=== PATIENT | female | born 1940 | race Caucasian/White ===

== ENCOUNTER 2017-04-01 09:58 | Day surgery (SDC) | payer MEDICARE, BC ==
[2017-04-01] MEDS ORDERED: Sodium Chloride 0.9% 10 ML Syringe FLUSH PRN (10:30)
[2017-04-01] MEDS ORDERED: Budesonide 0.5 MG/2 ML Neb Susp NEB ONE (10:59)
[2017-04-01] MEDS ORDERED: Lactated Ringers 1,000 ML IV SCH ×2 (11:00→13:15)
[2017-04-01] MEDS ORDERED: Propofol 200 MG/20 ML SDV IV ONE (11:30)
[2017-04-01] MEDS ORDERED: Ketorolac 30 MG/ML SDV IVPUSH ONE (11:30)
[2017-04-01] MEDS ORDERED: fentaNYL 100 MCG/2 ML SDV IV ONE (11:30)
[2017-04-01] MEDS ORDERED: Ondansetron 4 MG/2 ML SDV IVPUSH ONE (11:30)
[2017-04-01] MEDS ORDERED: Midazolam 1 MG/ML 2 ML SDV IV ONE (11:30)
[2017-04-01] MEDS ORDERED: Ketamine 500 mg/10 ML MDV IV ONE (11:30)
[2017-04-01] MEDS ORDERED: Bupivacaine 0.5% 30 ML SDV ONE (11:56)
[2017-04-01] MEDS ORDERED: Acetaminophen/HYDROcodone 325-10 MG Tab PO PRN (13:10)
[2017-04-01 15:01] VITALS: BP 128/74
--- NOTE | 2017-04-01 22:08 | OR ---
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 PROCEDURE PERFORMED: Fusion right fourth toe PIP joint. INDICATIONS: This patient had this joint fused before in December and did well; however, she stubbed her toe and bent the K-wire in her toe. This caused a deformity to her toe and some pain, so we removed it. Unfortunately, she developed a painful nonunion in this area. We discussed the surgery as far as fusion. She understands it may not heal and it may not alleviate her pain completely, but it is uncomfortable for her now. Therefore, we will proceed with surgery. The risks, complications, prognosis, expectations, and postoperative course is explained to the patient. DESCRIPTION OF PROCEDURE: The patient was taken to the operating room after 1 g of vancomycin was given. She was then carefully positioned on the operative table. A light anesthetic was administered and the patient had a metatarsal block of the right fourth metatarsal distally ,performed. This was done after a sterile ChloraPrep had been performed from the tip of the toes up to the knee where the tourniquet was placed slightly inferior to the knee. Tourniquet inflated to 200 mmHg pressure. After the sterile ChloraPrep and draping procedure, the patient had previous incision dissected through and hemostasis was achieved utilizing electrocautery. Capsule was exposed, opened up, and then we denuded the bone both proximally and distally around the PIP joint. The patient then had the medullary cavity drilled both proximally and distally to get good blood flow to the area of grafting. We took some of her own bone with regular freeze dried cancellous bone and placed it across the PIP joint after the 0.062 K-wire had been inserted. We had good circumferential grafting all way around the K-wire. A 3-0 Vicryl was placed in the subcutaneous tissue, 2-0 nylon for closure of the skin, and Xeroform, 2 x 2s, and 2-inch Mojgan applied. The patient tolerated the procedure well. No complications were encountered. ESTIMATED BLOOD LOSS: Approximately 5 to 7 mL. /[id number] JUAREZ/LUIS LOBATO
== END 2017-04-01 14:46 | disposition home or self-care (01) ==
LOC: FB.SDS 09:58
PROVIDERS: ATTEND Orthopaedic Surgery
DX: M20.41 Other hammer toe(s) (acquired), right foot (principal); G25.81 Restless legs syndrome; I48.91 Unspecified atrial fibrillation; I10 Essential (primary) hypertension; K21.9 Gastro-esophageal reflux disease without esophagitis; J45.20 Mild intermittent asthma, uncomplicated; Z87.891 Personal history of nicotine dependence
CPT/HCPCS: 28285; 94664; C1713; J1885; J2250; J2405; J2704; J3010; J3370; J7050; J7120; 01462-QZ

== ENCOUNTER 2021-03-15 14:04 | Emergency (ER) | payer MEDICARE ==
[2021-03-15] MEDS ORDERED: Sodium Chloride 0.9% 1,000 ML IV SCH (16:00)
--- NOTE | 2021-03-15 18:40 | EDM.PDOC ---
ED HPI GENERAL MEDICAL PROBLEM - General Chief Complaint: Genitourinary Problem Time Seen by Provider: 03/15/21 16:45 Source of Information: Reports: Patient History Limitations: Reports: No Limitations - History of Present Illness INITIAL COMMENTS - FREE TEXT/NARRATIVE: Patient presented to the ED because of weakness x 2 days. There is no N/V/D. No fever chills. She was diagnosed with UTI and treated with Cipro. - Related Data Allergies Allergy/AdvReac Type Severity Reaction Status Date / Time morphine Allergy Intermediate Hives Verified 04/01/17 10:43 Penicillins Allergy Hives Verified 04/01/17 10:43 amitriptyline AdvReac Intermediate Hallucinati Verified 04/01/17 10:43 ons Home Meds: Home Meds Cyanocobalamin (Vitamin B-12) [Vitamin B-12] 1,000 mcg PO DAILY 05/18/16 [History] Gabapentin [Neurontin] 600 mg PO TID 05/18/16 [History] Hydrochlorothiazide 25 mg PO DAILY 05/18/16 [History] Metoclopramide HCl 10 mg PO TID 05/18/16 [History] Multivitamin with Minerals [Multivitamins with Minerals] 1 tab PO DAILY 05/18/16 [History] Omeprazole 20 mg PO DAILY 05/18/16 [History] Oxybutynin 5 mg PO BID 05/18/16 [History] Potassium Chloride [Klor-Con M20] 20 meq PO TID 05/18/16 [History] Sertraline [Zoloft] 25 mg PO DAILY 05/18/16 [History] Spironolactone [Aldactone] 25 mg PO DAILY 05/18/16 [History] atenoloL [Atenolol] 50 mg PO DAILY 05/18/16 [History] Warfarin [Coumadin] 5 mg PO MOWEFRSA 05/19/16 [History] Albuterol [IJD: Ventolin HFA] 2 puff INH Q4H PRN 12/04/16 [History] Albuterol [Proventil Neb Soln] 3 ml INH Q2H PRN 12/04/16 [History] Alum Hydrox/Mag Hydrox/Simeth [Maalox Advanced] 30 ml PO Q4H PRN 12/04/16 [History] Budesonide [Pulmicort] 2 ml IH BID 12/04/16 [History] Cholecalciferol (Vitamin D3) [Vitamin D3] 2,000 unit PO DAILY 12/04/16 [History] Folic Acid 1 mg PO DAILY 12/04/16 [History] Warfarin [Coumadin] 7.5 mg PO SuTuTh tablet 12/10/16 [Rx] Past Medical History HEENT History: Reports: Other (See Below) Other HEENT History: Wears glasses. Cardiovascular History: Reports: Afib, Heart Failure, Hypertension Respiratory History: Reports: Asthma Gastrointestinal History: Reports: Colon Polyp, GERD Other Gastrointestinal History: PT HAS A COLOSTOMY AT PRESENT TIME. Genitourinary History: Other Genitourinary History: PT HAS STRESS INCONT. Musculoskeletal History: Reports: Other (See Below) Other Musculoskeletal History: SPINAL STENOSIS Neurological History: Reports: Neuropathy, Peripheral, Other (See Below) Other Neuro History: RESTLESS LEG SYNDROME Psychiatric History: Reports: Depression Endocrine/Metabolic History: Reports: Hypothyroidism, Obesity/BMI 30+ Hematologic History: Reports: Blood Transfusion(s) Immunologic History: Reports: Other (See Below) Other Immunologic History: MRSA Dermatologic History: Reports: Venous Stasis Dermatitis, Other (See Below) Other Dermatologic History: Sore to R ankle. - Infectious Disease History Infectious Disease History: Reports: Chicken Pox, Measles, Mumps - Past Surgical History Respiratory Surgical History: Reports: Tracheostomy GI Surgical History: Reports: Cholecystectomy, Colon, Colonoscopy, Colostomy, EGD Female Surgical History: Reports: Hysterectomy, Oophorectomy, Tubal Ligation Musculoskeletal Surgical History: Reports: Joint Replacement, Other (See Below) Other Musculoskeletal Surgeries/Procedures:: EPIDURAL STEROID INJECTION Social & Family History - Family History Family Medical History: No Pertinent Family History - Caffeine Use Caffeine Use: Reports: Coffee, Tea ED ROS GENERAL - Review of Systems Review Of Systems: See Below Constitutional: Reports: No Symptoms HEENT: Reports: No Symptoms Respiratory: Reports: No Symptoms Cardiovascular: Reports: No Symptoms Endocrine: Reports: No Symptoms GI/Abdominal: Reports: No Symptoms : Reports: No Symptoms Musculoskeletal: Reports: No Symptoms Skin: Reports: No Symptoms Neurological: Reports: No Symptoms ED EXAM, GENERAL - Physical Exam Exam: See Below Exam Limited By: No Limitations General Appearance: Alert, No Apparent Distress Ears: Normal External Exam, Normal Canal Nose: Normal Inspection, Normal Mucosa, No Blood Throat/Mouth: Normal Inspection, Normal Lips, Normal Teeth Head: Atraumatic, Normocephalic Neck: Normal Inspection, Supple, Non-Tender, Full Range of Motion Respiratory/Chest: No Respiratory Distress, Lungs Clear, Normal Breath Sounds Cardiovascular: Normal Peripheral Pulses, Regular Rate, Rhythm, No Edema, No Gallop, No JVD, No Murmur GI/Abdominal: Normal Bowel Sounds, Soft, Non-Tender, No Organomegaly Extremities: Normal Inspection, Normal Range of Motion, Non-Tender Course - Vital Signs Text/Narrative:: Lab result was discussed with patient and her daughter NS 1 L bolus - Orders/Labs/Meds Orders: Active Orders 24 hr Category Date Time Status Sodium Chloride 0.9% [Normal Saline] 1,000 ml Med 03/15/21 16:00 Active IV ASDIRECTED Medication Orders Sodium Chloride (Normal Saline) 1,000 mls @ 999 mls/hr IV ASDIRECTED JUAREZ Last Admin: 03/15/21 16:45 Dose: 999 mls/hr Documented by: JSOE D Labs: Laboratory Tests 03/15/21 03/15/21 03/15/21 Range/Units 14:45 14:45 18:23 WBC 10.4 H (3.0-10.3) x10-3/uL RBC 4.08 (3.60-5.20) x10(6)uL Hgb 13.6 (11.4-15.5) g/dL Hct 40.7 (34.2-48.2) % MCV 99.8 (76.7-100.5) fL MCH 33.3 (23.9-33.9) pg MCHC 33.3 (31.9-34.8) g/dL RDW 14.6 (12.3-16.5) % Plt Count 217 (151-488) x10(3)uL MPV 8.7 (7.1-12.4) fL Neut % (Auto) 70.4 (30.8-76.2) % Lymph % (Auto) 16.8 L (18.4-52.1) % [place] % (Auto) 10.7 (4.4-15.7) % Eos % (Auto) 1.3 (0.6-8.1) % Baso % (Auto) 0.8 (0.2-1.5) % Neut # (Auto) 7.3 H (1.5-6.3) x10-3/uL Lymph # (Auto) 1.7 (1.0-4.4) x10-3/uL [place] # (Auto) 1.1 H (0.3-1.0) x10-3/uL Eos # (Auto) 0.1 (0.0-0.8) x10-3/uL Baso # (Auto) 0.1 (0.0-0.1) x10-3/uL Sodium 137 (135-145) mmol/L Potassium 4.6 (3.5-5.3) mmol/L Chloride 100 (100-110) mmol/L Carbon Dioxide 26 (21-32) mmol/L BUN 31 H D (7-18) mg/dL Creatinine 1.6 H (0.55-1.02) mg/dL Est Cr Clr Drug Dosing TNP Estimated GFR (MDRD) 31 L (>60) BUN/Creatinine Ratio 19.4 (9-20) Glucose 116 (80-116) mg/dL Calcium 9.2 (8.6-10.2) mg/dL Urine Color Yellow (YELLOW) Urine Appearance Clear (CLEAR) Urine pH 5.0 (5.0-6.5) Ur Specific [place] 1.020 (1.010-1.025) Urine Protein Negative (NEGATIVE) mg/dL Urine Glucose (UA) Normal (NORMAL) mg/dL Urine Ketones 15 H (NEGATIVE) mg/dL Urine Occult Blood Negative (NEGATIVE) Urine Nitrite Negative (NEGATIVE) Urine Bilirubin Negative (NEGATIVE) Urine Urobilinogen Normal (NEGATIVE) mg/dL Ur Leukocyte Esterase Negative (NEGATIVE) Urine RBC 0-5 (0-5) Urine WBC 0-5 (0-5) Ur Squamous Epith Cells Few H (NS,R,O) Urine Bacteria Few H (NS) Meds: Medications Generic Name Dose Route Start Last Admin Trade Name Freq PRN Reason Stop Dose Admin Sodium Chloride 1,000 mls @ 999 mls/hr 03/15/21 16:00 03/15/21 16:45 Normal Saline IV 999 mls/hr ASDIRECTED JUAREZ Administration Departure - Departure Time of Disposition: 19:00 Disposition: Home, Self-Care 01 Condition: Good Clinical Impression: Dehydration - Discharge Information Instructions: Dehydration, Adult, [id number] Referrals: Sheron Wadsworth MD [Primary Care Provider] - Forms: ED Department Discharge Additional Instructions: Please read discharge instructions on dehydration Increase oral fluids at least 2liters a day Do not take your HCTZ/Hydroclorothiazide for 3 days Follow up as needed - My Orders Last 24 Hours: My Active Orders 03/15/21 16:00 Sodium Chloride 0.9% [Normal Saline] 1,000 ml IV ASDIRECTED - Assessment/Plan Last 24 Hours: My Active Orders 03/15/21 16:00 Sodium Chloride 0.9% [Normal Saline] 1,000 ml IV ASDIRECTED
[2021-03-15 19:45] VITALS: BP 78/43; PULSE 100
== END 2021-03-15 19:20 | disposition home or self-care (01) ==
LOC: FB.ED 14:04
DX: E86.0 Dehydration (principal); I11.0 Hypertensive heart disease with heart failure; I50.9 Heart failure, unspecified; I48.91 Unspecified atrial fibrillation; E03.9 Hypothyroidism, unspecified; E66.9 Obesity, unspecified; J45.909 Unspecified asthma, uncomplicated; Z88.0 Allergy status to penicillin; Z88.1 Allergy status to other antibiotic agents; Z88.8 Allergy status to other drugs, medicaments and biological substances; Z68.30 Body mass index [BMI] 30.0-30.9, adult; Z79.899 Other long term (current) drug therapy
CPT/HCPCS: 36415; 80048; 81001; 85025; 99285; J7030

== ENCOUNTER 2021-03-23 10:32 | Emergency (ER) | payer MEDICARE ==
--- NOTE | 2021-03-23 11:34 | EDM.PDOC ---
ED HPI GENERAL MEDICAL PROBLEM - General Chief Complaint: Lower Extremity Injury/Pain Stated Complaint: LEG INJURY Time Seen by Provider: 03/23/21 10:55 Source of Information: Reports: Patient History Limitations: Reports: No Limitations - History of Present Illness INITIAL COMMENTS - FREE TEXT/NARRATIVE: c/o LLE pain and unable to walk 3d ago a friend drove pt to clinic, her LLE got wedged between the dashboard the car frame as she has considerable inc'd girth of her thighs d/t central obesity, it 12 people and one hour to extract her, she has been able to walk with her c ane but it has been painful, today she could not get out of bed SH: 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, she use a cane, she ordered a walker 1m ago which has not arrived, she lives in an apartment, she is not willing to move to [place] as she "has a 4-legged friend" the exam of her leg is unremarkable, no ecchymosis/induration ED visit: she was send in ED 1w ago d/t "confusion" and was dx with dehydration and tx with 1 liter NS and HCTZ was held x 3d, pt oriented today (name, place, president, month, year, day--not date) PMH: ostomy bag 2011 which pt says was d/t polyps and that she has only 3' of her colon left PSH: has had L TKR and R THR MEDS: not taken her diuretic in past 3d, says she does not want to get out of a chair L leg Pain Score (Numeric/FACES): 8 - Related Data Allergies Allergy/AdvReac Type Severity Reaction Status Date / Time morphine Allergy Intermediate Hives Verified 03/23/21 10:41 Penicillins Allergy Hives Verified 03/23/21 10:41 amitriptyline AdvReac Intermediate Hallucinati Verified 03/23/21 10:41 ons Home Meds: Home Meds Cyanocobalamin (Vitamin B-12) [Vitamin B-12] 1,000 mcg PO DAILY 05/18/16 [History] Gabapentin [Neurontin] 600 mg PO TID 05/18/16 [History] Hydrochlorothiazide 25 mg PO DAILY 05/18/16 [History] Metoclopramide HCl 10 mg PO TID 05/18/16 [History] Multivitamin with Minerals [Multivitamins with Minerals] 1 tab PO DAILY 05/18/16 [History] Omeprazole 20 mg PO DAILY 05/18/16 [History] Oxybutynin 5 mg PO BID 05/18/16 [History] Potassium Chloride [Klor-Con M20] 20 meq PO TID 05/18/16 [History] Sertraline [Zoloft] 25 mg PO DAILY 05/18/16 [History] Spironolactone [Aldactone] 25 mg PO DAILY 05/18/16 [History] atenoloL [Atenolol] 50 mg PO DAILY 05/18/16 [History] Warfarin [Coumadin] 5 mg PO MOWEFRSA 05/19/16 [History] Albuterol [IJD: Ventolin HFA] 2 puff INH Q4H PRN 12/04/16 [History] Albuterol [Proventil Neb Soln] 3 ml INH Q2H PRN 12/04/16 [History] Alum Hydrox/Mag Hydrox/Simeth [Maalox Advanced] 30 ml PO Q4H PRN 12/04/16 [History] Budesonide [Pulmicort] 2 ml IH BID 12/04/16 [History] Cholecalciferol (Vitamin D3) [Vitamin D3] 2,000 unit PO DAILY 12/04/16 [History] Folic Acid 1 mg PO DAILY 12/04/16 [History] Warfarin [Coumadin] 7.5 mg PO SuTuTh tablet 12/10/16 [Rx] traMADol [Ultram] 50 mg PO QID #20 tab 03/23/21 [Rx] Past Medical History HEENT History: Reports: Other (See Below) Other HEENT History: Wears glasses. Cardiovascular History: Reports: Afib, Heart Failure, Hypertension, SOB on Exertion Respiratory History: Reports: Asthma Gastrointestinal History: Reports: Colon Polyp, Diverticulosis, GERD Other Gastrointestinal History: PT HAS A COLOSTOMY AT PRESENT TIME. Genitourinary History: Reports: Urinary Incontinence Other Genitourinary History: PT HAS STRESS INCONT. DIRECT CARE PROVIDER History: Reports: Other DIRECT CARE PROVIDER History: Musculoskeletal History: Reports: Arthritis, Back Pain, Chronic, Other (See Below) Other Musculoskeletal History: SPINAL STENOSIS, hx bilat fx thumbs Neurological History: Reports: Migraines, Neuropathy, Peripheral, Other (See Below) Other Neuro History: RESTLESS LEG SYNDROME Psychiatric History: Reports: Depression Endocrine/Metabolic History: Reports: Hypothyroidism, Obesity/BMI 30+ Hematologic History: Reports: Anticoagulation Therapy, Blood Transfusion(s) Immunologic History: Reports: Other (See Below) Other Immunologic History: MRSA Dermatologic History: Reports: Venous Stasis Dermatitis Other Dermatologic History: hx sore to R ankle. - Infectious Disease History Infectious Disease History: Reports: Chicken Pox, Measles, MRSA, Mumps - Past Surgical History HEENT Surgical History: Reports: None Respiratory Surgical History: Reports: Tracheostomy GI Surgical History: Reports: Appendectomy, Cholecystectomy, Colon, Colonoscopy, Colostomy, EGD Female Surgical History: Reports: Hysterectomy, Oophorectomy, Tubal Ligation Musculoskeletal Surgical History: Reports: Carpal Tunnel, Hip Replacement, Knee Replacement, Shoulder Surgery, Other (See Below) Other Musculoskeletal Surgeries/Procedures:: EPIDURAL STEROID INJECTION, L knee replacement, R hip replacement, L shoulder rotator cuff, bilat carpal tunnel x 4 Social & Family History - Family History Family Medical History: No Pertinent Family History - Tobacco Use Tobacco Use Status *Q: Former Tobacco User Years of Tobacco use: 20 Used Tobacco, but Quit: Yes Month/Year Tobacco Last Used: 1994 - Caffeine Use Caffeine Use: Reports: Coffee, Tea - Recreational Drug Use Recreational Drug Use: No Review of Systems - Review of Systems Review Of Systems: See Below Constitutional: Reports: No Symptoms Eyes: Reports: No Symptoms Ears: Reports: No Symptoms Nose: Reports: No Symptoms Mouth/Throat: Reports: No Symptoms Respiratory: Reports: No Symptoms Cardiovascular: Reports: No Symptoms GI/Abdominal: Reports: No Symptoms Genitourinary: Reports: No Symptoms Musculoskeletal: Reports: Leg Pain Skin: Reports: No Symptoms Neurological: Reports: Gait Disturbance Psychiatric: Reports: No Symptoms ED EXAM, GENERAL - Physical Exam Exam: See Below Exam Limited By: No Limitations General Appearance: Alert, WD/WN, Other (morbid obesity) Ears: Hearing Grossly Normal Nose: Normal Inspection Throat/Mouth: Normal Inspection Head: Atraumatic Neck: Normal Inspection, Supple Respiratory/Chest: No Respiratory Distress, Lungs Clear, Chest Non-Tender Cardiovascular: Regular Rate, Rhythm, Other (2/6 THERESE at LSB) GI/Abdominal: Soft, Non-Tender, Other (very obese, ostomy bag LLQ, old midline scar) Back Exam: Normal Inspection. No: CVA Tenderness (R), CVA Tenderness (L), Muscle Spasm Extremities: Other (trace pretib edema, dry skin pretib area with hyperkeratosis L>R, L knee/hip appear unremarkable, allows ROM altho has pain referable to her L medial thigh, no induration) Neurological: Alert, Oriented, CN II-XII Intact, No Motor/Sensory Deficits Skin Exam: Warm, Dry, Intact, Other (there is 1+ point tender to palpation of L mid thigh medially without cords or ecchymosis) Lymphatic: No Adenopathy Course - Vital Signs Last Recorded V/S: Last Vital Signs Temp 36.2 C 03/23/21 10:32 Pulse 80 03/23/21 10:32 Resp 20 03/23/21 10:32 BP 127/80 03/23/21 10:32 Pulse Ox 96 03/23/21 10:32 - Orders/Labs/Meds Orders: Active Orders 24 hr Category Date Time Status Hip Min 2V or 3V Lt [CR] Stat Exams 03/23/21 11:27 Ordered Knee 3V Lt [CR] Stat Exams 03/23/21 11:26 Ordered C-REACTIVE PROTEIN [CHEM] Stat Lab 03/23/21 11:26 Ordered CBC WITH AUTO DIFF [HEME] Stat Lab 03/23/21 11:26 Ordered COMPREHENSIVE METABOLIC PN,CMP [CHEM] Stat Lab 03/23/21 11:26 Ordered CREATINE KINASE,CK [CHEM] Stat Lab 03/23/21 11:26 Ordered - Re-Assessments/Exams Free Text/Narrative Re-Assessment/Exam: 03/23/21 13:51 d/w home health nurse who is checking with Ian re getting the walker that was ordered 1m ago bro here, advised to [facility] to get a [facility]er walker until her new one arrives pt currently taking APAP q4h, will add tramadol 50 mg qid x 5d and ibuprofen 400 mg qid x 3d (pt knows she cannot take it longer on account of her kidneys) pt is able to wt bear when she used the bedside commode prelim ED read of L knee XR shows intact prosthesis prelim ED read of L hip XR shows moderate DJD with preservation of joint space no fx's home health nurse sees pt 2x/wk, reports that pt is have MRI of her back at the end of this month for chronic back pain altho pt did not have c/o back pain here Departure - Departure Time of Disposition: 13:42 Disposition: Home, Self-Care 01 Condition: Good Clinical Impression: Contusion of left thigh, initial encounter, Left leg pain, Chronic renal insufficiency - Discharge Information *PRESCRIPTION DRUG MONITORING PROGRAM REVIEWED*: Yes *COPY OF PRESCRIPTION DRUG MONITORING REPORT IN PATIENT ADELE: No Prescriptions: traMADol [Ultram] 50 mg PO QID #20 tab Instructions: Contusion, Quadriceps Contusion Referrals: Sheron Wadsworth MD [Primary Care Provider] - Additional Instructions: Continue your regular medications. Even though the muscle is sore, there are no fractures of the bone and you may put weight on your leg. Use heat for 10 minutes every 2 hours (either heating pad or warm compress). For pain and inflammation, continue acetaminophen 2 tabs every 4-6 hours. For pain and inflammation, take ibuprofen 200 mg 2 tabs 4 times a day for 3 days. For pain, take tramadol 50 mg 1 tab 4 times a day for 5 days. Use a walker when on your feet. See your doctor in 5 days for further recommendations. Sepsis Event Note (ED) - Evaluation Sepsis Screening Result: No Definite Risk - Focused Exam Vital Signs: Vital Signs Temp Pulse Resp BP Pulse Ox 03/23/21 10:32 36.2 C 80 20 127/80 96 - My Orders Last 24 Hours: My Active Orders 03/23/21 11:26 Knee 3V Lt [CR] Stat C-REACTIVE PROTEIN [CHEM] Stat CBC WITH AUTO DIFF [HEME] Stat COMPREHENSIVE METABOLIC PN,CMP [CHEM] Stat CREATINE KINASE,CK [CHEM] Stat 03/23/21 11:27 Hip Min 2V or 3V Lt [CR] Stat - Assessment/Plan Last 24 Hours: My Active Orders 03/23/21 11:26 Knee 3V Lt [CR] Stat C-REACTIVE PROTEIN [CHEM] Stat CBC WITH AUTO DIFF [HEME] Stat COMPREHENSIVE METABOLIC PN,CMP [CHEM] Stat CREATINE KINASE,CK [CHEM] Stat 03/23/21 11:27 Hip Min 2V or 3V Lt [CR] Stat
[2021-03-23] MEDS ORDERED: traMADol 50 MG Tab PO ONE (13:45)
[2021-03-23] MEDS ORDERED: Acetaminophen 500 MG Tab PO ONE (13:45)
[2021-03-23] MEDS ORDERED: Ketorolac 30 MG/ML SDV IM ONE (13:45)
--- NOTE | 2021-03-23 15:31 | CR ---
INDICATION: Pain. LEFT HP: Three images of the left hip were obtained in frontal and lateral projections 03/23/21 - no comparisons. Mild hypertrophic degenerative changes noted at the hip joint with narrowing of the medial hip joint space suggested to a moderate degree. A definite acute fracture or dislocation was not identified. Bone density appeared to be fairly normal. IMPRESSION: No definite acute fracture or dislocation - osteoarthritis. If occult fracture site is suspected clinically, reexamination in 10-[address] examination, may be helpful for further evaluation. JENNIFERD
--- NOTE | 2021-03-23 15:35 | CR ---
INDICATION: LEFT KNEE: Frontal, lateral and patellofemoral sunrise views of the left knee were obtained 03/23/21 - no comparisons. Evidence of a total knee arthroplasty is noted which appears to be in good position and alignment without a definite complicating process except for suggestion of hypertrophic degeneratives off the lateral aspect of the patella. No other definite bone or joint abnormality was seen. If occult bony abnormality is suspected clinically, nuclear bone imaging may be helpful for further evaluation. MTDD
[2021-03-23 19:08] VITALS: BP 101/77; PULSE 89
== END 2021-03-23 16:12 | disposition home or self-care (01) ==
LOC: FB.ED 10:32
DX: S70.12XA Contusion of left thigh, initial encounter (principal); N28.9 Disorder of kidney and ureter, unspecified; I48.91 Unspecified atrial fibrillation; I11.0 Hypertensive heart disease with heart failure; I50.9 Heart failure, unspecified; K21.9 Gastro-esophageal reflux disease without esophagitis; Z87.891 Personal history of nicotine dependence; Z88.0 Allergy status to penicillin; Z88.6 Allergy status to analgesic agent; Z88.8 Allergy status to other drugs, medicaments and biological substances; Z79.01 Long term (current) use of anticoagulants; Z79.899 Other long term (current) drug therapy; Z20.822 Contact with and (suspected) exposure to COVID-19; W23.0XXA Caught, crushed, jammed, or pinched between moving objects, initial encounter
CPT/HCPCS: 36415; 73502; 73562; 80053; 82550; 85025; 86140; 96372; 99283; A9270; J1885; U0002

== ENCOUNTER 2021-04-18 08:18 | Inpatient (IN) | payer MEDICARE ==
[2021-04-18] MEDS ORDERED: Warfarin Sliding Scale PO SCH (13:00)
[2021-04-18] MEDS ORDERED: Diclofenac Sodium 1% Gel 100 GM Tube TOP PRN (13:06)
[2021-04-18] MEDS ORDERED: Albuterol 8 GM Inhaler INH PRN (13:06)
[2021-04-18] MEDS ORDERED: Budesonide 0.5 MG/2 ML Neb Susp INH PRN (13:06)
[2021-04-18] MEDS ORDERED: Emollient 454 GM Jar TOP PRN (13:06)
[2021-04-18] MEDS ORDERED: Warfarin 5 MG Tab PO SCH (13:15)
[2021-04-18] MEDS: Pregabalin 100 MG Cap PO SCH ×2 (14:00→20:39)
[2021-04-18] MEDS: Acetaminophen 650 MG Tab.ER PO SCH ×2 (14:00→20:36)
[2021-04-18] MEDS: Warfarin 5 MG Tab PO SCH (15:49)
[2021-04-18] MEDS: oxyCODONE 5 MG Tab PO PRN (16:14)
[2021-04-18] MEDS: Menthol/Methyl Salicylate 85 GM Tube TOP PRN (17:34)
[2021-04-18] MEDS: Potassium Chloride 20 MEQ Tab.ER PO SCH (17:34)
--- NOTE | 2021-04-18 17:44 | PCM.HP.2 ---
H&P History of Present Illness - General Date of Service: 04/18/21 Admit Problem/Dx: Admission Diagnosis/Problem Admission Diagnosis/Problem Spinal stenosis Source of Information: Patient, Old Records History Limitations: Reports: No Limitations - History of Present Illness Initial Comments - Free Text/Narative: This is a 81-year-old female patient with history of chronic low back pain. She was trying to get out of a car and slipped between the seat and the dashboard. She's very large lady so the ambulance was called to get out of there. After that she started having really bad back pain. She was seen at [facility] by Teddy Caraballo and ordered MRI of the chin the going to [place] by ambulance. She had MRI that showed spinal stenosis. She was transferred here for pain control and rehabilitation. She's having difficulty walking. She thinks she's heard someone in opacity she might of spinal stenosis but she does not recall. She had a series of epidural injections in the past. They want to cervically. Left Hip Pain Score (Numeric/FACES): 7 Low Back Pain Score (Numeric/FACES): 5 - Related Data Allergies/Adverse Reactions: Allergies Allergy/AdvReac Type Severity Reaction Status Date / Time morphine Allergy Intermediate Hives Verified 03/23/21 10:41 Penicillins Allergy Hives Verified 03/23/21 10:41 amitriptyline AdvReac Intermediate Hallucinati Verified 03/23/21 10:41 ons Home Medications: Home Meds Cyanocobalamin (Vitamin B-12) [Vitamin B-12] 1,000 mcg PO DAILY 05/18/16 [History] Omeprazole 40 mg PO ACBREAKFAST 05/18/16 [History] Potassium Chloride [Klor-Con M20] 20 meq PO BIDMEALS 05/18/16 [History] Spironolactone [Aldactone] 50 mg PO DAILY 05/18/16 [History] Warfarin [Coumadin] 5 mg PO ASDIRECTED 05/19/16 [History] Acetaminophen [Acetaminophen 8 Hour] 1,300 mg PO TID 04/18/21 [History] Albuterol [Ventolin HFA] 2 puff IN Q4H PRN 04/18/21 [History] Budesonide [Pulmicort] 0.5 mg IH BID PRN 04/18/21 [History] Cholecalciferol (Vitamin D3) [Vitamin D3] 50 mcg PO DAILY 04/18/21 [History] Cyclobenzaprine HCl 5 mg PO TID PRN 04/18/21 [History] Diclofenac Sodium [Voltaren] 2 - 4 gm TP QID PRN 04/18/21 [History] Docusate Sodium/Sennosides [Senna Plus] 2 each PO BID PRN 04/18/21 [History] Emollient [Vanicream] 1 applic TP BID PRN 04/18/21 [History] Enoxaparin [Lovenox] 135 mg SQ Q12H 04/18/21 [History] Formoterol [Perforomist] 20 mcg INH BID 04/18/21 [History] Furosemide 20 mg PO 1200 04/18/21 [History] Furosemide 40 mg PO 0800 04/18/21 [History] Lidocaine 4% [Aspercreme 4%] 3 patch TP Q24H 04/18/21 [History] Losartan [Cozaar] 25 mg PO DAILY 04/18/21 [History] Methyl Salicylate/Menthol [Icy Hot] 1 gm TP ASDIRECTED PRN 04/18/21 [History] Metoprolol Succinate [Toprol XL] 25 mg PO DAILY 04/18/21 [History] Montelukast [Singulair] 10 mg PO BEDTIME 04/18/21 [History] Multivitamins [Tab-A-Tara] 1 each PO DAILY 04/18/21 [History] Pregabalin [Lyrica] 100 mg PO TID 04/18/21 [History] Rosuvastatin [Crestor] 10 mg PO BEDTIME 04/18/21 [History] Tolterodine Tartrate [Tolterodine Tartrate ER] 4 mg PO DAILY 04/18/21 [History] Triamcinolone Acetonide [Triamcinolone Acetonide 0.1% Oint] 1 applic TOP BID 04/18/21 [History] oxyCODONE 5 - 10 mg PO Q4H PRN 04/18/21 [History] rOPINIRole [Requip] 1 mg PO BEDTIME 04/18/21 [History] Past Medical History HEENT History: Reports: Other (See Below) Other HEENT History: Wears glasses. Cardiovascular History: Reports: Afib, Heart Failure, Hypertension, SOB on Exertion Respiratory History: Reports: Asthma Gastrointestinal History: Reports: Colon Polyp, Diverticulosis, GERD Other Gastrointestinal History: PT HAS A COLOSTOMY AT PRESENT TIME. Genitourinary History: Reports: Urinary Incontinence Other Genitourinary History: PT HAS STRESS INCONT. 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: Reports: Other OB/BYN History: Musculoskeletal History: Reports: Arthritis, Back Pain, Chronic, Other (See Below) Other Musculoskeletal History: SPINAL STENOSIS, hx bilat fx thumbs Neurological History: Reports: Migraines, Neuropathy, Peripheral, Other (See Below) Other Neuro History: RESTLESS LEG SYNDROME Psychiatric History: Reports: Depression Endocrine/Metabolic History: Reports: Hypothyroidism, Obesity/BMI 30+ Hematologic History: Reports: Anticoagulation Therapy, Blood Transfusion(s) Immunologic History: Reports: Other (See Below) Other Immunologic History: MRSA Dermatologic History: Reports: Venous Stasis Dermatitis Other Dermatologic History: hx sore to R ankle. - Infectious Disease History Infectious Disease History: Reports: Chicken Pox, Measles, MRSA, Mumps - Past Surgical History HEENT Surgical History: Reports: None Cardiovascular Surgical History: Reports: None Respiratory Surgical History: Reports: Tracheostomy GI Surgical History: Reports: Appendectomy, Cholecystectomy, Colon, Colonoscopy, Colostomy, EGD Female Surgical History: Reports: Hysterectomy, Oophorectomy, Tubal Ligation Musculoskeletal Surgical History: Reports: Carpal Tunnel, Hip Replacement, Knee Replacement, Shoulder Surgery, Other (See Below) Other Musculoskeletal Surgeries/Procedures:: EPIDURAL STEROID INJECTION, L knee replacement, R hip replacement, L shoulder rotator cuff, bilat carpal tunnel x 4 Social & Family History - Family History Family Medical History: No Pertinent Family History Cardiac: Reports: [place] : Reports: Diabetic Nephropathy Endocrine/Metabolic: Reports: Diabetes, type II - Tobacco Use Tobacco Use Status *Q: Former Tobacco User Used Tobacco, but Quit: Yes Month/Year Tobacco Last Used: 1991 - Caffeine Use Caffeine Use: Reports: Coffee - Recreational Drug Use Recreational Drug Use: No H&P Review of Systems - Review of Systems: Review Of Systems: See Below General: Reports: No Symptoms, Weakness HEENT: Reports: No Symptoms Pulmonary: Reports: No Symptoms Cardiovascular: Reports: No Symptoms, Blood Pressure Problem Genitourinary: Reports: Other (Incontinence that is not new.) Musculoskeletal: Reports: Back Pain Skin: Reports: No Symptoms Psychiatric: Reports: No Symptoms Neurological: Reports: No Symptoms Hematologic/Lymphatic: Reports: No Symptoms Immunologic: Reports: No Symptoms Exam - Exam Exam: See Below - Vital Signs Vital Signs: Last Vital Signs Temp 97.6 F 04/18/21 12:01 Pulse 116 H 04/18/21 12:01 Resp 20 04/18/21 12:01 BP 140/86 04/18/21 12:01 Pulse Ox 96 04/18/21 13:03 Weight: 303 lb - Exam General: Alert, Oriented, Cooperative, Other (Obese sitting in a reclining chair and she is short.) HEENT: Hearing Intact, Mucosa Moist & [place], Posterior Pharynx Clear, TMs Clear Neck: Supple, Trachea Midline Lungs: Clear to Auscultation, Normal Respiratory Effort Cardiovascular: Regular Rate, Regular Rhythm, Systolic Murmur GI/Abdominal Exam: Normal Bowel Sounds, Soft, Non-Tender, No Distention, No Mass Back Exam: Other (Unable to examine because of the position she is in.) Extremities: Normal Inspection, No Pedal Edema Skin: Warm Neurological: Normal Speech, Normal Tone Neuro Extensive - Mental Status: Alert, Oriented x3, Normal Mood/Affect, Normal Cognition, Memory Intact Psychiatric: Alert, Normal Mood - Patient Data Lab Results Last 24 hrs: Laboratory Results - last 24 hr 04/18/21 Range/Units 13:40 PT 17.7 H (9.0-11.1) sec INR 1.70 H (1.00-1.24) Sepsis Event Note - Evaluation Sepsis Screening Result: No Definite Risk - Focused Exam Vital Signs: Vital Signs Temp Pulse Resp BP Pulse Ox Pulse Ox 04/18/21 13:03 96 04/18/21 12:01 97.6 F 116 H 20 140/86 92 L - Problem List (1) Spinal stenosis SNOMED Code(s): 89711890 ICD Code: M48.00 - SPINAL STENOSIS, SITE UNSPECIFIED Status: Acute Current Visit: Yes (2) Weakness SNOMED Code(s): 45050448 ICD Code: R53.1 - WEAKNESS Status: Acute Priority: Medium Current Visit: No (3) Back pain SNOMED Code(s): 371523201 ICD Code: M54.9 - DORSALGIA, UNSPECIFIED Status: Acute Current Visit: Yes Problem List Initiated/Reviewed/Updated: Yes Orders Last 24hrs: Active Orders 24 hr Category Date Time Status Admission Status [Patient Status] [ADT] Routine ADT 04/18/21 11:45 Active Patient Status [ADT] Routine ADT 04/18/21 13:03 Active Oxygen Therapy [RC] PRN Care 04/18/21 13:03 Active RT Aerosol Therapy [RC] ASDIRECTED Care 04/18/21 13:08 Active RT Post Treatment Assessment [RC] Click to Edit Care 04/18/21 13:08 Active Up With Assistance [RC] ASDIRECTED Care 04/18/21 13:03 Active VTE/DVT Education [RC] Per Unit Routine Care 04/18/21 13:03 Active Vital Signs [RC] DAILY Care 04/18/21 13:03 Active OT Evaluation and Treatment [CONS] Routine Cons 04/18/21 13:03 Active PT Evaluation and Treatment [CONS] Routine Cons 04/18/21 13:03 Active Regular Diet [DIET] Diet 04/18/21 Dinner Active INR,PT,PROTHROMBIN TIME [COAG] DAILY Lab 04/19/21 13:00 Ordered INR,PT,PROTHROMBIN TIME [COAG] DAILY Lab 04/20/21 13:00 Ordered INR,PT,PROTHROMBIN TIME [COAG] DAILY Lab 04/21/21 13:00 Ordered Acetaminophen [Tylenol Arthritis Pain] Med 04/18/21 14:00 Active 1,300 mg PO TID Albuterol [Ventolin HFA] Med 04/18/21 13:06 Active 0 gm INH Q4H PRN Arformoterol [Brovana] Med 04/18/21 21:00 Active 15 mcg INH BID Budesonide [Pulmicort] Med 04/18/21 13:06 Active 0.5 mg INH BID PRN Cholecalciferol (Vitamin D3) [Vitamin D3] Med 04/19/21 09:00 Active 50 mcg PO DAILY Cyanocobalamin (Vitamin B12) [Vitamin B12] Med 04/19/21 09:00 Active 1,000 mcg PO DAILY Cyclobenzaprine [Flexeril] Med 04/18/21 13:30 Active 5 mg PO TID PRN Diclofenac Sodium [Voltaren 1% Gel] Med 04/18/21 13:06 Active 2 - 4 gm TOP QID PRN Docusate Sodium/Sennosides [Senna Plus] Med 04/18/21 13:06 Active 2 tab PO BID PRN Emollient [Vanicream] Med 04/18/21 13:06 Active 0 gm TOP BID PRN Enoxaparin [Lovenox] Med 04/18/21 21:00 Active 135 mg SUBCUT Q12H Furosemide [Lasix] Med 04/19/21 12:00 Active 20 mg PO 1200 Furosemide [Lasix] Med 04/19/21 08:00 Active 40 mg PO 0800 Lidocaine 4% [Aspercreme 4%] Med 04/18/21 21:00 Active 3 each TOP Q24H Losartan [Cozaar] Med 04/19/21 09:00 Active 25 mg PO DAILY Menthol/Methyl Salicylate [Icy Hot Cream] Med 04/18/21 13:06 Active 1 gm TOP ASDIRECTED PRN Metoprolol Succinate [Toprol XL] Med 04/19/21 09:00 Active 25 mg PO DAILY Montelukast [Singulair] Med 04/18/21 21:00 Active 10 mg PO BEDTIME Multivitamins [Tab-A-Tara] Med 04/19/21 09:00 Active 1 tab PO DAILY Pantoprazole [ProTONIX] Med 04/19/21 06:00 Active 40 mg PO DAILY@0600 Potassium Chloride [Klor-Con M20] Med 04/18/21 18:00 Active 20 meq PO BIDMEALS Pregabalin [Lyrica] Med 04/18/21 14:00 Active 100 mg PO TID Remove Patch Med 04/19/21 09:00 Active 1 ea TRDERM DAILY Rosuvastatin [Crestor] Med 04/18/21 21:00 Active 10 mg PO BEDTIME Spironolactone [Aldactone] Med 04/19/21 09:00 Active 50 mg PO DAILY Tolterodine [Detrol LA 24 Hr] Med 04/19/21 09:00 Active 4 mg PO DAILY Warfarin Sliding Scale [Coumadin Sliding Scale] Med 04/18/21 13:00 Pending 1 each PO ASDIRECTED Warfarin [Coumadin] Med 04/18/21 16:00 Active 5 mg PO DAILY@1600 Zinc Oxide Med 04/18/21 14:46 Active 0 gm TOP ASDIRECTED PRN oxyCODONE Med 04/18/21 13:06 Active 5 - 10 mg PO Q4H PRN rOPINIRole [Requip] Med 04/18/21 21:00 Active 1 mg PO BEDTIME Resuscitation Status Routine Resus Stat 04/18/21 13:03 Ordered Medication Orders Acetaminophen (Acetaminophen 650 Mg Tab.Er) 1,300 mg PO TID JUAREZ Last Admin: 04/18/21 14:00 Dose: 1,300 mg Documented by: SINAN Albuterol (Albuterol 8 Gm Inhaler) 0 gm INH Q4H PRN PRN Reason: BREATHING Arformoterol Tartrate (Arformoterol 15 Mcg/2 Ml Neb Soln) 15 mcg INH BID JUAREZ Budesonide (Budesonide 0.5 Mg/2 Ml Neb Susp) 0.5 mg INH BID PRN PRN Reason: DIFFICULTY BREATHING Cholecalciferol (Cholecalciferol (Vitamin D3) 25 Mcg Tab) 50 mcg PO DAILY JUAREZ Cyanocobalamin (Cyanocobalamin (Vitamin B12) 1,000 Mcg Tab) 1,000 mcg PO DAILY JUAREZ Cyclobenzaprine HCl (Cyclobenzaprine 10 Mg Tab) 5 mg PO TID PRN PRN Reason: Muscle Spasm - Painful Diclofenac Sodium (Diclofenac Sodium 1% Gel 100 Gm Tube) 2 - 4 gm TOP QID PRN PRN Reason: Pain Emollient Ointment (Emollient 454 Gm Jar) 0 gm TOP BID PRN PRN Reason: DRY SKIN Enoxaparin Sodium (Enoxaparin 150 Mg/1 Ml Syringe) 135 mg SUBCUT Q12H [facility] Furosemide (Furosemide 40 Mg Tab) 40 mg PO 0800 JUAREZ Furosemide (Furosemide 20 Mg Tab) 20 mg PO 1200 [facility] Lidocaine (Lidocaine 4% 1 Each Patch) 3 each TOP Q24H [facility] Losartan Potassium (Losartan 25 Mg Tab) 25 mg PO DAILY [facility] Methyl Salicylate (Menthol/Methyl Salicylate 85 Gm Tube) 1 gm TOP ASDIRECTED PRN PRN Reason: Pain Last Admin: 04/18/21 17:34 Dose: 1 gram Documented by: SINAN Metoprolol Succinate (Metoprolol Succinate 25 Mg Tab.Er) 25 mg PO DAILY [facility] Miscellaneous Information (Remove Patch) 1 ea TRDERM DAILY [facility] Montelukast Sodium (Montelukast 10 Mg Tab) 10 mg PO BEDTIME [facility] Multi-Ingred Cream/Lotion/Oil/Oint (Zinc Oxide 20% Oint 28.35 Gm Tube) 0 gm TOP ASDIRECTED PRN PRN Reason: BARRIER Multivitamins/Minerals/Vitamin C (Multivitamin Tab) 1 tab PO DAILY [facility] Oxycodone HCl (Oxycodone 5 Mg Tab) 5 - 10 mg PO Q4H PRN PRN Reason: Pain (moderate 4-6) Last Admin: 04/18/21 16:14 Dose: 5 mg Documented by: SINAN Pantoprazole Sodium (Pantoprazole 40 Mg Tab.Cr) 40 mg PO DAILY@0600 [facility] Potassium Chloride (Potassium Chloride 20 Meq Tab.Er) 20 meq PO BIDMEALS [facility] Last Admin: 04/18/21 17:34 Dose: 20 meq Documented by: SINAN Pregabalin (Pregabalin 100 Mg Cap) 100 mg PO TID [facility] Last Admin: 04/18/21 14:00 Dose: 100 mg Documented by: SINAN Ropinirole HCl (Ropinirole 1 Mg Tab) 1 mg PO BEDTIME [facility] Rosuvastatin Calcium (Rosuvastatin 10 Mg Tab) 10 mg PO BEDTIME [facility] Senna/Docusate Sodium (Docusate Sodium/Sennosides 50-8.6 Mg Tab) 2 tab PO BID PRN PRN Reason: Constipation Spironolactone (Spironolactone 50 Mg Tab) 50 mg PO DAILY [facility] Tolterodine Tartrate (Tolterodine 4 Mg Cap.Er) 4 mg PO DAILY [facility] Warfarin Sodium (Warfarin Sliding Scale) 1 each PO ASDIRECTED [facility] Warfarin Sodium (Warfarin 5 Mg Tab) 5 mg PO DAILY@1600 [facility] Last Admin: 04/18/21 15:49 Dose: 5 mg Documented by: SINAN Assessment/Plan Comment:: 1. Admit to swing bed. 2. PT/OT. 3. Regular diet. 4. She is on Coumadin and Lovenox. In the INR just 2-3 then Lovenox should be stopped. 5. Up with assist and a PT and OT. 6. No labs 7. Continue home medications. - Mortality Measure Prognosis:: Good
[2021-04-18] MEDS: Lidocaine 4% 1 each Patch TOP SCH (20:30)
[2021-04-18] MEDS: Enoxaparin 150 MG/1 ML Syringe SUBCUT SCH (20:31)
[2021-04-18] MEDS: Rosuvastatin 10 MG Tab PO SCH (20:31)
[2021-04-18] MEDS: rOPINIRole 1 MG Tab PO SCH (20:35)
[2021-04-18] MEDS: Montelukast 10 MG Tab PO SCH (20:36)
[2021-04-18] MEDS ORDERED: Triamcinolone Acetonide 0.1% Oint 15 GM Tube TOP SCH (21:00)
[2021-04-18] MEDS ORDERED: Arformoterol 15 MCG/2 ML Neb Soln INH SCH (21:00)
[2021-04-19] MEDS: Menthol/Methyl Salicylate 85 GM Tube TOP PRN ×2 (05:34→10:45)
[2021-04-19] MEDS: Pantoprazole 40 MG Tab.CR PO SCH (05:35)
[2021-04-19] MEDS ORDERED: Arformoterol 15 MCG/2 ML Neb Soln INH PRN (07:26)
[2021-04-19] MEDS: Acetaminophen 650 MG Tab.ER PO SCH ×3 (08:56→20:44)
[2021-04-19] MEDS: Cholecalciferol (Vitamin D3) 25 MCG Tab PO SCH (08:56)
[2021-04-19] MEDS: Metoprolol Succinate 25 MG Tab.ER PO SCH (08:57)
[2021-04-19] MEDS: Potassium Chloride 20 MEQ Tab.ER PO SCH ×2 (08:57→17:39)
[2021-04-19] MEDS: Spironolactone 50 MG Tab PO SCH (08:57)
[2021-04-19] MEDS: Furosemide 40 MG Tab PO SCH (08:57)
[2021-04-19] MEDS: Cyanocobalamin (Vitamin B12) 1,000 MCG Tab PO SCH (08:57)
[2021-04-19] MEDS: Tolterodine 4 MG Cap.ER PO SCH (08:57)
[2021-04-19] MEDS: Multivitamin Tab PO SCH (08:57)
[2021-04-19] MEDS: Enoxaparin 150 MG/1 ML Syringe SUBCUT SCH ×2 (08:57→20:45)
[2021-04-19] MEDS: Losartan 25 MG Tab PO SCH (08:57)
[2021-04-19] MEDS: Pregabalin 100 MG Cap PO SCH ×3 (09:03→20:44)
[2021-04-19] MEDS: oxyCODONE 5 MG Tab PO PRN ×2 (12:25→16:25)
[2021-04-19] MEDS: Furosemide 20 MG Tab PO SCH (12:28)
[2021-04-19] MEDS: Warfarin 5 MG Tab PO SCH (15:34)
[2021-04-19] MEDS: Montelukast 10 MG Tab PO SCH (20:44)
[2021-04-19] MEDS: rOPINIRole 1 MG Tab PO SCH (20:44)
[2021-04-19] MEDS: Rosuvastatin 10 MG Tab PO SCH (20:44)
[2021-04-19] MEDS: Lidocaine 4% 1 each Patch TOP SCH (20:45)
[2021-04-20] MEDS: Pantoprazole 40 MG Tab.CR PO SCH ×2 (04:45→06:00)
[2021-04-20] MEDS: oxyCODONE 5 MG Tab PO PRN ×2 (04:48→09:32)
[2021-04-20] MEDS: Menthol/Methyl Salicylate 85 GM Tube TOP PRN (04:55)
[2021-04-20] MEDS: Potassium Chloride 20 MEQ Tab.ER PO SCH ×2 (08:02→17:44)
[2021-04-20] MEDS: Losartan 25 MG Tab PO SCH (08:02)
[2021-04-20] MEDS: Pregabalin 100 MG Cap PO SCH ×3 (08:02→20:39)
[2021-04-20] MEDS: Cholecalciferol (Vitamin D3) 25 MCG Tab PO SCH (08:03)
[2021-04-20] MEDS: Furosemide 40 MG Tab PO SCH (08:03)
[2021-04-20] MEDS: Spironolactone 50 MG Tab PO SCH (08:03)
[2021-04-20] MEDS: Tolterodine 4 MG Cap.ER PO SCH (08:03)
[2021-04-20] MEDS: Metoprolol Succinate 25 MG Tab.ER PO SCH (08:03)
[2021-04-20] MEDS: Acetaminophen 650 MG Tab.ER PO SCH ×3 (08:04→20:39)
[2021-04-20] MEDS: Cyanocobalamin (Vitamin B12) 1,000 MCG Tab PO SCH (08:04)
[2021-04-20] MEDS: Multivitamin Tab PO SCH (08:04)
[2021-04-20] MEDS: Enoxaparin 150 MG/1 ML Syringe SUBCUT SCH ×2 (08:04→20:39)
[2021-04-20] MEDS: Furosemide 20 MG Tab PO SCH (11:28)
[2021-04-20] MEDS: Warfarin 5 MG Tab PO SCH (16:33)
[2021-04-20] MEDS: rOPINIRole 1 MG Tab PO SCH (20:39)
[2021-04-20] MEDS: Rosuvastatin 10 MG Tab PO SCH (20:39)
[2021-04-20] MEDS: Montelukast 10 MG Tab PO SCH (20:39)
[2021-04-20] MEDS: Lidocaine 4% 1 each Patch TOP SCH (20:40)
[2021-04-21] MEDS: Menthol/Methyl Salicylate 85 GM Tube TOP PRN (04:50)
[2021-04-21] MEDS: oxyCODONE 5 MG Tab PO PRN ×2 (05:21→17:09)
[2021-04-21] MEDS: Pantoprazole 40 MG Tab.CR PO SCH (05:22)
[2021-04-21] MEDS: Potassium Chloride 20 MEQ Tab.ER PO SCH ×2 (08:26→17:09)
[2021-04-21] MEDS: Furosemide 40 MG Tab PO SCH (08:26)
[2021-04-21] MEDS: Cyclobenzaprine 10 MG Tab PO PRN (08:26)
[2021-04-21] MEDS: Tolterodine 4 MG Cap.ER PO SCH (09:11)
[2021-04-21] MEDS: Spironolactone 50 MG Tab PO SCH (09:11)
[2021-04-21] MEDS: Losartan 25 MG Tab PO SCH (09:11)
[2021-04-21] MEDS: Cyanocobalamin (Vitamin B12) 1,000 MCG Tab PO SCH (09:12)
[2021-04-21] MEDS: Metoprolol Succinate 25 MG Tab.ER PO SCH (09:12)
[2021-04-21] MEDS: Multivitamin Tab PO SCH (09:12)
[2021-04-21] MEDS: Acetaminophen 650 MG Tab.ER PO SCH ×3 (09:12→20:38)
[2021-04-21] MEDS: Cholecalciferol (Vitamin D3) 25 MCG Tab PO SCH (09:12)
[2021-04-21] MEDS: Enoxaparin 150 MG/1 ML Syringe SUBCUT SCH ×2 (09:16→20:36)
[2021-04-21] MEDS: Pregabalin 100 MG Cap PO SCH ×3 (09:23→20:41)
--- NOTE | 2021-04-21 13:08 | PN ---
DATE SEEN: 04/21/2021 HISTORY: Ms. Garcia is a 81-year-old woman with history of chronic atrial fibrillation, chronic low back pain, COPD, osteoarthritis, GERD, and restless legs syndrome. She sustained a fall in her kitchen about 3 months ago, which increased her low back pain, then on approximately the 04 of April, she was stepping out of her car door, tripped, got her foot caught and fell down between the seat and the dashboard. She was stuck there for over an hour until the ambulance could come and free her. She experienced extreme severe back pain, was taken to the [facility], admitted, underwent MRI, treated with pain medications, and received an epidural steroid injection, and then was discharged to [facility] for rehab. The patient states that her back feels better today. She has been using a TENS unit along with her medications and a Lidoderm patch. PHYSICAL EXAMINATION: GENERAL: Today, she is alert and a good historian. She is currently comfortable, lying supine. VITAL SIGNS: Blood pressure 125/71, pulse 81 regular, respirations normal, temp 97.8, weight on admission stated at 303 pounds. SKIN: Shows no sign of rash or trauma. HEENT: Mouth is dry. LUNGS: Clear. HEART: Regular. ABDOMEN: Obese, soft, and nontender. She has healthy-appearing colostomy in the left lower quadrant of her abdomen. EXTREMITIES: Show no edema at the left ankle. She has 1+ edema at the right ankle and almaraz. Straight leg raising is negative at 40 degrees bilaterally. ASSESSMENT: 1. Severe exacerbation of back pain with spinal stenosis and lumbar strain secondary to fall. 2. Chronic osteoarthritis with chronic low back pain. 3. Chronic atrial fibrillation, on anticoagulation. 4. Chronic obstructive pulmonary disease. 5. Obesity. 6. Gastroesophageal reflux disease. 7. Chronic venous stasis, right lower extremity. 8. Restless legs syndrome. 9. Mixed urinary incontinence. PLAN: We will continue her current medications, her physical therapy, ambulation. Anticipate discharge the first of the week to home. We will plan [facility] and continue to provide palliative care services for her chronic medical conditions. /[id number] JODI/LUIS
[2021-04-21] MEDS: Furosemide 20 MG Tab PO SCH (13:39)
[2021-04-21] MEDS ORDERED: Warfarin 5 MG, Warfarin 2.5 MG PO ONE ×2 (16:00)
[2021-04-21] MEDS: Lidocaine 4% 1 each Patch TOP SCH (20:35)
[2021-04-21] MEDS: Rosuvastatin 10 MG Tab PO SCH (20:36)
[2021-04-21] MEDS: rOPINIRole 1 MG Tab PO SCH (20:38)
[2021-04-21] MEDS: Montelukast 10 MG Tab PO SCH (20:38)
[2021-04-22] MEDS: oxyCODONE 5 MG Tab PO PRN ×5 (01:25→21:43)
[2021-04-22] MEDS: Menthol/Methyl Salicylate 85 GM Tube TOP PRN ×3 (01:26→19:48)
[2021-04-22] MEDS: Cyclobenzaprine 10 MG Tab PO PRN ×2 (01:26→08:00)
[2021-04-22] MEDS: Pantoprazole 40 MG Tab.CR PO SCH (05:36)
[2021-04-22] MEDS: Cholecalciferol (Vitamin D3) 25 MCG Tab PO SCH (08:01)
[2021-04-22] MEDS: Metoprolol Succinate 25 MG Tab.ER PO SCH (08:01)
[2021-04-22] MEDS: Acetaminophen 650 MG Tab.ER PO SCH ×3 (08:01→20:13)
[2021-04-22] MEDS: Spironolactone 50 MG Tab PO SCH (08:01)
[2021-04-22] MEDS: Potassium Chloride 20 MEQ Tab.ER PO SCH ×2 (08:02→17:17)
[2021-04-22] MEDS: Losartan 25 MG Tab PO SCH (08:02)
[2021-04-22] MEDS: Pregabalin 100 MG Cap PO SCH ×3 (08:02→20:13)
[2021-04-22] MEDS: Cyanocobalamin (Vitamin B12) 1,000 MCG Tab PO SCH (08:02)
[2021-04-22] MEDS: Multivitamin Tab PO SCH (08:02)
[2021-04-22] MEDS: Tolterodine 4 MG Cap.ER PO SCH (08:03)
[2021-04-22] MEDS: Furosemide 40 MG Tab PO SCH (08:03)
[2021-04-22] MEDS: Enoxaparin 150 MG/1 ML Syringe SUBCUT SCH (08:07)
[2021-04-22] MEDS: Furosemide 20 MG Tab PO SCH (13:53)
[2021-04-22] MEDS: Warfarin 5 MG Tab PO SCH (17:16)
[2021-04-22] MEDS: Montelukast 10 MG Tab PO SCH (20:12)
[2021-04-22] MEDS: Lidocaine 4% 1 each Patch TOP SCH (20:12)
[2021-04-22] MEDS: Rosuvastatin 10 MG Tab PO SCH (20:13)
[2021-04-22] MEDS: rOPINIRole 1 MG Tab PO SCH (20:13)
[2021-04-23] MEDS: oxyCODONE 5 MG Tab PO PRN ×3 (04:28→16:47)
[2021-04-23] MEDS: Pantoprazole 40 MG Tab.CR PO SCH (05:48)
[2021-04-23] MEDS: Potassium Chloride 20 MEQ Tab.ER PO SCH ×2 (08:54→16:59)
[2021-04-23] MEDS: Furosemide 40 MG Tab PO SCH (08:54)
[2021-04-23] MEDS: Spironolactone 50 MG Tab PO SCH (08:54)
[2021-04-23] MEDS: Losartan 25 MG Tab PO SCH (08:55)
[2021-04-23] MEDS: Multivitamin Tab PO SCH (08:56)
[2021-04-23] MEDS: Tolterodine 4 MG Cap.ER PO SCH (08:56)
[2021-04-23] MEDS: Metoprolol Succinate 25 MG Tab.ER PO SCH (08:57)
[2021-04-23] MEDS: Cyanocobalamin (Vitamin B12) 1,000 MCG Tab PO SCH (08:58)
[2021-04-23] MEDS: Acetaminophen 650 MG Tab.ER PO SCH ×3 (08:58→20:29)
[2021-04-23] MEDS: Cholecalciferol (Vitamin D3) 25 MCG Tab PO SCH (08:58)
[2021-04-23] MEDS: Pregabalin 100 MG Cap PO SCH ×3 (09:03→20:32)
[2021-04-23] MEDS: Furosemide 20 MG Tab PO SCH (13:02)
[2021-04-23] MEDS: Warfarin 5 MG Tab PO SCH (15:39)
[2021-04-23] MEDS: Menthol/Methyl Salicylate 85 GM Tube TOP PRN (16:50)
[2021-04-23] MEDS: Lidocaine 4% 1 each Patch TOP SCH (20:27)
[2021-04-23] MEDS: Rosuvastatin 10 MG Tab PO SCH (20:28)
[2021-04-23] MEDS: Montelukast 10 MG Tab PO SCH (20:29)
[2021-04-23] MEDS: rOPINIRole 1 MG Tab PO SCH (20:29)
[2021-04-24] MEDS: oxyCODONE 5 MG Tab PO PRN (03:28)
[2021-04-24] MEDS: Pantoprazole 40 MG Tab.CR PO SCH (05:30)
[2021-04-24] MEDS: Menthol/Methyl Salicylate 85 GM Tube TOP PRN ×3 (08:30→13:49)
[2021-04-24] MEDS: Furosemide 40 MG Tab PO SCH (08:37)
[2021-04-24] MEDS: Spironolactone 50 MG Tab PO SCH (08:37)
[2021-04-24] MEDS: Potassium Chloride 20 MEQ Tab.ER PO SCH (08:37)
[2021-04-24] MEDS: Tolterodine 4 MG Cap.ER PO SCH (08:38)
[2021-04-24] MEDS: Multivitamin Tab PO SCH (08:38)
[2021-04-24] MEDS: Metoprolol Succinate 25 MG Tab.ER PO SCH (08:39)
[2021-04-24] MEDS: Losartan 25 MG Tab PO SCH (08:39)
[2021-04-24] MEDS: Acetaminophen 650 MG Tab.ER PO SCH ×2 (08:40→13:47)
[2021-04-24] MEDS: Cholecalciferol (Vitamin D3) 25 MCG Tab PO SCH (08:40)
[2021-04-24] MEDS: Cyanocobalamin (Vitamin B12) 1,000 MCG Tab PO SCH (08:40)
[2021-04-24] MEDS: Pregabalin 100 MG Cap PO SCH ×2 (08:44→13:47)
[2021-04-24] MEDS: Furosemide 20 MG Tab PO SCH (12:03)
[2021-04-24 14:26] VITALS: BP 124/57; PULSE 108
--- NOTE | 2021-04-24 19:08 | DISCH ---
DISCHARGE DATE: 04/24/2021 HISTORY: Ms. Garcia is a 81-year-old woman with a history of chronic low back pain. This had steady worsening and resulted in a lumbar epidural steroid injection for spinal stenosis. She states that she would not do it again because of the pain during the injection; however, it seemed to have slowly improved her back pain. She has been using a TENS unit, a Lidoderm patch along with pain medications. Her back pain has steadily improved while here. Her other medications were stable including medications for AFib, COPD, GERD, RLS, etc. The patient received physical and occupational therapy. She had practiced on stairs while here as well as ambulation. By 04/24/2021, she was deemed strong enough for discharge. She is discharged to her home in improved condition to continue her current list of inpatient medications; see accompanying list. We will continue to have home health care with an network systems engineer for her medications, AFib, lungs, etc., as well as her vitals instability. She will have home physical and occupational therapy, and has eventual plans to move into [facility] when an opening becomes available. /[id number] JODI/LUIS
== END 2021-04-24 14:00 | disposition home health service (06) | DRG 948 ==
LOC: FB.MS 11:35
PROVIDERS: ADMIT Family Medicine; ATTEND Family Medicine
DX: R53.1 Weakness (principal); I48.20 Chronic atrial fibrillation, unspecified; Z68.44 Body mass index [BMI] 60.0-69.9, adult; M48.061 Spinal stenosis, lumbar region without neurogenic claudication; H54.7 Unspecified visual loss; I11.0 Hypertensive heart disease with heart failure; I50.9 Heart failure, unspecified; K21.9 Gastro-esophageal reflux disease without esophagitis; Z96.641 Presence of right artificial hip joint; Z96.659 Presence of unspecified artificial knee joint; E66.01 Morbid (severe) obesity due to excess calories; R79.1 Abnormal coagulation profile; R32 Unspecified urinary incontinence; M19.90 Unspecified osteoarthritis, unspecified site; G89.29 Other chronic pain; M54.9 Dorsalgia, unspecified; E03.9 Hypothyroidism, unspecified; G25.81 Restless legs syndrome; G62.9 Polyneuropathy, unspecified; I87.8 Other specified disorders of veins; Z86.16 Personal history of COVID-19; Z90.49 Acquired absence of other specified parts of digestive tract; Z90.710 Acquired absence of both cervix and uterus; Z86.010 Personal history of colon polyps; Z88.5 Allergy status to narcotic agent; Z88.0 Allergy status to penicillin; Z93.3 Colostomy status; Z88.8 Allergy status to other drugs, medicaments and biological substances; Z79.01 Long term (current) use of anticoagulants; Z79.899 Other long term (current) drug therapy; Z98.51 Tubal ligation status; Z87.891 Personal history of nicotine dependence
CPT/HCPCS: 36415; 85610; 94640; 97116-GP; 97162-GP; 97165-GO; 97530-GO; 97530-GP; 97535-GO; A9270-GY; J1650; J7605

== ENCOUNTER 2021-05-04 10:17 | Observation (INO) | payer MEDICARE ==
[2021-05-04] MEDS ORDERED: Sodium Chloride 0.9% 1,000 ML IV SCH (11:15)
[2021-05-04] MEDS ORDERED: cefTRIAXone 1 GM in Sodium Chloride 0.9% 50 ML IV STA (12:14)
--- NOTE | 2021-05-04 12:42 | EDM.PDOC ---
ED HPI GENERAL MEDICAL PROBLEM - General Chief Complaint: Trauma Stated Complaint: FALL Time Seen by Provider: 05/04/21 10:35 Source of Information: Reports: Patient, Family History Limitations: Reports: No Limitations - History of Present Illness INITIAL COMMENTS - FREE TEXT/NARRATIVE: Patient ia a 81 YO WF from [facility] who presented to the ED because of frequent falls. She fell last night because she was feeling dizzy and this morning she fell again because her legs gave out. She c/o left knee and ankle pain. There is no associated fever or chills but has a dry cough for several days although she denies having dyspnea. There is no N/V/D. Patient's family want her to be evaluated for assisted living or NH placement. left foot Pain Score (Numeric/FACES): 5 - Related Data Allergies Allergy/AdvReac Type Severity Reaction Status Date / Time morphine Allergy Intermediate Hives Verified 05/04/21 13:21 Penicillins Allergy Hives Verified 05/04/21 13:21 amitriptyline AdvReac Intermediate Hallucinati Verified 05/04/21 13:21 ons Home Meds: Home Meds Cyanocobalamin (Vitamin B-12) [Vitamin B-12] 1,000 mcg PO DAILY 05/18/16 [History] Omeprazole 40 mg PO ACBREAKFAST 05/18/16 [History] Potassium Chloride [Klor-Con M20] 20 meq PO BIDMEALS 05/18/16 [History] Spironolactone [Aldactone] 50 mg PO DAILY 05/18/16 [History] Albuterol [Ventolin HFA] 2 puff IN Q4H PRN 04/18/21 [History] Budesonide [Pulmicort] 0.5 mg IH BID PRN 04/18/21 [History] Cholecalciferol (Vitamin D3) [Vitamin D3] 50 mcg PO DAILY 04/18/21 [History] Cyclobenzaprine HCl 10 mg PO TID PRN 04/18/21 [History] Diclofenac Sodium [Voltaren] 2 - 4 gm TP QID PRN 04/18/21 [History] Emollient [Vanicream] 1 applic TP BID PRN 04/18/21 [History] Formoterol [Perforomist] 20 mcg INH DAILY 04/18/21 [History] Furosemide 20 mg PO 1200 04/18/21 [History] Furosemide 40 mg PO 0800 04/18/21 [History] Lidocaine 4% [Aspercreme 4%] 3 patch TP Q24H 04/18/21 [History] Losartan [Cozaar] 25 mg PO DAILY 04/18/21 [History] Methyl Salicylate/Menthol [Icy Hot] 1 gm TP QID PRN 04/18/21 [History] Metoprolol Succinate [Toprol XL] 25 mg PO DAILY 04/18/21 [History] Montelukast [Singulair] 10 mg PO BEDTIME 04/18/21 [History] Multivitamins [Tab-A-Tara] 1 each PO DAILY 04/18/21 [History] Pregabalin [Lyrica] 100 mg PO TID 04/18/21 [History] Rosuvastatin [Crestor] 10 mg PO BEDTIME 04/18/21 [History] Tolterodine Tartrate [Tolterodine Tartrate ER] 4 mg PO DAILY 04/18/21 [History] rOPINIRole [Requip] 0.5 mg PO BEDTIME 04/18/21 [History] Warfarin [Coumadin] 5 mg PO 1600 tablet 04/24/21 [Rx] Acetaminophen [Tylenol Extra Strength] 1,000 mg PO TID 05/04/21 [History] DULoxetine [Cymbalta] 30 mg PO DAILY 05/04/21 [History] lidocaine HCL [Aspercreme Lidocaine] 1 applic TOP QID PRN 05/04/21 [History] rOPINIRole [Requip] 0.5 mg PO BID PRN 05/04/21 [History] Past Medical History HEENT History: Reports: Other (See Below) Other HEENT History: Wears glasses. Cardiovascular History: Reports: Afib, Heart Failure, Hypertension, SOB on E xertion Respiratory History: Reports: Asthma Gastrointestinal History: Reports: Colon Polyp, Diverticulosis, GERD Other Gastrointestinal History: PT HAS A COLOSTOMY AT PRESENT TIME. Genitourinary History: Reports: Urinary Incontinence Other Genitourinary History: PT HAS STRESS INCONT. 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: Musculoskeletal History: Reports: Arthritis, Back Pain, Chronic, Other (See Below) Other Musculoskeletal History: SPINAL STENOSIS, hx bilat fx thumbs Neurological History: Reports: Migraines, Neuropathy, Peripheral, Other (See Below) Other Neuro History: RESTLESS LEG SYNDROME Psychiatric History: Reports: Depression Endocrine/Metabolic History: Reports: Hypothyroidism, Obesity/BMI 30+ Hematologic History: Reports: Anticoagulation Therapy, Blood Transfusion(s) Immunologic History: Reports: Other (See Below) Other Immunologic History: MRSA Dermatologic History: Reports: Venous Stasis Dermatitis Other Dermatologic History: hx sore to R ankle. - Infectious Disease History Infectious Disease History: Reports: Chicken Pox, Measles, MRSA, Mumps - Past Surgical History HEENT Surgical History: Reports: None Cardiovascular Surgical History: Reports: None Respiratory Surgical History: Reports: Tracheostomy GI Surgical History: Reports: Appendectomy, Cholecystectomy, Colon, Colonoscopy, Colostomy, EGD Female Surgical History: Reports: Hysterectomy, Oophorectomy, Tubal Ligation Musculoskeletal Surgical History: Reports: Carpal Tunnel, Hip Replacement, Knee Replacement, Shoulder Surgery, Other (See Below) Other Musculoskeletal Surgeries/Procedures:: EPIDURAL STEROID INJECTION, L knee replacement, R hip replacement, L shoulder rotator cuff, bilat carpal tunnel x 4 Social & Family History - Family History Family Medical History: No Pertinent Family History Cardiac: Reports: [place] : Reports: Diabetic Nephropathy Endocrine/Metabolic: Reports: Diabetes, type II - Caffeine Use Caffeine Use: Reports: Coffee Review of Systems - Review of Systems Review Of Systems: See Below Constitutional: Reports: Weakness Eyes: Reports: No Symptoms Ears: Reports: No Symptoms Nose: Reports: No Symptoms Mouth/Throat: Reports: No Symptoms Respiratory: Reports: No Symptoms Cardiovascular: Reports: No Symptoms GI/Abdominal: Reports: No Symptoms Genitourinary: Reports: No Symptoms Musculoskeletal: Reports: Other (left ankle and knee pain) Skin: Reports: No Symptoms Neurological: Reports: No Symptoms Psychiatric: Reports: No Symptoms ED EXAM, GENERAL - Physical Exam Exam: See Below Exam Limited By: No Limitations General Appearance: Alert, No Apparent Distress Eye Exam: Bilateral Eye: PERRL Ears: Normal External Exam, Normal Canal Nose: Normal Inspection, Normal Mucosa, No Blood Throat/Mouth: Normal Inspection, Normal Lips, Normal Teeth Head: Atraumatic, Normocephalic Neck: Normal Inspection, Supple, Non-Tender, Full Range of Motion Respiratory/Chest: No Respiratory Distress, Lungs Clear, Decreased Breath Sounds Cardiovascular: Normal Peripheral Pulses, Tachycardia, Irregularly Irregular GI/Abdominal: Normal Bowel Sounds, Soft, Non-Tender, No Organomegaly Back Exam: Normal Inspection, Full Range of Motion Extremities: Normal Inspection, Normal Range of Motion, Other (tenderness on left knee andd ankle) Neurological: Alert, Oriented, CN II-XII Intact, Normal Cognition, Normal Gait Psychiatric: Normal Affect, Normal Mood Skin Exam: Warm #1 Interpretation EKG Date: 05/04/21 Time: 11:58 Rhythm: A-Fib Rate (Beats/Min): 92 [place]: Normal P-Wave: Present QRS: Normal ST-T: Normal QT: Normal Comparison: No Change EKG Interpretation Comments: AFIB Inferior Infarct-old Course - Vital Signs Text/Narrative:: Lab/EKG/CXR result was reviewed and discussed with patient and family NS @ 125 ml/hr Rocephin 1gm IV x1 Last Recorded V/S: Last Vital Signs Temp 36.9 C 05/04/21 14:37 Pulse 84 05/04/21 14:37 Resp 20 05/04/21 14:37 BP 143/80 H 05/04/21 14:37 Pulse Ox 95 05/04/21 14:37 - Orders/Labs/Meds Orders: Active Orders 24 hr Category Date Time Status CULTURE BLOOD [BC] Urgent Lab 05/04/21 12:35 Results CULTURE BLOOD [BC] Urgent Lab 05/04/21 12:45 Results Sodium Chloride 0.9% [Normal Saline] 1,000 ml Med 05/04/21 11:15 Active IV ASDIRECTED Sodium Chloride 0.9% [Saline Flush] Med 05/04/21 10:50 Active 10 ml FLUSH ASDIRECTED PRN EKG 12 Lead [EK] Routine Ther 05/04/21 11:08 Stop Req Medication Orders Acetaminophen (Acetaminophen 500 Mg Tab *Ptom) 1,000 mg PO TID JUAREZ Albuterol/Ipratropium (Albuterol/Ipratropium 3.0-0.5 Mg/3 Ml Neb Soln) 3 ml INH Q6H PRN PRN Reason: SHORTNESS OF BREATH/WHEEZING Budesonide (Budesonide 0.5 Mg/2 Ml Neb Susp) 0.5 mg NEB BID PRN PRN Reason: DIFFICULTY BREATHING Cyclobenzaprine HCl (Cyclobenzaprine 10 Mg Tab *Ptom) 10 mg PO TID PRN PRN Reason: Muscle Spasm - Painful Duloxetine HCl (Duloxetine 30 Mg Cap *Ptom) 30 mg PO DAILY JUAREZ Furosemide (Furosemide 40 Mg Tab *Ptom) 20 mg PO 1200 JUAREZ Furosemide (Furosemide 40 Mg Tab *Ptom) 40 mg PO 0800 JUAREZ Sodium Chloride (Normal Saline) 1,000 mls @ 125 mls/hr IV ASDIRECTED JUAREZ Last Admin: 05/04/21 13:04 Dose: 125 mls/hr Documented by: SINAN Azithromycin 500 mg/ Sodium (Chloride) 250 mls @ 250 mls/hr IV Q24H JUAREZ Last Admin: 05/04/21 16:37 Dose: 250 mls/hr Documented by: MONICA Losartan Potassium (Losartan 25 Mg Tab *Ptom) 25 mg PO DAILY JUAREZ Metoprolol Succinate (Metoprolol Succinate 25 Mg Tab.Er *Ptom) 25 mg PO DAILY JUAREZ Montelukast Sodium (Montelukast 10 Mg Tab *Ptom) 10 mg PO BEDTIME JUAREZ Multivitamins/Minerals/Vitamin C (Multivitamin Tab *Ptom) 1 tab PO DAILY JUAREZ (Lidocaine Hcl [ Aspercreme Lidocaine ] 76.5 Gm Cream..G.) *Ptom 1 applic TOP QID PRN PRN Reason: Pain Omeprazole 20 Mg Cap (.Cr *Ptom) 40 mg PO ACBREAKFAST [facility] Potassium Chloride (Potassium Chloride 20 Meq Tab.Er *Ptom) 20 meq PO BIDMEALS [facility] Pregabalin (Pregabalin 100 Mg Cap) 100 mg PO TID JUAREZ Ropinirole HCl (Ropinirole 0.5 Mg Tab *Ptom) 0.5 mg PO BEDTIME JUAREZ Ropinirole HCl (Ropinirole 0.5 Mg Tab *Ptom) 0.5 mg PO BID PRN PRN Reason: RESTLESS LEGS Rosuvastatin Calcium (Rosuvastatin 10 Mg Tab *Ptom) 10 mg PO BEDTIME [facility] Sodium Chloride (Sodium Chloride 0.9% 10 Ml Syringe) 10 ml FLUSH ASDIRECTED PRN PRN Reason: Keep Vein Open Spironolactone (Spironolactone 25 Mg Tab *Ptom) 50 mg PO DAILY [facility] Tolterodine Tartrate (Tolterodine 4 Mg Cap.Er *Ptom) 4 mg PO DAILY [facility] Warfarin Sodium (Warfarin Sliding Scale) 1 each PO ASDIRECTED [facility] Labs: Laboratory Tests 05/04/21 05/04/21 05/04/21 Range/Units 11:15 11:20 11:20 WBC 16.7 H (3.0-10.3) x10-3/uL RBC 4.27 (3.60-5.20) x10(6)uL Hgb 14.2 (11.4-15.5) g/dL Hct 42.6 (34.2-48.2) % MCV 99.6 (76.7-100.5) fL MCH 33.3 (23.9-33.9) pg MCHC 33.4 (31.9-34.8) g/dL RDW 14.6 (12.3-16.5) % Plt Count 256 (151-488) x10(3)uL PT 22.6 H (9.0-11.1) sec INR 2.20 H (1.00-1.24) Sodium 138 (135-145) mmol/L Potassium 4.3 (3.5-5.3) mmol/L Chloride 100 (100-110) mmol/L Carbon Dioxide 27 (21-32) mmol/L BUN 25 H (7-18) mg/dL Creatinine 1.0 (0.55-1.02) mg/dL Est Cr Clr Drug Dosing TNP Estimated GFR (MDRD) 53 L (>60) BUN/Creatinine Ratio 25.0 H (9-20) Glucose 118 H (80-116) mg/dL Lactic Acid (0.4-2.0) mmol/L Calcium 9.0 (8.6-10.2) mg/dL Total Bilirubin 1.3 (0.1-1.3) mg/dL AST 19 D (5-25) IU/L ALT 32 (12-36) U/L Alkaline Phosphatase 99 (56-112) IU/L Creatine Kinase 46 L (60-160) IU/L C-Reactive Protein (0.5-0.9) mg/dL Total Protein 7.1 (6.0-8.0) g/dL Albumin 3.4 (3.2-4.6) g/dL Globulin 3.7 g/dL Albumin/Globulin Ratio 0.9 SARS-CoV-2 RNA (ETHAN) (NEGATIVE) 05/04/21 05/04/21 05/04/21 Range/Units 11:20 11:20 11:25 WBC (3.0-10.3) x10-3/uL RBC (3.60-5.20) x10(6)uL Hgb (11.4-15.5) g/dL Hct (34.2-48.2) % MCV (76.7-100.5) fL MCH (23.9-33.9) pg MCHC (31.9-34.8) g/dL RDW (12.3-16.5) % Plt Count (151-488) x10(3)uL PT (9.0-11.1) sec INR (1.00-1.24) Sodium (135-145) mmol/L Potassium (3.5-5.3) mmol/L Chloride (100-110) mmol/L Carbon Dioxide (21-32) mmol/L BUN (7-18) mg/dL Creatinine (0.55-1.02) mg/dL Est Cr Clr Drug Dosing Estimated GFR (MDRD) (>60) BUN/Creatinine Ratio (9-20) Glucose (80-116) mg/dL Lactic Acid 1.9 (0.4-2.0) mmol/L Calcium (8.6-10.2) mg/dL Total Bilirubin (0.1-1.3) mg/dL AST (5-25) IU/L ALT (12-36) U/L Alkaline Phosphatase (56-112) IU/L Creatine Kinase (60-160) IU/L C-Reactive Protein 4.4 H* (0.5-0.9) mg/dL Total Protein (6.0-8.0) g/dL Albumin (3.2-4.6) g/dL Globulin g/dL Albumin/Globulin Ratio SARS-CoV-2 RNA (ETHAN) Negative (NEGATIVE) Meds: Medications Generic Name Dose Route Start Last Admin Trade Name Freq PRN Reason Stop Dose Admin Acetaminophen 1,000 mg 05/04/21 21:00 Acetaminophen 500 Mg Tab *Ptom PO TID JUAREZ Albuterol/Ipratropium 3 ml 05/04/21 16:58 Albuterol/Ipratropium 3.0-0.5 Mg/3 Ml Neb Soln INH Q6H PRN SHORTNESS OF BREATH/WHEEZING Budesonide 0.5 mg 05/04/21 16:30 Budesonide 0.5 Mg/2 Ml Neb Susp NEB BID PRN DIFFICULTY BREATHING Cyclobenzaprine HCl 10 mg 05/04/21 16:42 Cyclobenzaprine 10 Mg Tab *Ptom PO TID PRN Muscle Spasm - Painful Duloxetine HCl 30 mg 05/05/21 09:00 Duloxetine 30 Mg Cap *Ptom PO DAILY JUAREZ Furosemide 20 mg 05/05/21 12:00 Furosemide 40 Mg Tab *Ptom PO 1200 JUAREZ Furosemide 40 mg 05/05/21 08:00 Furosemide 40 Mg Tab *Ptom PO 0800 JUAREZ Sodium Chloride 1,000 mls @ 125 mls/hr 05/04/21 11:15 05/04/21 13:04 Normal Saline IV 125 mls/hr ASDIRECTED JUAREZ Administration Azithromycin 500 mg/ Sodium 250 mls @ 250 mls/hr 05/04/21 16:00 05/04/21 16:37 Chloride IV 250 mls/hr Q24H JUAREZ Administration Losartan Potassium 25 mg 05/05/21 09:00 Losartan 25 Mg Tab *Ptom PO DAILY JUAREZ Metoprolol Succinate 25 mg 05/05/21 09:00 Metoprolol Succinate 25 Mg Tab.Er *Ptom PO DAILY JUAREZ Montelukast Sodium 10 mg 05/04/21 21:00 Montelukast 10 Mg Tab *Ptom PO BEDTIME JUAREZ Multivitamins/Minerals/Vitamin C 1 tab 05/05/21 09:00 Multivitamin Tab *Ptom PO DAILY JUAREZ (Lidocaine Hcl [ 1 applic 05/04/21 16:30 Aspercreme Lidocaine TOP ] 76.5 Gm Cream..G.) QID PRN *Ptom Pain Omeprazole 20 Mg Cap 40 mg 05/05/21 07:30 .Cr *Ptom PO ACBREAKFAST [facility] Potassium Chloride 20 meq 05/04/21 18:00 Potassium Chloride 20 Meq Tab.Er *Ptom PO BIDMEALS [facility] Pregabalin 100 mg 05/04/21 21:00 Pregabalin 100 Mg Cap PO TID JUAREZ Ropinirole HCl 0.5 mg 05/04/21 21:00 Ropinirole 0.5 Mg Tab *Ptom PO BEDTIME JUAREZ Ropinirole HCl 0.5 mg 05/04/21 16:46 Ropinirole 0.5 Mg Tab *Ptom PO BID PRN RESTLESS LEGS Rosuvastatin Calcium 10 mg 05/04/21 21:00 Rosuvastatin 10 Mg Tab *Ptom PO BEDTIME [facility] Sodium Chloride 10 ml 05/04/21 10:50 Sodium Chloride 0.9% 10 Ml Syringe FLUSH ASDIRECTED PRN Keep Vein Open Spironolactone 50 mg 05/05/21 09:00 Spironolactone 25 Mg Tab *Ptom PO DAILY JAUREZ Tolterodine Tartrate 4 mg 05/05/21 09:00 Tolterodine 4 Mg Cap.Er *Ptom PO DAILY JUAREZ Warfarin Sodium 1 each 05/04/21 16:45 Warfarin Sliding Scale PO ASDIRECTED JUAREZ Discontinued Medications Generic Name Dose Route Start Last Admin Trade Name Freq PRN Reason Stop Dose Admin Ceftriaxone Sodium Confirm 05/04/21 13:00 05/04/21 13:14 Ceftriaxone 1 Gm Vial Administered 05/04/21 13:01 Not Given Dose 1 gm .ROUTE .STK-MED ONE Ceftriaxone Sodium 1 gm 05/04/21 13:15 05/04/21 13:13 Ceftriaxone 1 Gm Vial IVPUSH 05/04/21 13:16 1 gm ONETIME ONE Administration Warfarin Sodium 5 mg 05/04/21 17:00 Warfarin 5 Mg Tab PO 05/04/21 17:01 ONETIME ONE Departure - Departure Time of Disposition: 14:00 Disposition: Admitted As Inpatient 68 Condition: Good Clinical Impression: Dehydration, Fall Pneumonia Qualifiers: Laterality: bilateral Lung location: lower lobe of lung - Discharge Information Sepsis Event Note (ED) - Focused Exam Vital Signs: Vital Signs Temp Pulse BP Pulse Ox 05/04/21 12:45 91 139/87 91 L 05/04/21 12:15 90 92 L 05/04/21 11:45 95 153/83 H 90 L 05/04/21 11:15 89 93 L 05/04/21 11:00 93 134/75 93 L 05/04/21 10:30 36.2 C 95 148/82 H 92 L - My Orders Last 24 Hours: My Active Orders 05/04/21 10:50 Sodium Chloride 0.9% [Saline Flush] 10 ml FLUSH ASDIRECTED PRN 05/04/21 11:08 EKG 12 Lead [EK] Routine 05/04/21 11:15 Sodium Chloride 0.9% [Normal Saline] 1,000 ml IV ASDIRECTED 05/04/21 12:35 CULTURE BLOOD [BC] Urgent 05/04/21 12:45 CULTURE BLOOD [BC] Urgent - Assessment/Plan Last 24 Hours: My Active Orders 05/04/21 10:50 Sodium Chloride 0.9% [Saline Flush] 10 ml FLUSH ASDIRECTED PRN 05/04/21 11:08 EKG 12 Lead [EK] Routine 05/04/21 11:15 Sodium Chloride 0.9% [Normal Saline] 1,000 ml IV ASDIRECTED 05/04/21 12:35 CULTURE BLOOD [BC] Urgent 05/04/21 12:45 CULTURE BLOOD [BC] Urgent
--- NOTE | 2021-05-04 12:56 | CR ---
INDICATION: Fall. Left ankle pain. LEFT ANKLE: Three views of the left ankle revealed a large plantar calcaneal spur. Degenerative changes are noted at the talonavicular joint, naviculocuneiform joints and calcaneocuboid joint and along the medial ankle mortise. Soft tissue swelling is noted about the ankle and calf. The ankle mortise appeared to be fairly intact otherwise with normal joint space and no definite fracture or dislocation identified. IMPRESSION: 1. Osteoarthritis. 2. No definite acute fracture or dislocation. 3. Soft tissue swelling. [facility]
[2021-05-04] MEDS ORDERED: cefTRIAXone 1 GM Vial ONE (13:00)
--- NOTE | 2021-05-04 13:01 | CR ---
INDICATION: Cough. CHEST: AP portable upright view of the chest 05/04/21 was compared with 05/18/16 and revealed the heart to be enlarged and the aorta tortuous with calcification in the arch and descending portion. Thickening of the minor fissure is noted on right with slightly heavy markings making it difficult to entirely exclude minimal patchy bronchopneumonia at the lung bases and possibly pleuritis on the right with thickening of the minor fissure that is new compared with the previous study. There is also evidence of exogenous obesity present. No gross consolidating pneumonia or significant-sized effusion was identified. IMPRESSION: 1. No definite acute process but difficult to exclude minimal patchy pneumonia and pleuritis at the lung bases - full inspiration PA and lateral views of the chest may be helpful for further evaluation, when clinically possible. 2. ASHD with cardiomegaly. 3. Exogenous obesity. [facility]TDD
--- NOTE | 2021-05-04 13:04 | CR ---
INDICATION: Fall, right knee pain - unable to bend knee for sunrise view. LEFT KNEE TWO VIEWS: Frontal and lateral views of the left knee 05/04/21 were compared with 03/23/21 and again revealed a total knee arthroplasty which remains in adequate position and alignment, without evidence of definite acute fracture or dislocation, or other definite complicating process. Evidence of exogenous obesity is again noted. MTDD
[2021-05-04] MEDS ORDERED: cefTRIAXone 1 GM Vial IV ONE (13:15)
[2021-05-04] MEDS ORDERED: cefTRIAXone 1 GM Vial IVPUSH ONE (13:15)
--- NOTE | 2021-05-04 13:38 | PCM.SN.2 ---
- Free Text/Narrative Note: [facility]ESTHESIA SERVICES Date: 05/04/2021 Time: 1310 to 1315 Dx: Fall, Anticoagulation, and Very Poor Peripheral Vascular Acces Rx: Obtain Peripheral Vascular Access Procedure: Placement of Peripheral Venous Access Catheter Anesthesia was called to the ED due to multiple attempts to obtain peripheral venous access. She is on Coumadin with multiple ecchymotic areas. I found a vein on her distal lateral ACF region and prepped the area with several alcohol wipes. I did use a "Freezing [place]" to the area. I inserted and advanced [will difficulty] a BD [employer]te [employer] BC Winged 22 Ga. X 1.00 In. catheter with one attempt. It had a good blood return and flushed easily without apparent complications. An Op-Site dressing was applied. Joseline Steen CRNA assisted with the procedure. The patient tolerated this very well. Nadir Sunshine CRNA, A
--- NOTE | 2021-05-04 15:03 | PCM.HP.2 ---
H&P History of Present Illness - General Date of Service: 05/04/21 Admit Problem/Dx: Admission Diagnosis/Problem Admission Diagnosis/Problem Pneumonia Source of Information: Patient, EMS Notes Reviewed, Family - History of Present Illness Initial Comments - Free Text/Narative: Hilary presented to ER after sustaining fall into her bathtub today, hitting her head without loss of consciousness. She also fell against the tub last night, complains of left knee, ankle, foot pain. No lumps on her scalp or headache. She has been having a dry cough, sore throat but no shortness of breath, chest pain or fevers. No chills. No abdominal pain, nausea, vomiting, diarrhea or constipation. Denies any urinary symptoms. She recently had Cymbalta added by Dr Wadsworth. History of CHF, Atrial fibrillation on Coumadin, Spinal stenosis, asthma, obesity and coronary artery disease. ER course: WBC 16.7, CRP 4.4, Lactic acid 1.9. BUN 25, Cr 1.0. Blood culture pending. UA negative. Chest x-ray showed possible bibasilar pneumonia, recommended 2V when able. No acute fracture on knee or ankle x-ray. Covid negative. She had recently been discharged from [facility] a few weeks ago to home for spinal stenosis. She is interested in Assisted Living or halfway placement as she can not live on her own anymore due to recurrent falls. Family was getting application for [facility] today. - Related Data Allergies/Adverse Reactions: Allergies Allergy/AdvReac Type Severity Reaction Status Date / Time morphine Allergy Intermediate Hives Verified 05/04/21 13:21 Penicillins Allergy Hives Verified 05/04/21 13:21 amitriptyline AdvReac Intermediate Hallucinati Verified 05/04/21 13:21 ons Home Medications: Home Meds Cyanocobalamin (Vitamin B-12) [Vitamin B-12] 1,000 mcg PO DAILY 05/18/16 [History] Omeprazole 40 mg PO ACBREAKFAST 05/18/16 [History] Potassium Chloride [Klor-Con M20] 20 meq PO BIDMEALS 05/18/16 [History] Spironolactone [Aldactone] 50 mg PO DAILY 05/18/16 [History] Albuterol [Ventolin HFA] 2 puff IN Q4H PRN 04/18/21 [History] Budesonide [Pulmicort] 0.5 mg IH BID PRN 04/18/21 [History] Cholecalciferol (Vitamin D3) [Vitamin D3] 50 mcg PO DAILY 04/18/21 [History] Cyclobenzaprine HCl 10 mg PO TID PRN 04/18/21 [History] Diclofenac Sodium [Voltaren] 2 - 4 gm TP QID PRN 04/18/21 [History] Emollient [Vanicream] 1 applic TP BID PRN 04/18/21 [History] Formoterol [Perforomist] 20 mcg INH DAILY 04/18/21 [History] Furosemide 20 mg PO 1200 04/18/21 [History] Furosemide 40 mg PO 0800 04/18/21 [History] Lidocaine 4% [Aspercreme 4%] 3 patch TP Q24H 04/18/21 [History] Losartan [Cozaar] 25 mg PO DAILY 04/18/21 [History] Methyl Salicylate/Menthol [Icy Hot] 1 gm TP QID PRN 04/18/21 [History] Metoprolol Succinate [Toprol XL] 25 mg PO DAILY 04/18/21 [History] Montelukast [Singulair] 10 mg PO BEDTIME 04/18/21 [History] Multivitamins [Tab-A-Tara] 1 each PO DAILY 04/18/21 [History] Pregabalin [Lyrica] 100 mg PO TID 04/18/21 [History] Rosuvastatin [Crestor] 10 mg PO BEDTIME 04/18/21 [History] Tolterodine Tartrate [Tolterodine Tartrate ER] 4 mg PO DAILY 04/18/21 [History] rOPINIRole [Requip] 1 mg PO BEDTIME 04/18/21 [History] Warfarin [Coumadin] 5 mg PO 1600 tablet 04/24/21 [Rx] Acetaminophen [Tylenol Extra Strength] 1,000 mg PO TID 05/04/21 [History] DULoxetine [Cymbalta] 30 mg PO DAILY 05/04/21 [History] lidocaine HCL [Aspercreme Lidocaine] 1 applic TOP QID PRN 05/04/21 [History] rOPINIRole [Requip] 2 mg PO BEDTIME PRN 05/04/21 [History] Past Medical History HEENT History: Reports: Other (See Below) Other HEENT History: Wears glasses. Cardiovascular History: Reports: Afib, Heart Failure, Hypertension, SOB on Exertion Respiratory History: Reports: Asthma Gastrointestinal History: Reports: Colon Polyp, Diverticulosis, GERD Other Gastrointestinal History: PT HAS A COLOSTOMY AT PRESENT TIME. Genitourinary History: Reports: Urinary Incontinence Other Genitourinary History: PT HAS STRESS INCONT. 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: Other OB/BYN History: Musculoskeletal History: Reports: Arthritis, Back Pain, Chronic, Other (See Below) Other Musculoskeletal History: SPINAL STENOSIS, hx bilat fx thumbs Neurological History: Reports: Migraines, Neuropathy, Peripheral, Other (See Below) Other Neuro History: RESTLESS LEG SYNDROME Psychiatric History: Reports: Depression Endocrine/Metabolic History: Reports: Hypothyroidism, Obesity/BMI 30+ Hematologic History: Reports: Anticoagulation Therapy, Blood Transfusion(s) Immunologic History: Reports: Other (See Below) Other Immunologic History: MRSA Dermatologic History: Reports: Venous Stasis Dermatitis Other Dermatologic History: hx sore to R ankle. - Infectious Disease History Infectious Disease History: Reports: Chicken Pox, Measles, MRSA, Mumps - Past Surgical History HEENT Surgical History: Reports: None Cardiovascular Surgical History: Reports: None Respiratory Surgical History: Reports: Tracheostomy GI Surgical History: Reports: Appendectomy, Cholecystectomy, Colon, Colonoscopy, Colostomy, EGD Female Surgical History: Reports: Hysterectomy, Oophorectomy, Tubal Ligation Musculoskeletal Surgical History: Reports: Carpal Tunnel, Hip Replacement, Knee Replacement, Shoulder Surgery, Other (See Below) Other Musculoskeletal Surgeries/Procedures:: EPIDURAL STEROID INJECTION, L knee replacement, R hip replacement, L shoulder rotator cuff, bilat carpal tunnel x 4 Social & Family History - Family History Family Medical History: No Pertinent Family History Cardiac: Reports: [place] : Reports: Diabetic Nephropathy Endocrine/Metabolic: Reports: Diabetes, type II - Caffeine Use Caffeine Use: Reports: Coffee H&P Review of Systems - Review of Systems: Review Of Systems: Comprehensive ROS is negative, except as noted in HPI. Exam - Exam Exam: See Below - Vital Signs Weight: 293 lb 6 oz - Exam General: Alert, Oriented, Cooperative. No: Mild Distress HEENT: PERRLA, Conjunctiva Clear, EOMI, Hearing Intact, Posterior Pharynx Clear, Other (Scalp:NT). No: Mucosa Moist & [place] Neck: Supple, Trachea Midline. No: Lymphadenopathy Lungs: Clear to Auscultation, Normal Respiratory Effort, Decreased Breath Sounds (bibasilar). No: Crackles, Wheezing Cardiovascular: Regular Rate, Irregular Rhythm GI/Abdominal Exam: Normal Bowel Sounds, Soft, Non-Tender, No Distention, Other (Colostomy on LLQ, no surrounding erythema.) (Female) Exam: Deferred Rectal (Female) Exam: Deferred Back Exam: Normal Inspection Extremities: No Pedal Edema, Leg Pain (TTP over left ankle, left knee, mild ecchymosis, soft tissue swelling left midfoot.) Peripheral Pulses: 2+: Radial (L), Radial (R) Skin: Ecchymosis Neurological: Cranial Nerves Intact, Normal Speech, Normal Tone - Patient Data Lab Results Last 24 hrs: Laboratory Results - last 24 hr 05/04/21 05/04/21 05/04/21 Range/Units 11:15 11:20 11:20 WBC 16.7 H (3.0-10.3) x10-3/uL RBC 4.27 (3.60-5.20) x10(6)uL Hgb 14.2 (11.4-15.5) g/dL Hct 42.6 (34.2-48.2) % MCV 99.6 (76.7-100.5) fL MCH 33.3 (23.9-33.9) pg MCHC 33.4 (31.9-34.8) g/dL RDW 14.6 (12.3-16.5) % Plt Count 256 (151-488) x10(3)uL PT 22.6 H (9.0-11.1) sec INR 2.20 H (1.00-1.24) Sodium 138 (135-145) mmol/L Potassium 4.3 (3.5-5.3) mmol/L Chloride 100 (100-110) mmol/L Carbon Dioxide 27 (21-32) mmol/L BUN 25 H (7-18) mg/dL Creatinine 1.0 (0.55-1.02) mg/dL Est Cr Clr Drug Dosing TNP Estimated GFR (MDRD) 53 L (>60) BUN/Creatinine Ratio 25.0 H (9-20) Glucose 118 H (80-116) mg/dL Lactic Acid (0.4-2.0) mmol/L Calcium 9.0 (8.6-10.2) mg/dL Total Bilirubin 1.3 (0.1-1.3) mg/dL AST 19 D (5-25) IU/L ALT 32 (12-36) U/L Alkaline Phosphatase 99 (56-112) IU/L Creatine Kinase 46 L (60-160) IU/L C-Reactive Protein (0.5-0.9) mg/dL Total Protein 7.1 (6.0-8.0) g/dL Albumin 3.4 (3.2-4.6) g/dL Globulin 3.7 g/dL Albumin/Globulin Ratio 0.9 SARS-CoV-2 RNA (ETHAN) (NEGATIVE) 05/04/21 05/04/21 05/04/21 Range/Units 11:20 11:20 11:25 WBC (3.0-10.3) x10-3/uL RBC (3.60-5.20) x10(6)uL Hgb (11.4-15.5) g/dL Hct (34.2-48.2) % MCV (76.7-100.5) fL MCH (23.9-33.9) pg MCHC (31.9-34.8) g/dL RDW (12.3-16.5) % Plt Count (151-488) x10(3)uL PT (9.0-11.1) sec INR (1.00-1.24) Sodium (135-145) mmol/L Potassium (3.5-5.3) mmol/L Chloride (100-110) mmol/L Carbon Dioxide (21-32) mmol/L BUN (7-18) mg/dL Creatinine (0.55-1.02) mg/dL Est Cr Clr Drug Dosing Estimated GFR (MDRD) (>60) BUN/Creatinine Ratio (9-20) Glucose (80-116) mg/dL Lactic Acid 1.9 (0.4-2.0) mmol/L Calcium (8.6-10.2) mg/dL Total Bilirubin (0.1-1.3) mg/dL AST (5-25) IU/L ALT (12-36) U/L Alkaline Phosphatase (56-112) IU/L Creatine Kinase (60-160) IU/L C-Reactive Protein 4.4 H* (0.5-0.9) mg/dL Total Protein (6.0-8.0) g/dL Albumin (3.2-4.6) g/dL Globulin g/dL Albumin/Globulin Ratio SARS-CoV-2 RNA (ETHAN) Negative (NEGATIVE) Result Diagrams: 05/04/21 11:20 05/04/21 11:20 Basil Results Last 24 hrs: Microbiology 05/04/21 12:45 Anaerobic Blood Culture - Final Blood - Venous - Lab Draw 05/04/21 12:35 Anaerobic Blood Culture - Final Blood - Venous *Q Meaningful Use (ADM) - VTE *Q VTE Mechanical Contraindications *Q: At Risk for Falls - VTE Risk Assess *Q Each Risk Factor Represents 1 Point: Obesity ( BMI > 25 kg/m2), Serious lung dis ease including pneumonia Total Score 1 Point Risk Factors: 2 Each Risk Factor Represents 2 Points: None Total Score 2 Point Risk Factors: 0 Each Risk Factor Represents 3 Points: Age 75 Years or Greater Total Score 3 Point Risk Factors: 3 Each Risk Factor Represents 5 Points: None Total Score 5 Point Risk Factors: 0 Venous Thromboembolism Risk Factor Score *Q: 5 - Problem List (1) Pneumonia SNOMED Code(s): 657443457 ICD Code: J18.9 - PNEUMONIA, UNSPECIFIED ORGANISM Status: Acute Current Visit: Yes Qualifiers: Laterality: bilateral Lung location: lower lobe of lung (2) Fall SNOMED Code(s): 6050375, 843117932 ICD Code: W19.XXXA - UNSPECIFIED FALL, INITIAL ENCOUNTER Status: Acute Current Visit: Yes (3) CHF (congestive heart failure) SNOMED Code(s): 74602188 ICD Code: I50.9 - HEART FAILURE, UNSPECIFIED Status: Chronic Current Visit: Yes (4) CAD (coronary artery disease) SNOMED Code(s): 18390193 ICD Code: I25.10 - ATHSCL HEART DISEASE OF [place] CORONARY ARTERY W/O ANG PCTRS Status: Chronic Current Visit: Yes (5) Asthma SNOMED Code(s): 952467701 ICD Code: J45.909 - UNSPECIFIED ASTHMA, UNCOMPLICATED Status: Chronic Current Visit: Yes (6) Morbid obesity with BMI of 50.0-59.9, adult SNOMED Code(s): 554495197, 22683487467101 ICD Code: E66.01 - MORBID (SEVERE) OBESITY DUE TO EXCESS CALORIES; Z68.43 - BODY MASS INDEX [BMI] 50.0-59.9, ADULT Status: Chronic Current Visit: Yes (7) Atrial fibrillation SNOMED Code(s): 16893934 ICD Code: I48.91 - UNSPECIFIED ATRIAL FIBRILLATION Status: Chronic Current Visit: Yes (8) Anticoagulant long-term use SNOMED Code(s): 331233499 ICD Code: Z79.01 - NURSING HOME ASSISTANT (CURRENT) USE OF ANTICOAGULANTS Status: Chronic Current Visit: Yes (9) Spinal stenosis SNOMED Code(s): 56457294 ICD Code: M48.00 - SPINAL STENOSIS, SITE UNSPECIFIED Status: Chronic Current Visit: No Problem List Initiated/Reviewed/Updated: Yes Orders Last 24hrs: Active Orders 24 hr Category Date Time Status Patient Status [ADT] Routine ADT 05/04/21 14:37 Ordered Oxygen Therapy [RC] PRN Care 05/04/21 14:37 Ordered Up With Assistance [RC] ASDIRECTED Care 05/04/21 14:37 Ordered Up to Chair [RC] ASDIRECTED Care 05/04/21 14:37 Ordered VTE/DVT Education [RC] Per Unit Routine Care 05/04/21 14:37 Ordered Vital Signs [RC] Q4H Care 05/04/21 14:37 Ordered OT Evaluation and Treatment [CONS] Routine Cons 05/04/21 14:37 Ordered PT Evaluation and Treatment [CONS] Routine Cons 05/04/21 14:37 Ordered Regular Diet [DIET] Diet 05/04/21 Lunch Ordered BASIC METABOLIC PANEL,BMP [CHEM] Routine Lab 05/05/21 06:00 Ordered CBC WITH AUTO DIFF [HEME] Routine Lab 05/05/21 06:00 Ordered CULTURE BLOOD [BC] Urgent Lab 05/04/21 12:35 Results CULTURE BLOOD [BC] Urgent Lab 05/04/21 12:45 Results UA W/MICROSCOPIC [URIN] Stat Lab 05/04/21 13:45 Received Azithromycin [Zithromax] 500 mg Med 05/04/21 14:45 Ordered Sodium Chloride 0.9% [Normal Saline (AdvBag)] 250 ml IV Q24H Sodium Chloride 0.9% [Normal Saline] 1,000 ml Med 05/04/21 11:15 Active IV ASDIRECTED Sodium Chloride 0.9% [Saline Flush] Med 05/04/21 10:50 Active 10 ml FLUSH ASDIRECTED PRN Resuscitation Status Routine Resus Stat 05/04/21 14:37 Ordered EKG 12 Lead [EK] Routine Ther 05/04/21 11:08 Stop Req Medication Orders Sodium Chloride (Normal Saline) 1,000 mls @ 125 mls/hr IV ASDIRECTED JUAREZ Last Admin: 05/04/21 13:04 Dose: 125 mls/hr Documented by: SINAN Azithromycin 500 mg/ Sodium (Chloride) 250 mls @ 250 mls/hr IV Q24H [facility] Sodium Chloride (Sodium Chloride 0.9% 10 Ml Syringe) 10 ml FLUSH ASDIRECTED PRN PRN Reason: Keep Vein Open Assessment/Plan Comment:: 1. Admit for observation of suspected pneumonia with leukocytosis, recurrent falls. 2. Pneumonia: CXR suspected pneumonia, repeat CXR 2V tomorrow. WBC 16.7, CRP 4.4. BUN 25, Cr 1.0. Curb score 2. Rocephin given in ER, continue 1 gram IV q24h, Azithromycin 500 mg IV q24h. Blood culture pending. UA negative. Incentive spirometry q1h while awake. Continue home nebulizers. Repeat CBC & BMP tomorrow. 3. Falls: PT/OT evaluate & treat. Ankle & knee x-ray no acute fracture, soft tissue swelling on left ankle. 4. Diet: regular. 5. Activity: Up to chair and with assistance. 6. DVT prophylaxis: on Warfarin. 7. CODE STATUS: DNR/DNI. 8. Discharge planning: Desires placement in assisted living or [facility]. Family went to get application for [facility] today, anticipate she would require hospitalization through the weekend as unlikely would be ready for discharge tomorrow so Saturday would be earliest we could get her placed. - Mortality Measure Prognosis:: Poor
[2021-05-04] MEDS ORDERED: Budesonide 0.5 MG/2 ML Neb Susp NEB PRN (16:30)
[2021-05-04] MEDS: Azithromycin 500 MG in Sodium Chloride 0.9% 250 ML IV SCH (16:37)
[2021-05-04] MEDS ORDERED: Warfarin Sliding Scale PO SCH (16:45)
[2021-05-04] MEDS ORDERED: Albuterol/Ipratropium 3.0-0.5 MG/3 ML Neb Soln INH PRN (16:58)
[2021-05-04] MEDS ORDERED: Warfarin 5 MG Tab PO ONE (17:00)
[2021-05-04] MEDS: Potassium Chloride 20 MEQ Tab.ER *PTOM PO SCH (18:09)
[2021-05-04] MEDS: Rosuvastatin 10 MG Tab *PTOM PO SCH (20:10)
[2021-05-04] MEDS: rOPINIRole 0.5 MG Tab *PTOM PO SCH (20:11)
[2021-05-04] MEDS: Acetaminophen 500 MG Tab *PTOM PO SCH (20:11)
[2021-05-04] MEDS: Montelukast 10 MG Tab *PTOM PO SCH (20:11)
[2021-05-04] MEDS: Pregabalin 100 MG Cap PO SCH (20:12)
[2021-05-05] MEDS: Potassium Chloride 20 MEQ Tab.ER *PTOM PO SCH ×2 (07:37→17:10)
[2021-05-05] MEDS: Furosemide 40 MG Tab *PTOM PO SCH ×2 (07:38→12:31)
[2021-05-05] MEDS: Acetaminophen 500 MG Tab *PTOM PO SCH ×3 (08:54→20:23)
[2021-05-05] MEDS: Spironolactone 25 MG Tab *PTOM PO SCH (08:55)
[2021-05-05] MEDS: Losartan 25 MG Tab *PTOM PO SCH (08:56)
[2021-05-05] MEDS: DULoxetine 30 MG Cap *PTOM PO SCH (08:57)
[2021-05-05] MEDS: Tolterodine 4 MG Cap.ER *PTOM PO SCH (08:58)
[2021-05-05] MEDS ORDERED: Non-Formulary Medication 1 Each (Formoterol [Perforomist] 20 MCG/2 ML Neb) INH SCH (09:00)
[2021-05-05] MEDS: Metoprolol Succinate 25 MG Tab.ER *PTOM PO SCH (09:01)
[2021-05-05] MEDS: Multivitamin Tab *PTOM PO SCH (09:01)
[2021-05-05] MEDS: Pregabalin 100 MG Cap PO SCH ×3 (09:08→20:31)
[2021-05-05] MEDS: LIDOCAINE HCL TOP PRN ×2 (09:10→21:20)
[2021-05-05] MEDS: cefTRIAXone 1 GM Vial IVPUSH SCH (13:28)
[2021-05-05] MEDS: Sodium Chloride 0.9% 10 ML Syringe FLUSH PRN ×2 (13:29→20:31)
--- NOTE | 2021-05-05 15:03 | PCM.PN ---
- General Info Date of Service: 05/05/21 Subjective Update: Her IV fluids were discontinued last night because keep alarming that it was occluded. Could get blood return on right forearm IV but not Left antecubital IV. It does still flush well. Complains of pain when bearing weight on left foot. X-ray showed no fracture, just soft tissue swelling most likely sprain from her fall. Have been doing ice and Aspercreme/Lidocaine to left foot. Will have BRYCE wrap during day to help with compression. Has colostomy, up to room urinating find. She states her breathing is same. Not able to go to [facility] due to finances. Applications made to local [place] by financial planner. - Patient Data Vitals - Most Recent: Last Vital Signs Temp 97.7 F 05/05/21 08:00 Pulse 79 05/05/21 09:01 Resp 20 05/05/21 08:00 BP 124/62 05/05/21 09:01 Pulse Ox 95 05/05/21 08:00 Weight - Most Recent: 293 lb 6 oz I&O - Last 24 Hours: Intake & Output 05/04/21 05/05/21 05/05/21 22:59 06:59 14:59 Intake Total 1035 Balance 1035 Lab Results Last 24 Hours: Laboratory Results - last 24 hr 05/05/21 05/05/21 05/05/21 Range/Units 06:30 06:30 06:30 WBC 11.7 H (3.0-10.3) x10-3/uL RBC 4.01 (3.60-5.20) x10(6)uL Hgb 13.3 (11.4-15.5) g/dL Hct 40.0 (34.2-48.2) % MCV 99.9 (76.7-100.5) fL MCH 33.2 (23.9-33.9) pg MCHC 33.2 (31.9-34.8) g/dL RDW 14.9 (12.3-16.5) % Plt Count 253 (151-488) x10(3)uL MPV 8.6 (7.1-12.4) fL Neut % (Auto) 67.4 (30.8-76.2) % Lymph % (Auto) 21.4 (18.4-52.1) % [place] % (Auto) 10.1 (4.4-15.7) % Eos % (Auto) 0.6 (0.6-8.1) % Baso % (Auto) 0.5 (0.2-1.5) % Neut # (Auto) 7.9 H (1.5-6.3) x10-3/uL Lymph # (Auto) 2.5 (1.0-4.4) x10-3/uL [place] # (Auto) 1.2 H (0.3-1.0) x10-3/uL Eos # (Auto) 0.1 (0.0-0.8) x10-3/uL Baso # (Auto) 0.1 (0.0-0.1) x10-3/uL PT 20.3 H (9.0-11.1) sec INR 1.96 H (1.00-1.24) Sodium 141 (135-145) mmol/L Potassium 4.0 (3.5-5.3) mmol/L Chloride 104 (100-110) mmol/L Carbon Dioxide 27 (21-32) mmol/L BUN 16 (7-18) mg/dL Creatinine 0.9 (0.55-1.02) mg/dL Est Cr Clr Drug Dosing 36.41 mL/min Estimated GFR (MDRD) > 60 (>60) BUN/Creatinine Ratio 17.8 (9-20) Glucose 95 (80-116) mg/dL Calcium 8.5 L (8.6-10.2) mg/dL Basil Results Last 24 Hours: Microbiology 05/04/21 12:45 Aerobic Blood Culture - Preliminary Blood - Venous - Lab Draw NO GROWTH AFTER 1 DAY Anaerobic Blood Culture - Final 05/04/21 12:35 Aerobic Blood Culture - Preliminary Blood - Venous NO GROWTH AFTER 1 DAY Anaerobic Blood Culture - Final Med Orders - Current: Current Medications Acetaminophen (Acetaminophen 500 Mg Tab *Ptom) 1,000 mg PO TID [facility] Last Admin: 05/05/21 13:20 Dose: 1,000 mg Documented by: Albuterol/Ipratropium (Albuterol/Ipratropium 3.0-0.5 Mg/3 Ml Neb Soln) 3 ml INH Q6H PRN PRN Reason: SHORTNESS OF BREATH/WHEEZING Budesonide (Budesonide 0.5 Mg/2 Ml Neb Susp) 0.5 mg NEB BID PRN PRN Reason: DIFFICULTY BREATHING Ceftriaxone Sodium (Ceftriaxone 1 Gm Vial) 1 gm IVPUSH Q24H [facility] Last Admin: 05/05/21 13:28 Dose: 1 gm Documented by: Cyclobenzaprine HCl (Cyclobenzaprine 10 Mg Tab *Ptom) 10 mg PO TID PRN PRN Reason: Muscle Spasm - Painful Duloxetine HCl (Duloxetine 30 Mg Cap *Ptom) 30 mg PO DAILY [facility] Last Admin: 05/05/21 08:57 Dose: 30 mg Documented by: Furosemide (Furosemide 40 Mg Tab *Ptom) 20 mg PO 1200 [facility] Last Admin: 05/05/21 12:31 Dose: 20 mg Documented by: Furosemide (Furosemide 40 Mg Tab *Ptom) 40 mg PO 0800 [facility] Last Admin: 05/05/21 07:38 Dose: 40 mg Documented by: Sodium Chloride (Normal Saline) 1,000 mls @ 125 mls/hr IV ASDIRECTED [facility] Last Admin: 05/04/21 13:04 Dose: 125 mls/hr Documented by: Azithromycin 500 mg/ Sodium (Chloride) 250 mls @ 250 mls/hr IV Q24H [facility] Last Admin: 05/04/21 16:37 Dose: 250 mls/hr Documented by: Losartan Potassium (Losartan 25 Mg Tab *Ptom) 25 mg PO DAILY [facility] Last Admin: 05/05/21 08:56 Dose: 25 mg Documented by: Metoprolol Succinate (Metoprolol Succinate 25 Mg Tab.Er *Ptom) 25 mg PO DAILY [facility] Last Admin: 05/05/21 09:01 Dose: 25 mg Documented by: Montelukast Sodium (Montelukast 10 Mg Tab *Ptom) 10 mg PO BEDTIME [facility] Last Admin: 05/04/21 20:11 Dose: 10 mg Documented by: Multivitamins/Minerals/Vitamin C (Multivitamin Tab *Ptom) 1 tab PO DAILY [facility] Last Admin: 05/05/21 09:01 Dose: 1 tab Documented by: (Lidocaine Hcl [ Aspercreme Lidocaine ] 76.5 Gm Cream..G.) *Ptom 1 applic TOP QID PRN PRN Reason: Pain Last Admin: 05/05/21 09:10 Dose: 1 applic Documented by: Omeprazole 20 Mg Cap (.Cr *Ptom) 40 mg PO ACBREAKFAST [facility] Last Admin: 05/05/21 06:45 Dose: Not Given Documented by: Potassium Chloride (Potassium Chloride 20 Meq Tab.Er *Ptom) 20 meq PO BIDMEALS [facility] Last Admin: 05/05/21 07:37 Dose: 20 meq Documented by: Pregabalin (Pregabalin 100 Mg Cap) 100 mg PO TID [facility] Last Admin: 05/05/21 13:24 Dose: 100 mg Documented by: Ropinirole HCl (Ropinirole 0.5 Mg Tab *Ptom) 0.5 mg PO BEDTIME [facility] Last Admin: 05/04/21 20:11 Dose: 0.5 mg Documented by: Ropinirole HCl (Ropinirole 0.5 Mg Tab *Ptom) 0.5 mg PO BID PRN PRN Reason: RESTLESS LEGS Rosuvastatin Calcium (Rosuvastatin 10 Mg Tab *Ptom) 10 mg PO BEDTIME [facility] Last Admin: 05/04/21 20:10 Dose: 10 mg Documented by: Sodium Chloride (Sodium Chloride 0.9% 10 Ml Syringe) 10 ml FLUSH ASDIRECTED PRN PRN Reason: Keep Vein Open Last Admin: 05/05/21 13:29 Dose: 10 ml Documented by: Spironolactone (Spironolactone 25 Mg Tab *Ptom) 50 mg PO DAILY [facility] Last Admin: 05/05/21 08:55 Dose: 50 mg Documented by: Tolterodine Tartrate (Tolterodine 4 Mg Cap.Er *Ptom) 4 mg PO DAILY [facility] Last Admin: 05/05/21 08:58 Dose: 4 mg Documented by: Warfarin Sodium (Warfarin Sliding Scale) 1 each PO ASDIRECTED [facility] Warfarin Sodium (Warfarin 5 Mg Tab *Ptom) 5 mg PO ONETIME ONE Stop: 05/05/21 16:01 Warfarin Sodium (Warfarin 5 Mg Tab *Ptom) 2.5 mg PO ONETIME ONE Stop: 05/06/21 16:01 Warfarin Sodium (Warfarin 5 Mg Tab *Ptom) 5 mg PO ONETIME ONE Stop: 05/07/21 16:01 Discontinued Medications Ceftriaxone Sodium (Ceftriaxone 1 Gm Vial) Confirm Administered Dose 1 gm .ROUTE .STK-MED ONE Stop: 05/04/21 13:01 Last Admin: 05/04/21 13:14 Dose: Not Given Documented by: Ceftriaxone Sodium (Ceftriaxone 1 Gm Vial) 1 gm IVPUSH ONETIME ONE Stop: 05/04/21 13:16 Last Admin: 05/04/21 13:13 Dose: 1 gm Documented by: Warfarin Sodium (Warfarin 5 Mg Tab) 5 mg PO ONETIME ONE Stop: 05/04/21 17:01 Last Admin: 05/04/21 18:08 Dose: 5 mg Documented by: - Exam General: Alert, Oriented, Cooperative, No Acute Distress Neck: Trachea Midline Lungs: Clear to Auscultation, Normal Respiratory Effort, Decreased Breath Sounds (decreased bibasilar). No: Crackles, Wheezing Cardiovascular: Regular Rate, Irregular Rhythm GI/Abdominal Exam: Normal Bowel Sounds (colostopy LLQ), Soft, Non-Tender, No Distention (Female) Exam: Deferred Peripheral Pulses: 2+: Radial (L), Radial (R) - Patient Data Lab Results Last 24 hrs: Laboratory Results - last 24 hr 05/05/21 05/05/21 05/05/21 Range/Units 06:30 06:30 06:30 WBC 11.7 H (3.0-10.3) x10-3/uL RBC 4.01 (3.60-5.20) x10(6)uL Hgb 13.3 (11.4-15.5) g/dL Hct 40.0 (34.2-48.2) % MCV 99.9 (76.7-100.5) fL MCH 33.2 (23.9-33.9) pg MCHC 33.2 (31.9-34.8) g/dL RDW 14.9 (12.3-16.5) % Plt Count 253 (151-488) x10(3)uL MPV 8.6 (7.1-12.4) fL Neut % (Auto) 67.4 (30.8-76.2) % Lymph % (Auto) 21.4 (18.4-52.1) % [place] % (Auto) 10.1 (4.4-15.7) % Eos % (Auto) 0.6 (0.6-8.1) % Baso % (Auto) 0.5 (0.2-1.5) % Neut # (Auto) 7.9 H (1.5-6.3) x10-3/uL Lymph # (Auto) 2.5 (1.0-4.4) x10-3/uL [place] # (Auto) 1.2 H (0.3-1.0) x10-3/uL Eos # (Auto) 0.1 (0.0-0.8) x10-3/uL Baso # (Auto) 0.1 (0.0-0.1) x10-3/uL PT 20.3 H (9.0-11.1) sec INR 1.96 H (1.00-1.24) Sodium 141 (135-145) mmol/L Potassium 4.0 (3.5-5.3) mmol/L Chloride 104 (100-110) mmol/L Carbon Dioxide 27 (21-32) mmol/L BUN 16 (7-18) mg/dL Creatinine 0.9 (0.55-1.02) mg/dL Est Cr Clr Drug Dosing 36.41 mL/min Estimated GFR (MDRD) > 60 (>60) BUN/Creatinine Ratio 17.8 (9-20) Glucose 95 (80-116) mg/dL Calcium 8.5 L (8.6-10.2) mg/dL Result Diagrams: 05/05/21 06:30 05/05/21 06:30 Basil Results Last 24 hrs: Microbiology 05/04/21 12:45 Aerobic Blood Culture - Preliminary Blood - Venous - Lab Draw NO GROWTH AFTER 1 DAY Anaerobic Blood Culture - Final 05/04/21 12:35 Aerobic Blood Culture - Preliminary Blood - Venous NO GROWTH AFTER 1 DAY Anaerobic Blood Culture - Final Sepsis Event Note - Evaluation Sepsis Screening Result: No Definite Risk - Focused Exam Vital Signs: Vital Signs Temp Pulse Pulse Resp BP BP Pulse Ox 05/05/21 09:01 79 124/62 05/05/21 08:56 124/62 05/05/21 08:00 97.7 F 79 20 124/62 95 05/05/21 04:00 97.4 F 82 18 120/63 94 L - Problem List & Annotations (1) Pneumonia SNOMED Code(s): 610808937 Code(s): J18.9 - PNEUMONIA, UNSPECIFIED ORGANISM Status: Acute Current Visit: Yes Qualifiers: Laterality: bilateral Lung location: lower lobe of lung (2) Fall SNOMED Code(s): 9178956, 702148224 Code(s): W19.XXXA - UNSPECIFIED FALL, INITIAL ENCOUNTER Status: Acute Current Visit: Yes (3) Left ankle injury SNOMED Code(s): 39083152770085830 Code(s): S99.912A - UNSPECIFIED INJURY OF LEFT ANKLE, INITIAL ENCOUNTER Status: Acute Current Visit: Yes (4) CHF (congestive heart failure) SNOMED Code(s): 86418990 Code(s): I50.9 - HEART FAILURE, UNSPECIFIED Status: Chronic Current Visit: Yes (5) CAD (coronary artery disease) SNOMED Code(s): 62691258 Code(s): I25.10 - ATHSCL HEART DISEASE OF [place] CORONARY ARTERY W/O ANG PCTRS Status: Chronic Current Visit: Yes (6) Asthma SNOMED Code(s): 460654659 Code(s): J45.909 - UNSPECIFIED ASTHMA, UNCOMPLICATED Status: Chronic Cur rent Visit: Yes (7) Morbid obesity with BMI of 50.0-59.9, adult SNOMED Code(s): 731065388, 49565935011600 Code(s): E66.01 - MORBID (SEVERE) OBESITY DUE TO EXCESS CALORIES; Z68.43 - BODY MASS INDEX [BMI] 50.0-59.9, ADULT Status: Chronic Current Visit: Yes (8) Atrial fibrillation SNOMED Code(s): 20505877 Code(s): I48.91 - UNSPECIFIED ATRIAL FIBRILLATION Status: Chronic Current Visit: Yes (9) Anticoagulant long-term use SNOMED Code(s): 974528391 Code(s): Z79.01 - PENITENTIARY (CURRENT) USE OF ANTICOAGULANTS Status: Chronic Current Visit: Yes (10) Spinal stenosis SNOMED Code(s): 92638224 Code(s): M48.00 - SPINAL STENOSIS, SITE UNSPECIFIED Status: Chronic Current Visit: No - Problem List Review Problem List Initiated/Reviewed/Updated: Yes - My Orders Last 24 Hours: My Active Orders 05/04/21 14:37 Patient Status [ADT] Routine Oxygen Therapy [RC] PRN Up With Assistance [RC] ASDIRECTED Up to Chair [RC] ASDIRECTED VTE/DVT Education [RC] Per Unit Routine Vital Signs [RC] 08,12,16,20,00,04 OT Evaluation and Treatment [CONS] Routine PT Evaluation and Treatment [CONS] Routine Resuscitation Status Routine 05/04/21 15:07 Cooling Warming Measures [RC] ASDIRECTED 05/04/21 16:00 Azithromycin [Zithromax] 500 mg Sodium Chloride 0.9% [Normal Saline (AdvBag)] 250 ml IV Q24H 05/04/21 16:30 Budesonide [Pulmicort] 0.5 mg NEB BID PRN lidocaine HCL [Aspercreme Lidocaine] 1 applic TOP QID PRN 05/04/21 16:33 RT Aerosol Therapy [RC] ASDIRECTED 05/04/21 16:42 Cyclobenzaprine [Flexeril] 10 mg PO TID PRN 05/04/21 16:45 Warfarin Sliding Scale [Coumadin Sliding Scale] 1 each PO ASDIRECTED 05/04/21 16:46 rOPINIRole [Requip] 0.5 mg PO BID PRN 05/04/21 16:58 Albuterol/Ipratropium [DuoNeb 3.0-0.5 MG/3 ML] 3 ml INH Q6H PRN 05/04/21 18:00 Potassium Chloride [Klor-Con M20] 20 meq PO BIDMEALS 05/04/21 21:00 Acetaminophen [Tylenol Extra Strength] 1,000 mg PO TID Montelukast [Singulair] 10 mg PO BEDTIME Pregabalin [Lyrica] 100 mg PO TID Rosuvastatin [Crestor] 10 mg PO BEDTIME rOPINIRole [Requip] 0.5 mg PO BEDTIME 05/05/21 07:30 Omeprazole [Omeprazole] 40 mg PO ACBREAKFAST 05/05/21 08:00 Furosemide [Lasix] 40 mg PO 0800 05/05/21 09:00 DULoxetine [Cymbalta] 30 mg PO DAILY Losartan [Cozaar] 25 mg PO DAILY Metoprolol Succinate [Toprol XL] 25 mg PO DAILY Multivitamins [Tab-A-Tara] 1 tab PO DAILY Spironolactone [Aldactone] 50 mg PO DAILY Tolterodine [Detrol LA 24 Hr] 4 mg PO DAILY 05/05/21 12:00 Furosemide [Lasix] 20 mg PO 1200 05/05/21 14:00 cefTRIAXone [Rocephin] 1 gm IVPUSH Q24H 05/05/21 16:00 Warfarin [Coumadin] 5 mg PO ONETIME ONE 05/06/21 06:00 INR,PT,PROTHROMBIN TIME [COAG] DAILY 05/06/21 16:00 Warfarin [Coumadin] 2.5 mg PO ONETIME ONE 05/07/21 06:00 INR,PT,PROTHROMBIN TIME [COAG] DAILY 05/07/21 16:00 Warfarin [Coumadin] 5 mg PO ONETIME ONE 05/08/21 06:00 INR,PT,PROTHROMBIN TIME [COAG] DAILY 05/09/21 06:00 INR,PT,PROTHROMBIN TIME [COAG] DAILY 05/10/21 06:00 INR,PT,PROTHROMBIN TIME [COAG] DAILY - Plan Plan:: 1. Pneumonia: CXR suspected pneumonia, repeat CXR 2V tomorrow. WBC 14.2, CURB score today 1. BUN improved to 16. saline lock. Rocephin 1 gram IV q24h, Azithromycin 500 mg IV q24h. Blood culture pending. UA negative. Incentive spirometry q1h while awake. Continue home nebulizers. Repeat CBC & BMP tomorrow. 2. Atrial fibrillation: INR 1.96, coumadin sliding scale per pharmacy. 3. Falls: PT/OT evaluate & treat. Ankle & knee x-ray no acute fracture, soft tissue swelling on left ankle. Ice as needed, elevate & BRYCE wrap to left ankle. 4. Discharge planning: looking at NH placement due to recurrent falls, not able to live at home independently.
[2021-05-05] MEDS ORDERED: Warfarin 5 MG Tab *PTOM PO ONE (16:00)
[2021-05-05] MEDS ORDERED: Warfarin 5 MG Tab PO SCH (16:00)
[2021-05-05] MEDS: Azithromycin 500 MG in Sodium Chloride 0.9% 250 ML IV SCH (16:49)
[2021-05-05] MEDS: Rosuvastatin 10 MG Tab *PTOM PO SCH (20:22)
[2021-05-05] MEDS: Montelukast 10 MG Tab *PTOM PO SCH (20:22)
[2021-05-05] MEDS: rOPINIRole 0.5 MG Tab *PTOM PO SCH (20:23)
[2021-05-05] MEDS: Cyclobenzaprine 10 MG Tab *PTOM PO PRN (20:33)
[2021-05-06] MEDS: Cyclobenzaprine 10 MG Tab *PTOM PO PRN ×2 (06:20→21:44)
[2021-05-06] MEDS: Potassium Chloride 20 MEQ Tab.ER *PTOM PO SCH ×2 (07:27→18:27)
[2021-05-06] MEDS: Furosemide 40 MG Tab *PTOM PO SCH ×2 (07:28→12:16)
[2021-05-06] MEDS: LIDOCAINE HCL TOP PRN (09:48)
[2021-05-06] MEDS: Spironolactone 25 MG Tab *PTOM PO SCH (09:49)
[2021-05-06] MEDS: Losartan 25 MG Tab *PTOM PO SCH (09:50)
[2021-05-06] MEDS: DULoxetine 30 MG Cap *PTOM PO SCH (09:51)
[2021-05-06] MEDS: Tolterodine 4 MG Cap.ER *PTOM PO SCH (09:52)
[2021-05-06] MEDS: Metoprolol Succinate 25 MG Tab.ER *PTOM PO SCH (09:53)
[2021-05-06] MEDS: Multivitamin Tab *PTOM PO SCH (09:53)
[2021-05-06] MEDS: Acetaminophen 500 MG Tab *PTOM PO SCH ×3 (09:54→21:43)
[2021-05-06] MEDS: Pregabalin 100 MG Cap PO SCH ×3 (09:57→21:38)
[2021-05-06] MEDS: cefTRIAXone 1 GM Vial IVPUSH SCH (13:50)
[2021-05-06] MEDS: Azithromycin 500 MG in Sodium Chloride 0.9% 250 ML IV SCH (15:27)
--- NOTE | 2021-05-06 15:28 | PCM.PN ---
- General Info Date of Service: 05/06/21 Subjective Update: Hilary states her coughing is improved. Two person assist to get up for urination, has colostomy in place. States stool is more watery, usually pudding consistency. No fevers, chills. Left foot is still sore, using bryce wraps, Aspercreme with lidocaine and ice/elevation when sitting/laying. Tolerating diet. - Patient Data Vitals - Most Recent: Last Vital Signs Temp 98.2 F 05/06/21 12:00 Pulse 97 05/06/21 12:00 Resp 17 05/06/21 12:00 BP 99/56 L 05/06/21 12:00 Pulse Ox 94 L 05/06/21 12:00 Weight - Most Recent: 294 lb 7 oz Lab Results Last 24 Hours: Laboratory Results - last 24 hr 05/06/21 Range/Units 06:44 PT 21.1 H (9.0-11.1) sec INR 2.04 H (1.00-1.24) Basil Results Last 24 Hours: Microbiology 05/04/21 12:35 Aerobic Blood Culture - Preliminary Blood - Venous NO GROWTH AFTER 2 DAYS Anaerobic Blood Culture - Final 05/04/21 12:45 Aerobic Blood Culture - Preliminary Blood - Venous - Lab Draw NO GROWTH AFTER 2 DAYS Anaerobic Blood Culture - Final Med Orders - Current: Current Medications Acetaminophen (Acetaminophen 500 Mg Tab *Ptom) 1,000 mg PO TID [facility] Last Admin: 05/06/21 13:49 Dose: 1,000 mg Documented by: Albuterol/Ipratropium (Albuterol/Ipratropium 3.0-0.5 Mg/3 Ml Neb Soln) 3 ml INH Q6H PRN PRN Reason: SHORTNESS OF BREATH/WHEEZING Budesonide (Budesonide 0.5 Mg/2 Ml Neb Susp) 0.5 mg NEB BID PRN PRN Reason: DIFFICULTY BREATHING Ceftriaxone Sodium (Ceftriaxone 1 Gm Vial) 1 gm IVPUSH Q24H [facility] Last Admin: 05/06/21 13:50 Dose: 1 gm Documented by: Cyclobenzaprine HCl (Cyclobenzaprine 10 Mg Tab *Ptom) 10 mg PO TID PRN PRN Reason: Muscle Spasm - Painful Last Admin: 05/06/21 06:20 Dose: 10 mg Documented by: Duloxetine HCl (Duloxetine 30 Mg Cap *Ptom) 30 mg PO DAILY [facility] Last Admin: 05/06/21 09:51 Dose: 30 mg Documented by: Furosemide (Furosemide 40 Mg Tab *Ptom) 20 mg PO 1200 [facility] Last Admin: 05/06/21 12:16 Dose: 20 mg Documented by: Furosemide (Furosemide 40 Mg Tab *Ptom) 40 mg PO 0800 [facility] Last Admin: 05/06/21 07:28 Dose: 40 mg Documented by: Sodium Chloride (Normal Saline) 1,000 mls @ 125 mls/hr IV ASDIRECTED [facility] Last Admin: 05/04/21 13:04 Dose: 125 mls/hr Documented by: Azithromycin 500 mg/ Sodium (Chloride) 250 mls @ 250 mls/hr IV Q24H [facility] Last Admin: 05/05/21 16:49 Dose: 250 mls/hr Documented by: Losartan Potassium (Losartan 25 Mg Tab *Ptom) 25 mg PO DAILY [facility] Last Admin: 05/06/21 09:50 Dose: 25 mg Documented by: Metoprolol Succinate (Metoprolol Succinate 25 Mg Tab.Er *Ptom) 25 mg PO DAILY [facility] Last Admin: 05/06/21 09:53 Dose: 25 mg Documented by: Montelukast Sodium (Montelukast 10 Mg Tab *Ptom) 10 mg PO BEDTIME [facility] Last Admin: 05/05/21 20:22 Dose: 10 mg Documented by: Multivitamins/Minerals/Vitamin C (Multivitamin Tab *Ptom) 1 tab PO DAILY [facility] Last Admin: 05/06/21 09:53 Dose: 1 tab Documented by: (Lidocaine Hcl [ Aspercreme Lidocaine ] 76.5 Gm Cream..G.) *Ptom 1 applic TOP QID PRN PRN Reason: Pain Last Admin: 05/06/21 09:48 Dose: 1 applic Documented by: Omeprazole 20 Mg Cap (.Cr *Ptom) 40 mg PO ACBREAKFAST [facility] Last Admin: 05/06/21 07:08 Dose: Not Given Documented by: Potassium Chloride (Potassium Chloride 20 Meq Tab.Er *Ptom) 20 meq PO BIDMEALS [facility] Last Admin: 05/06/21 07:27 Dose: 20 meq Documented by: Pregabalin (Pregabalin 100 Mg Cap) 100 mg PO TID [facility] Last Admin: 05/06/21 13:48 Dose: 100 mg Documented by: Ropinirole HCl (Ropinirole 0.5 Mg Tab *Ptom) 0.5 mg PO BEDTIME [facility] Last Admin: 05/05/21 20:23 Dose: 0.5 mg Documented by: Ropinirole HCl (Ropinirole 0.5 Mg Tab *Ptom) 0.5 mg PO BID PRN PRN Reason: RESTLESS LEGS Rosuvastatin Calcium (Rosuvastatin 10 Mg Tab *Ptom) 10 mg PO BEDTIME [facility] Last Admin: 05/05/21 20:22 Dose: 10 mg Documented by: Sodium Chloride (Sodium Chloride 0.9% 10 Ml Syringe) 10 ml FLUSH ASDIRECTED PRN PRN Reason: Keep Vein Open Last Admin: 05/05/21 20:31 Dose: 10 ml Documented by: Spironolactone (Spironolactone 25 Mg Tab *Ptom) 50 mg PO DAILY [facility] Last Admin: 05/06/21 09:49 Dose: 50 mg Documented by: Tolterodine Tartrate (Tolterodine 4 Mg Cap.Er *Ptom) 4 mg PO DAILY [facility] Last Admin: 05/06/21 09:52 Dose: 4 mg Documented by: Warfarin Sodium (Warfarin Sliding Scale) 1 each PO ASDIRECTED [facility] Warfarin Sodium (Warfarin 5 Mg Tab *Ptom) 2.5 mg PO ONETIME ONE Stop: 05/06/21 16:01 Last Admin: 05/06/21 15:05 Dose: 2.5 mg Documented by: Warfarin Sodium (Warfarin 5 Mg Tab *Ptom) 5 mg PO ONETIME ONE Stop: 05/07/21 16:01 Discontinued Medications Ceftriaxone Sodium (Ceftriaxone 1 Gm Vial) Confirm Administered Dose 1 gm .ROUTE .STK-MED ONE Stop: 05/04/21 13:01 Last Admin: 05/04/21 13:14 Dose: Not Given Documented by: Ceftriaxone Sodium (Ceftriaxone 1 Gm Vial) 1 gm IVPUSH ONETIME ONE Stop: 05/04/21 13:16 Last Admin: 05/04/21 13:13 Dose: 1 gm Documented by: Warfarin Sodium (Warfarin 5 Mg Tab) 5 mg PO ONETIME ONE Stop: 05/04/21 17:01 Last Admin: 05/04/21 18:08 Dose: 5 mg Documented by: Warfarin Sodium (Warfarin 5 Mg Tab *Ptom) 5 mg PO ONETIME ONE Stop: 05/05/21 16:01 Last Admin: 05/05/21 16:53 Dose: 5 mg Documented by: - Exam Quality Assessment: No: Supplemental Oxygen General: Alert, Oriented, Cooperative, No Acute Distress Lungs: Clear to Auscultation, Normal Respiratory Effort, Decreased Breath Sounds (bibasilar). No: Crackles, Wheezing Cardiovascular: Regular Rate, Irregular Rhythm GI/Abdominal Exam: Normal Bowel Sounds, Soft, Non-Tender, Other (obese, LLQ colostomy) Extremities: Pedal Edema (BLE) - Patient Data Lab Results Last 24 hrs: Laboratory Results - last 24 hr 05/06/21 Range/Units 06:44 PT 21.1 H (9.0-11.1) sec INR 2.04 H (1.00-1.24) Result Diagrams: 05/05/21 06:30 05/05/21 06:30 Basil Results Last 24 hrs: Microbiology 05/04/21 12:35 Aerobic Blood Culture - Preliminary Blood - Venous NO GROWTH AFTER 2 DAYS Anaerobic Blood Culture - Final 05/04/21 12:45 Aerobic Blood Culture - Preliminary Blood - Venous - Lab Draw NO GROWTH AFTER 2 DAYS Anaerobic Blood Culture - Final Sepsis Event Note - Evaluation Sepsis Screening Result: No Definite Risk - Focused Exam Vital Signs: Vital Signs Temp Pulse Pulse Resp BP BP Pulse Ox 05/06/21 12:00 98.2 F 97 17 99/56 L 94 L 05/06/21 09:53 85 100/55 L 05/06/21 09:50 100/55 L 05/06/21 07:04 97.4 F 92 18 136/72 95 05/06/21 04:00 97.6 F 98 18 147/78 H 96 - Problem List & Annotations (1) Pneumonia SNOMED Code(s): 263217842 Code(s): J18.9 - PNEUMONIA, UNSPECIFIED ORGANISM Status: Acute Current Visit: Yes Qualifiers: Laterality: bilateral Lung location: lower lobe of lung (2) Fall SNOMED Code(s): 6088274, 754159087 Code(s): W19.XXXA - UNSPECIFIED FALL, INITIAL ENCOUNTER Status: Acute Current Visit: Yes (3) Left ankle injury SNOMED Code(s): 58958152196421246 Code(s): S99.912A - UNSPECIFIED INJURY OF LEFT ANKLE, INITIAL ENCOUNTER Status: Acute Current Visit: Yes (4) CHF (congestive heart failure) SNOMED Code(s): 05406079 Code(s): I50.9 - HEART FAILURE, UNSPECIFIED Status: Chronic Current Visit: Yes (5) CAD (coronary artery disease) SNOMED Code(s): 96410830 Code(s): I25.10 - ATHSCL HEART DISEASE OF [place] CORONARY ARTERY W/O ANG PCTRS Status: Chronic Current Visit: Yes (6) Asthma SNOMED Code(s): 678616292 Code(s): J45.909 - UNSPECIFIED ASTHMA, UNCOMPLICATED Status: Chronic Current Visit: Yes (7) Morbid obesity with BMI of 50.0-59.9, adult SNOMED Code(s): 512988575, 10791523392613 Code(s): E66.01 - MORBID (SEVERE) OBESITY DUE TO EXCESS CALORIES; Z68.43 - BODY MASS INDEX [BMI] 50.0-59.9, ADULT Status: Chronic Current Visit: Yes (8) Atrial fibrillation SNOMED Code(s): 42470310 Code(s): I48.91 - UNSPECIFIED ATRIAL FIBRILLATION Status: Chronic Current Visit: Yes (9) Anticoagulant long-term use SNOMED Code(s): 086495160 Code(s): Z79.01 - BINDERY MACHINE SETTER/SET UP OPERATOR (CURRENT) USE OF ANTICOAGULANTS Status: Chronic Current Visit: Yes (10) Spinal stenosis SNOMED Code(s): 62555863 Code(s): M48.00 - SPINAL STENOSIS, SITE UNSPECIFIED Status: Chronic Current Visit: No - Problem List Review Problem List Initiated/Reviewed/Updated: Yes - My Orders Last 24 Hours: My Active Orders 05/05/21 15:07 BRYCE Bandage [Elastic Wrap] [OM.PC] Routine 05/06/21 08:00 Chest 2V [CR] Routine 05/06/21 15:22 Incentive Spirometry [RT Incentive Spirometry] [RC] Q1HWA 05/06/21 16:00 Warfarin [Coumadin] 2.5 mg PO ONETIME ONE 05/07/21 06:00 CBC WITH AUTO DIFF [HEME] Routine INR,PT,PROTHROMBIN TIME [COAG] DAILY 05/07/21 16:00 Warfarin [Coumadin] 5 mg PO ONETIME ONE 05/08/21 06:00 INR,PT,PROTHROMBIN TIME [COAG] DAILY 05/09/21 06:00 INR,PT,PROTHROMBIN TIME [COAG] DAILY 05/10/21 06:00 INR,PT,PROTHROMBIN TIME [COAG] DAILY - Plan Plan:: 1. Pneumonia: Atelectasis, per my view improved. Official report pending. Day 3: Rocephin 1 gram IV q24h, Azithromycin 500 mg IV q24h. Blood culture no growth to date. Incentive spirometry q1h while awake. Continue home nebulizers. Repeat CBC & BMP tomorrow. 2. Atrial fibrillation: INR 2.04, Coumadin sliding scale per pharmacy. 3. Falls: PT/OT evaluate & treat. Ankle & knee x-ray no acute fracture, soft tissue swelling on left ankle. Ice as needed, elevate & BRYCE wrap to left ankle. Aspercreme with lidocaine qid as needed. 4. Discharge planning: looking at [facility] placement due to recurrent falls, not able to live at home independently.
[2021-05-06] MEDS ORDERED: Warfarin 5 MG Tab *PTOM PO ONE (16:00)
[2021-05-06] MEDS: Rosuvastatin 10 MG Tab *PTOM PO SCH (21:37)
[2021-05-06] MEDS: rOPINIRole 0.5 MG Tab *PTOM PO PRN (21:39)
[2021-05-06] MEDS: rOPINIRole 0.5 MG Tab *PTOM PO SCH (21:41)
[2021-05-06] MEDS: Montelukast 10 MG Tab *PTOM PO SCH (21:42)
[2021-05-07] MEDS: rOPINIRole 0.5 MG Tab *PTOM PO PRN (08:21)
[2021-05-07] MEDS: Spironolactone 25 MG Tab *PTOM PO SCH (08:23)
[2021-05-07] MEDS: Cyclobenzaprine 10 MG Tab *PTOM PO PRN ×2 (08:24→20:48)
[2021-05-07] MEDS: Potassium Chloride 20 MEQ Tab.ER *PTOM PO SCH ×2 (08:27→18:21)
[2021-05-07] MEDS: Losartan 25 MG Tab *PTOM PO SCH (08:28)
[2021-05-07] MEDS: Acetaminophen 500 MG Tab *PTOM PO SCH ×3 (08:28→20:47)
[2021-05-07] MEDS: DULoxetine 30 MG Cap *PTOM PO SCH (08:29)
[2021-05-07] MEDS: Furosemide 40 MG Tab *PTOM PO SCH ×2 (08:29→12:11)
[2021-05-07] MEDS: Metoprolol Succinate 25 MG Tab.ER *PTOM PO SCH (08:30)
[2021-05-07] MEDS: Tolterodine 4 MG Cap.ER *PTOM PO SCH (08:30)
[2021-05-07] MEDS: Multivitamin Tab *PTOM PO SCH (08:32)
[2021-05-07] MEDS: Pregabalin 100 MG Cap PO SCH ×3 (08:56→20:45)
[2021-05-07] MEDS: cefTRIAXone 1 GM Vial IVPUSH SCH (14:01)
[2021-05-07] MEDS: Sodium Chloride 0.9% 10 ML Syringe FLUSH PRN ×2 (14:08→16:25)
--- NOTE | 2021-05-07 15:05 | PCM.PN ---
- General Info Date of Service: 05/07/21 Subjective Update: Hilary states she is not coughing, no shortness of breath or chest pain. Stools seem to be firming up now. Her left foot is bruised now but is ambulating to the bathroom with assistance. Family is working on [place] application for NH placement. She states that if she would not be able to go locally, she does have her sister and 2 granddaughters in [place]. No fevers, or chills. Functional Status: Reports: Pain Controlled, Tolerating Diet, Ambulating, Urinating, Incentive Spirometry. Denies: New Symptoms - Patient Data Vitals - Most Recent: Last Vital Signs Temp 97.9 F 05/07/21 08:00 Pulse 91 05/07/21 08:30 Resp 15 05/07/21 08:00 BP 134/85 05/07/21 08:30 Pulse Ox 94 L 05/07/21 08:00 Weight - Most Recent: 294 lb 7 oz Lab Results Last 24 Hours: Laboratory Results - last 24 hr 05/07/21 05/07/21 Range/Units 06:10 06:10 WBC 9.2 (3.0-10.3) x10-3/uL RBC 3.70 (3.60-5.20) x10(6)uL Hgb 12.5 (11.4-15.5) g/dL Hct 37.3 (34.2-48.2) % MCV 100.6 H (76.7-100.5) fL MCH 33.7 (23.9-33.9) pg MCHC 33.5 (31.9-34.8) g/dL RDW 15.0 (12.3-16.5) % Plt Count 219 (151-488) x10(3)uL MPV 8.5 (7.1-12.4) fL Neut % (Auto) 63.0 (30.8-76.2) % Lymph % (Auto) 25.0 (18.4-52.1) % [place] % (Auto) 10.1 (4.4-15.7) % Eos % (Auto) 1.2 (0.6-8.1) % Baso % (Auto) 0.7 (0.2-1.5) % Neut # (Auto) 5.8 (1.5-6.3) x10-3/uL Lymph # (Auto) 2.3 (1.0-4.4) x10-3/uL [place] # (Auto) 0.9 (0.3-1.0) x10-3/uL Eos # (Auto) 0.1 (0.0-0.8) x10-3/uL Baso # (Auto) 0.1 (0.0-0.1) x10-3/uL PT 20.7 H (9.0-11.1) sec INR 2.01 H (1.00-1.24) Basil Results Last 24 Hours: Microbiology 05/04/21 12:35 Aerobic Blood Culture - Preliminary Blood - Venous NO GROWTH AFTER 3 DAYS Anaerobic Blood Culture - Final 05/04/21 12:45 Aerobic Blood Culture - Preliminary Blood - Venous - Lab Draw NO GROWTH AFTER 3 DAYS Anaerobic Blood Culture - Final Med Orders - Current: Current Medications Acetaminophen (Acetaminophen 500 Mg Tab *Ptom) 1,000 mg PO TID COUNT INCLUDES THE [facility] Last Admin: 05/07/21 14:00 Dose: 1,000 mg Documented by: Albuterol/Ipratropium (Albuterol/Ipratropium 3.0-0.5 Mg/3 Ml Neb Soln) 3 ml INH Q6H PRN PRN Reason: SHORTNESS OF BREATH/WHEEZING Budesonide (Budesonide 0.5 Mg/2 Ml Neb Susp) 0.5 mg NEB BID PRN PRN Reason: DIFFICULTY BREATHING Ceftriaxone Sodium (Ceftriaxone 1 Gm Vial) 1 gm IVPUSH Q24H COUNT INCLUDES THE [facility] Last Admin: 05/07/21 14:01 Dose: 1 gm Documented by: Cyclobenzaprine HCl (Cyclobenzaprine 10 Mg Tab *Ptom) 10 mg PO TID PRN PRN Reason: Muscle Spasm - Painful Last Admin: 05/07/21 08:24 Dose: 10 mg Documented by: Duloxetine HCl (Duloxetine 30 Mg Cap *Ptom) 30 mg PO DAILY COUNT INCLUDES THE [facility] Last Admin: 05/07/21 08:29 Dose: 30 mg Documented by: Furosemide (Furosemide 40 Mg Tab *Ptom) 20 mg PO 1200 COUNT INCLUDES THE [facility] Last Admin: 05/07/21 12:11 Dose: 20 mg Documented by: Furosemide (Furosemide 40 Mg Tab *Ptom) 40 mg PO 0800 COUNT INCLUDES THE [facility] Last Admin: 05/07/21 08:29 Dose: 40 mg Documented by: Sodium Chloride (Normal Saline) 1,000 mls @ 125 mls/hr IV ASDIRECTED COUNT INCLUDES THE [facility] Last Admin: 05/04/21 13:04 Dose: 125 mls/hr Documented by: Azithromycin 500 mg/ Sodium (Chloride) 250 mls @ 250 mls/hr IV Q24H COUNT INCLUDES THE [facility] Last Admin: 05/06/21 15:27 Dose: 250 mls/hr Documented by: Losartan Potassium (Losartan 25 Mg Tab *Ptom) 25 mg PO DAILY COUNT INCLUDES THE [facility] Last Admin: 05/07/21 08:28 Dose: 25 mg Documented by: Metoprolol Succinate (Metoprolol Succinate 25 Mg Tab.Er *Ptom) 25 mg PO DAILY S Last Admin: 05/07/21 08:30 Dose: 25 mg Documented by: Montelukast Sodium (Montelukast 10 Mg Tab *Ptom) 10 mg PO BEDTIME COUNT INCLUDES THE [facility] Last Admin: 05/06/21 21:42 Dose: 10 mg Documented by: Multivitamins/Minerals/Vitamin C (Multivitamin Tab *Ptom) 1 tab PO DAILY COUNT INCLUDES THE [facility] Last Admin: 05/07/21 08:32 Dose: 1 tab Documented by: (Lidocaine Hcl [ Aspercreme Lidocaine ] 76.5 Gm Cream..G.) *Ptom 1 applic TOP QID PRN PRN Reason: Pain Last Admin: 05/06/21 09:48 Dose: 1 applic Documented by: Omeprazole 20 Mg Cap (.Cr *Ptom) 40 mg PO ACBREAKFAST COUNT INCLUDES THE [facility] Last Admin: 05/07/21 07:21 Dose: 40 mg Documented by: Potassium Chloride (Potassium Chloride 20 Meq Tab.Er *Ptom) 20 meq PO BIDMEALS COUNT INCLUDES THE [facility] Last Admin: 05/07/21 08:27 Dose: 20 meq Documented by: Pregabalin (Pregabalin 100 Mg Cap) 100 mg PO TID COUNT INCLUDES THE [facility] Last Admin: 05/07/21 14:00 Dose: 100 mg Documented by: Ropinirole HCl (Ropinirole 0.5 Mg Tab *Ptom) 0.5 mg PO BEDTIME COUNT INCLUDES THE [facility] Last Admin: 05/06/21 21:41 Dose: 0.5 mg Documented by: Ropinirole HCl (Ropinirole 0.5 Mg Tab *Ptom) 0.5 mg PO BID PRN PRN Reason: RESTLESS LEGS Last Admin: 05/07/21 08:21 Dose: 0.5 mg Documented by: Rosuvastatin Calcium (Rosuvastatin 10 Mg Tab *Ptom) 10 mg PO BEDTIME COUNT INCLUDES THE [facility] Last Admin: 05/06/21 21:37 Dose: 10 mg Documented by: Sodium Chloride (Sodium Chloride 0.9% 10 Ml Syringe) 10 ml FLUSH ASDIRECTED PRN PRN Reason: Keep Vein Open Last Admin: 05/07/21 14:08 Dose: 10 ml Documented by: Spironolactone (Spironolactone 25 Mg Tab *Ptom) 50 mg PO DAILY COUNT INCLUDES THE [facility] Last Admin: 05/07/21 08:23 Dose: 50 mg Documented by: Tolterodine Tartrate (Tolterodine 4 Mg Cap.Er *Ptom) 4 mg PO DAILY COUNT INCLUDES THE [facility] Last Admin: 05/07/21 08:30 Dose: 4 mg Documented by: Warfarin Sodium (Warfarin Sliding Scale) 1 each PO ASDIRECTED COUNT INCLUDES THE [facility] Warfarin Sodium (Warfarin 5 Mg Tab *Ptom) 5 mg PO ONETIME ONE Stop: 05/07/21 16:01 Discontinued Medications Ceftriaxone Sodium (Ceftriaxone 1 Gm Vial) Confirm Administered Dose 1 gm .ROUTE .STK-MED ONE Stop: 05/04/21 13:01 Last Admin: 05/04/21 13:14 Dose: Not Given Documented by: Ceftriaxone Sodium (Ceftriaxone 1 Gm Vial) 1 gm IVPUSH ONETIME ONE Stop: 05/04/21 13:16 Last Admin: 05/04/21 13:13 Dose: 1 gm Documented by: Warfarin Sodium (Warfarin 5 Mg Tab) 5 mg PO ONETIME ONE Stop: 05/04/21 17:01 Last Admin: 05/04/21 18:08 Dose: 5 mg Documented by: Warfarin Sodium (Warfarin 5 Mg Tab *Ptom) 5 mg PO ONETIME ONE Stop: 05/05/21 16:01 Last Admin: 05/05/21 16:53 Dose: 5 mg Documented by: Warfarin Sodium (Warfarin 5 Mg Tab *Ptom) 2.5 mg PO ONETIME ONE Stop: 05/06/21 16:01 Last Admin: 05/06/21 15:05 Dose: 2.5 mg Documented by: - Exam General: Alert, Oriented, Cooperative, No Acute Distress Lungs: Clear to Auscultation, Normal Respiratory Effort, Decreased Breath Sounds (RLL). No: Crackles, Wheezing Cardiovascular: Regular Rate, Irregular Rhythm GI/Abdominal Exam: Normal Bowel Sounds, Soft, Non-Tender, No Distention, Other (Colostomy LLQ) Extremities: Pedal Edema (left foot) Peripheral Pulses: 2+: Radial (L), Radial (R) Skin: Ecchymosis (left distal foot) - Patient Data Lab Results Last 24 hrs: Laboratory Results - last 24 hr 05/07/21 05/07/21 Range/Units 06:10 06:10 WBC 9.2 (3.0-10.3) x10-3/uL RBC 3.70 (3.60-5.20) x10(6)uL Hgb 12.5 (11.4-15.5) g/dL Hct 37.3 (34.2-48.2) % MCV 100.6 H (76.7-100.5) fL MCH 33.7 (23.9-33.9) pg MCHC 33.5 (31.9-34.8) g/dL RDW 15.0 (12.3-16.5) % Plt Count 219 (151-488) x10(3)uL MPV 8.5 (7.1-12.4) fL Neut % (Auto) 63.0 (30.8-76.2) % Lymph % (Auto) 25.0 (18.4-52.1) % [place] % (Auto) 10.1 (4.4-15.7) % Eos % (Auto) 1.2 (0.6-8.1) % Baso % (Auto) 0.7 (0.2-1.5) % Neut # (Auto) 5.8 (1.5-6.3) x10-3/uL Lymph # (Auto) 2.3 (1.0-4.4) x10-3/uL [place] # (Auto) 0.9 (0.3-1.0) x10-3/uL Eos # (Auto) 0.1 (0.0-0.8) x10-3/uL Baso # (Auto) 0.1 (0.0-0.1) x10-3/uL PT 20.7 H (9.0-11.1) sec INR 2.01 H (1.00-1.24) Result Diagrams: 05/07/21 06:10 05/05/21 06:30 Basil Results Last 24 hrs: Microbiology 05/04/21 12:35 Aerobic Blood Culture - Preliminary Blood - Venous NO GROWTH AFTER 3 DAYS Anaerobic Blood Culture - Final 05/04/21 12:45 Aerobic Blood Culture - Preliminary Blood - Venous - Lab Draw NO GROWTH AFTER 3 DAYS Anaerobic Blood Culture - Final Sepsis Event Note - Evaluation Sepsis Screening Result: No Definite Risk - Focused Exam Vital Signs: Vital Signs Temp Pulse Pulse Resp BP BP Pulse Ox 05/07/21 08:30 91 134/85 05/07/21 08:28 134/85 05/07/21 08:00 97.9 F 91 15 134/85 94 L - Problem List & Annotations (1) Pneumonia SNOMED Code(s): 642496098 Code(s): J18.9 - PNEUMONIA, UNSPECIFIED ORGANISM Status: Acute Current Visit: Yes Qualifiers: Laterality: bilateral Lung location: lower lobe of lung (2) Fall SNOMED Code(s): 8472558, 766133849 Code(s): W19.XXXA - UNSPECIFIED FALL, INITIAL ENCOUNTER Status: Acute Current Visit: Yes (3) Left ankle injury SNOMED Code(s): 87200331755660048 Code(s): S99.912A - UNSPECIFIED INJURY OF LEFT ANKLE, INITIAL ENCOUNTER Status: Acute Current Visit: Yes (4) CHF (congestive heart failure) SNOMED Code(s): 25372165 Code(s): I50.9 - HEART FAILURE, UNSPECIFIED Status: Chronic Current Visit: Yes (5) CAD (coronary artery disease) SNOMED Code(s): 28340909 Code(s): I25.10 - ATHSCL HEART DISEASE OF [place] CORONARY ARTERY W/O ANG PCTRS Status: Chronic Current Visit: Yes (6) Asthma SNOMED Code(s): 867155836 Code(s): J45.909 - UNSPECIFIED ASTHMA, UNCOMPLICATED Status: Chronic Current Visit: Yes (7) Morbid obesity with BMI of 50.0-59.9, adult SNOMED Code(s): 472896708, 96444683065117 Code(s): E66.01 - MORBID (SEVERE) OBESITY DUE TO EXCESS CALORIES; Z68.43 - BODY MASS INDEX [BMI] 50.0-59.9, ADULT Status: Chronic Current Visit: Yes (8) Atrial fibrillation SNOMED Code(s): 16976105 Code(s): I48.91 - UNSPECIFIED ATRIAL FIBRILLATION Status: Chronic Current Visit: Yes (9) Anticoagulant long-term use SNOMED Code(s): 307390283 Code(s): Z79.01 - GROUP HOME (CURRENT) USE OF ANTICOAGULANTS Status: Chronic Current Visit: Yes (10) Spinal stenosis SNOMED Code(s): 78053303 Code(s): M48.00 - SPINAL STENOSIS, SITE UNSPECIFIED Status: Chronic Current Visit: No - Problem List Review Problem List Initiated/Reviewed/Updated: Yes - My Orders Last 24 Hours: My Active Orders 05/06/21 15:22 Incentive Spirometry [RT Incentive Spirometry] [RC] Q1HWA 05/07/21 16:00 Warfarin [Coumadin] 5 mg PO ONETIME ONE 05/08/21 06:00 INR,PT,PROTHROMBIN TIME [COAG] DAILY 05/09/21 06:00 INR,PT,PROTHROMBIN TIME [COAG] DAILY 05/10/21 06:00 INR,PT,PROTHROMBIN TIME [COAG] DAILY - Plan Plan:: 1. Pneumonia: Atelectasis, per my view improved. Official report pending. Day 4: Rocephin 1 gram IV q24h, Azithromycin 500 mg IV q24h. Blood culture no growth to date. Incentive spirometry q1h while awake. Continue home nebulizers. Labs within normal limits. 2. Atrial fibrillation: INR 2.01, Coumadin sliding scale per pharmacy. 3. Falls: PT/OT evaluate & treat. Ankle & knee x-ray no acute fracture, soft tissue swelling on left ankle. Ice as needed, elevate & BRYCE wrap to left ankle. Aspercreme with lidocaine qid as needed. 4. Discharge planning: looking at NH placement due to recurrent falls, not able to live at home independently.
[2021-05-07] MEDS ORDERED: Warfarin 5 MG Tab *PTOM PO ONE (16:00)
[2021-05-07] MEDS: Azithromycin 500 MG in Sodium Chloride 0.9% 250 ML IV SCH (16:23)
[2021-05-07] MEDS: Rosuvastatin 10 MG Tab *PTOM PO SCH (20:45)
[2021-05-07] MEDS: rOPINIRole 0.5 MG Tab *PTOM PO SCH (20:46)
[2021-05-07] MEDS: Montelukast 10 MG Tab *PTOM PO SCH (20:47)
[2021-05-07] MEDS: LIDOCAINE HCL TOP PRN (20:50)
[2021-05-08] MEDS: Furosemide 40 MG Tab *PTOM PO SCH ×2 (08:04→12:46)
[2021-05-08] MEDS: Potassium Chloride 20 MEQ Tab.ER *PTOM PO SCH ×2 (08:05→18:07)
[2021-05-08] MEDS: Spironolactone 25 MG Tab *PTOM PO SCH (09:35)
[2021-05-08] MEDS: Losartan 25 MG Tab *PTOM PO SCH (09:36)
[2021-05-08] MEDS: Tolterodine 4 MG Cap.ER *PTOM PO SCH (09:37)
[2021-05-08] MEDS: DULoxetine 30 MG Cap *PTOM PO SCH (09:37)
[2021-05-08] MEDS: Pregabalin 100 MG Cap PO SCH ×3 (09:38→21:16)
[2021-05-08] MEDS: Metoprolol Succinate 25 MG Tab.ER *PTOM PO SCH (09:39)
[2021-05-08] MEDS: Multivitamin Tab *PTOM PO SCH (09:39)
[2021-05-08] MEDS: Acetaminophen 500 MG Tab *PTOM PO SCH ×3 (09:40→21:06)
--- NOTE | 2021-05-08 10:21 | CR ---
CHEST TWO VIEWS INDICATION: Short of breath, followup pneumonia. AP and lateral views of the chest 05/06/21 were compared with 05/04/21 and 05/18/16. Slightly better inspiration is noted. While no consolidating pneumonia or definite effusion was identified, there are somewhat heavy markings posteriorly presumably in the left lower lobe and also in the right mid lung field - probably in the right upper lobe. Findings may represent minimal areas of fibrosis in the lung bases with possibility of minimal patchy pneumonia at the lung bases and also in the right mid lung field. Minimal pleuritis could be present in the right mid lung field. The heart appears enlarged with tortuous aorta. Evidence of exogenous obesity is again noted. IMPRESSION: 1. Minimal patchy pneumonia may be present versus areas of fibrosis and atelectasis. No gross consolidating pneumonia or significant effusion was identified. 2. ASHD. 3. Exogenous obesity. 4. DJD spine. MTDD
[2021-05-08] MEDS: cefTRIAXone 1 GM Vial IVPUSH SCH (13:02)
[2021-05-08] MEDS: Sodium Chloride 0.9% 10 ML Syringe FLUSH PRN ×2 (13:03→16:29)
[2021-05-08] MEDS ORDERED: Warfarin 5 MG Tab *PTOM PO SCH (16:00)
--- NOTE | 2021-05-08 16:15 | PCM.PN ---
- General Info Date of Service: 05/08/21 Subjective Update: Hilary states no coughing or shortness of breath today. Still having pain/soreness of left foot. Diarrhea is improving. Afebrile. Chest x-ray showed patchy infiltrates vs fibrosis/atelectasis which would be improved from admission. Family is working on Medical assistance application with [facility]. Does not have family or funds to hire someone to stay with her in the home. Looking at NH vs swing bed stay, awaiting financial approval with insurance. Functional Status: Reports: Pain Controlled, Tolerating Diet, Ambulating, Urina ting, Incentive Spirometry - Patient Data Vitals - Most Recent: Last Vital Signs Temp 97.5 F 05/08/21 08:00 Pulse 97 05/08/21 09:39 Resp 16 05/08/21 08:00 BP 120/60 05/08/21 09:39 Pulse Ox 93 L 05/08/21 14:00 Weight - Most Recent: 294 lb 7 oz Lab Results Last 24 Hours: Laboratory Results - last 24 hr 05/08/21 Range/Units 06:15 PT 20.3 H (9.0-11.1) sec INR 1.96 H (1.00-1.24) Basil Results Last 24 Hours: Microbiology 05/04/21 12:45 Aerobic Blood Culture - Preliminary Blood - Venous - Lab Draw NO GROWTH AFTER 4 DAYS Anaerobic Blood Culture - Final 05/04/21 12:35 Aerobic Blood Culture - Preliminary Blood - Venous NO GROWTH AFTER 4 DAYS Anaerobic Blood Culture - Final Med Orders - Current: Current Medications Acetaminophen (Acetaminophen 500 Mg Tab *Ptom) 1,000 mg PO TID [facility] Last Admin: 05/08/21 13:01 Dose: 1,000 mg Documented by: Albuterol/Ipratropium (Albuterol/Ipratropium 3.0-0.5 Mg/3 Ml Neb Soln) 3 ml INH Q6H PRN PRN Reason: SHORTNESS OF BREATH/WHEEZING Budesonide (Budesonide 0.5 Mg/2 Ml Neb Susp) 0.5 mg NEB BID PRN PRN Reason: DIFFICULTY BREATHING Ceftriaxone Sodium (Ceftriaxone 1 Gm Vial) 1 gm IVPUSH Q24H [facility] Last Admin: 05/08/21 13:02 Dose: 1 gm Documented by: Cyclobenzaprine HCl (Cyclobenzaprine 10 Mg Tab *Ptom) 10 mg PO TID PRN PRN Reason: Muscle Spasm - Painful Last Admin: 05/07/21 20:48 Dose: 10 mg Documented by: Duloxetine HCl (Duloxetine 30 Mg Cap *Ptom) 30 mg PO DAILY [facility] Last Admin: 05/08/21 09:37 Dose: 30 mg Documented by: Furosemide (Furosemide 40 Mg Tab *Ptom) 20 mg PO 1200 [facility] Last Admin: 05/08/21 12:46 Dose: 20 mg Documented by: Furosemide (Furosemide 40 Mg Tab *Ptom) 40 mg PO 0800 [facility] Last Admin: 05/08/21 08:04 Dose: 40 mg Documented by: Sodium Chloride (Normal Saline) 1,000 mls @ 125 mls/hr IV ASDIRECTED [facility] Last Admin: 05/04/21 13:04 Dose: 125 mls/hr Documented by: Azithromycin 500 mg/ Sodium (Chloride) 250 mls @ 250 mls/hr IV Q24H [facility] Last Admin: 05/07/21 16:23 Dose: 250 mls/hr Documented by: Losartan Potassium (Losartan 25 Mg Tab *Ptom) 25 mg PO DAILY [facility] Last Admin: 05/08/21 09:36 Dose: 25 mg Documented by: Metoprolol Succinate (Metoprolol Succinate 25 Mg Tab.Er *Ptom) 25 mg PO DAILY [facility] Last Admin: 05/08/21 09:39 Dose: 25 mg Documented by: Montelukast Sodium (Montelukast 10 Mg Tab *Ptom) 10 mg PO BEDTIME [facility] Last Admin: 05/07/21 20:47 Dose: 10 mg Documented by: Multivitamins/Minerals/Vitamin C (Multivitamin Tab *Ptom) 1 tab PO DAILY [facility] Last Admin: 05/08/21 09:39 Dose: 1 tab Documented by: (Lidocaine Hcl [ Aspercreme Lidocaine ] 76.5 Gm Cream..G.) *Ptom 1 applic TOP QID PRN PRN Reason: Pain Last Admin: 05/07/21 20:50 Dose: 1 applic Documented by: Omeprazole 20 Mg Cap (.Cr *Ptom) 40 mg PO ACBREAKFAST [facility] Last Admin: 05/08/21 06:52 Dose: 40 mg Documented by: Potassium Chloride (Potassium Chloride 20 Meq Tab.Er *Ptom) 20 meq PO BIDMEALS [facility] Last Admin: 05/08/21 08:05 Dose: 20 meq Documented by: Pregabalin (Pregabalin 100 Mg Cap) 100 mg PO TID [facility] Last Admin: 05/08/21 13:01 Dose: 100 mg Documented by: Ropinirole HCl (Ropinirole 0.5 Mg Tab *Ptom) 0.5 mg PO BEDTIME [facility] Last Admin: 05/07/21 20:46 Dose: 0.5 mg Documented by: Ropinirole HCl (Ropinirole 0.5 Mg Tab *Ptom) 0.5 mg PO BID PRN PRN Reason: RESTLESS LEGS Last Admin: 05/07/21 08:21 Dose: 0.5 mg Documented by: Rosuvastatin Calcium (Rosuvastatin 10 Mg Tab *Ptom) 10 mg PO BEDTIME [facility] Last Admin: 05/07/21 20:45 Dose: 10 mg Documented by: Sodium Chloride (Sodium Chloride 0.9% 10 Ml Syringe) 10 ml FLUSH ASDIRECTED PRN PRN Reason: Keep Vein Open Last Admin: 05/08/21 13:03 Dose: 10 ml Documented by: Spironolactone (Spironolactone 25 Mg Tab *Ptom) 50 mg PO DAILY [facility] Last Admin: 05/08/21 09:35 Dose: 50 mg Documented by: Tolterodine Tartrate (Tolterodine 4 Mg Cap.Er *Ptom) 4 mg PO DAILY [facility] Last Admin: 05/08/21 09:37 Dose: 4 mg Documented by: Warfarin Sodium (Warfarin Sliding Scale) 1 each PO ASDIRECTED [facility] Warfarin Sodium (Warfarin 5 Mg Tab *Ptom) 5 mg PO 1600 [facility] Discontinued Medications Ceftriaxone Sodium (Ceftriaxone 1 Gm Vial) Confirm Administered Dose 1 gm .ROUTE .STK-MED ONE Stop: 05/04/21 13:01 Last Admin: 05/04/21 13:14 Dose: Not Given Documented by: Ceftriaxone Sodium (Ceftriaxone 1 Gm Vial) 1 gm IVPUSH ONETIME ONE Stop: 05/04/21 13:16 Last Admin: 05/04/21 13:13 Dose: 1 gm Documented by: Warfarin Sodium (Warfarin 5 Mg Tab) 5 mg PO ONETIME ONE Stop: 05/04/21 17:01 Last Admin: 05/04/21 18:08 Dose: 5 mg Documented by: Warfarin Sodium (Warfarin 5 Mg Tab *Ptom) 5 mg PO ONETIME ONE Stop: 05/05/21 16:01 Last Admin: 05/05/21 16:53 Dose: 5 mg Documented by: Warfarin Sodium (Warfarin 5 Mg Tab *Ptom) 2.5 mg PO ONETIME ONE Stop: 05/06/21 16:01 Last Admin: 05/06/21 15:05 Dose: 2.5 mg Documented by: Warfarin Sodium (Warfarin 5 Mg Tab *Ptom) 5 mg PO ONETIME ONE Stop: 05/07/21 16:01 Last Admin: 05/07/21 16:14 Dose: 5 mg Documented by: - Exam General: Alert, Oriented (person, place, time), Cooperative, No Acute Distress Lungs: Clear to Auscultation, Normal Respiratory Effort, Decreased Breath Sounds (bases). No: Crackles, Wheezing Cardiovascular: Regular Rate, Irregular Rhythm GI/Abdominal Exam: Normal Bowel Sounds, Soft, Non-Tender, No Distention, Other (Colostomy LLQ) Extremities: Pedal Edema (1+ BLE, TTP over left distal foot.) Peripheral Pulses: 2+: Radial (L), Radial (R) - Patient Data Lab Results Last 24 hrs: Laboratory Results - last 24 hr 05/08/21 Range/Units 06:15 PT 20.3 H (9.0-11.1) sec INR 1.96 H (1.00-1.24) Result Diagrams: 05/07/21 06:10 05/05/21 06:30 Basil Results Last 24 hrs: Microbiology 05/04/21 12:45 Aerobic Blood Culture - Preliminary Blood - Venous - Lab Draw NO GROWTH AFTER 4 DAYS Anaerobic Blood Culture - Final 05/04/21 12:35 Aerobic Blood Culture - Preliminary Blood - Venous NO GROWTH AFTER 4 DAYS Anaerobic Blood Culture - Final Sepsis Event Note - Evaluation Sepsis Screening Result: No Definite Risk - Focused Exam Vital Signs: Vital Signs Temp Pulse Pulse Resp BP BP Pulse Ox 05/08/21 14:00 05/08/21 09:39 97 120/60 05/08/21 09:36 120/60 05/08/21 08:00 97.5 F 100 16 120/60 93 L Pulse Ox 05/08/21 14:00 93 L 05/08/21 09:39 05/08/21 09:36 05/08/21 08:00 - Problem List & Annotations (1) Pneumonia SNOMED Code(s): 902978474 Code(s): J18.9 - PNEUMONIA, UNSPECIFIED ORGANISM Status: Acute Current Visit: Yes Qualifiers: Laterality: bilateral Lung location: lower lobe of lung (2) Fall SNOMED Code(s): 8630725, 430491619 Code(s): W19.XXXA - UNSPECIFIED FALL, INITIAL ENCOUNTER Status: Acute Current Visit: Yes (3) Left ankle injury SNOMED Code(s): 49513240351220684 Code(s): S99.912A - UNSPECIFIED INJURY OF LEFT ANKLE, INITIAL ENCOUNTER St atus: Acute Current Visit: Yes (4) CHF (congestive heart failure) SNOMED Code(s): 60538449 Code(s): I50.9 - HEART FAILURE, UNSPECIFIED Status: Chronic Current Visit: Yes (5) CAD (coronary artery disease) SNOMED Code(s): 70061026 Code(s): I25.10 - ATHSCL HEART DISEASE OF [place] CORONARY ARTERY W/O ANG PCTRS Status: Chronic Current Visit: Yes (6) Asthma SNOMED Code(s): 848927248 Code(s): J45.909 - UNSPECIFIED ASTHMA, UNCOMPLICATED Status: Chronic Current Visit: Yes (7) Morbid obesity with BMI of 50.0-59.9, adult SNOMED Code(s): 788782567, 51029118661342 Code(s): E66.01 - MORBID (SEVERE) OBESITY DUE TO EXCESS CALORIES; Z68.43 - BODY MASS INDEX [BMI] 50.0-59.9, ADULT Status: Chronic Current Visit: Yes (8) Atrial fibrillation SNOMED Code(s): 98198102 Code(s): I48.91 - UNSPECIFIED ATRIAL FIBRILLATION Status: Chronic Current Visit: Yes (9) Anticoagulant long-term use SNOMED Code(s): 363283983 Code(s): Z79.01 - PHARMACEUTICAL SERVICE REPRESENTATIVE (CURRENT) USE OF ANTICOAGULANTS Status: Chronic Current Visit: Yes (10) Spinal stenosis SNOMED Code(s): 33830433 Code(s): M48.00 - SPINAL STENOSIS, SITE UNSPECIFIED Status: Chronic Current Visit: No - Problem List Review Problem List Initiated/Reviewed/Updated: Yes - My Orders Last 24 Hours: My Active Orders 05/08/21 16:00 Warfarin [Coumadin] 5 mg PO 1600 05/09/21 06:00 INR,PT,PROTHROMBIN TIME [COAG] DAILY 05/10/21 06:00 INR,PT,PROTHROMBIN TIME [COAG] DAILY - Plan Plan:: 1. Pneumonia: patchy infiltrate vs atelectasis. Day 5: Rocephin 1 gram IV q24h, Azithromycin 500 mg IV q24h. Change to Omnicef 300 mg bid x 2 more days to start tomorrow. Blood culture no growth to date. Incentive spirometry q1h while awake. Continue home nebulizers. 2. Atrial fibrillation: INR 1.96, Coumadin sliding scale per pharmacy. 3. Falls: PT/OT continue, would be benefit from swing bed to get strengthening/ADLs. Ice as needed, elevate & BRYCE wrap to left ankle. Aspercreme with lidocaine qid as needed. 4. Discharge planning: looking at NH placement vs Swing bed placement.
[2021-05-08] MEDS: Azithromycin 500 MG in Sodium Chloride 0.9% 250 ML IV SCH (16:25)
--- NOTE | 2021-05-08 17:08 | PCM.DCSUM1 ---
Discharge Summary - Hospital Course HPI Initial Comments: Hilary presented to ER after sustaining fall into her bathtub today, hitting her head without loss of consciousness. She also fell against the tub last night, complains of left knee, ankle, foot pain. No lumps on her scalp or headache. She has been having a dry cough, sore throat but no shortness of breath, chest pain or fevers. No chills. No abdominal pain, nausea, vomiting, diarrhea or constipation. Denies any urinary symptoms. She recently had Cymbalta added by Dr Wadsworth. History of CHF, Atrial fibrillation on Coumadin, Spinal stenosis, asthma, obesity and coronary artery disease. ER course: WBC 16.7, CRP 4.4, Lactic acid 1.9. BUN 25, Cr 1.0. Blood culture pending. UA negative. Chest x-ray showed possible bibasilar pneumonia, recommended 2V when able. No acute fracture on knee or ankle x-ray. Covid negative. She had recently been discharged from Swing bed a few weeks ago to home for spinal stenosis. She is interested in Assisted Living or detention placement as she can not live on her own anymore due to recurrent falls. Family was getting application for TTV today. Diagnosis: Stroke: No - Discharge Data Discharge Date: 05/09/21 Discharge Disposition: DC/Tfer W/I Hosp To Swing Condition: Good - Referral to Home Health Primary Care Physician: Sheron Wadsworth MD - Discharge Diagnosis/Problem(s) (1) Pneumonia SNOMED Code(s): 351287977 ICD Code: J18.9 - PNEUMONIA, UNSPECIFIED ORGANISM Status: Acute Qualifiers: Laterality: bilateral Lung location: lower lobe of lung (2) Fall SNOMED Code(s): 0071731, 115605911 ICD Code: W19.XXXA - UNSPECIFIED FALL, INITIAL ENCOUNTER Status: Acute (3) Weakness SNOMED Code(s): 59498805 ICD Code: R53.1 - WEAKNESS Status: Acute Priority: Medium (4) Left ankle injury SNOMED Code(s): 14004630287572715 ICD Code: S99.912A - UNSPECIFIED INJURY OF LEFT ANKLE, INITIAL ENCOUNTER Status: Acute (5) CHF (congestive heart failure) SNOMED Code(s): 36622245 ICD Code: I50.9 - HEART FAILURE, UNSPECIFIED Status: Chronic (6) CAD (coronary artery disease) SNOMED Code(s): 67532604 ICD Code: I25.10 - ATHSCL HEART DISEASE OF [place] CORONARY ARTERY W/O ANG PCTRS Status: Chronic (7) Asthma SNOMED Code(s): 978498522 ICD Code: J45.909 - UNSPECIFIED ASTHMA, UNCOMPLICATED Status: Chronic (8) Morbid obesity with BMI of 50.0-59.9, adult SNOMED Code(s): 727719971, 43905125512289 ICD Code: E66.01 - MORBID (SEVERE) OBESITY DUE TO EXCESS CALORIES; Z68.43 - BODY MASS INDEX [BMI] 50.0-59.9, ADULT Status: Chronic (9) Atrial fibrillation SNOMED Code(s): 10501943 ICD Code: I48.91 - UNSPECIFIED ATRIAL FIBRILLATION Status: Chronic (10) Anticoagulant long-term use SNOMED Code(s): 124798118 ICD Code: Z79.01 - RETIREMENT (CURRENT) USE OF ANTICOAGULANTS Status: Chronic (11) Spinal stenosis SNOMED Code(s): 08018067 ICD Code: M48.00 - SPINAL STENOSIS, SITE UNSPECIFIED Status: Chronic - Patient Summary/Data Consults: Consultations 05/04/21 14:37 OT Evaluation and Treatment [CONS] Routine Please Evaluate and Treat. OT Reason for Consult: ADL's Special Instructions: fall x 2 This query below is only for informational purposes and is not editable. Admission Diagnosis/Problem: Pneumonia PT Evaluation and Treatment [CONS] Routine Please Evaluate and Treat. PT Reason for Consult: Ambulation Special Instructions: fall x 2 This query below is only for informational purposes and is not editable. Admission Diagnosis/Problem: Pneumonia Hospital Course: Admitted for bilateral pneumonia on Rocephin & Azithromycin, received 5 doses of Rocephin and 1 dose of Cefdinir, completed Azithromycin course. Remained off oxygen during hospital stay. Her WBC corrected 16.7 down to 11.7 on 05/05 then 9.2 on 05/07. Her BUN came down from 25 to 16. Creatinine 1.0, 0.9 respectively. Her daily INR have fluctuated a little bit, pharmacy is following for Coumadin sliding scale. Left ankle & knee x-ray did not show any acute fractures, left ankle showed soft tissue swelling. She has been progressing with PT/OT, has had melania wrap, ice and elevation when not doing therapy for left ankle. Aspercreme with Lidocaine qid for ankle pain, subsequently bruising more pronounced on left foot but has not hindered therapy. See therapy notes for more details. Medical assistance application sent to [facility], stated she would qualify, an ticipate discharge from swing bed to [place] once she has completed therapy as she could not go to [place] with a skill. Will transfer to swing bed today. - Patient Instructions Diet: Regular Diet as Tolerated Activity: As Tolerated Other/Special Instructions: transfer to swing bed - Discharge Plan *PRESCRIPTION DRUG MONITORING PROGRAM REVIEWED*: Not Applicable *COPY OF PRESCRIPTION DRUG MONITORING REPORT IN PATIENT ADELE: Not Applicable Home Medications: Home Meds Cyanocobalamin (Vitamin B-12) [Vitamin B-12] 1,000 mcg PO DAILY 05/18/16 [History] Omeprazole 40 mg PO ACBREAKFAST 05/18/16 [History] Potassium Chloride [Klor-Con M20] 20 meq PO BIDMEALS 05/18/16 [History] Spironolactone [Aldactone] 50 mg PO DAILY 05/18/16 [History] Albuterol [Ventolin HFA] 2 puff IN Q4H PRN 04/18/21 [History] Budesonide [Pulmicort] 0.5 mg IH BID PRN 04/18/21 [History] Cholecalciferol (Vitamin D3) [Vitamin D3] 50 mcg PO DAILY 04/18/21 [History] Cyclobenzaprine HCl 10 mg PO TID PRN 04/18/21 [History] Diclofenac Sodium [Voltaren] 2 - 4 gm TP QID PRN 04/18/21 [History] Emollient [Vanicream] 1 applic TP BID PRN 04/18/21 [History] Formoterol [Perforomist] 20 mcg INH DAILY 04/18/21 [History] Furosemide 20 mg PO 1200 04/18/21 [History] Furosemide 40 mg PO 0800 04/18/21 [History] Lidocaine 4% [Aspercreme 4%] 3 patch TP Q24H 04/18/21 [History] Losartan [Cozaar] 25 mg PO DAILY 04/18/21 [History] Methyl Salicylate/Menthol [Icy Hot] 1 gm TP QID PRN 04/18/21 [History] Metoprolol Succinate [Toprol XL] 25 mg PO DAILY 04/18/21 [History] Montelukast [Singulair] 10 mg PO BEDTIME 04/18/21 [History] Multivitamins [Tab-A-Tara] 1 each PO DAILY 04/18/21 [History] Pregabalin [Lyrica] 100 mg PO TID 04/18/21 [History] Rosuvastatin [Crestor] 10 mg PO BEDTIME 04/18/21 [History] Tolterodine Tartrate [Tolterodine Tartrate ER] 4 mg PO DAILY 04/18/21 [History] rOPINIRole [Requip] 0.5 mg PO BEDTIME 04/18/21 [History] Acetaminophen [Tylenol Extra Strength] 1,000 mg PO TID 05/04/21 [History] DULoxetine [Cymbalta] 30 mg PO DAILY 05/04/21 [History] lidocaine HCL [Aspercreme Lidocaine] 1 applic TOP QID PRN 05/04/21 [History] rOPINIRole [Requip] 0.5 mg PO BID PRN 05/04/21 [History] Albuterol/Ipratropium [DuoNeb 3.0-0.5 MG/3 ML] 3 ml INH Q6H PRN neb 05/09/21 [Rx] Cefdinir [Omnicef] 300 mg PO BID cap 05/09/21 [Rx] Warfarin Sliding Scale [Coumadin Sliding Scale] 1 each PO ASDIRECTED tablet 05/09/21 [Rx] Oxygen Therapy Mode: Room Air Forms: ED Department Discharge Referrals: Sheron Wadsworth MD [Primary Care Provider] - - Discharge Summary/Plan Comment DC Time >30 min.: No - General Info Date of Service: 05/09/21 Subjective Update: Hilary is breathing well, no cough. Eating well. Foot is feeling better. She has been approved for swing bed will transition today. Changes her own colostomy bag. - Patient Data Vitals - Most Recent: Last Vital Signs Temp 97.5 F 05/08/21 08:00 Pulse 97 05/08/21 09:39 Resp 16 05/08/21 08:00 BP 120/60 05/08/21 09:39 Pulse Ox 93 L 05/08/21 14:00 Weight - Most Recent: 294 lb 7 oz Lab Results - Last 24 hrs: Laboratory Results - last 24 hr 05/08/21 Range/Units 06:15 PT 20.3 H (9.0-11.1) sec INR 1.96 H (1.00-1.24) REMBERTO Results - Last 24 hrs: Microbiology 05/04/21 12:45 Aerobic Blood Culture - Preliminary Blood - Venous - Lab Draw NO GROWTH AFTER 4 DAYS Anaerobic Blood Culture - Final 05/04/21 12:35 Aerobic Blood Culture - Preliminary Blood - Venous NO GROWTH AFTER 4 DAYS Anaerobic Blood Culture - Final Med Orders - Current: Current Medications Acetaminophen (Acetaminophen 500 Mg Tab *Ptom) 1,000 mg PO TID [facility] Last Admin: 05/08/21 13:01 Dose: 1,000 mg Documented by: Albuterol/Ipratropium (Albuterol/Ipratropium 3.0-0.5 Mg/3 Ml Neb Soln) 3 ml INH Q6H PRN PRN Reason: SHORTNESS OF BREATH/WHEEZING Budesonide (Budesonide 0.5 Mg/2 Ml Neb Susp) 0.5 mg NEB BID PRN PRN Reason: DIFFICULTY BREATHING Cefdinir (Cefdinir 300 Mg Cap) 300 mg PO BID [facility] Stop: 05/10/21 21:01 Cyclobenzaprine HCl (Cyclobenzaprine 10 Mg Tab *Ptom) 10 mg PO TID PRN PRN Reason: Muscle Spasm - Painful Last Admin: 05/07/21 20:48 Dose: 10 mg Documented by: Duloxetine HCl (Duloxetine 30 Mg Cap *Ptom) 30 mg PO DAILY [facility] Last Admin: 05/08/21 09:37 Dose: 30 mg Documented by: Furosemide (Furosemide 40 Mg Tab *Ptom) 20 mg PO 1200 [facility] Last Admin: 05/08/21 12:46 Dose: 20 mg Documented by: Furosemide (Furosemide 40 Mg Tab *Ptom) 40 mg PO 0800 [facility] Last Admin: 05/08/21 08:04 Dose: 40 mg Documented by: Sodium Chloride (Normal Saline) 1,000 mls @ 125 mls/hr IV ASDIRECTED [facility] Last Admin: 05/04/21 13:04 Dose: 125 mls/hr Documented by: Azithromycin 500 mg/ Sodium (Chloride) 250 mls @ 250 mls/hr IV Q24H [facility] Stop: 05/08/21 18:00 Last Admin: 05/08/21 16:25 Dose: 250 mls/hr Documented by: Losartan Potassium (Losartan 25 Mg Tab *Ptom) 25 mg PO DAILY [facility] Last Admin: 05/08/21 09:36 Dose: 25 mg Documented by: Metoprolol Succinate (Metoprolol Succinate 25 Mg Tab.Er *Ptom) 25 mg PO DAILY [facility] Last Admin: 05/08/21 09:39 Dose: 25 mg Documented by: Montelukast Sodium (Montelukast 10 Mg Tab *Ptom) 10 mg PO BEDTIME [facility] Last Admin: 05/07/21 20:47 Dose: 10 mg Documented by: Multivitamins/Minerals/Vitamin C (Multivitamin Tab *Ptom) 1 tab PO DAILY [facility] Last Admin: 05/08/21 09:39 Dose: 1 tab Documented by: (Lidocaine Hcl [ Aspercreme Lidocaine ] 76.5 Gm Cream..G.) *Ptom 1 applic TOP QID PRN PRN Reason: Pain Last Admin: 05/07/21 20:50 Dose: 1 applic Documented by: Omeprazole 20 Mg Cap (.Cr *Ptom) 40 mg PO ACBREAKFAST [facility] Last Admin: 05/08/21 06:52 Dose: 40 mg Documented by: Potassium Chloride (Potassium Chloride 20 Meq Tab.Er *Ptom) 20 meq PO BIDMEALS [facility] Last Admin: 05/08/21 08:05 Dose: 20 meq Documented by: Pregabalin (Pregabalin 100 Mg Cap) 100 mg PO TID [facility] Last Admin: 05/08/21 13:01 Dose: 100 mg Documented by: Ropinirole HCl (Ropinirole 0.5 Mg Tab *Ptom) 0.5 mg PO BEDTIME [facility] Last Admin: 05/07/21 20:46 Dose: 0.5 mg Documented by: Ropinirole HCl (Ropinirole 0.5 Mg Tab *Ptom) 0.5 mg PO BID PRN PRN Reason: RESTLESS LEGS Last Admin: 05/07/21 08:21 Dose: 0.5 mg Documented by: Rosuvastatin Calcium (Rosuvastatin 10 Mg Tab *Ptom) 10 mg PO BEDTIME [facility] Last Admin: 05/07/21 20:45 Dose: 10 mg Documented by: Sodium Chloride (Sodium Chloride 0.9% 10 Ml Syringe) 10 ml FLUSH ASDIRECTED PRN PRN Reason: Keep Vein Open Last Admin: 05/08/21 16:29 Dose: 10 ml Documented by: Spironolactone (Spironolactone 25 Mg Tab *Ptom) 50 mg PO DAILY [facility] Last Admin: 05/08/21 09:35 Dose: 50 mg Documented by: Tolterodine Tartrate (Tolterodine 4 Mg Cap.Er *Ptom) 4 mg PO DAILY [facility] Last Admin: 05/08/21 09:37 Dose: 4 mg Documented by: Warfarin Sodium (Warfarin Sliding Scale) 1 each PO ASDIRECTED [facility] Warfarin Sodium (Warfarin 5 Mg Tab *Ptom) 5 mg PO 1600 [facility] Last Admin: 05/08/21 16:27 Dose: 5 mg Documented by: Discontinued Medications Ceftriaxone Sodium (Ceftriaxone 1 Gm Vial) Confirm Administered Dose 1 gm .ROUTE .STK-MED ONE Stop: 05/04/21 13:01 Last Admin: 05/04/21 13:14 Dose: Not Given Documented by: Ceftriaxone Sodium (Ceftriaxone 1 Gm Vial) 1 gm IVPUSH ONETIME ONE Stop: 05/04/21 13:16 Last Admin: 05/04/21 13:13 Dose: 1 gm Documented by: Ceftriaxone Sodium (Ceftriaxone 1 Gm Vial) 1 gm IVPUSH Q24H [facility] Last Admin: 05/08/21 13:02 Dose: 1 gm Documented by: Warfarin Sodium (Warfarin 5 Mg Tab) 5 mg PO ONETIME ONE Stop: 05/04/21 17:01 Last Admin: 05/04/21 18:08 Dose: 5 mg Documented by: Warfarin Sodium (Warfarin 5 Mg Tab *Ptom) 5 mg PO ONETIME ONE Stop: 05/05/21 16:01 Last Admin: 05/05/21 16:53 Dose: 5 mg Documented by: Warfarin Sodium (Warfarin 5 Mg Tab *Ptom) 2.5 mg PO ONETIME ONE Stop: 05/06/21 16:01 Last Admin: 05/06/21 15:05 Dose: 2.5 mg Documented by: Warfarin Sodium (Warfarin 5 Mg Tab *Ptom) 5 mg PO ONETIME ONE Stop: 05/07/21 16:01 Last Admin: 05/07/21 16:14 Dose: 5 mg Documented by: - Exam General: Reports: Alert, Oriented, Cooperative, No Acute Distress Lungs: Reports: Clear to Auscultation, Normal Respiratory Effort, Decreased Breath Sounds (RLL). Denies: Crackles, Wheezing Cardiovascular: Reports: Regular Rate, Regular Rhythm GI/Abdominal Exam: Normal Bowel Sounds, Soft, Non-Tender, No Distention, Other (LLQ colostomy) (Female) Exam: Deferred Rectal (Female) Exam: Deferred Extremities: Pedal Edema (1+ BLE) *Q Meaningful Use (DIS) - VTE *Q VTE Mechanical Contraindications *Q: At Risk for Falls
[2021-05-08] MEDS: rOPINIRole 0.5 MG Tab *PTOM PO SCH (21:04)
[2021-05-08] MEDS: Rosuvastatin 10 MG Tab *PTOM PO SCH (21:04)
[2021-05-08] MEDS: Montelukast 10 MG Tab *PTOM PO SCH (21:05)
[2021-05-08] MEDS: Cyclobenzaprine 10 MG Tab *PTOM PO PRN (21:20)
[2021-05-08] MEDS: LIDOCAINE HCL TOP PRN (21:21)
[2021-05-09] MEDS: rOPINIRole 0.5 MG Tab *PTOM PO PRN (04:39)
[2021-05-09] MEDS: Cyclobenzaprine 10 MG Tab *PTOM PO PRN ×2 (04:40→08:16)
[2021-05-09] MEDS: Furosemide 40 MG Tab *PTOM PO SCH (07:59)
[2021-05-09] MEDS: Potassium Chloride 20 MEQ Tab.ER *PTOM PO SCH (07:59)
[2021-05-09] MEDS: Spironolactone 25 MG Tab *PTOM PO SCH (08:00)
[2021-05-09] MEDS: Losartan 25 MG Tab *PTOM PO SCH (08:01)
[2021-05-09] MEDS: Tolterodine 4 MG Cap.ER *PTOM PO SCH (08:02)
[2021-05-09] MEDS: DULoxetine 30 MG Cap *PTOM PO SCH (08:02)
[2021-05-09 08:03] VITALS: BP 112/75
[2021-05-09] MEDS: Pregabalin 100 MG Cap PO SCH (08:03)
[2021-05-09] MEDS: Metoprolol Succinate 25 MG Tab.ER *PTOM PO SCH (08:05)
[2021-05-09] MEDS: Multivitamin Tab *PTOM PO SCH (08:05)
[2021-05-09 08:06] VITALS: PULSE 98
[2021-05-09] MEDS: Acetaminophen 500 MG Tab *PTOM PO SCH (08:06)
[2021-05-09] MEDS ORDERED: Cefdinir 300 MG Cap PO SCH (09:00)
== END 2021-05-09 10:33 | disposition swing bed (61) ==
LOC: FB.ED 10:17 → UNDOADMOB 12:17 → INTOOBSV 12:17 → FB.MS 12:17
PROVIDERS: ADMIT Family Medicine; ATTEND Family Medicine
DX: J18.9 Pneumonia, unspecified organism (principal); I48.91 Unspecified atrial fibrillation; I50.9 Heart failure, unspecified; J45.909 Unspecified asthma, uncomplicated; I25.10 Atherosclerotic heart disease of native coronary artery without angina pectoris; I11.0 Hypertensive heart disease with heart failure; E66.01 Morbid (severe) obesity due to excess calories; Z68.43 Body mass index [BMI] 50.0-59.9, adult; Z20.822 Contact with and (suspected) exposure to COVID-19; Z88.5 Allergy status to narcotic agent; Z98.890 Other specified postprocedural states; Z88.0 Allergy status to penicillin; Z88.8 Allergy status to other drugs, medicaments and biological substances; Z79.899 Other long term (current) drug therapy
CPT/HCPCS: 36410; 36415; 71045; 71046; 73560-LT; 73610-LT; 80048; 80053; 81001; 82550; 83605; 85025; 85027; 85610; 86140; 87040; 93005; 93010; 94150; 96365; 96366; 96374; 96375; 96376; 97116-GP; 97162-GP; 97165-GO; 97530-GO; 97535-GO; 99284; 99284-25; A9270-GY; G0378; J0456; J0696; J7030; J7050; U0002

== ENCOUNTER 2021-05-09 07:47 | Inpatient (IN) | payer MEDICARE ==
[2021-05-09] MEDS ORDERED: Warfarin Sliding Scale PO SCH (13:00)
[2021-05-09] MEDS ORDERED: Budesonide 0.5 MG/2 ML Neb Susp NEB PRN (13:53)
[2021-05-09] MEDS ORDERED: Albuterol/Ipratropium 3.0-0.5 MG/3 ML Neb Soln INH PRN (13:53)
[2021-05-09] MEDS ORDERED: Albuterol 8 GM Inhaler INH PRN (13:53)
[2021-05-09] MEDS ORDERED: rOPINIRole 0.5 MG Tab PO PRN (14:20)
--- NOTE | 2021-05-09 14:49 | PCM.HP.2 ---
H&P History of Present Illness - General Date of Service: 05/09/21 Admit Problem/Dx: Admission Diagnosis/Problem Admission Diagnosis/Problem Weakness Source of Information: Patient - History of Present Illness Initial Comments - Free Text/Narative: Hilary presented to ER after sustaining fall into her bathtub today, hitting her head without loss of consciousness. She also fell against the tub last night, complains of left knee, ankle, foot pain. No lumps on her scalp or headache. She has been having a dry cough, sore throat but no shortness of breath, chest pain or fevers. No chills. No abdominal pain, nausea, vomiting, diarrhea or constipation. Denies any urinary symptoms. She recently had Cymbalta added by Dr Wadsworth. History of CHF, Atrial fibrillation on Coumadin, Spinal stenosis, asthma, obesity and coronary artery disease. ER course: WBC 16.7, CRP 4.4, Lactic acid 1.9. BUN 25, Cr 1.0. Blood culture pending. UA negative. Chest x-ray showed possible bibasilar pneumonia, recommended 2V when able. No acute fracture on knee or ankle x-ray. Covid negative. She had recently been discharged from [facility] a few weeks ago to home for spinal stenosis. She is interested in Assisted Living or retirement placement as she can not live on her own anymore due to recurrent falls. Family was getting application for TTV today. HOSPITAL COURSE: Admitted for bilateral pneumonia on Rocephin & Azithromycin, received 5 doses of Rocephin and 1 dose of Cefdinir, completed Azithromycin course. Remained off oxygen during hospital stay. Her WBC corrected 16.7 down to 11.7 on 05/05 then 9.2 on 05/07. Her BUN came down from 25 to 16. Creatinine 1.0, 0.9 respectively. Her daily INR have fluctuated a little bit, pharmacy is following for Coumadin sliding scale. Left ankle & knee x-ray did not show any acute fractures, left ankle showed soft tissue swelling. She has been progressing with PT/OT, has had bryce wrap, ice and elevation when not doing therapy for left ankle. Aspercreme with Lidocaine qid for ankle pain, subsequently bruising more pronounced on left foot but has not hindered therapy. See therapy notes for more details. Medical assistance application sent to [facility], stated she would qualify, anticipate discharge from swing bed to [place] once she has completed therapy as she could not go to [place] with a skill. Will transfer to [facility] today. Low Back Pain Score (Numeric/FACES): 8 B Lower Extremities Pain Score (Numeric/FACES): 8 - Related Data Allergies/Adverse Reactions: Allergies Allergy/AdvReac Type Severity Reaction Status Date / Time morphine Allergy Intermediate Hives Verified 05/04/21 13:21 Penicillins Allergy Hives Verified 05/04/21 13:21 amitriptyline AdvReac Intermediate Hallucinati Verified 05/04/21 13:21 ons Home Medications: Home Meds Cyanocobalamin (Vitamin B-12) [Vitamin B-12] 1,000 mcg PO DAILY 05/18/16 [History] Omeprazole 40 mg PO ACBREAKFAST 05/18/16 [History] Potassium Chloride [Klor-Con M20] 20 meq PO BIDMEALS 05/18/16 [History] Spironolactone [Aldactone] 50 mg PO DAILY 05/18/16 [History] Albuterol [Ventolin HFA] 2 puff IN Q4H PRN 04/18/21 [History] Budesonide [Pulmicort] 0.5 mg IH BID PRN 04/18/21 [History] Cholecalciferol (Vitamin D3) [Vitamin D3] 50 mcg PO DAILY 04/18/21 [History] Cyclobenzaprine HCl 10 mg PO TID PRN 04/18/21 [History] Diclofenac Sodium [Voltaren] 2 - 4 gm TP QID PRN 04/18/21 [History] Emollient [Vanicream] 1 applic TP BID PRN 04/18/21 [History] Formoterol [Perforomist] 20 mcg INH DAILY 04/18/21 [History] Furosemide 20 mg PO 1200 04/18/21 [History] Furosemide 40 mg PO 0800 04/18/21 [History] Lidocaine 4% [Aspercreme 4%] 3 patch TP Q24H 04/18/21 [History] Losartan [Cozaar] 25 mg PO DAILY 04/18/21 [History] Methyl Salicylate/Menthol [Icy Hot] 1 gm TP QID PRN 04/18/21 [History] Metoprolol Succinate [Toprol XL] 25 mg PO DAILY 04/18/21 [History] Montelukast [Singulair] 10 mg PO BEDTIME 04/18/21 [History] Multivitamins [Tab-A-Tara] 1 each PO DAILY 04/18/21 [History] Pregabalin [Lyrica] 100 mg PO TID 04/18/21 [History] Rosuvastatin [Crestor] 10 mg PO BEDTIME 04/18/21 [History] Tolterodine Tartrate [Tolterodine Tartrate ER] 4 mg PO DAILY 04/18/21 [History] rOPINIRole [Requip] 0.5 mg PO BEDTIME 04/18/21 [History] Acetaminophen [Tylenol Extra Strength] 1,000 mg PO TID 05/04/21 [History] DULoxetine [Cymbalta] 30 mg PO DAILY 05/04/21 [History] lidocaine HCL [Aspercreme Lidocaine] 1 applic TOP QID PRN 05/04/21 [History] rOPINIRole [Requip] 0.5 mg PO BID PRN 05/04/21 [History] Albuterol/Ipratropium [DuoNeb 3.0-0.5 MG/3 ML] 3 ml INH Q6H PRN neb 05/09/21 [Rx] Cefdinir [Omnicef] 300 mg PO BID cap 05/09/21 [Rx] Warfarin Sliding Scale [Coumadin Sliding Scale] 1 each PO ASDIRECTED tablet 05/09/21 [Rx] Past Medical History HEENT History: Reports: Other (See Below) Other HEENT History: Wears glasses. Cardiovascular History: Reports: Afib, Heart Failure, Hypertension, SOB on Exertion Respiratory History: Reports: Asthma Gastrointestinal History: Reports: Colon Polyp, Diverticulosis, GERD Other Gastrointestinal History: PT HAS A COLOSTOMY AT PRESENT TIME. Genitourinary History: Reports: Urinary Incontinence Other Genitourinary History: PT HAS STRESS INCONT. 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 OB/BYN History: Musculoskeletal History: Reports: Arthritis, Back Pain, Chronic, Other (See Below) Other Musculoskeletal History: SPINAL STENOSIS, hx bilat fx thumbs Neurological History: Reports: Migraines, Neuropathy, Peripheral, Other (See Below) Other Neuro History: RESTLESS LEG SYNDROME Psychiatric History: Reports: Depression Endocrine/Metabolic History: Reports: Hypothyroidism, Obesity/BMI 30+ Hematologic History: Reports: Anticoagulation Therapy, Blood Transfusion(s) Immunologic History: Reports: Other (See Below) Other Immunologic History: MRSA Dermatologic History: Reports: Venous Stasis Dermatitis Other Dermatologic History: hx sore to R ankle. - Infectious Disease History Infectious Disease History: Reports: Chicken Pox, Measles, MRSA, Mumps - Past Surgical History HEENT Surgical History: Reports: None Cardiovascular Surgical History: Reports: None Respiratory Surgical History: Reports: Tracheostomy GI Surgical History: Reports: Appendectomy, Cholecystectomy, Colon, Colonoscopy, Colostomy, EGD Female Surgical History: Reports: Hysterectomy, Oophorectomy, Tubal Ligation Musculoskeletal Surgical History: Reports: Carpal Tunnel, Hip Replacement, Knee Replacement, Shoulder Surgery, Other (See Below) Other Musculoskeletal Surgeries/Procedures:: EPIDURAL STEROID INJECTION, L knee replacement, R hip replacement, L shoulder rotator cuff, bilat carpal tunnel x 4 Social & Family History - Family History Family Medical History: No Pertinent Family History Cardiac: Reports: [place] : Reports: Diabetic Nephropathy Endocrine/Metabolic: Reports: Diabetes, type II - Tobacco Use Second Hand Smoke Exposure: No - Caffeine Use Caffeine Use: Reports: Other Other Caffeine Use: Capuccino - Recreational Drug Use Recreational Drug Use: No H&P Review of Systems - Review of Systems: Review Of Systems: See Below General: Reports: No Symptoms HEENT: Reports: No Symptoms Pulmonary: Denies: Shortness of Breath, Cough Cardiovascular: Reports: No Symptoms Gastrointestinal: Reports: No Symptoms Genitourinary: Reports: No Symptoms Musculoskeletal: Reports: Foot Pain Skin: Reports: Bruising Psychiatric: Reports: No Symptoms Neurological: Reports: No Symptoms Hematologic/Lymphatic: Reports: No Symptoms Immunologic: Reports: No Symptoms Exam - Exam Exam: See Below - Vital Signs Vital Signs: Last Vital Signs Temp 97.8 F 05/09/21 08:00 Pulse 98 05/09/21 08:00 Resp 14 05/09/21 08:00 BP 112/75 05/09/21 08:00 Pulse Ox 95 05/09/21 08:00 Weight: 294 lb - Exam General: Alert, Oriented, Cooperative HEENT: PERRLA, Conjunctiva Clear, Hearing Intact, Mucosa Moist & [place] Lungs: Clear to Auscultation, Normal Respiratory Effort, Decreased Breath Sounds (RLL). No: Crackles, Wheezing Cardiovascular: Regular Rate, Regular Rhythm GI/Abdominal Exam: Normal Bowel Sounds, Soft, Non-Tender, No Distention, Other (LLQ colostomy) (Female) Exam: Deferred Rectal (Female) Exam: Deferred Extremities: Pedal Edema (1+ BLE) Peripheral Pulses: 2+: Radial (L), Radial (R) Skin: Ecchymosis (left distal foot) Sepsis Event Note - Evaluation Sepsis Screening Result: No Definite Risk - Focused Exam Vital Signs: Vital Signs Temp Pulse Resp BP Pulse Ox 05/09/21 08:00 97.8 F 98 14 112/75 95 - Problem List (1) Fall SNOMED Code(s): 5056406, 367795389 ICD Code: W19.XXXA - UNSPECIFIED FALL, INITIAL ENCOUNTER Status: Acute Current Visit: No (2) Left ankle injury SNOMED Code(s): 79781562145047458 ICD Code: S99.912A - UNSPECIFIED INJURY OF LEFT ANKLE, INITIAL ENCOUNTER Status: Acute Current Visit: No Onset Date: ~05/04/21 (3) Pneumonia SNOMED Code(s): 315954436 ICD Code: J18.9 - PNEUMONIA, UNSPECIFIED ORGANISM Status: Acute Current Visit: No Problem Details: improving Qualifiers: Laterality: bilateral Lung location: lower lobe of lung (4) Weakness SNOMED Code(s): 82953871 ICD Code: R53.1 - WEAKNESS Status: Acute Priority: Medium Current Visit: No (5) Asthma SNOMED Code(s): 713550177 ICD Code: J45.909 - UNSPECIFIED ASTHMA, UNCOMPLICATED Status: Chronic Current Visit: No (6) Atrial fibrillation SNOMED Code(s): 12550632 ICD Code: I48.91 - UNSPECIFIED ATRIAL FIBRILLATION Status: Chronic Current Visit: No (7) Anticoagulant long-term use SNOMED Code(s): 245319599 ICD Code: Z79.01 - RISK SPECIALIST (CURRENT) USE OF ANTICOAGULANTS Status: Chronic Current Visit: No (8) CAD (coronary artery disease) SNOMED Code(s): 60444933 ICD Code: I25.10 - ATHSCL HEART DISEASE OF [place] CORONARY ARTERY W/O ANG PCTRS Status: Chronic Current Visit: No (9) CHF (congestive heart failure) SNOMED Code(s): 20690124 ICD Code: I50.9 - HEART FAILURE, UNSPECIFIED Status: Chronic Current Visit: No (10) Morbid obesity with BMI of 50.0-59.9, adult SNOMED Code(s): 805612612, 89970576190661 ICD Code: E66.01 - MORBID (SEVERE) OBESITY DUE TO EXCESS CALORIES; Z68.43 - BODY MASS INDEX [BMI] 50.0-59.9, ADULT Status: Chronic Current Visit: No (11) Spinal stenosis SNOMED Code(s): 70640181 ICD Code: M48.00 - SPINAL STENOSIS, SITE UNSPECIFIED Status: Chronic Current Visit: No Problem List Initiated/Reviewed/Updated: Yes Orders Last 24hrs: Active Orders 24 hr Category Date Time Status Patient Status [ADT] Routine ADT 05/09/21 10:50 Active Height and Weight [RC] WEEKLY Care 05/09/21 10:50 Active Oxygen Therapy [RC] PRN Care 05/09/21 10:50 Active RT Aerosol Therapy [RC] ASDIRECTED Care 05/09/21 14:01 Active RT Post Treatment Assessment [RC] Click to Edit Care 05/09/21 14:01 Active Up With Assistance [RC] ASDIRECTED Care 05/09/21 10:50 Active Up to Chair [RC] ASDIRECTED Care 05/09/21 10:50 Active VTE/DVT Education [RC] Per Unit Routine Care 05/09/21 10:50 Active Vital Signs [RC] PER UNIT ROUTINE Care 05/09/21 10:50 Active OT Evaluation and Treatment [CONS] Routine Cons 05/09/21 10:50 Active PT Evaluation and Treatment [CONS] Routine Cons 05/09/21 10:50 Active Regular Diet [DIET] Diet 05/09/21 Lunch Active Acetaminophen [Tylenol Extra Strength] Med 05/09/21 14:00 Active 1,000 mg PO TID Albuterol [Ventolin HFA] Med 05/09/21 13:53 Active 0 gm INH Q4H PRN Albuterol/Ipratropium [DuoNeb 3.0-0.5 MG/3 ML] Med 05/09/21 13:53 Active 3 ml INH Q6H PRN Budesonide [Pulmicort] Med 05/09/21 13:53 Active 0.5 mg NEB BID PRN Cefdinir [Omnicef] Med 05/09/21 21:00 Active 300 mg PO BID Cholecalciferol (Vitamin D3) [Vitamin D3] Med 05/10/21 09:00 Active 50 mcg PO DAILY Cyanocobalamin (Vitamin B12) [Vitamin B12] Med 05/10/21 09:00 Active 1,000 mcg PO DAILY Cyclobenzaprine [Flexeril] Med 05/09/21 14:18 Active 10 mg PO TID PRN DULoxetine [Cymbalta] Med 05/10/21 09:00 Active 30 mg PO DAILY Furosemide [Lasix] Med 05/09/21 14:00 Active 20 mg PO 1200 Furosemide [Lasix] Med 05/10/21 08:00 Active 40 mg PO 0800 Losartan [Cozaar] Med 05/10/21 09:00 Active 25 mg PO DAILY Menthol/Methyl Salicylate [Icy Hot Cream] Med 05/09/21 13:53 Active 0 gm TOP QID PRN Metoprolol Succinate [Toprol XL] Med 05/10/21 09:00 Active 25 mg PO DAILY Montelukast [Singulair] Med 05/09/21 21:00 Active 10 mg PO BEDTIME Multivitamins [Tab-A-Tara] Med 05/10/21 09:00 Active 1 tab PO DAILY Pantoprazole [ProTONIX] Med 05/10/21 06:00 Active 40 mg PO DAILY@0600 Potassium Chloride [Klor-Con M20] Med 05/09/21 18:00 Active 20 meq PO BIDMEALS Pregabalin [Lyrica] Med 05/09/21 14:00 Active 100 mg PO TID Rosuvastatin [Crestor] Med 05/09/21 21:00 Active 10 mg PO BEDTIME Spironolactone [Aldactone] Med 05/10/21 09:00 Active 50 mg PO DAILY Tolterodine [Detrol LA 24 Hr] Med 05/10/21 09:00 Active 4 mg PO DAILY Warfarin Sliding Scale [Coumadin Sliding Scale] Med 05/09/21 13:00 Pending 1 each PO ASDIRECTED Warfarin [Coumadin] Med 05/09/21 16:00 Active 2.5 mg PO TuFr@1600 Warfarin [Coumadin] Med 05/10/21 16:00 Active 5 mg PO SuMoWeThSa@1600 lidocaine HCL [Aspercreme Lidocaine] Med 05/09/21 13:53 Active 1 applic TOP QID PRN rOPINIRole [Requip] Med 05/09/21 21:00 Active 0.5 mg PO BEDTIME rOPINIRole [Requip] Med 05/09/21 14:20 Active 0.5 mg PO BID PRN Resuscitation Status Routine Resus Stat 05/09/21 10:50 Ordered Medication Orders Acetaminophen (Acetaminophen 500 Mg Tab) 1,000 mg PO TID JUAREZ Albuterol (Albuterol 8 Gm Inhaler) 0 gm INH Q4H PRN PRN Reason: BREATHING Albuterol/Ipratropium (Albuterol/Ipratropium 3.0-0.5 Mg/3 Ml Neb Soln) 3 ml INH Q6H PRN PRN Reason: SHORTNESS OF BREATH/WHEEZING Budesonide (Budesonide 0.5 Mg/2 Ml Neb Susp) 0.5 mg NEB BID PRN PRN Reason: DIFFICULTY BREATHING Cefdinir (Cefdinir 300 Mg Cap) 300 mg PO BID JUAREZ Stop: 05/10/21 21:01 Cholecalciferol (Cholecalciferol (Vitamin D3) 25 Mcg Tab) 50 mcg PO DAILY [facility] Cyanocobalamin (Cyanocobalamin (Vitamin B12) 1,000 Mcg Tab) 1,000 mcg PO DAILY [facility] Cyclobenzaprine HCl (Cyclobenzaprine 10 Mg Tab) 10 mg PO TID PRN PRN Reason: Muscle Spasm - Painful Duloxetine HCl (Duloxetine 30 Mg Cap) 30 mg PO DAILY [facility] Furosemide (Furosemide 40 Mg Tab) 40 mg PO 0800 JUAREZ Furosemide (Furosemide 20 Mg Tab) 20 mg PO 1200 JUAREZ Losartan Potassium (Losartan 25 Mg Tab) 25 mg PO DAILY [facility] Methyl Salicylate (Menthol/Methyl Salicylate 85 Gm Tube) 0 gm TOP QID PRN PRN Reason: Pain Metoprolol Succinate (Metoprolol Succinate 25 Mg Tab.Er) 25 mg PO DAILY [facility] Montelukast Sodium (Montelukast 10 Mg Tab) 10 mg PO BEDTIME [facility] Multivitamins/Minerals/Vitamin C (Multivitamin Tab) 1 tab PO DAILY [facility] (Lidocaine Hcl [ Aspercreme Lidocaine ] 76.5 Gm Cream..G.) *Ptom 1 applic TOP QID PRN PRN Reason: Pain Pantoprazole Sodium (Pantoprazole 40 Mg Tab.Cr) 40 mg PO DAILY@0600 [facility] Potassium Chloride (Potassium Chloride 20 Meq Tab.Er) 20 meq PO BIDMEALS [facility] Pregabalin (Pregabalin 100 Mg Cap) 100 mg PO TID [facility] Ropinirole HCl (Ropinirole 0.5 Mg Tab) 0.5 mg PO BEDTIME [facility] Ropinirole HCl (Ropinirole 0.5 Mg Tab) 0.5 mg PO BID PRN PRN Reason: RESTLESS LEGS Rosuvastatin Calcium (Rosuvastatin 10 Mg Tab) 10 mg PO BEDTIME [facility] Spironolactone (Spironolactone 50 Mg Tab) 50 mg PO DAILY [facility] Tolterodine Tartrate (Tolterodine 4 Mg Cap.Er) 4 mg PO DAILY [facility] Warfarin Sodium (Warfarin 2.5 Mg Tab) 2.5 mg PO TuFr@1600 [facility] Warfarin Sodium (Warfarin 5 Mg Tab) 5 mg PO SuMoWeThSa@1600 [facility] Warfarin Sodium (Warfarin Sliding Scale) 1 each PO ASDIRECTED [facility] Assessment/Plan Comment:: 1. Admit to swing bed for further PT/OT therapy, oral antibiotics. 2. Weakness/fall: PT/OT continued therapy. 3. Left ankle injury/sprain: Ice as needed, elevate when sitting, BRYCE wrap on during day and off at night. Aspercreme with Lidocaine until bottle used up then Icy Hot as needed. 4. Pneumonia: improving. Cefdinir 300 mg bid, 3 more doses. 5. Atrial fibrillation: INR daily, Coumadin sliding scale per pharmacy. 6. Diet: Regular. 7. DVT prophylaxis: BRYCE wraps BLE, Coumadin. 8. CODE STATUS: DNR/DNI. 9. Discharge planning: Therapy until goals met, then will transition to [facility] with restorative care. - Mortality Measure Prognosis:: Poor
[2021-05-09] MEDS: Acetaminophen 500 MG Tab PO SCH ×2 (15:00→21:17)
[2021-05-09] MEDS: Pregabalin 100 MG Cap PO SCH ×2 (15:00→21:17)
[2021-05-09] MEDS: Furosemide 20 MG Tab PO SCH (15:00)
[2021-05-09] MEDS ORDERED: Warfarin 2.5 MG Tab PO SCH (16:00)
[2021-05-09] MEDS: Potassium Chloride 20 MEQ Tab.ER PO SCH (17:38)
[2021-05-09] MEDS: Rosuvastatin 10 MG Tab PO SCH (21:17)
[2021-05-09] MEDS: rOPINIRole 0.5 MG Tab PO SCH (21:17)
[2021-05-09] MEDS: Cefdinir 300 MG Cap PO SCH (21:17)
[2021-05-09] MEDS: Montelukast 10 MG Tab PO SCH (21:18)
[2021-05-09] MEDS: Cyclobenzaprine 10 MG Tab PO PRN (22:56)
[2021-05-10] MEDS: Pantoprazole 40 MG Tab.CR PO SCH (06:38)
[2021-05-10] MEDS: Potassium Chloride 20 MEQ Tab.ER PO SCH ×2 (08:51→17:19)
[2021-05-10] MEDS: Spironolactone 50 MG Tab PO SCH (08:52)
[2021-05-10] MEDS: Losartan 25 MG Tab PO SCH (08:52)
[2021-05-10] MEDS: Furosemide 40 MG Tab PO SCH (08:52)
[2021-05-10] MEDS: Tolterodine 4 MG Cap.ER PO SCH (08:53)
[2021-05-10] MEDS: DULoxetine 30 MG Cap PO SCH (08:53)
[2021-05-10] MEDS: Pregabalin 100 MG Cap PO SCH ×3 (08:53→21:12)
[2021-05-10] MEDS: Cholecalciferol (Vitamin D3) 25 MCG Tab PO SCH (08:54)
[2021-05-10] MEDS: Multivitamin Tab PO SCH (08:54)
[2021-05-10] MEDS: Acetaminophen 500 MG Tab PO SCH ×3 (08:54→21:13)
[2021-05-10] MEDS: Cefdinir 300 MG Cap PO SCH ×2 (08:54→21:12)
[2021-05-10] MEDS: Cyanocobalamin (Vitamin B12) 1,000 MCG Tab PO SCH (08:56)
[2021-05-10] MEDS: Metoprolol Succinate 25 MG Tab.ER PO SCH (08:56)
[2021-05-10] MEDS ORDERED: Non-Formulary Medication 1 Each (Formoterol [Perforomist] 20 MCG/2 ML Neb) INH SCH (09:00)
[2021-05-10] MEDS: Cyclobenzaprine 10 MG Tab PO PRN ×2 (09:04→18:13)
[2021-05-10] MEDS: Menthol/Methyl Salicylate 85 GM Tube TOP PRN ×2 (10:30→21:13)
[2021-05-10] MEDS: Furosemide 20 MG Tab PO SCH (11:25)
[2021-05-10] MEDS ORDERED: Tuberculin, PPD 5 Units/0.1 ML 1 ML MDV IDERM ONE (13:00)
[2021-05-10] MEDS ORDERED: Warfarin 5 MG Tab PO SCH (16:00)
[2021-05-10] MEDS: rOPINIRole 0.5 MG Tab PO SCH (21:12)
[2021-05-10] MEDS: Rosuvastatin 10 MG Tab PO SCH (21:12)
[2021-05-10] MEDS: Montelukast 10 MG Tab PO SCH (21:13)
[2021-05-11] MEDS: Cyclobenzaprine 10 MG Tab PO PRN (02:02)
[2021-05-11] MEDS: Pantoprazole 40 MG Tab.CR PO SCH (06:00)
[2021-05-11] MEDS: DULoxetine 30 MG Cap PO SCH (08:34)
[2021-05-11] MEDS: Potassium Chloride 20 MEQ Tab.ER PO SCH (08:34)
[2021-05-11] MEDS: Tolterodine 4 MG Cap.ER PO SCH (08:34)
[2021-05-11] MEDS: Furosemide 40 MG Tab PO SCH (08:34)
[2021-05-11] MEDS: Losartan 25 MG Tab PO SCH (08:34)
[2021-05-11] MEDS: Acetaminophen 500 MG Tab PO SCH (08:35)
[2021-05-11] MEDS: Metoprolol Succinate 25 MG Tab.ER PO SCH (08:35)
[2021-05-11] MEDS: Multivitamin Tab PO SCH (08:35)
[2021-05-11] MEDS: Spironolactone 50 MG Tab PO SCH (08:36)
[2021-05-11] MEDS: Cyanocobalamin (Vitamin B12) 1,000 MCG Tab PO SCH (08:36)
[2021-05-11] MEDS: Cholecalciferol (Vitamin D3) 25 MCG Tab PO SCH (08:36)
[2021-05-11] MEDS: Pregabalin 100 MG Cap PO SCH (08:36)
[2021-05-11 08:37] VITALS: BP 119/69; PULSE 95
--- NOTE | 2021-05-11 14:23 | PCM.DCSUM1 ---
Discharge Summary - Hospital Course HPI Initial Comments: Hilary presented to ER after sustaining fall into her bathtub today, hitting her head without loss of consciousness. She also fell against the tub last night, complains of left knee, ankle, foot pain. No lumps on her scalp or headache. She has been having a dry cough, sore throat but no shortness of breath, chest pain or fevers. No chills. No abdominal pain, nausea, vomiting, diarrhea or constipation. Denies any urinary symptoms. She recently had Cymbalta added by Dr Wadsworth. History of CHF, Atrial fibrillation on Coumadin, Spinal stenosis, asthma, obesity and coronary artery disease. ER course: WBC 16.7, CRP 4.4, Lactic acid 1.9. BUN 25, Cr 1.0. Blood culture pending. UA negative. Chest x-ray showed possible bibasilar pneumonia, recommended 2V when able. No acute fracture on knee or ankle x-ray. Covid negative. She had recently been discharged from Swing bed a few weeks ago to home for spinal stenosis. She is interested in Assisted Living or half-way placement as she can not live on her own anymore due to recurrent falls. Family was getting application for TTV today. HOSPITAL COURSE: Admitted for bilateral pneumonia on Rocephin & Azithromycin, received 5 doses of Rocephin and 1 dose of Cefdinir, completed Azithromycin course. Remained off oxygen during hospital stay. Her WBC corrected 16.7 down to 11.7 on 05/05 then 9.2 on 05/07. Her BUN came down from 25 to 16. Creatinine 1.0, 0.9 respectively. Her daily INR have fluctuated a little bit, pharmacy is following for Coumadin sliding scale. Left ankle & knee x-ray did not show any acute fractures, left ankle showed soft tissue swelling. She has been progressing with PT/OT, has had melania wrap, ice and elevation when not doing therapy for left ankle. Aspercreme with Lidocaine qid for ankle pain, subsequently bruising more pronounced on left foot but has not hindered therapy. See therapy notes for more details. Medical assistance application sent to [facility], stated she would qualify, anticipate discharge from swing bed to [place] once she has completed therapy as she could not go to [place] with a skill. Will transfer to swing bed today. Diagnosis: Stroke: No - Discharge Data Discharge Date: 05/11/21 ([facility]) Discharge Disposition: DC/Tfer to SNF 03 Condition: Good - Referral to Home Health Date of Face to Face Encounter: 05/11/21 Reason for Homebound Status: [facility] Primary Care Physician: Sheron Wadsworth MD Skilled Need: Restorative care, nursing home care - Discharge Diagnosis/Problem(s) (1) Fall SNOMED Code(s): 6021881, 285536595 ICD Code: W19.XXXA - UNSPECIFIED FALL, INITIAL ENCOUNTER Status: Acute (2) Left ankle injury SNOMED Code(s): 51801568085237330 ICD Code: S99.912A - UNSPECIFIED INJURY OF LEFT ANKLE, INITIAL ENCOUNTER Status: Acute Onset Date: ~05/04/21 (3) Pneumonia SNOMED Code(s): 028806276 ICD Code: J18.9 - PNEUMONIA, UNSPECIFIED ORGANISM Status: Acute Problem Details: improving Qualifiers: Laterality: bilateral Lung location: lower lobe of lung (4) Weakness SNOMED Code(s): 07991015 ICD Code: R53.1 - WEAKNESS Status: Acute Priority: Medium (5) Asthma SNOMED Code(s): 346392530 ICD Code: J45.909 - UNSPECIFIED ASTHMA, UNCOMPLICATED Status: Chronic (6) Atrial fibrillation SNOMED Code(s): 33207671 ICD Code: I48.91 - UNSPECIFIED ATRIAL FIBRILLATION Status: Chronic (7) Anticoagulant long-term use SNOMED Code(s): 456500701 ICD Code: 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 Status: Chronic (8) CAD (coronary artery disease) SNOMED Code(s): 95782790 ICD Code: I25.10 - ATHSCL HEART DISEASE OF [place] CORONARY ARTERY W/O ANG PCTRS Status: Chronic (9) CHF (congestive heart failure) SNOMED Code(s): 11442040 ICD Code: I50.9 - HEART FAILURE, UNSPECIFIED Status: Chronic (10) Morbid obesity with BMI of 50.0-59.9, adult SNOMED Code(s): 208881324, 95439058110262 ICD Code: E66.01 - MORBID (SEVERE) OBESITY DUE TO EXCESS CALORIES; Z68.43 - BODY MASS INDEX [BMI] 50.0-59.9, ADULT Status: Chronic (11) Spinal stenosis SNOMED Code(s): 06918437 ICD Code: M48.00 - SPINAL STENOSIS, SITE UNSPECIFIED Status: Chronic - Patient Summary/Data Consults: Consultations 05/09/21 10:50 OT Evaluation and Treatment [CONS] Routine Please Evaluate and Treat. OT Reason for Consult: ADL's This query below is only for informational purposes and is not editable. PT Evaluation and Treatment [CONS] Routine Please Evaluate and Treat. PT Reason for Consult: Ambulation This query below is only for informational purposes and is not editable. Hospital Course: Hilary completed antibiotic course for pneumonia, 4 doses of Cefdinir. She has been saturating well on room air. Her Aspercreme with Lidocaine ran out on Saturday and had worsening nerve pain in her feet. Icy Hot was ordered but this did not help as well. She is on Lyrica 100 mg tid at home, this was continued in acute care and swing bed. Will resume Aspercreme with Lidocaine on discharge and discontinue Voltaren gel & Icy Hot. She did not do as well with PT/OT after the Aspercreme/Lidocaine ran out. She did have Lidocaine patches ordered and in place but did not help. She will discharged to [facility] today at 10am. - Patient Instructions Diet: Regular Diet as Tolerated Activity: As Tolerated Other/Special Instructions: Transfer to [facility]. Repeat INR on Saturday, sent to [facility]. Follow up with Dr Wadsworth in 1 week. - Discharge Plan *PRESCRIPTION DRUG MONITORING PROGRAM REVIEWED*: Yes *COPY OF PRESCRIPTION DRUG MONITORING REPORT IN PATIENT [place]: No Prescriptions/Med Rec: Spironolactone [Aldactone] 50 mg PO DAILY #60 tab Warfarin [Coumadin] 2.5 mg PO TuFr@1600 #30 tablet Warfarin [Coumadin] 5 mg PO SuMoWeThSa@1600 #30 tablet Losartan [Cozaar] 25 mg PO DAILY #30 tab Rosuvastatin [Crestor] 10 mg PO BEDTIME #30 tab Cyclobenzaprine HCl 5 mg PO TID PRN #90 tab PRN Reason: Muscle Spasm - Painful DULoxetine [Cymbalta] 30 mg PO DAILY #30 cap Furosemide 20 mg PO 1200 #15 tab Potassium Chloride [Klor-Con M20] 20 meq PO BIDMEALS #60 tab.er Furosemide [Lasix] 40 mg PO 0800 #30 tablet lidocaine HCL [Aspercreme Lidocaine] 1 applic TOP QID PRN #1 bottle PRN Reason: nerve pain Pregabalin [Lyrica] 100 mg PO TID #90 cap Formoterol [Perforomist] 20 mcg INH BID 30 Days #1 box Budesonide [Pulmicort] 0.5 mg IH BID 30 Days #1 box rOPINIRole [Requip] 0.5 mg PO BID PRN #60 tab PRN Reason: RESTLESS LEGS rOPINIRole [Requip] 0.5 mg PO BEDTIME #30 tab Montelukast [Singulair] 10 mg PO BEDTIME #30 tablet Multivitamins [Tab-A-Tara] 1 each PO DAILY #30 tab Tolterodine Tartrate [Tolterodine Tartrate ER] 4 mg PO DAILY #30 tab Metoprolol Succinate [Toprol XL] 25 mg PO DAILY #30 tab Acetaminophen [Tylenol Extra Strength] 1,000 mg PO TID 30 Days #180 tab Cyanocobalamin (Vitamin B12) [Vitamin B12] 1,000 mcg PO DAILY #30 tablet Cholecalciferol (Vitamin D3) [Vitamin D3] 50 mcg PO DAILY 30 Days #30 tab Home Medications: Home Meds Omeprazole 40 mg PO ACBREAKFAST 05/18/16 [History] Emollient [Vanicream] 1 applic TP BID PRN 04/18/21 [History] Acetaminophen [Tylenol Extra Strength] 1,000 mg PO TID 30 Days #180 tab 05/11/21 [Rx] Budesonide [Pulmicort] 0.5 mg IH BID 30 Days #1 box 05/11/21 [Rx] Cholecalciferol (Vitamin D3) [Vitamin D3] 50 mcg PO DAILY 30 Days #30 tab 05/11/21 [Rx] Cyanocobalamin (Vitamin B12) [Vitamin B12] 1,000 mcg PO DAILY #30 tablet 05/11/21 [Rx] Cyclobenzaprine HCl 5 mg PO TID PRN #90 tab 05/11/21 [Rx] DULoxetine [Cymbalta] 30 mg PO DAILY #30 cap 05/11/21 [Rx] Formoterol [Perforomist] 20 mcg INH BID 30 Days #1 box 05/11/21 [Rx] Furosemide 20 mg PO 1200 #15 tab 05/11/21 [Rx] Furosemide [Lasix] 40 mg PO 0800 #30 tablet 05/11/21 [Rx] Losartan [Cozaar] 25 mg PO DAILY #30 tab 05/11/21 [Rx] Metoprolol Succinate [Toprol XL] 25 mg PO DAILY #30 tab 05/11/21 [Rx] Montelukast [Singulair] 10 mg PO BEDTIME #30 tablet 05/11/21 [Rx] Multivitamins [Tab-A-Tara] 1 each PO DAILY #30 tab 05/11/21 [Rx] Potassium Chloride [Klor-Con M20] 20 meq PO BIDMEALS #60 tab.er 05/11/21 [Rx] Pregabalin [Lyrica] 100 mg PO TID #90 cap 05/11/21 [Rx] Rosuvastatin [Crestor] 10 mg PO BEDTIME #30 tab 05/11/21 [Rx] Spironolactone [Aldactone] 50 mg PO DAILY #60 tab 05/11/21 [Rx] Tolterodine Tartrate [Tolterodine Tartrate ER] 4 mg PO DAILY #30 tab 05/11/21 [Rx] Warfarin [Coumadin] 2.5 mg PO TuFr@1600 #30 tablet 05/11/21 [Rx] Warfarin [Coumadin] 5 mg PO SuMoWeThSa@1600 #30 tablet 05/11/21 [Rx] lidocaine HCL [Aspercreme Lidocaine] 1 applic TOP QID PRN #1 bottle 05/11/21 [Rx] rOPINIRole [Requip] 0.5 mg PO BEDTIME #30 tab 05/11/21 [Rx] rOPINIRole [Requip] 0.5 mg PO BID PRN #60 tab 05/11/21 [Rx] Patient Handouts: Fall Prevention in Hospitals, Adult, Venous Thromboembolism Prevention - Discharge Summary/Plan Comment DC Time >30 min.: No - General Info Date of Service: 05/11/21 Subjective Update: She has been having more nerve pain since Aspercreme with Lidocaine ran out. States Icy Hot doesn't work as well. No shortness of breath or cough. - Patient Data Vitals - Most Recent: Last Vital Signs Temp 97.9 F 05/11/21 08:00 Pulse 95 05/11/21 08:35 Resp 20 05/11/21 08:00 BP 119/69 05/11/21 08:35 Pulse Ox 95 05/11/21 08:00 Weight - Most Recent: 294 lb I&O - Last 24 hours: Intake & Output 05/10/21 05/11/21 05/11/21 22:59 06:59 14:59 Intake Total 500 Balance 500 Lab Results - Last 24 hrs: Laboratory Results - last 24 hr 05/11/21 Range/Units 06:35 PT 21.1 H (9.0-11.1) sec INR 2.04 H (1.00-1.24) Med Orders - Current: Current Medications Discontinued Medications Acetaminophen (Acetaminophen 500 Mg Tab) 1,000 mg PO TID [facility] Last Admin: 05/11/21 08:35 Dose: 1,000 mg Documented by: Albuterol (Albuterol 8 Gm Inhaler) 0 gm INH Q4H PRN PRN Reason: BREATHING Albuterol/Ipratropium (Albuterol/Ipratropium 3.0-0.5 Mg/3 Ml Neb Soln) 3 ml INH Q6H PRN PRN Reason: SHORTNESS OF BREATH/WHEEZING Budesonide (Budesonide 0.5 Mg/2 Ml Neb Susp) 0.5 mg NEB BID PRN PRN Reason: DIFFICULTY BREATHING Cefdinir (Cefdinir 300 Mg Cap) 300 mg PO BID [facility] Stop: 05/10/21 21:01 Last Admin: 05/10/21 21:12 Dose: 300 mg Documented by: Cholecalciferol (Cholecalciferol (Vitamin D3) 25 Mcg Tab) 50 mcg PO DAILY [facility] Last Admin: 05/11/21 08:36 Dose: 50 mcg Documented by: Cyanocobalamin (Cyanocobalamin (Vitamin B12) 1,000 Mcg Tab) 1,000 mcg PO DAILY [facility] Last Admin: 05/11/21 08:36 Dose: 1,000 mcg Documented by: Cyclobenzaprine HCl (Cyclobenzaprine 10 Mg Tab) 10 mg PO TID PRN PRN Reason: Muscle Spasm - Painful Last Admin: 05/11/21 02:02 Dose: 10 mg Documented by: Duloxetine HCl (Duloxetine 30 Mg Cap) 30 mg PO DAILY [facility] Last Admin: 05/11/21 08:34 Dose: 30 mg Documented by: Furosemide (Furosemide 40 Mg Tab) 40 mg PO 0800 [facility] Last Admin: 05/11/21 08:34 Dose: 40 mg Documented by: Furosemide (Furosemide 20 Mg Tab) 20 mg PO 1200 [facility] Last Admin: 05/10/21 11:25 Dose: 20 mg Documented by: Losartan Potassium (Losartan 25 Mg Tab) 25 mg PO DAILY [facility] Last Admin: 05/11/21 08:34 Dose: 25 mg Documented by: Methyl Salicylate (Menthol/Methyl Salicylate 85 Gm Tube) 0 gm TOP QID PRN PRN Reason: Pain Last Admin: 05/10/21 21:13 Dose: 1 applic Documented by: Metoprolol Succinate (Metoprolol Succinate 25 Mg Tab.Er) 25 mg PO DAILY [facility] Last Admin: 05/11/21 08:35 Dose: 25 mg Documented by: Montelukast Sodium (Montelukast 10 Mg Tab) 10 mg PO BEDTIME [facility] Last Admin: 05/10/21 21:13 Dose: 10 mg Documented by: Multivitamins/Minerals/Vitamin C (Multivitamin Tab) 1 tab PO DAILY [facility] Last Admin: 05/11/21 08:35 Dose: 1 tab Documented by: (Lidocaine Hcl [ Aspercreme Lidocaine ] 76.5 Gm Cream..G.) *Ptom 1 applic TOP QID PRN PRN Reason: Pain Pantoprazole Sodium (Pantoprazole 40 Mg Tab.Cr) 40 mg PO DAILY@0600 [facility] Last Admin: 05/11/21 06:00 Dose: 40 mg Documented by: Potassium Chloride (Potassium Chloride 20 Meq Tab.Er) 20 meq PO BIDMEALS [facility] Last Admin: 05/11/21 08:34 Dose: 20 meq Documented by: Pregabalin (Pregabalin 100 Mg Cap) 100 mg PO TID [facility] Last Admin: 05/11/21 08:36 Dose: 100 mg Documented by: Ropinirole HCl (Ropinirole 0.5 Mg Tab) 0.5 mg PO BEDTIME [facility] Last Admin: 05/10/21 21:12 Dose: 0.5 mg Documented by: Ropinirole HCl (Ropinirole 0.5 Mg Tab) 0.5 mg PO BID PRN PRN Reason: RESTLESS LEGS Last Admin: 05/11/21 08:35 Dose: 0.5 mg Documented by: Rosuvastatin Calcium (Rosuvastatin 10 Mg Tab) 10 mg PO BEDTIME [facility] Last Admin: 05/10/21 21:12 Dose: 10 mg Documented by: Spironolactone (Spironolactone 50 Mg Tab) 50 mg PO DAILY [facility] Last Admin: 05/11/21 08:36 Dose: 50 mg Documented by: Tolterodine Tartrate (Tolterodine 4 Mg Cap.Er) 4 mg PO DAILY [facility] Last Admin: 05/11/21 08:34 Dose: 4 mg Documented by: Tuberculin PPD (Tuberculin, Ppd 5 Units/0.1 Ml 1 Ml Mdv) 5 unit IDERM ONETIME ONE Stop: 05/10/21 13:01 Last Admin: 05/10/21 13:44 Dose: 5 unit Documented by: Warfarin Sodium (Warfarin 2.5 Mg Tab) 2.5 mg PO TuFr@1600 [facility] Last Admin: 05/09/21 15:05 Dose: 2.5 mg Documented by: Warfarin Sodium (Warfarin 5 Mg Tab) 5 mg PO SuMoWeThSa@1600 [facility] Last Admin: 05/10/21 16:03 Dose: 5 mg Documented by: Warfarin Sodium (Warfarin Sliding Scale) 1 each PO ASDIRECTED [facility] - Exam General: Reports: Alert, Oriented, Cooperative Neck: Reports: Trachea Midline Lungs: Reports: Clear to Auscultation, Normal Respiratory Effort. Denies: Crackles, Wheezing Cardiovascular: Reports: Regular Rate, Regular Rhythm GI/Abdominal Exam: Normal Bowel Sounds, Soft, Non-Tender, No Distention, Other (LLQ colostomy) (Female) Exam: Deferred Rectal (Female) Exam: Deferred Extremities: Pedal Edema Skin: Reports: Ecchymosis (left distal foot)
== END 2021-05-11 10:30 | DRG 947 ==
LOC: FB.MS 10:40
PROVIDERS: ADMIT Family Medicine; ATTEND Family Medicine
DX: R53.1 Weakness (principal); J18.9 Pneumonia, unspecified organism; I48.20 Chronic atrial fibrillation, unspecified; Z68.43 Body mass index [BMI] 50.0-59.9, adult; J45.909 Unspecified asthma, uncomplicated; I25.10 Atherosclerotic heart disease of native coronary artery without angina pectoris; I50.9 Heart failure, unspecified; E66.01 Morbid (severe) obesity due to excess calories; M48.00 Spinal stenosis, site unspecified; I11.0 Hypertensive heart disease with heart failure; Z66 Do not resuscitate; G62.9 Polyneuropathy, unspecified; F32.9 Major depressive disorder, single episode, unspecified; E03.9 Hypothyroidism, unspecified; M54.9 Dorsalgia, unspecified; G89.29 Other chronic pain; Z96.641 Presence of right artificial hip joint; Z96.651 Presence of right artificial knee joint; S99.912D Unspecified injury of left ankle, subsequent encounter; Z79.01 Long term (current) use of anticoagulants; Z88.5 Allergy status to narcotic agent; Z88.0 Allergy status to penicillin; Z88.8 Allergy status to other drugs, medicaments and biological substances; Z79.899 Other long term (current) drug therapy; Z90.49 Acquired absence of other specified parts of digestive tract; Z90.710 Acquired absence of both cervix and uterus
CPT/HCPCS: 36415; 85610; 86580; 97110-GO; 97116-GP; 97530-GO; A9270-GY

== ENCOUNTER 2021-12-05 10:16 | Day surgery (SDC) | payer MEDICARE ==
[~2021-12-05 10:16] MED LIST: Lactated Ringers 1,000 ML IV PRN; Sodium Chloride 0.9% 10 ML Syringe FLUSH PRN
[2021-12-05] MEDS ORDERED: fentaNYL 100 MCG/2 ML SDV IV ONE (10:17)
[2021-12-05] MEDS ORDERED: Midazolam 1 MG/ML 2 ML SDV IV ONE (10:17)
[2021-12-05] MEDS ORDERED: acetaZOLAMIDE 500 MG Cap.ER PO ONE (12:00)
[2021-12-05 14:38] VITALS: BP 157/82; PULSE 80
== END 2021-12-05 12:07 ==
LOC: FB.SDS 10:16
PROVIDERS: ATTEND Ophthalmology
DX: H25.813 Combined forms of age-related cataract, bilateral (principal); H43.813 Vitreous degeneration, bilateral; H21.81 Floppy iris syndrome; J44.1 Chronic obstructive pulmonary disease with (acute) exacerbation; M79.7 Fibromyalgia; I48.91 Unspecified atrial fibrillation; I11.0 Hypertensive heart disease with heart failure; I50.9 Heart failure, unspecified; K21.9 Gastro-esophageal reflux disease without esophagitis; G62.9 Polyneuropathy, unspecified; E66.01 Morbid (severe) obesity due to excess calories; R73.03 Prediabetes; M48.062 Spinal stenosis, lumbar region with neurogenic claudication; Z79.899 Other long term (current) drug therapy; Z90.49 Acquired absence of other specified parts of digestive tract; Z98.890 Other specified postprocedural states; Z88.0 Allergy status to penicillin; Z88.5 Allergy status to narcotic agent; Z88.8 Allergy status to other drugs, medicaments and biological substances
CPT/HCPCS: 66982; A9270; J2250; J3010; V2632

== ENCOUNTER 2021-12-19 10:48 | Day surgery (SDC) | payer MEDICARE ==
[2021-12-19] MEDS ORDERED: fentaNYL 100 MCG/2 ML SDV IV ONE (10:49)
[2021-12-19] MEDS ORDERED: Midazolam 1 MG/ML 2 ML SDV IV ONE (10:49)
[2021-12-19] MEDS: acetaZOLAMIDE 500 MG Cap.ER PO ONE (12:36)
[2021-12-19 13:03] VITALS: BP 133/57; PULSE 71
== END 2021-12-19 13:00 ==
LOC: FB.SDS 10:48
PROVIDERS: ATTEND Ophthalmology
DX: H25.813 Combined forms of age-related cataract, bilateral (principal); H43.813 Vitreous degeneration, bilateral; J44.1 Chronic obstructive pulmonary disease with (acute) exacerbation; I48.91 Unspecified atrial fibrillation; I10 Essential (primary) hypertension; K21.9 Gastro-esophageal reflux disease without esophagitis; G62.9 Polyneuropathy, unspecified; I50.9 Heart failure, unspecified; I11.0 Hypertensive heart disease with heart failure; G25.81 Restless legs syndrome; E66.01 Morbid (severe) obesity due to excess calories; Z90.49 Acquired absence of other specified parts of digestive tract; Z98.890 Other specified postprocedural states; Z79.01 Long term (current) use of anticoagulants; Z93.3 Colostomy status; Z79.899 Other long term (current) drug therapy
CPT/HCPCS: 00142-QZ; A9270-GY; J2250; J3010; V2632

== ENCOUNTER 2022-04-09 19:23 | Observation (INO) | payer MEDICARE ==
[2022-04-09] MEDS ORDERED: HYDROmorphone 2 MG/ML SDV IM ONE (19:37)
[2022-04-09] MEDS ORDERED: hydrOXYzine HCl 50 MG/ML SDV IM ONE (19:37)
[2022-04-09] MEDS ORDERED: HYDROmorphone 2 MG/ML SDV IVPUSH PRN (21:41)
[2022-04-09] MEDS ORDERED: Ondansetron 4 MG/2 ML SDV IV PRN (21:41)
[2022-04-09] MEDS ORDERED: Albuterol/Ipratropium 3.0-0.5 MG/3 ML Neb Soln NEB PRN (22:16)
[2022-04-09] MEDS: Sodium Chloride 0.9% 10 ML Syringe FLUSH PRN (22:30)
[2022-04-10] MEDS: Sodium Chloride 0.9% 10 ML Syringe FLUSH PRN ×2 (08:54→08:58)
[2022-04-10 09:17] VITALS: BP 165/89; PULSE 106
== END 2022-04-10 10:30 ==
LOC: FB.ED 19:23 → FB.MS 21:41
PROVIDERS: ADMIT Family Medicine; ATTEND Student in an Organized Health Care Education/Training Program
DX: S30.1XXA Contusion of abdominal wall, initial encounter (principal); E66.01 Morbid (severe) obesity due to excess calories; J44.9 Chronic obstructive pulmonary disease, unspecified; I11.0 Hypertensive heart disease with heart failure; I50.9 Heart failure, unspecified; E78.00 Pure hypercholesterolemia, unspecified; E03.9 Hypothyroidism, unspecified; E66.9 Obesity, unspecified; G62.9 Polyneuropathy, unspecified; G43.909 Migraine, unspecified, not intractable, without status migrainosus; I48.11 Longstanding persistent atrial fibrillation; Z88.5 Allergy status to narcotic agent; Z88.0 Allergy status to penicillin; Z88.8 Allergy status to other drugs, medicaments and biological substances; Z79.899 Other long term (current) drug therapy; Z98.890 Other specified postprocedural states; Z87.891 Personal history of nicotine dependence; Z68.43 Body mass index [BMI] 50.0-59.9, adult; Z79.01 Long term (current) use of anticoagulants; Z20.822 Contact with and (suspected) exposure to COVID-19
CPT/HCPCS: 36415; 74176; 80053; 81001; 85025; 85610; 94640; 94760; 96372; 96376; 99283; 99285-25; G0378; J1170; J3410; J3490; J7620; U0002

== ENCOUNTER 2022-04-10 17:35 | Inpatient (IN) | payer MEDICARE ==
[2022-04-10] MEDS ORDERED: Sodium Chloride 0.9% 1,000 ML IV ONE ×2 (18:27→20:02)
[2022-04-10] MEDS ORDERED: Levofloxacin/Dextrose 5%-Water 750 MG in Premix Bag 1 BAG IV ONE (18:43)
[2022-04-10] MEDS: Sodium Chloride 0.9% 10 ML Syringe FLUSH PRN (19:29)
[2022-04-10] MEDS ORDERED: Albuterol/Ipratropium 3.0-0.5 MG/3 ML Neb Soln NEB PRN (20:19)
[2022-04-10] MEDS ORDERED: Emollient 454 GM Jar TOP PRN (20:29)
[2022-04-10] MEDS ORDERED: Lidocaine 4% 1 each Patch TOP PRN (20:29)
[2022-04-10] MEDS ORDERED: Enoxaparin 30 MG/0.3 ML Syringe SUBCUT SCH (20:30)
[2022-04-10] MEDS ORDERED: Non-Formulary Medication 1 Each (Formoterol [Perforomist] 20 MCG/2 ML Neb) INH SCH (21:00)
[2022-04-10] MEDS: Montelukast 10 MG Tab PO SCH (21:27)
[2022-04-10] MEDS: Budesonide 0.5 MG/2 ML Neb Susp INH SCH (21:31)
[2022-04-10] MEDS: Sodium Chloride 0.9% 1,000 ML IV SCH (21:45)
[2022-04-11] MEDS ORDERED: Sodium Chloride 0.9% 1,000 ML IV ONE (00:18)
[2022-04-11] MEDS: Sodium Chloride 0.9% 1,000 ML IV SCH (01:38)
[2022-04-11] MEDS ORDERED: Sodium Chloride 0.9% 1,000 ML IV SCH (02:15)
[2022-04-11] MEDS ORDERED: Digoxin 500 MCG/2 ML Amp IVPUSH ONE (04:37)
[2022-04-11] MEDS ORDERED: Digoxin 500 MCG/2 ML Amp ONE (04:40)
[2022-04-11] MEDS ORDERED: Furosemide 40 MG Tab PO SCH (08:00)
[2022-04-11] MEDS: Furosemide 40 MG/4 ML VIAL IVPUSH SCH (09:22)
[2022-04-11] MEDS: Mirabegron 25 MG Tab Extended Release PO SCH (09:22)
[2022-04-11] MEDS: DULoxetine 30 MG Cap PO SCH (09:22)
[2022-04-11] MEDS: Arformoterol 15 MCG/2 ML Neb Soln INH SCH ×2 (09:22→20:09)
[2022-04-11] MEDS: Budesonide 0.5 MG/2 ML Neb Susp INH SCH ×2 (09:22→20:05)
[2022-04-11] MEDS: Metoprolol Succinate 25 MG Tab.ER PO SCH (09:23)
[2022-04-11] MEDS: Sodium Chloride 0.9% 10 ML Syringe FLUSH PRN (09:26)
[2022-04-11] MEDS: Acetaminophen 325 MG Tab PO PRN (09:32)
[2022-04-11] MEDS: Ondansetron 4 MG/2 ML SDV IVPUSH PRN (10:09)
[2022-04-11] MEDS ORDERED: Furosemide 20 MG Tab PO SCH (12:00)
[2022-04-11] MEDS ORDERED: Diltiazem 25 MG/5 ML SDV IVPUSH ONE (12:32)
[2022-04-11] MEDS: traMADol 50 MG Tab PO PRN (13:30)
[2022-04-11] MEDS ORDERED: Diltiazem IR 30 MG Tab PO SCH (14:30)
[2022-04-11] MEDS ORDERED: Levofloxacin/Dextrose 5%-Water 500 MG in Premix Bag 1 BAG IV SCH (19:45)
[2022-04-11] MEDS: Diltiazem 120 MG Cap.CD PO SCH (20:04)
[2022-04-11] MEDS: Montelukast 10 MG Tab PO SCH (20:04)
[2022-04-12] MEDS: Acetaminophen 325 MG Tab PO PRN ×3 (00:09→17:01)
[2022-04-12] MEDS: Arformoterol 15 MCG/2 ML Neb Soln INH SCH ×2 (08:32→20:01)
[2022-04-12] MEDS: DULoxetine 30 MG Cap PO SCH (08:33)
[2022-04-12] MEDS: Mirabegron 25 MG Tab Extended Release PO SCH (08:34)
[2022-04-12] MEDS: Metoprolol Succinate 25 MG Tab.ER PO SCH (08:34)
[2022-04-12] MEDS: Furosemide 40 MG/4 ML VIAL IVPUSH SCH (08:35)
[2022-04-12] MEDS: Budesonide 0.5 MG/2 ML Neb Susp INH SCH ×2 (08:35→20:03)
[2022-04-12] MEDS: Sodium Chloride 0.9% 10 ML Syringe FLUSH PRN (08:38)
[2022-04-12] MEDS: Diltiazem 120 MG Cap.CD PO SCH (08:47)
[2022-04-12] MEDS: Ondansetron 4 MG/2 ML SDV IVPUSH PRN (08:48)
[2022-04-12] MEDS: traMADol 50 MG Tab PO PRN ×2 (11:55→17:55)
[2022-04-12] MEDS ORDERED: Levofloxacin/Dextrose 5%-Water 150 ML IV SCH (18:00)
[2022-04-12] MEDS: Montelukast 10 MG Tab PO SCH (20:03)
[2022-04-12 20:13] VITALS: BP 121/71; PULSE 91
== END 2022-04-12 22:00 | DRG 871 ==
LOC: FB.ED 17:35 → FB.MS 20:17
PROVIDERS: ADMIT Emergency Medicine; ATTEND Student in an Organized Health Care Education/Training Program
DX: A41.9 Sepsis, unspecified organism (principal); J18.9 Pneumonia, unspecified organism; N17.9 Acute kidney failure, unspecified; I48.11 Longstanding persistent atrial fibrillation; R31.9 Hematuria, unspecified; Z68.43 Body mass index [BMI] 50.0-59.9, adult; I13.0 Hypertensive heart and chronic kidney disease with heart failure and stage 1 through stage 4 chronic kidney disease, or unspecified chronic kidney disease; Z51.5 Encounter for palliative care; I11.0 Hypertensive heart disease with heart failure; J44.0 Chronic obstructive pulmonary disease with (acute) lower respiratory infection; R65.20 Severe sepsis without septic shock; I48.91 Unspecified atrial fibrillation; N18.30 Chronic kidney disease, stage 3 unspecified; M79.7 Fibromyalgia; S30.1XXA Contusion of abdominal wall, initial encounter; G62.9 Polyneuropathy, unspecified; D72.829 Elevated white blood cell count, unspecified; Z86.14 Personal history of Methicillin resistant Staphylococcus aureus infection; Z88.0 Allergy status to penicillin; Z66 Do not resuscitate; J45.909 Unspecified asthma, uncomplicated; Z79.51 Long term (current) use of inhaled steroids; I25.10 Atherosclerotic heart disease of native coronary artery without angina pectoris; I50.9 Heart failure, unspecified; E66.01 Morbid (severe) obesity due to excess calories; M48.00 Spinal stenosis, site unspecified; H54.7 Unspecified visual loss; E78.00 Pure hypercholesterolemia, unspecified; K21.9 Gastro-esophageal reflux disease without esophagitis; N39.46 Mixed incontinence; M19.90 Unspecified osteoarthritis, unspecified site; E03.9 Hypothyroidism, unspecified; G43.909 Migraine, unspecified, not intractable, without status migrainosus; Z96.649 Presence of unspecified artificial hip joint; Z96.659 Presence of unspecified artificial knee joint; G25.81 Restless legs syndrome; F32.A Depression, unspecified; I87.8 Other specified disorders of veins; Z86.19 Personal history of other infectious and parasitic diseases; Z79.01 Long term (current) use of anticoagulants; Z79.899 Other long term (current) drug therapy; Z88.1 Allergy status to other antibiotic agents; Z88.5 Allergy status to narcotic agent; Z87.01 Personal history of pneumonia (recurrent); Z86.010 Personal history of colon polyps; Z88.8 Allergy status to other drugs, medicaments and biological substances; Z90.49 Acquired absence of other specified parts of digestive tract; Z90.710 Acquired absence of both cervix and uterus; Z98.51 Tubal ligation status; Z87.891 Personal history of nicotine dependence
CPT/HCPCS: 36415; 71045; 76705; 80048; 80053; 81001; 83605; 85027; 86140; 87040; 87086; 87088; 87186; 93971-RT; 94640; 96365; 96366; 99222; 99238; 99284; 99285-25; A9270-GY; J1160; J1650; J1940; J1956; J2405; J3490; J7030; J7605; J7620

== ENCOUNTER 2022-04-26 17:58 | Emergency (ER) | payer MEDICARE ==
[2022-04-26] MEDS ORDERED: Sodium Chloride 0.9% 10 ML Syringe FLUSH PRN (18:04)
[2022-04-26 18:29] LABS: BASE EXCESS VENOUS,POC 5 mmol/L (-2 - 3+); PCO2 VENOUS,POC 37 mmHg (41-51); PH VENOUS,POC 7.49 pH Units (7.32-7.43)
[2022-04-26 18:34] LABS: ESTIMATED GFR 65 mL/min (>60)
[2022-04-26 18:44] VITALS: BP 133/70; PULSE 76
== END 2022-04-26 19:34 ==
LOC: FB.ED 17:58
DX: U09.9 Post COVID-19 condition, unspecified (principal); I48.91 Unspecified atrial fibrillation; E78.00 Pure hypercholesterolemia, unspecified; I11.0 Hypertensive heart disease with heart failure; I50.9 Heart failure, unspecified; K21.9 Gastro-esophageal reflux disease without esophagitis; J44.9 Chronic obstructive pulmonary disease, unspecified; E03.9 Hypothyroidism, unspecified; E66.9 Obesity, unspecified; Z68.30 Body mass index [BMI] 30.0-30.9, adult; Z88.5 Allergy status to narcotic agent; Z88.0 Allergy status to penicillin; Z88.8 Allergy status to other drugs, medicaments and biological substances; Z79.899 Other long term (current) drug therapy; Z79.01 Long term (current) use of anticoagulants
CPT/HCPCS: 36415; 71045; 80053; 83880; 84484; 85025; 85610; 93005; 99282; 99285-25

== ENCOUNTER 2022-10-28 15:22 | Emergency (ER) | payer MEDICARE ==
[2022-10-28 16:23] LABS: ESTIMATED GFR 51 mL/min (>60)
[2022-10-28] MEDS ORDERED: Ciprofloxacin 500 MG Tab PO ONE (17:11)
[2022-10-28 17:12] VITALS: PULSE 75
[2022-10-28 18:06] VITALS: BP 136/74
== END 2022-10-28 18:00 | disposition home or self-care (01) ==
LOC: FB.ED 15:22
DX: J18.9 Pneumonia, unspecified organism (principal); I11.0 Hypertensive heart disease with heart failure; I50.9 Heart failure, unspecified; R06.89 Other abnormalities of breathing; E66.01 Morbid (severe) obesity due to excess calories; I48.91 Unspecified atrial fibrillation; E78.00 Pure hypercholesterolemia, unspecified; J44.9 Chronic obstructive pulmonary disease, unspecified; K21.9 Gastro-esophageal reflux disease without esophagitis; M19.90 Unspecified osteoarthritis, unspecified site; E03.9 Hypothyroidism, unspecified; Z88.0 Allergy status to penicillin; Z68.43 Body mass index [BMI] 50.0-59.9, adult; Z88.5 Allergy status to narcotic agent; Z88.1 Allergy status to other antibiotic agents; Z79.01 Long term (current) use of anticoagulants; Z79.899 Other long term (current) drug therapy
CPT/HCPCS: 36415; 71045; 80053; 83605; 83735; 85025; 86140; 87040; 99285; A9270

== ENCOUNTER 2022-11-03 14:28 | Emergency (ER) | payer MEDICARE ==
[2022-11-03] MEDS ORDERED: Sodium Chloride 0.9% 10 ML Syringe FLUSH PRN (14:44)
[2022-11-03 15:18] LABS: ESTIMATED GFR 74 mL/min (>60)
[2022-11-03] MEDS ORDERED: Furosemide 20 MG/2 ML VIAL IVPUSH ONE (16:07)
[2022-11-03 16:20] LABS: CORONAVIRUS COVID-19 NAA NEGATIVE (NEGATIVE)
[2022-11-03 18:29] VITALS: BP 124/73; PULSE 77
== END 2022-11-03 17:50 ==
LOC: FB.ED 14:28
DX: R53.1 Weakness (principal); I48.91 Unspecified atrial fibrillation; I11.0 Hypertensive heart disease with heart failure; I50.9 Heart failure, unspecified; E78.00 Pure hypercholesterolemia, unspecified; J44.9 Chronic obstructive pulmonary disease, unspecified; K21.9 Gastro-esophageal reflux disease without esophagitis; M19.90 Unspecified osteoarthritis, unspecified site; E03.9 Hypothyroidism, unspecified; E66.9 Obesity, unspecified; Z88.5 Allergy status to narcotic agent; Z88.0 Allergy status to penicillin; Z88.8 Allergy status to other drugs, medicaments and biological substances; Z79.01 Long term (current) use of anticoagulants; Z79.899 Other long term (current) drug therapy; Z20.822 Contact with and (suspected) exposure to COVID-19
CPT/HCPCS: 0241U; 71045; 80053; 81001; 83605; 83880; 84484; 85025; 86140; 96374; 99284-25; J1940

== ENCOUNTER 2022-12-15 17:11 | Emergency (ER) | payer MEDICARE ==
[2022-12-15 18:29] LABS: ESTIMATED GFR 65 mL/min (>60)
[2022-12-15 19:00] LABS: CORONAVIRUS COVID-19 NAA NEGATIVE (NEGATIVE)
[2022-12-15 19:13] VITALS: BP 120/67; PULSE 73
== END 2022-12-15 19:18 | disposition home or self-care (01) ==
LOC: FB.ED 17:11
DX: R07.81 Pleurodynia (principal); I11.0 Hypertensive heart disease with heart failure; I50.43 Acute on chronic combined systolic (congestive) and diastolic (congestive) heart failure; I48.91 Unspecified atrial fibrillation; R05.9 Cough, unspecified; I87.2 Venous insufficiency (chronic) (peripheral); E78.00 Pure hypercholesterolemia, unspecified; J44.9 Chronic obstructive pulmonary disease, unspecified; K21.9 Gastro-esophageal reflux disease without esophagitis; E03.9 Hypothyroidism, unspecified; E66.01 Morbid (severe) obesity due to excess calories; Z68.43 Body mass index [BMI] 50.0-59.9, adult; Z88.5 Allergy status to narcotic agent; Z88.0 Allergy status to penicillin; Z88.8 Allergy status to other drugs, medicaments and biological substances; Z79.899 Other long term (current) drug therapy; Z20.822 Contact with and (suspected) exposure to COVID-19
CPT/HCPCS: 0241U; 36415; 71045; 80053; 83605; 83880; 84484; 85025; 86140; 87040; 93005; 93010; 99283; 99285

== ENCOUNTER 2023-03-05 16:16 | Emergency (ER) | payer MEDICARE ==
[2023-03-05 16:36] VITALS: BP 117/64; PULSE 92
[2023-03-05 17:23] LABS: BASE EXCESS VENOUS,POC 6 mmol/L (-2 - 3+); ESTIMATED GFR 65 mL/min (>60); PCO2 VENOUS,POC 46 mmHg (41-51); PH VENOUS,POC 7.44 pH Units (7.32-7.43)
[2023-03-05 17:56] LABS: CORONAVIRUS COVID-19 NAA NEGATIVE (NEGATIVE)
[2023-03-05] MEDS ORDERED: Levofloxacin 500 MG Tab PO ONE (19:01)
== END 2023-03-05 19:20 | disposition home or self-care (01) ==
LOC: FB.ED 16:16
DX: J20.9 Acute bronchitis, unspecified (principal); R79.82 Elevated C-reactive protein (CRP); R82.71 Bacteriuria; R41.82 Altered mental status, unspecified; I48.91 Unspecified atrial fibrillation; I50.9 Heart failure, unspecified; I11.0 Hypertensive heart disease with heart failure; E78.00 Pure hypercholesterolemia, unspecified; J44.9 Chronic obstructive pulmonary disease, unspecified; K21.9 Gastro-esophageal reflux disease without esophagitis; E03.9 Hypothyroidism, unspecified; E66.9 Obesity, unspecified; Z20.822 Contact with and (suspected) exposure to COVID-19; Z86.16 Personal history of COVID-19; Z79.899 Other long term (current) drug therapy; Z88.0 Allergy status to penicillin; Z88.5 Allergy status to narcotic agent; Z88.8 Allergy status to other drugs, medicaments and biological substances; Z79.01 Long term (current) use of anticoagulants
CPT/HCPCS: 0241U; 36415; 71045; 80053; 81001; 83880; 84484; 85025; 85610; 86140; 87086; 93005; 99284; 99285; A9270-GY

== ENCOUNTER 2023-05-18 09:34 | Emergency (ER) | payer MEDICARE ==
[2023-05-18] MEDS ORDERED: Sodium Chloride 0.9% 10 ML Syringe FLUSH PRN (09:52)
[2023-05-18 10:16] LABS: BASOPHILS PERCENT AUTO 0.4 % (0.2-1.5); EOSINOPHILS PERCENT AUTO 0.2 % (0.6-8.1); HEMATOCRIT 40.2 % (34.2-48.2); HEMOGLOBIN 13.5 g/dL (11.4-15.5); LYMPHOCYTES ABSOLUTE AUTO 1.3 x10-3/uL (1.0-4.4); LYMPHOCYTES PERCENT AUTO 11.7 % (18.4-52.1); MEAN CORPUSCULAR HEMOGLOBIN 34.2 pg (23.9-33.9); MEAN CORPUSCULAR HGB CONC 33.6 g/dL (31.9-34.8); MEAN CORPUSCULAR VOLUME 101.5 fL (76.7-100.5); MEAN PLATELET VOLUME 8.8 fL (7.1-12.4); MONOCYTES ABSOLUTE AUTO 0.7 x10-3/uL (0.3-1.0); MONOCYTES PERCENT AUTO 6.3 % (4.4-15.7); NEUTROPHILS ABSOLUTE AUTO 9.1 x10-3/uL (1.5-6.3); NEUTROPHILS PERCENT AUTO 81.4 % (30.8-76.2); PLATELET COUNT,PLT 221 x10(3)uL (151-488); RED BLOOD CELL COUNT 3.96 x10(6)uL (3.60-5.20); RED CELL DISTRIBUTION WIDTH 14.8 % (12.3-16.5); WHITE BLOOD CELL COUNT,WBC 11.2 x10-3/uL (3.0-10.3)
[2023-05-18 10:17] LABS: BLOOD UREA NITROGEN,BUN 23 mg/dL (7-18); BUN/CREATININE RATIO 25.6 (9-20); CALCIUM 9.2 mg/dL (8.6-10.2); CARBON DIOXIDE,CO2 33 mmol/L (21-32); CHLORIDE,CL 100 mmol/L (100-110); CREATININE 0.9 mg/dL (0.55-1.02); EST CRCL DRUG DOSING (CG) 35.21 mL/min; ESTIMATED GFR 64 mL/min (>60); GLUCOSE RANDOM 194 mg/dL (80-116); POTASSIUM,K 4.3 mmol/L (3.5-5.3); SODIUM,NA 139 mmol/L (135-145)
[2023-05-18 10:19] LABS: INR 1.06 (1.00-1.24); PROTHROMBIN TIME 10.9 sec (9.0-11.1)
[2023-05-18 10:23] LABS: A/G RATIO 0.8; ALANINE AMINOTRANSFERASE,ALT 31 U/L (12-36); ALBUMIN 3.2 g/dL (3.2-4.6); ALKALINE PHOSPHATASE 77 IU/L (56-112); ASPARTATE AMNIOTRANSFERASE,AST 25 IU/L (5-25); BILIRUBIN TOTAL 0.4 mg/dL (0.1-1.3)
[2023-05-18 10:30] LABS: TROPONIN I 9.2 pg/mL (4.0-60.3)
[2023-05-18 14:58] VITALS: BP 105/69; PULSE 89
== END 2023-05-18 11:27 ==
LOC: FB.ED 09:34
DX: I48.20 Chronic atrial fibrillation, unspecified (principal); I11.0 Hypertensive heart disease with heart failure; I50.9 Heart failure, unspecified; E78.00 Pure hypercholesterolemia, unspecified; E03.9 Hypothyroidism, unspecified; E66.9 Obesity, unspecified; J44.9 Chronic obstructive pulmonary disease, unspecified; Z88.5 Allergy status to narcotic agent; Z88.0 Allergy status to penicillin; Z88.8 Allergy status to other drugs, medicaments and biological substances; Z79.01 Long term (current) use of anticoagulants; Z79.899 Other long term (current) drug therapy; Z79.51 Long term (current) use of inhaled steroids; Z68.44 Body mass index [BMI] 60.0-69.9, adult
CPT/HCPCS: 36415; 71045; 80053; 83880; 84484; 85025; 85610; 93005; 99284

== ENCOUNTER 2023-07-05 14:30 | Emergency (ER) | payer MEDICARE ==
[2023-07-05 15:34] LABS: BASOPHILS ABSOLUTE AUTO 0.1 x10-3/uL (0.0-0.1); BASOPHILS PERCENT AUTO 0.8 % (0.2-1.5); EOSINOPHILS ABSOLUTE AUTO 0.1 x10-3/uL (0.0-0.8); EOSINOPHILS PERCENT AUTO 0.6 % (0.6-8.1); HEMATOCRIT 39.2 % (34.2-48.2); HEMOGLOBIN 13.2 g/dL (11.4-15.5); LYMPHOCYTES ABSOLUTE AUTO 1.5 x10-3/uL (1.0-4.4); LYMPHOCYTES PERCENT AUTO 12.3 % (18.4-52.1); MEAN CORPUSCULAR HEMOGLOBIN 34.3 pg (23.9-33.9); MEAN CORPUSCULAR HGB CONC 33.7 g/dL (31.9-34.8); MEAN CORPUSCULAR VOLUME 101.7 fL (76.7-100.5); MEAN PLATELET VOLUME 9.2 fL (7.1-12.4); MONOCYTES ABSOLUTE AUTO 0.9 x10-3/uL (0.3-1.0); MONOCYTES PERCENT AUTO 6.8 % (4.4-15.7); NEUTROPHILS PERCENT AUTO 79.5 % (30.8-76.2); PLATELET COUNT,PLT 226 x10(3)uL (151-488); RED BLOOD CELL COUNT 3.86 x10(6)uL (3.60-5.20); RED CELL DISTRIBUTION WIDTH 15.2 % (12.3-16.5); WHITE BLOOD CELL COUNT,WBC 12.5 x10-3/uL (3.0-10.3)
[2023-07-05 15:36] LABS: BLOOD UREA NITROGEN,BUN 33 mg/dL (7-18); CARBON DIOXIDE,CO2 31 mmol/L (21-32); CHLORIDE,CL 100 mmol/L (100-110); CREATININE 0.7 mg/dL (0.55-1.02); ESTIMATED GFR 87 mL/min (>60); GLUCOSE RANDOM 141 mg/dL (80-116); POTASSIUM,K 3.8 mmol/L (3.5-5.3); SODIUM,NA 140 mmol/L (135-145)
[2023-07-05 15:38] LABS: INR 1.07 (1.00-1.24)
[2023-07-05 15:40] LABS: BUN/CREATININE RATIO 47.1 (9-20)
[2023-07-05 15:42] LABS: A/G RATIO 0.9; ALANINE AMINOTRANSFERASE,ALT 32 U/L (12-36); ALBUMIN 3.3 g/dL (3.2-4.6); ALKALINE PHOSPHATASE 78 IU/L (56-112); ASPARTATE AMNIOTRANSFERASE,AST 28 IU/L (5-25); BILIRUBIN TOTAL 0.4 mg/dL (0.1-1.3); PROTEIN TOTAL,TP 7.1 g/dL (6.0-8.0)
[2023-07-05] MEDS ORDERED: Acetaminophen 500 MG Tab PO ONE (15:48)
[2023-07-05 15:49] LABS: TROPONIN I 7.1 pg/mL (4.0-60.3)
[2023-07-05] MEDS ORDERED: Ketorolac 30 MG/ML SDV IM ONE (20:23)
[2023-07-05] MEDS ORDERED: Sodium Chloride 0.9% 10 ML Syringe FLUSH PRN (21:03)
[2023-07-05] MEDS ORDERED: Sodium Chloride 0.9% 1,000 ML IV SCH (21:15)
[2023-07-05] MEDS ORDERED: fentaNYL 100 MCG/2 ML SDV IVPUSH ONE (21:19)
[2023-07-05] MEDS ORDERED: Ondansetron 4 MG/2 ML SDV IVPUSH ONE (21:19)
[2023-07-05] MEDS ORDERED: Naloxone 0.4 MG/ML SDV IVPUSH PRN (21:19)
[2023-07-05 22:48] VITALS: BP 130/82; PULSE 105
== END 2023-07-05 22:05 ==
LOC: FB.ED 14:30
DX: S72.402A Unspecified fracture of lower end of left femur, initial encounter for closed fracture (principal); E03.9 Hypothyroidism, unspecified; E66.9 Obesity, unspecified; I10 Essential (primary) hypertension; I48.91 Unspecified atrial fibrillation; E78.00 Pure hypercholesterolemia, unspecified; J45.909 Unspecified asthma, uncomplicated; K21.9 Gastro-esophageal reflux disease without esophagitis; Z68.44 Body mass index [BMI] 60.0-69.9, adult; Z87.891 Personal history of nicotine dependence; Z86.16 Personal history of COVID-19; Z79.01 Long term (current) use of anticoagulants; Z79.899 Other long term (current) drug therapy; Z88.0 Allergy status to penicillin; Z88.5 Allergy status to narcotic agent; Z88.8 Allergy status to other drugs, medicaments and biological substances; W19.XXXA Unspecified fall, initial encounter
CPT/HCPCS: 36415; 70450; 71101-LT; 72020; 72192; 73501-LT; 73560-LT; 73600-LT; 80053; 83880; 84484; 85025; 85610; 93005; 93010; 96372; 96374; 96375; 99283; 99285-25; A9270-GY; J1885; J2405; J3010; J3490; J7030

== ENCOUNTER 2023-08-09 14:53 | Emergency (ER) | payer MEDICARE ==
[2023-08-09] MEDS ORDERED: Sodium Chloride 0.9% 10 ML Syringe FLUSH PRN (15:51)
[2023-08-09] MEDS ORDERED: Ondansetron 4 MG/2 ML SDV IVPUSH ONE (15:54)
[2023-08-09] MEDS ORDERED: fentaNYL 100 MCG/2 ML SDV IVPUSH STA (15:59)
[2023-08-09 16:11] LABS: BASOPHILS ABSOLUTE AUTO 0.1 x10-3/uL (0.0-0.1); BASOPHILS PERCENT AUTO 0.7 % (0.2-1.5); EOSINOPHILS ABSOLUTE AUTO 0.1 x10-3/uL (0.0-0.8); EOSINOPHILS PERCENT AUTO 1.2 % (0.6-8.1); HEMATOCRIT 27.7 % (34.2-48.2); HEMOGLOBIN 8.9 g/dL (11.4-15.5); LYMPHOCYTES ABSOLUTE AUTO 1.2 x10-3/uL (1.0-4.4); LYMPHOCYTES PERCENT AUTO 14.2 % (18.4-52.1); MEAN CORPUSCULAR HEMOGLOBIN 30.3 pg (23.9-33.9); MEAN CORPUSCULAR HGB CONC 32.1 g/dL (31.9-34.8); MEAN CORPUSCULAR VOLUME 94.3 fL (76.7-100.5); MONOCYTES PERCENT AUTO 11.7 % (4.4-15.7); NEUTROPHILS PERCENT AUTO 72.2 % (30.8-76.2); PLATELET COUNT,PLT 261 x10(3)uL (151-488); RED CELL DISTRIBUTION WIDTH 19.4 % (12.3-16.5); WHITE BLOOD CELL COUNT,WBC 8.3 x10-3/uL (3.0-10.3)
[2023-08-09 16:12] LABS: RED BLOOD CELL COUNT 2.93 x10(6)uL (3.60-5.20)
[2023-08-09 16:14] LABS: BLOOD UREA NITROGEN,BUN 13 mg/dL (7-18); BUN/CREATININE RATIO 18.6 (9-20); CALCIUM 8.6 mg/dL (8.6-10.2); CARBON DIOXIDE,CO2 34 mmol/L (21-32); CHLORIDE,CL 102 mmol/L (100-110); CREATININE 0.7 mg/dL (0.55-1.02); EST CRCL DRUG DOSING (CG) 45.27 mL/min; ESTIMATED GFR 87 mL/min (>60); GLUCOSE RANDOM 152 mg/dL (80-116); POTASSIUM,K 3.9 mmol/L (3.5-5.3); SODIUM,NA 142 mmol/L (135-145)
[2023-08-09 16:18] LABS: INR 1.1 (1.00-1.24); PROTHROMBIN TIME 11.3 sec (9.0-11.1)
[2023-08-09 16:20] LABS: A/G RATIO 0.7; ALANINE AMINOTRANSFERASE,ALT 16 U/L (12-36); ALBUMIN 2.7 g/dL (3.2-4.6); ALKALINE PHOSPHATASE 116 IU/L (56-112); AMYLASE 34 U/L (25-115); ASPARTATE AMNIOTRANSFERASE,AST 17 IU/L (5-25); BILIRUBIN TOTAL 0.6 mg/dL (0.1-1.3); PROTEIN TOTAL,TP 6.8 g/dL (6.0-8.0); PTT,PARTIAL THROMBOPLSTIN TIME 31.1 SECONDS (24.4-33.2)
[2023-08-09] MEDS ORDERED: Iopamidol 755 Mg/ML 200 ML Bottle IV ONE (17:12)
[2023-08-09 19:24] VITALS: BP 137/68; PULSE 79
== END 2023-08-09 19:15 ==
LOC: FB.ED 14:53
DX: K43.5 Parastomal hernia without obstruction or gangrene (principal); J45.20 Mild intermittent asthma, uncomplicated; I25.10 Atherosclerotic heart disease of native coronary artery without angina pectoris; I48.11 Longstanding persistent atrial fibrillation; I11.0 Hypertensive heart disease with heart failure; I50.9 Heart failure, unspecified; E78.00 Pure hypercholesterolemia, unspecified; K21.9 Gastro-esophageal reflux disease without esophagitis; M19.90 Unspecified osteoarthritis, unspecified site; E03.9 Hypothyroidism, unspecified; E66.9 Obesity, unspecified; Z68.44 Body mass index [BMI] 60.0-69.9, adult; Z87.891 Personal history of nicotine dependence; Z86.16 Personal history of COVID-19; Z79.01 Long term (current) use of anticoagulants; Z88.5 Allergy status to narcotic agent; Z88.8 Allergy status to other drugs, medicaments and biological substances; Z88.0 Allergy status to penicillin; Z79.899 Other long term (current) drug therapy
CPT/HCPCS: 74177; 80053; 82150; 83690; 85025; 85610; 85730; 96374; 99285; J2405; J3490; Q9967; 99284

== ENCOUNTER 2023-11-01 11:08 | Emergency (ER) | payer MEDICARE ==
[2023-11-01 12:02] LABS: BASOPHILS ABSOLUTE AUTO 0.1 x10-3/uL (0.0-0.1); BASOPHILS PERCENT AUTO 0.7 % (0.2-1.5); EOSINOPHILS PERCENT AUTO 0.5 % (0.6-8.1); HEMATOCRIT 29.7 % (34.2-48.2); HEMOGLOBIN 9.3 g/dL (11.4-15.5); LYMPHOCYTES ABSOLUTE AUTO 1.3 x10-3/uL (1.0-4.4); LYMPHOCYTES PERCENT AUTO 13.5 % (18.4-52.1); MEAN CORPUSCULAR HGB CONC 31.1 g/dL (31.9-34.8); MEAN CORPUSCULAR VOLUME 80.2 fL (76.7-100.5); MEAN PLATELET VOLUME 7.8 fL (7.1-12.4); MONOCYTES PERCENT AUTO 10.4 % (4.4-15.7); NEUTROPHILS ABSOLUTE AUTO 7.1 x10-3/uL (1.5-6.3); NEUTROPHILS PERCENT AUTO 74.9 % (30.8-76.2); PLATELET COUNT,PLT 341 x10(3)uL (151-488); RED BLOOD CELL COUNT 3.71 x10(6)uL (3.60-5.20); RED CELL DISTRIBUTION WIDTH 22.1 % (12.3-16.5); WHITE BLOOD CELL COUNT,WBC 9.4 x10-3/uL (3.0-10.3)
[2023-11-01 12:04] LABS: BLOOD UREA NITROGEN,BUN 26 mg/dL (7-18); CALCIUM 8.8 mg/dL (8.6-10.2); CARBON DIOXIDE,CO2 37 mmol/L (21-32); CHLORIDE,CL 100 mmol/L (100-110); CREATININE 0.6 mg/dL (0.55-1.02); EST CRCL DRUG DOSING (CG) 52.82 mL/min; ESTIMATED GFR 90 mL/min (>60); GLUCOSE RANDOM 135 mg/dL (80-116); POTASSIUM,K 3.9 mmol/L (3.5-5.3); SODIUM,NA 140 mmol/L (135-145)
[2023-11-01 12:05] LABS: BUN/CREATININE RATIO 43.3 (9-20)
[2023-11-01 12:10] LABS: A/G RATIO 0.6; ALANINE AMINOTRANSFERASE,ALT 18 U/L (12-36); ALBUMIN 2.9 g/dL (3.2-4.6); ALKALINE PHOSPHATASE 92 IU/L (56-112); ASPARTATE AMNIOTRANSFERASE,AST 17 IU/L (5-25); BILIRUBIN TOTAL 0.4 mg/dL (0.1-1.3); PROTEIN TOTAL,TP 7.4 g/dL (6.0-8.0)
[2023-11-01] MEDS ORDERED: Iopamidol 755 Mg/ML 200 ML Bottle IV ONE (13:09)
[2023-11-01 14:37] VITALS: BP 104/62; PULSE 77
== END 2023-11-01 17:33 ==
LOC: FB.ED 11:08
DX: L03.116 Cellulitis of left lower limb (principal); I11.0 Hypertensive heart disease with heart failure; I50.9 Heart failure, unspecified; I48.91 Unspecified atrial fibrillation; E78.00 Pure hypercholesterolemia, unspecified; J44.9 Chronic obstructive pulmonary disease, unspecified; E03.9 Hypothyroidism, unspecified; E66.9 Obesity, unspecified; Z86.16 Personal history of COVID-19; Z79.01 Long term (current) use of anticoagulants; Z90.49 Acquired absence of other specified parts of digestive tract; Z90.710 Acquired absence of both cervix and uterus; Z79.899 Other long term (current) drug therapy; Z88.0 Allergy status to penicillin; Z88.5 Allergy status to narcotic agent; Z88.8 Allergy status to other drugs, medicaments and biological substances; Z88.1 Allergy status to other antibiotic agents; Z68.44 Body mass index [BMI] 60.0-69.9, adult
CPT/HCPCS: 36415; 73701; 80053; 83036; 83605; 85025; 85379; 86140; 87070; 87075; 87205; 99284; Q9967; U0002

== ENCOUNTER 2024-02-02 09:56 | Inpatient (IN) | payer MEDICARE ==
[2024-02-02 11:04] LABS: HEMATOCRIT 41.3 % (34.2-48.2); HEMOGLOBIN 13.5 g/dL (11.4-15.5); MEAN CORPUSCULAR HEMOGLOBIN 28.4 pg (23.9-33.9); MEAN CORPUSCULAR HGB CONC 32.7 g/dL (31.9-34.8); MEAN CORPUSCULAR VOLUME 86.9 fL (76.7-100.5); MEAN PLATELET VOLUME 8.3 fL (7.1-12.4); PLATELET COUNT,PLT 229 x10(3)uL (151-488); RED BLOOD CELL COUNT 4.75 x10(6)uL (3.60-5.20); RED CELL DISTRIBUTION WIDTH 23.1 % (12.3-16.5); WHITE BLOOD CELL COUNT,WBC 14.2 x10-3/uL (3.0-10.3)
[2024-02-02 11:06] LABS: BLOOD UREA NITROGEN,BUN 25 mg/dL (7-18); CALCIUM 8.8 mg/dL (8.6-10.2); CARBON DIOXIDE,CO2 35 mmol/L (21-32); CHLORIDE,CL 99 mmol/L (100-110); CREATININE 0.5 mg/dL (0.55-1.02); EST CRCL DRUG DOSING (CG) 69.79 mL/min; ESTIMATED GFR 94 mL/min (>60); GLUCOSE RANDOM 128 mg/dL (80-116); POTASSIUM,K 3.8 mmol/L (3.5-5.3); SODIUM,NA 139 mmol/L (135-145)
[2024-02-02 11:10] LABS: BASE EXCESS VENOUS,POC 8 mmol/L (-2 - 3+); PCO2 VENOUS,POC 50 mmHg (41-51); PH VENOUS,POC 7.44 pH Units (7.32-7.43)
[2024-02-02 11:12] LABS: A/G RATIO 0.6; ALANINE AMINOTRANSFERASE,ALT 32 U/L (12-36); ALBUMIN 2.9 g/dL (3.2-4.6); ALKALINE PHOSPHATASE 107 IU/L (56-112); ASPARTATE AMNIOTRANSFERASE,AST 20 IU/L (5-25); BILIRUBIN TOTAL 0.6 mg/dL (0.1-1.3); MAGNESIUM 2.3 mg/dL (1.8-2.5); PROTEIN TOTAL,TP 7.5 g/dL (6.0-8.0)
[2024-02-02 11:18] LABS: ANISOCYTOSIS MANY; LYMPHOCYTES PERCENT MAN 4 % (13-37); MONOCYTES PERCENT MAN 10 % (4-12); SEG NEUTROPHILS PERCENT MAN 86 % (46-82)
[2024-02-02 11:19] LABS: TROPONIN I 8.2 pg/mL (4.0-60.3)
[2024-02-02 11:21] LABS: C-REACTIVE PROTEIN 5.27 mg/dL (<0.50)
[2024-02-02 11:31] LABS: BILIRUBIN,URINE NEGATIVE (NEGATIVE); GLUCOSE,URINE NORMAL (NORMAL); KETONES,URINE NEGATIVE (NEGATIVE); LEUKOCYTE ESTERASE,URINE LARGE (NEGATIVE); NITRITE,URINE NEGATIVE (NEGATIVE); OCCULT BLOOD,URINE MODERATE (NEGATIVE); PROTEIN,URINE TRACE mg/dL (NEGATIVE); UROBILINOGEN,URINE NORMAL (NEGATIVE)
[2024-02-02 11:36] LABS: APPEARANCE,URINE SLIGHTLY CLOUDY (CLEAR); BACTERIA,URINE MANY (NS); COLOR,URINE YELLOW (YELLOW); SQUAMOUS EPITHELIAL CELLS,UR FEW (NS,R,O); WBC,URINE 20-30 (0-5)
[2024-02-02 11:39] LABS: INFLUENZA A NAA POSITIVE (NEGATIVE); INFLUENZA B NAA NEGATIVE (NEGATIVE); RESPIRATORY SYNCYTIAL VIR NAA NEGATIVE (NEGATIVE)
[2024-02-02 11:40] LABS: CORONAVIRUS COVID-19 NAA NEGATIVE (NEGATIVE)
[2024-02-02] MEDS ORDERED: Albuterol 0.083% 2.5 MG/3 ML Neb Soln NEB PRN (13:13)
[2024-02-02] MEDS ORDERED: Ondansetron 4 MG/2 ML SDV IV PRN (13:13)
[2024-02-02] MEDS: Albuterol/Ipratropium 3.0-0.5 MG/3 ML Neb Soln NEB ONE (13:46)
[2024-02-02] MEDS: Sodium Chloride 0.9% 1,000 ML IV SCH (13:47)
[2024-02-02] MEDS: cefTRIAXone 2 GM Vial IVPUSH SCH (13:49)
[2024-02-02] MEDS: Pantoprazole 40 MG Vial IVPUSH SCH (13:50)
[2024-02-02] MEDS: methylPREDNISolone Sodium Succinate 40 MG/1 ML SDV IVPUSH ONE (13:53)
[2024-02-02] MEDS: Doxycycline 100 MG in Sodium Chloride 0.9% 100 ML IV SCH (14:35)
[2024-02-02] MEDS: Acetaminophen 325 MG Tab PO PRN (15:24)
[2024-02-02] MEDS: Oseltamivir 75 MG Cap PO SCH (15:25)
[2024-02-02] MEDS: Albuterol/Ipratropium 3.0-0.5 MG/3 ML Neb Soln NEB SCH (15:29)
[2024-02-02] MEDS: methylPREDNISolone Sodium Succinate 40 MG/1 ML SDV ONE (16:00)
[2024-02-03] MEDS: methylPREDNISolone Sodium Succinate 40 MG/1 ML SDV IVPUSH SCH (01:10)
[2024-02-03 08:38] LABS: A/G RATIO 0.6; ALANINE AMINOTRANSFERASE,ALT 32 U/L (12-36); ALBUMIN 2.7 g/dL (3.2-4.6); ALKALINE PHOSPHATASE 106 IU/L (56-112); ASPARTATE AMNIOTRANSFERASE,AST 24 IU/L (5-25); BILIRUBIN TOTAL 0.4 mg/dL (0.1-1.3); BLOOD UREA NITROGEN,BUN 18 mg/dL (7-18); CALCIUM 8.6 mg/dL (8.6-10.2); CARBON DIOXIDE,CO2 29 mmol/L (21-32); CHLORIDE,CL 101 mmol/L (100-110); CREATININE 0.6 mg/dL (0.55-1.02); EST CRCL DRUG DOSING (CG) 58.16 mL/min; ESTIMATED GFR 90 mL/min (>60); GLUCOSE RANDOM 236 mg/dL (80-116); HEMATOCRIT 39.9 % (34.2-48.2); HEMOGLOBIN 12.9 g/dL (11.4-15.5); MEAN CORPUSCULAR HEMOGLOBIN 28.4 pg (23.9-33.9); MEAN CORPUSCULAR HGB CONC 32.3 g/dL (31.9-34.8); MEAN PLATELET VOLUME 8.6 fL (7.1-12.4); PLATELET COUNT,PLT 225 x10(3)uL (151-488); POTASSIUM,K 3.6 mmol/L (3.5-5.3); PROTEIN TOTAL,TP 7.6 g/dL (6.0-8.0); RED BLOOD CELL COUNT 4.54 x10(6)uL (3.60-5.20); RED CELL DISTRIBUTION WIDTH 23.1 % (12.3-16.5); SODIUM,NA 139 mmol/L (135-145); WHITE BLOOD CELL COUNT,WBC 7.7 x10-3/uL (3.0-10.3)
[2024-02-03 08:56] LABS: LYMPHOCYTES PERCENT MAN 6 % (13-37); MONOCYTES PERCENT MAN 3 % (4-12); SEG NEUTROPHILS PERCENT MAN 91 % (46-82)
[2024-02-03 08:57] LABS: ANISOCYTOSIS FEW
[2024-02-03] MEDS ORDERED: Albuterol/Ipratropium 3.0-0.5 MG/3 ML Neb Soln INH PRN (08:59)
[2024-02-03] MEDS ORDERED: Hydrocortisone Acetate 1% Crm 30 GM Tube TOP PRN (08:59)
[2024-02-03] MEDS ORDERED: Magnesium Hydroxide 400 MG/5 ML Susp 30 ML Cup PO PRN (08:59)
[2024-02-03] MEDS ORDERED: Acetaminophen 325 MG Tab PO PRN (08:59)
[2024-02-03] MEDS ORDERED: Cocoa Butter/Phenylephrine Rectal Supp RECTAL PRN (08:59)
[2024-02-03] MEDS ORDERED: guaiFENesin 100 MG/5 ML Soln 5 ML UD Cup PO PRN (08:59)
[2024-02-03] MEDS ORDERED: Ondansetron 4 MG Tab.DIS PO PRN (08:59)
[2024-02-03] MEDS ORDERED: Albuterol/Ipratropium 3.0-0.5 MG/3 ML Neb Soln INH SCH (09:00)
[2024-02-03] MEDS ORDERED: Aluminum Hydroxide/Magnesium Hydroxide Susp 30 ML Cup PO PRN (09:15)
[2024-02-03] MEDS ORDERED: Loperamide 2 MG Cap PO PRN (09:19)
[2024-02-03] MEDS: Spironolactone 25 MG Tab PO SCH (09:42)
[2024-02-03] MEDS: CARBOXYMETHYL EYEBOTH SCH (09:44)
[2024-02-03] MEDS: GLY EYEBOTH SCH (09:44)
[2024-02-03] MEDS: POLY80 EYEBOTH SCH (09:44)
[2024-02-03] MEDS: Folic Acid 1 MG Tab PO SCH (09:45)
[2024-02-03] MEDS: Baclofen 10 MG Tab PO SCH (09:45)
[2024-02-03] MEDS: Metoprolol Tartrate 50 MG Tab PO SCH (09:45)
[2024-02-03] MEDS: Ferrous Sulfate 325 MG Tab PO SCH (09:45)
[2024-02-03] MEDS: Potassium Chloride 20 MEQ Tab.ER PO SCH (09:45)
[2024-02-03] MEDS: guaiFENesin 600 MG Tab.ER PO SCH (09:46)
[2024-02-03] MEDS: Famotidine 20 MG Tab PO SCH (09:46)
[2024-02-03] MEDS: Bumetanide 1 MG Tab PO SCH (09:46)
[2024-02-03] MEDS: Budesonide 0.5 MG/2 ML Neb Susp INH SCH (09:47)
[2024-02-03] MEDS: Pregabalin 75 MG Cap PO SCH (09:52)
[2024-02-03] MEDS: Pantoprazole 40 MG Tab.CR PO SCH (10:13)
[2024-02-03] MEDS: Sodium Chloride 0.9% 10 ML Syringe FLUSH PRN (12:17)
[2024-02-03] MEDS: Rosuvastatin 10 MG Tab PO SCH (21:25)
[2024-02-03] MEDS: Polyethylene Glycol 3350 Powder 17 GM Packet PO SCH (21:28)
[2024-02-04] MEDS: POLY80 EYEBOTH PRN (09:47)
[2024-02-04] MEDS: CARBOXYMETHYL EYEBOTH PRN (09:47)
[2024-02-04] MEDS: GLY EYEBOTH PRN (09:47)
[2024-02-04] MEDS: predniSONE 20 MG Tab PO SCH (10:04)
[2024-02-04] MEDS: Levofloxacin 500 MG Tab PO SCH (16:10)
[2024-02-05 08:32] VITALS: BP 144/77; PULSE 81
[2024-02-05] MEDS ORDERED: Apixaban 5 MG Tab PO SCH (09:00)
== END 2024-02-05 10:45 | DRG 193 ==
LOC: FB.ED 09:56 → FB.MS 12:12
PROVIDERS: ADMIT Family Medicine; ATTEND Family Medicine
DX: J10.1 Influenza due to other identified influenza virus with other respiratory manifestations (principal); I50.43 Acute on chronic combined systolic (congestive) and diastolic (congestive) heart failure; J96.01 Acute respiratory failure with hypoxia; J96.02 Acute respiratory failure with hypercapnia; G93.40 Encephalopathy, unspecified; N39.0 Urinary tract infection, site not specified; I50.9 Heart failure, unspecified; I48.11 Longstanding persistent atrial fibrillation; J44.1 Chronic obstructive pulmonary disease with (acute) exacerbation; E66.9 Obesity, unspecified; Z68.43 Body mass index [BMI] 50.0-59.9, adult; Z86.16 Personal history of COVID-19; E66.01 Morbid (severe) obesity due to excess calories; Z66 Do not resuscitate; Z51.5 Encounter for palliative care; R31.0 Gross hematuria; I11.0 Hypertensive heart disease with heart failure; E78.00 Pure hypercholesterolemia, unspecified; K21.9 Gastro-esophageal reflux disease without esophagitis; E03.9 Hypothyroidism, unspecified; G43.909 Migraine, unspecified, not intractable, without status migrainosus; Z88.5 Allergy status to narcotic agent; Z88.0 Allergy status to penicillin; Z88.8 Allergy status to other drugs, medicaments and biological substances; Z98.51 Tubal ligation status; Z90.49 Acquired absence of other specified parts of digestive tract; Z90.89 Acquired absence of other organs; Z79.01 Long term (current) use of anticoagulants; Z90.710 Acquired absence of both cervix and uterus; Z96.659 Presence of unspecified artificial knee joint; Z96.649 Presence of unspecified artificial hip joint; Z86.010 Personal history of colon polyps; Z79.899 Other long term (current) drug therapy; Z90.721 Acquired absence of ovaries, unilateral; Z93.3 Colostomy status
CPT/HCPCS: 0241U; 36415; 51702; 71045; 80053; 81001; 83605; 83735; 83880; 84484; 85025; 85379; 86140; 87040; 87086; 87088; 87186; 93005; 93010; 94640; 99285; A9270-GY; C9113; J0696; J2920; J3490; J7030; J7512; J7620

== ENCOUNTER 2024-02-12 11:35 | Emergency (ER) | payer MEDICARE ==
[2024-02-12] MEDS ORDERED: Sodium Chloride 0.9% 10 ML Syringe FLUSH PRN (11:56)
[2024-02-12 12:43] LABS: C-REACTIVE PROTEIN 1.02 mg/dL (<0.50); TROPONIN I 10.2 pg/mL (4.0-60.3)
[2024-02-12 12:44] LABS: BASE EXCESS VENOUS,POC 12 mmol/L (-2 - 3+); PCO2 VENOUS,POC 47 mmHg (41-51); PH VENOUS,POC 7.51 pH Units (7.32-7.43)
[2024-02-12 15:41] VITALS: BP 106/60; PULSE 87
== END 2024-02-12 15:40 ==
LOC: FB.ED 11:35
DX: J44.1 Chronic obstructive pulmonary disease with (acute) exacerbation (principal); J15.9 Unspecified bacterial pneumonia; E86.0 Dehydration; I11.0 Hypertensive heart disease with heart failure; I50.812 Chronic right heart failure; Z90.49 Acquired absence of other specified parts of digestive tract; Z90.710 Acquired absence of both cervix and uterus; Z79.899 Other long term (current) drug therapy; Z88.5 Allergy status to narcotic agent; Z88.0 Allergy status to penicillin; Z88.8 Allergy status to other drugs, medicaments and biological substances
CPT/HCPCS: 36415; 71045; 80053; 83605; 83690; 83735; 83880; 84484; 85027; 85379; 86140; 93005; 93010; 99283; 99285

== ENCOUNTER 2024-03-24 20:07 | Emergency (ER) | payer MEDICARE, MEDICAID ==
[2024-03-24 22:56] LABS: BASE EXCESS VENOUS,POC 7 mmol/L (-2 - 3+); PCO2 VENOUS,POC 46 mmHg (41-51); PH VENOUS,POC 7.46 pH Units (7.32-7.43)
[2024-03-24 23:01] LABS: BASOPHILS ABSOLUTE AUTO 0.1 x10-3/uL (0.0-0.1); BASOPHILS PERCENT AUTO 0.8 % (0.2-1.5); BLOOD UREA NITROGEN,BUN 10 mg/dL (7-18); BUN/CREATININE RATIO 16.7 (9-20); CALCIUM 8.5 mg/dL (8.6-10.2); CARBON DIOXIDE,CO2 35 mmol/L (21-32); CHLORIDE,CL 101 mmol/L (100-110); CREATININE 0.6 mg/dL (0.55-1.02); EOSINOPHILS PERCENT AUTO 0.3 % (0.6-8.1); ESTIMATED GFR 90 mL/min (>60); GLUCOSE RANDOM 136 mg/dL (80-116); HEMATOCRIT 36.5 % (34.2-48.2); HEMOGLOBIN 11.9 g/dL (11.4-15.5); LYMPHOCYTES ABSOLUTE AUTO 2.2 x10-3/uL (1.0-4.4); LYMPHOCYTES PERCENT AUTO 18.3 % (18.4-52.1); MEAN CORPUSCULAR HEMOGLOBIN 30.8 pg (23.9-33.9); MEAN CORPUSCULAR HGB CONC 32.6 g/dL (31.9-34.8); MEAN CORPUSCULAR VOLUME 94.7 fL (76.7-100.5); MEAN PLATELET VOLUME 8.3 fL (7.1-12.4); MONOCYTES PERCENT AUTO 8.1 % (4.4-15.7); NEUTROPHILS ABSOLUTE AUTO 8.8 x10-3/uL (1.5-6.3); NEUTROPHILS PERCENT AUTO 72.5 % (30.8-76.2); PLATELET COUNT,PLT 268 x10(3)uL (151-488); RED CELL DISTRIBUTION WIDTH 22.3 % (12.3-16.5); SODIUM,NA 143 mmol/L (135-145); WHITE BLOOD CELL COUNT,WBC 12.1 x10-3/uL (3.0-10.3)
[2024-03-24 23:08] LABS: A/G RATIO 0.6; ALANINE AMINOTRANSFERASE,ALT 17 U/L (12-36); ALBUMIN 2.4 g/dL (3.2-4.6); ALKALINE PHOSPHATASE 84 IU/L (56-112); ASPARTATE AMNIOTRANSFERASE,AST 14 IU/L (5-25); BILIRUBIN TOTAL 0.4 mg/dL (0.1-1.3); MAGNESIUM 1.7 mg/dL (1.8-2.5); PROTEIN TOTAL,TP 6.7 g/dL (6.0-8.0); RED BLOOD CELL COUNT 3.86 x10(6)uL (3.60-5.20)
[2024-03-24 23:14] LABS: TROPONIN I 8.4 pg/mL (4.0-60.3)
[2024-03-25 00:19] VITALS: BP 115/75; PULSE 75
== END 2024-03-25 00:43 ==
LOC: FB.ED 20:07
DX: J98.4 Other disorders of lung (principal); E66.2 Morbid (severe) obesity with alveolar hypoventilation; R10.9 Unspecified abdominal pain; G89.29 Other chronic pain; I11.0 Hypertensive heart disease with heart failure; I50.9 Heart failure, unspecified; I48.91 Unspecified atrial fibrillation; E78.00 Pure hypercholesterolemia, unspecified; J44.89 Other specified chronic obstructive pulmonary disease; E03.9 Hypothyroidism, unspecified; Z88.5 Allergy status to narcotic agent; Z88.0 Allergy status to penicillin; Z88.1 Allergy status to other antibiotic agents; Z88.8 Allergy status to other drugs, medicaments and biological substances; Z79.51 Long term (current) use of inhaled steroids; Z79.899 Other long term (current) drug therapy; Z86.16 Personal history of COVID-19; Z79.890 Hormone replacement therapy; Z90.49 Acquired absence of other specified parts of digestive tract; Z90.710 Acquired absence of both cervix and uterus
CPT/HCPCS: 36415; 71045; 74176; 80053; 83605; 83735; 83880; 84484; 85025; 86140; 93005; 99284

== ENCOUNTER 2024-04-28 14:10 | Inpatient (IN) | payer MEDICARE ==
[2024-04-28] MEDS: Albuterol/Ipratropium 3.0-0.5 MG/3 ML Neb Soln NEB ONE (15:01)
[2024-04-28] MEDS: Albuterol 0.083% 2.5 MG/3 ML Neb Soln NEB ONE (15:01)
[2024-04-28 15:18] LABS: BASOPHILS PERCENT AUTO 0.5 % (0.2-1.5); EOSINOPHILS PERCENT AUTO 0.3 % (0.6-8.1); HEMOGLOBIN 12.9 g/dL (11.4-15.5); LYMPHOCYTES ABSOLUTE AUTO 0.8 x10-3/uL (1.0-4.4); MEAN CORPUSCULAR HEMOGLOBIN 33.4 pg (23.9-33.9); MONOCYTES ABSOLUTE AUTO 0.8 x10-3/uL (0.3-1.0); NEUTROPHILS ABSOLUTE AUTO 8.7 x10-3/uL (1.5-6.3); NEUTROPHILS PERCENT AUTO 83.2 % (30.8-76.2); PLATELET COUNT,PLT 186 x10(3)uL (151-488); RED BLOOD CELL COUNT 3.86 x10(6)uL (3.60-5.20); WHITE BLOOD CELL COUNT,WBC 10.4 x10-3/uL (3.0-10.3)
[2024-04-28 15:19] LABS: BASE EXCESS VENOUS,POC 7 mmol/L (-2 - 3+); PCO2 VENOUS,POC 45 mmHg (41-51); PH VENOUS,POC 7.46 pH Units (7.32-7.43)
[2024-04-28 15:19] LABS: BLOOD UREA NITROGEN,BUN 12 mg/dL (7-18); CALCIUM 7.9 mg/dL (8.6-10.2); CARBON DIOXIDE,CO2 36 mmol/L (21-32); CHLORIDE,CL 102 mmol/L (100-110); CREATININE 0.6 mg/dL (0.55-1.02); EST CRCL DRUG DOSING (CG) 51.92 mL/min; ESTIMATED GFR 90 mL/min (>60); GLUCOSE RANDOM 143 mg/dL (80-116); POTASSIUM,K 3.9 mmol/L (3.5-5.3); SODIUM,NA 142 mmol/L (135-145)
[2024-04-28 15:25] LABS: A/G RATIO 0.8; ALANINE AMINOTRANSFERASE,ALT 20 U/L (12-36); ALBUMIN 2.7 g/dL (3.2-4.6); ALKALINE PHOSPHATASE 77 IU/L (56-112); ASPARTATE AMNIOTRANSFERASE,AST 11 IU/L (5-25); BILIRUBIN TOTAL 0.4 mg/dL (0.1-1.3); MAGNESIUM 1.9 mg/dL (1.8-2.5); PROTEIN TOTAL,TP 6.3 g/dL (6.0-8.0)
[2024-04-28 15:32] LABS: C-REACTIVE PROTEIN 1.56 mg/dL (<0.50); TROPONIN I 9.8 pg/mL (4.0-60.3)
[2024-04-28 16:08] LABS: BILIRUBIN,URINE NEGATIVE (NEGATIVE); GLUCOSE,URINE NORMAL (NORMAL); KETONES,URINE NEGATIVE (NEGATIVE); LEUKOCYTE ESTERASE,URINE NEGATIVE (NEGATIVE); NITRITE,URINE NEGATIVE (NEGATIVE); OCCULT BLOOD,URINE NEGATIVE (NEGATIVE); PROTEIN,URINE NEGATIVE (NEGATIVE); UROBILINOGEN,URINE NORMAL (NEGATIVE)
[2024-04-28 16:17] LABS: APPEARANCE,URINE CLEAR (CLEAR); COLOR,URINE YELLOW (YELLOW)
[2024-04-28 16:18] LABS: BACTERIA,URINE MODERATE (NS); RBC,URINE 0-5 (0-5); SQUAMOUS EPITHELIAL CELLS,UR OCCASIONAL (NS,R,O); WBC,URINE 0-5 (0-5)
[2024-04-28] MEDS ORDERED: Loperamide 2 MG Cap PO PRN (17:54)
[2024-04-28] MEDS ORDERED: Ondansetron 4 MG Tab.DIS PO PRN (17:54)
[2024-04-28] MEDS ORDERED: Hydrocortisone 1% Crm 30 GM Tube TOP PRN (17:54)
[2024-04-28] MEDS ORDERED: EUCALYPTUS PO PRN (17:54)
[2024-04-28] MEDS ORDERED: Albuterol 0.083% 2.5 MG/3 ML Neb Soln INH PRN (17:54)
[2024-04-28] MEDS ORDERED: guaiFENesin 100 MG/5 ML Soln 5 ML UD Cup PO PRN (17:54)
[2024-04-28] MEDS ORDERED: Magnesium Hydroxide 400 MG/5 ML Susp 30 ML Cup PO PRN (17:54)
[2024-04-28] MEDS ORDERED: MENTHOL PO PRN (17:54)
[2024-04-28] MEDS: Albuterol/Ipratropium 3.0-0.5 MG/3 ML Neb Soln NEB SCH (18:34)
[2024-04-28] MEDS: predniSONE 20 MG Tab PO SCH (18:34)
[2024-04-28] MEDS: Sodium Chloride 0.9% 10 ML Syringe FLUSH PRN (18:34)
[2024-04-28] MEDS: Famotidine 20 MG Tab PO SCH (18:34)
[2024-04-28] MEDS: Furosemide 40 MG/4 ML VIAL IVPUSH SCH (18:42)
[2024-04-28] MEDS: cefTRIAXone 1 GM in Sodium Chloride 0.9% 50 ML IV SCH (18:50)
[2024-04-28] MEDS: Acetaminophen 325 MG Tab PO PRN (19:58)
[2024-04-28] MEDS: Azithromycin 500 MG in Sodium Chloride 0.9% 250 ML IV SCH (20:24)
[2024-04-28] MEDS: Potassium Chloride 20 MEQ Tab.ER PO SCH (20:32)
[2024-04-28] MEDS: Baclofen 10 MG Tab PO SCH (20:32)
[2024-04-28] MEDS: Rosuvastatin 10 MG Tab PO SCH (20:32)
[2024-04-28] MEDS: Apixaban 5 MG Tab PO SCH (20:32)
[2024-04-28] MEDS: Pregabalin 75 MG Cap PO SCH (20:33)
[2024-04-28] MEDS: guaiFENesin 600 MG Tab.ER PO SCH (20:33)
[2024-04-28] MEDS: Polyethylene Glycol 3350 Powder 17 GM Packet PO SCH (20:33)
[2024-04-28] MEDS: Metoprolol Tartrate 50 MG Tab PO SCH (20:35)
[2024-04-28] MEDS: Azithromycin 500 MG Vial ONE (20:42)
[2024-04-28] MEDS: traZODone 50 MG Tab PO SCH (20:43)
[2024-04-28] MEDS: Budesonide 0.5 MG/2 ML Neb Susp INH SCH (20:46)
[2024-04-28] MEDS: Diclofenac Sodium 1% Gel 100 GM Tube TOP SCH ×2 (21:43→21:44)
[2024-04-28] MEDS: metroNIDAZOLE/Normal Saline 500 MG in Premix Bag 1 BAG IV SCH (21:51)
[2024-04-29] MEDS: Pantoprazole 40 MG Tab.CR PO SCH (07:40)
[2024-04-29] MEDS ORDERED: Aluminum Hydroxide/Magnesium Hydroxide Susp 30 ML Cup PO PRN (07:42)
[2024-04-29] MEDS: Ferrous Sulfate 325 MG Tab PO SCH (08:29)
[2024-04-29] MEDS: Donepezil 5 MG Tab PO SCH (08:29)
[2024-04-29] MEDS: Diclofenac Sodium 1% Gel 100 GM Tube TOP SCH ×2 (08:32)
[2024-04-29] MEDS: REFRESH OPTIVE EYE EYEBOTH SCH (09:21)
[2024-04-29 09:29] LABS: BASOPHILS PERCENT AUTO 0.1 % (0.2-1.5); HEMATOCRIT 38.4 % (34.2-48.2); HEMOGLOBIN 12.7 g/dL (11.4-15.5); LYMPHOCYTES ABSOLUTE AUTO 0.7 x10-3/uL (1.0-4.4); LYMPHOCYTES PERCENT AUTO 7.3 % (18.4-52.1); MEAN CORPUSCULAR HEMOGLOBIN 33.7 pg (23.9-33.9); MEAN CORPUSCULAR HGB CONC 33.2 g/dL (31.9-34.8); MEAN CORPUSCULAR VOLUME 101.5 fL (76.7-100.5); MEAN PLATELET VOLUME 8.5 fL (7.1-12.4); MONOCYTES ABSOLUTE AUTO 0.5 x10-3/uL (0.3-1.0); MONOCYTES PERCENT AUTO 5.1 % (4.4-15.7); NEUTROPHILS ABSOLUTE AUTO 8.3 x10-3/uL (1.5-6.3); NEUTROPHILS PERCENT AUTO 87.5 % (30.8-76.2); PLATELET COUNT,PLT 182 x10(3)uL (151-488); RED BLOOD CELL COUNT 3.78 x10(6)uL (3.60-5.20); RED CELL DISTRIBUTION WIDTH 18.3 % (12.3-16.5); WHITE BLOOD CELL COUNT,WBC 9.5 x10-3/uL (3.0-10.3)
[2024-04-29 09:54] LABS: CARBON DIOXIDE,CO2 30 mmol/L (21-32); CHLORIDE,CL 102 mmol/L (100-110); SODIUM,NA 141 mmol/L (135-145)
[2024-04-29 09:55] LABS: BLOOD UREA NITROGEN,BUN 13 mg/dL (7-18); BUN/CREATININE RATIO 18.6 (9-20); CALCIUM 7.8 mg/dL (8.6-10.2); CREATININE 0.7 mg/dL (0.55-1.02); EST CRCL DRUG DOSING (CG) 44.51 mL/min; ESTIMATED GFR 86 mL/min (>60); GLUCOSE RANDOM 179 mg/dL (80-116); MAGNESIUM 1.9 mg/dL (1.8-2.5)
[2024-04-29] MEDS: Acetaminophen 325 MG Tab PO SCH (10:33)
[2024-04-29] MEDS: Arformoterol 15 MCG/2 ML Neb Soln INH SCH (10:34)
[2024-04-29] MEDS: Spironolactone 25 MG Tab PO SCH (11:57)
[2024-04-29] MEDS: Levofloxacin/Dextrose 5%-Water 750 MG in Premix Bag 1 BAG IV ONE (12:20)
[2024-04-29] MEDS: Cholecalciferol (Vitamin D3) 25 MCG Tab PO SCH (17:05)
[2024-04-29] MEDS: cefTRIAXone 1 GM Vial IVPUSH SCH (18:12)
[2024-04-30 06:29] LABS: BASOPHILS PERCENT AUTO 0.3 % (0.2-1.5); HEMATOCRIT 36.9 % (34.2-48.2); HEMOGLOBIN 12.2 g/dL (11.4-15.5); LYMPHOCYTES ABSOLUTE AUTO 0.8 x10-3/uL (1.0-4.4); LYMPHOCYTES PERCENT AUTO 11.1 % (18.4-52.1); MEAN CORPUSCULAR HEMOGLOBIN 33.6 pg (23.9-33.9); MEAN CORPUSCULAR HGB CONC 33.2 g/dL (31.9-34.8); MEAN CORPUSCULAR VOLUME 101.3 fL (76.7-100.5); MEAN PLATELET VOLUME 7.9 fL (7.1-12.4); MONOCYTES ABSOLUTE AUTO 0.6 x10-3/uL (0.3-1.0); MONOCYTES PERCENT AUTO 7.4 % (4.4-15.7); NEUTROPHILS ABSOLUTE AUTO 6.1 x10-3/uL (1.5-6.3); NEUTROPHILS PERCENT AUTO 81.2 % (30.8-76.2); PLATELET COUNT,PLT 181 x10(3)uL (151-488); RED CELL DISTRIBUTION WIDTH 18.1 % (12.3-16.5); WHITE BLOOD CELL COUNT,WBC 7.5 x10-3/uL (3.0-10.3)
[2024-04-30 06:37] LABS: ALBUMIN 2.4 g/dL (3.2-4.6); BLOOD UREA NITROGEN,BUN 17 mg/dL (7-18); CARBON DIOXIDE,CO2 32 mmol/L (21-32); CHLORIDE,CL 105 mmol/L (100-110); CREATININE 0.5 mg/dL (0.55-1.02); EST CRCL DRUG DOSING (CG) 62.31 mL/min; ESTIMATED GFR 94 mL/min (>60); GLUCOSE RANDOM 167 mg/dL (80-116); POTASSIUM,K 4.5 mmol/L (3.5-5.3); SODIUM,NA 143 mmol/L (135-145)
[2024-04-30 06:48] LABS: RED BLOOD CELL COUNT 3.64 x10(6)uL (3.60-5.20)
[2024-04-30] MEDS: cefTRIAXone 2 GM Vial IVPUSH SCH (18:11)
[2024-04-30] MEDS: REFRESH OPTIVE EYE EYEBOTH PRN (21:16)
[2024-04-30 23:17] LABS: LEGIONELLA PNEUMOPHILA AG,URN Negative (Negative)
[2024-05-01 06:33] LABS: BASOPHILS PERCENT AUTO 0.1 % (0.2-1.5); HEMATOCRIT 37.5 % (34.2-48.2); HEMOGLOBIN 12.5 g/dL (11.4-15.5); LYMPHOCYTES ABSOLUTE AUTO 0.9 x10-3/uL (1.0-4.4); MEAN CORPUSCULAR HEMOGLOBIN 33.8 pg (23.9-33.9); MEAN CORPUSCULAR HGB CONC 33.4 g/dL (31.9-34.8); MEAN CORPUSCULAR VOLUME 101.3 fL (76.7-100.5); MONOCYTES ABSOLUTE AUTO 0.3 x10-3/uL (0.3-1.0); MONOCYTES PERCENT AUTO 3.7 % (4.4-15.7); NEUTROPHILS ABSOLUTE AUTO 6.6 x10-3/uL (1.5-6.3); NEUTROPHILS PERCENT AUTO 85.2 % (30.8-76.2); PLATELET COUNT,PLT 180 x10(3)uL (151-488); RED CELL DISTRIBUTION WIDTH 17.9 % (12.3-16.5); WHITE BLOOD CELL COUNT,WBC 7.7 x10-3/uL (3.0-10.3)
[2024-05-01 06:47] LABS: BLOOD UREA NITROGEN,BUN 20 mg/dL (7-18); BUN/CREATININE RATIO 33.3 (9-20); CALCIUM 8.5 mg/dL (8.6-10.2); CARBON DIOXIDE,CO2 32 mmol/L (21-32); CHLORIDE,CL 105 mmol/L (100-110); CREATININE 0.6 mg/dL (0.55-1.02); EST CRCL DRUG DOSING (CG) 51.92 mL/min; ESTIMATED GFR 90 mL/min (>60); GLUCOSE RANDOM 189 mg/dL (80-116); POTASSIUM,K 4.7 mmol/L (3.5-5.3); SODIUM,NA 142 mmol/L (135-145)
[2024-05-01] MEDS: Bumetanide 2 MG Tab PO ONE (12:28)
[2024-05-01 14:06] VITALS: BP 150/84; PULSE 73
== END 2024-05-01 14:10 | DRG 177 ==
LOC: FB.ED 14:10 → FB.MS 16:30 → OBSVTOIN 04-29 11:27
PROVIDERS: ADMIT Internal Medicine; ATTEND Family Medicine
PROC: 0T9B70Z Drainage of Bladder with Drainage Device, Via Natural or Artificial Opening (ICD-10-PCS; principal; 2024-04-29)
DX: J69.0 Pneumonitis due to inhalation of food and vomit (principal); I50.33 Acute on chronic diastolic (congestive) heart failure; R53.83 Other fatigue; J96.21 Acute and chronic respiratory failure with hypoxia; J44.0 Chronic obstructive pulmonary disease with (acute) lower respiratory infection; I50.9 Heart failure, unspecified; J44.9 Chronic obstructive pulmonary disease, unspecified; F03.93 Unspecified dementia, unspecified severity, with mood disturbance; Z68.43 Body mass index [BMI] 50.0-59.9, adult; J44.1 Chronic obstructive pulmonary disease with (acute) exacerbation; R78.81 Bacteremia; I48.11 Longstanding persistent atrial fibrillation; E78.00 Pure hypercholesterolemia, unspecified; I11.0 Hypertensive heart disease with heart failure; Z66 Do not resuscitate; K21.9 Gastro-esophageal reflux disease without esophagitis; M19.90 Unspecified osteoarthritis, unspecified site; M79.7 Fibromyalgia; M54.9 Dorsalgia, unspecified; G89.29 Other chronic pain; G62.9 Polyneuropathy, unspecified; H54.7 Unspecified visual loss; G43.909 Migraine, unspecified, not intractable, without status migrainosus; E03.9 Hypothyroidism, unspecified; Z96.649 Presence of unspecified artificial hip joint; Z96.659 Presence of unspecified artificial knee joint; J20.9 Acute bronchitis, unspecified; G47.33 Obstructive sleep apnea (adult) (pediatric); D50.9 Iron deficiency anemia, unspecified; I89.0 Lymphedema, not elsewhere classified; E66.01 Morbid (severe) obesity due to excess calories; B96.1 Klebsiella pneumoniae [K. pneumoniae] as the cause of diseases classified elsewhere; Z88.5 Allergy status to narcotic agent; Z88.0 Allergy status to penicillin; Z88.8 Allergy status to other drugs, medicaments and biological substances; Z79.01 Long term (current) use of anticoagulants; Z79.899 Other long term (current) drug therapy; Z79.51 Long term (current) use of inhaled steroids; Z93.3 Colostomy status; Z86.010 Personal history of colon polyps; Z87.19 Personal history of other diseases of the digestive system; Z86.16 Personal history of COVID-19; Z90.49 Acquired absence of other specified parts of digestive tract; Z90.710 Acquired absence of both cervix and uterus; Z90.722 Acquired absence of ovaries, bilateral; Z98.51 Tubal ligation status; Z98.890 Other specified postprocedural states
CPT/HCPCS: 36415 ×2; 51702; 71045; 80048; 80053; 81001; 83735 ×2; 83880; 84484; 85025 ×2; 86140; 87040 ×3; 87077 ×2; 87086; 87088; 87186 ×3; 87449; 93005; 94640 ×5; 99285; A9270 ×23; J0456; J0696; J1836 ×2; J1940 ×2; J3490 ×5; J7050; J7512; U0002; 70450; 82040; 93010; 96365; 96366; 96367; 96375; 96376; 99222; 99232; 99238; C8929; G0378; J1956; J7605; J7620

== ENCOUNTER 2024-07-10 12:50 | Emergency (ER) | payer MEDICARE ==
[2024-07-10] MEDS: Doxycycline 100 MG Tab PO ONE (16:06)
[2024-07-10 16:11] VITALS: PULSE 75
[2024-07-10 16:12] VITALS: BP 126/68
== END 2024-07-10 16:32 | disposition home or self-care (01) ==
LOC: FB.ED 12:50
DX: J69.0 Pneumonitis due to inhalation of food and vomit (principal); Q24.9 Congenital malformation of heart, unspecified; I11.0 Hypertensive heart disease with heart failure; I50.9 Heart failure, unspecified; J44.9 Chronic obstructive pulmonary disease, unspecified; E78.00 Pure hypercholesterolemia, unspecified; M19.90 Unspecified osteoarthritis, unspecified site; E03.9 Hypothyroidism, unspecified; E66.9 Obesity, unspecified; Z86.16 Personal history of COVID-19; Z90.49 Acquired absence of other specified parts of digestive tract; Z90.710 Acquired absence of both cervix and uterus; Z79.899 Other long term (current) drug therapy; Z88.5 Allergy status to narcotic agent; Z88.0 Allergy status to penicillin; Z88.3 Allergy status to other anti-infective agents; Z91.048 Other nonmedicinal substance allergy status
CPT/HCPCS: 71045; 99284; A9270

== ENCOUNTER 2024-09-01 09:37 | Emergency (ER) | payer MEDICARE ==
[2024-09-01 11:05] VITALS: BP 130/56; PULSE 80
== END 2024-09-01 11:25 ==
LOC: FB.ED 09:37
DX: S80.12XA Contusion of left lower leg, initial encounter (principal); I48.11 Longstanding persistent atrial fibrillation; I11.0 Hypertensive heart disease with heart failure; I50.9 Heart failure, unspecified; J44.9 Chronic obstructive pulmonary disease, unspecified; K21.9 Gastro-esophageal reflux disease without esophagitis; E66.9 Obesity, unspecified; Z86.16 Personal history of COVID-19; Z90.710 Acquired absence of both cervix and uterus; Z90.49 Acquired absence of other specified parts of digestive tract; Z79.01 Long term (current) use of anticoagulants; Z79.899 Other long term (current) drug therapy; Z79.1 Long term (current) use of non-steroidal anti-inflammatories (NSAID); Z88.5 Allergy status to narcotic agent; Z88.8 Allergy status to other drugs, medicaments and biological substances; Z88.0 Allergy status to penicillin; X58.XXXA Exposure to other specified factors, initial encounter
CPT/HCPCS: 99284

== ENCOUNTER 2024-09-04 13:40 | Emergency (ER) | payer MEDICARE ==
[2024-09-04 14:22] LABS: BASOPHILS PERCENT AUTO 0.4 % (0.2-1.5); EOSINOPHILS PERCENT AUTO 0.2 % (0.6-8.1); HEMATOCRIT 26.5 % (34.2-48.2); HEMOGLOBIN 8.7 g/dL (11.4-15.5); LYMPHOCYTES ABSOLUTE AUTO 1.2 x10-3/uL (1.0-4.4); LYMPHOCYTES PERCENT AUTO 10.1 % (18.4-52.1); MEAN CORPUSCULAR HEMOGLOBIN 31.7 pg (23.9-33.9); MEAN CORPUSCULAR HGB CONC 32.7 g/dL (31.9-34.8); MEAN PLATELET VOLUME 8.5 fL (7.1-12.4); MONOCYTES ABSOLUTE AUTO 1.5 x10-3/uL (0.3-1.0); MONOCYTES PERCENT AUTO 12.9 % (4.4-15.7); NEUTROPHILS PERCENT AUTO 76.4 % (30.8-76.2); PLATELET COUNT,PLT 211 x10(3)uL (151-488); RED BLOOD CELL COUNT 2.73 x10(6)uL (3.60-5.20); WHITE BLOOD CELL COUNT,WBC 11.8 x10-3/uL (3.0-10.3)
[2024-09-04 14:23] LABS: BLOOD UREA NITROGEN,BUN 18 mg/dL (7-18); CALCIUM 8.4 mg/dL (8.6-10.2); CARBON DIOXIDE,CO2 38 mmol/L (21-32); CHLORIDE,CL 100 mmol/L (100-110); CREATININE 0.6 mg/dL (0.55-1.02); EST CRCL DRUG DOSING (CG) 51.92 mL/min; ESTIMATED GFR 90 mL/min (>60); GLUCOSE RANDOM 204 mg/dL (80-116); POTASSIUM,K 4.1 mmol/L (3.5-5.3); SODIUM,NA 143 mmol/L (135-145)
[2024-09-04] MEDS: Furosemide 40 MG/4 ML VIAL IVPUSH ONE (14:23)
[2024-09-04] MEDS: Sodium Chloride 0.9% 10 ML Syringe FLUSH PRN (14:23)
[2024-09-04 14:28] LABS: A/G RATIO 0.6; ALANINE AMINOTRANSFERASE,ALT 20 U/L (12-36); ALBUMIN 2.4 g/dL (3.2-4.6); ALKALINE PHOSPHATASE 68 IU/L (56-112); ASPARTATE AMNIOTRANSFERASE,AST 16 IU/L (5-25); BILIRUBIN TOTAL 0.3 mg/dL (0.1-1.3); PROTEIN TOTAL,TP 6.5 g/dL (6.0-8.0)
[2024-09-04 14:31] LABS: LACTIC ACID 1.6 mmol/L (0.4-2.0)
[2024-09-04] MEDS: Iopamidol 755 Mg/ML 100 ML Bottle IV ONE (15:31)
[2024-09-04 17:27] VITALS: BP 134/57; PULSE 81
== END 2024-09-04 18:13 ==
LOC: FB.ED 13:40
DX: I26.99 Other pulmonary embolism without acute cor pulmonale (principal); I48.20 Chronic atrial fibrillation, unspecified; I11.0 Hypertensive heart disease with heart failure; I50.9 Heart failure, unspecified; J44.9 Chronic obstructive pulmonary disease, unspecified; E78.00 Pure hypercholesterolemia, unspecified; E03.9 Hypothyroidism, unspecified; E66.9 Obesity, unspecified; Z86.16 Personal history of COVID-19; Z79.899 Other long term (current) drug therapy; Z79.01 Long term (current) use of anticoagulants; Z88.8 Allergy status to other drugs, medicaments and biological substances; Z91.048 Other nonmedicinal substance allergy status; Z88.5 Allergy status to narcotic agent; Z88.0 Allergy status to penicillin; Z68.43 Body mass index [BMI] 50.0-59.9, adult
CPT/HCPCS: 36415; 71275; 80053; 83605; 83880; 85025; 85379; 96374; 99285; 99285-25; J1940; J3490; Q9967; U0002

== ENCOUNTER 2024-11-10 14:05 | Emergency (ER) | payer MEDICARE ==
[2024-11-10 15:13] LABS: BLOOD UREA NITROGEN,BUN 14 mg/dL (7-18); BUN/CREATININE RATIO 23.3 (9-20); CALCIUM 8.8 mg/dL (8.6-10.2); CARBON DIOXIDE,CO2 37 mmol/L (21-32); CHLORIDE,CL 100 mmol/L (100-110); CREATININE 0.6 mg/dL (0.55-1.02); ESTIMATED GFR 90 mL/min (>60); GLUCOSE RANDOM 145 mg/dL (80-116); POTASSIUM,K 3.7 mmol/L (3.5-5.3); SODIUM,NA 143 mmol/L (135-145)
[2024-11-10 16:02] VITALS: BP 106/60; PULSE 88
== END 2024-11-10 16:03 ==
LOC: FB.ED 14:05
DX: K59.01 Slow transit constipation (principal); I11.0 Hypertensive heart disease with heart failure; I50.43 Acute on chronic combined systolic (congestive) and diastolic (congestive) heart failure; I48.91 Unspecified atrial fibrillation; E78.00 Pure hypercholesterolemia, unspecified; J44.89 Other specified chronic obstructive pulmonary disease; K21.9 Gastro-esophageal reflux disease without esophagitis; E03.9 Hypothyroidism, unspecified; E66.9 Obesity, unspecified; Z86.16 Personal history of COVID-19; Z90.49 Acquired absence of other specified parts of digestive tract; Z90.710 Acquired absence of both cervix and uterus; Z88.0 Allergy status to penicillin; Z88.5 Allergy status to narcotic agent; Z88.8 Allergy status to other drugs, medicaments and biological substances; Z79.51 Long term (current) use of inhaled steroids; Z79.01 Long term (current) use of anticoagulants; Z79.899 Other long term (current) drug therapy
CPT/HCPCS: 36415; 74176; 80048; 83880; 99285

== ENCOUNTER 2025-01-09 11:07 | Inpatient (IN) | payer MEDICARE ==
[2025-01-09] MEDS: Albuterol/Ipratropium 3.0-0.5 MG/3 ML Neb Soln NEB ONE (11:27)
[2025-01-09 11:46] LABS: HEMATOCRIT 32.3 % (34.2-48.2); HEMOGLOBIN 10.6 g/dL (11.4-15.5); MEAN CORPUSCULAR HEMOGLOBIN 30.6 pg (23.9-33.9); MEAN CORPUSCULAR HGB CONC 32.9 g/dL (31.9-34.8); MEAN CORPUSCULAR VOLUME 92.9 fL (76.7-100.5); MEAN PLATELET VOLUME 8.1 fL (7.1-12.4); PLATELET COUNT,PLT 195 x10(3)uL (151-488); RED BLOOD CELL COUNT 3.48 x10(6)uL (3.60-5.20); RED CELL DISTRIBUTION WIDTH 20.4 % (12.3-16.5); WHITE BLOOD CELL COUNT,WBC 16.8 x10-3/uL (3.0-10.3)
[2025-01-09 11:47] LABS: BLOOD UREA NITROGEN,BUN 13 mg/dL (7-18); BUN/CREATININE RATIO 18.6 (9-20); CARBON DIOXIDE,CO2 38 mmol/L (21-32); CHLORIDE,CL 99 mmol/L (100-110); CREATININE 0.7 mg/dL (0.55-1.02); ESTIMATED GFR 86 mL/min (>60); GLUCOSE RANDOM 147 mg/dL (80-116); POTASSIUM,K 3.9 mmol/L (3.5-5.3); SODIUM,NA 140 mmol/L (135-145)
[2025-01-09 11:53] LABS: A/G RATIO 0.7; ALANINE AMINOTRANSFERASE,ALT 17 U/L (12-36); ALBUMIN 2.6 g/dL (3.2-4.6); ALKALINE PHOSPHATASE 86 IU/L (56-112); ASPARTATE AMNIOTRANSFERASE,AST 15 IU/L (5-25); BILIRUBIN TOTAL 0.8 mg/dL (0.1-1.3); PROTEIN TOTAL,TP 6.6 g/dL (6.0-8.0)
[2025-01-09 12:32] LABS: LACTIC ACID 1.3 mmol/L (0.4-2.0)
[2025-01-09 12:47] LABS: INFLUENZA A NAA NEGATIVE (NEGATIVE); INFLUENZA B NAA NEGATIVE (NEGATIVE); RESPIRATORY SYNCYTIAL VIR NAA NEGATIVE (NEGATIVE)
[2025-01-09 12:57] LABS: CORONAVIRUS COVID-19 NAA NEGATIVE (NEGATIVE)
[2025-01-09 13:14] LABS: ANISOCYTOSIS FEW; LYMPHOCYTES PERCENT MAN 4 % (13-37); MONOCYTES PERCENT MAN 8 % (4-12); SEG NEUTROPHILS PERCENT MAN 88 % (46-82)
[2025-01-09 14:18] LABS: APPEARANCE,URINE CLOUDY (CLEAR); BILIRUBIN,URINE NEGATIVE (NEGATIVE); COLOR,URINE YELLOW (YELLOW); GLUCOSE,URINE NORMAL (NORMAL); KETONES,URINE NEGATIVE (NEGATIVE); LEUKOCYTE ESTERASE,URINE LARGE (NEGATIVE); NITRITE,URINE POSITIVE (NEGATIVE); OCCULT BLOOD,URINE LARGE (NEGATIVE); PROTEIN,URINE TRACE mg/dL (NEGATIVE); UROBILINOGEN,URINE NORMAL (NEGATIVE)
[2025-01-09 14:27] LABS: BACTERIA,URINE MANY (NS); RBC,URINE 75-100 (0-5); SQUAMOUS EPITHELIAL CELLS,UR FEW (NS,R,O); WBC,URINE PACKED (0-5)
[2025-01-09] MEDS ORDERED: Acetaminophen 650 MG Supp RECTAL PRN (14:46)
[2025-01-09] MEDS: methylPREDNISolone Sodium Succinate 125 MG/2 ML SDV IVPUSH SCH (15:16)
[2025-01-09] MEDS: Sodium Chloride 0.9% 10 ML Syringe FLUSH PRN (15:16)
[2025-01-09] MEDS: Levofloxacin/Dextrose 5%-Water 750 MG in Premix Bag 1 BAG IV SCH (15:21)
[2025-01-09] MEDS: Albuterol/Ipratropium 3.0-0.5 MG/3 ML Neb Soln NEB SCH (15:30)
[2025-01-09] MEDS: Levofloxacin/Dextrose 5%-Water 250 MG in Premix Bag 1 BAG IV ONE (19:44)
[2025-01-09] MEDS: Levofloxacin/Dextrose 5%-Water 500 MG in Premix Bag 1 BAG IV SCH (19:44)
[2025-01-09] MEDS: methylPREDNISolone Sod Succ 60 MG in Sodium Chloride 0.9% 100 ML IV SCH (19:44)
[2025-01-09] MEDS: DABIGATRAN 110 MG PO SCH (21:17)
[2025-01-10 06:38] LABS: HEMATOCRIT 30.2 % (34.2-48.2); MEAN CORPUSCULAR HEMOGLOBIN 30.9 pg (23.9-33.9); MEAN CORPUSCULAR HGB CONC 33.3 g/dL (31.9-34.8); MEAN CORPUSCULAR VOLUME 92.8 fL (76.7-100.5); RED BLOOD CELL COUNT 3.25 x10(6)uL (3.60-5.20); RED CELL DISTRIBUTION WIDTH 20.6 % (12.3-16.5); WHITE BLOOD CELL COUNT,WBC 10.3 x10-3/uL (3.0-10.3)
[2025-01-10 06:55] LABS: A/G RATIO 0.6; ALANINE AMINOTRANSFERASE,ALT 15 U/L (12-36); ALBUMIN 2.5 g/dL (3.2-4.6); ALKALINE PHOSPHATASE 83 IU/L (56-112); ASPARTATE AMNIOTRANSFERASE,AST 20 IU/L (5-25); BILIRUBIN TOTAL 0.4 mg/dL (0.1-1.3); BLOOD UREA NITROGEN,BUN 16 mg/dL (7-18); BUN/CREATININE RATIO 26.7 (9-20); CARBON DIOXIDE,CO2 36 mmol/L (21-32); CHLORIDE,CL 98 mmol/L (100-110); CREATININE 0.6 mg/dL (0.55-1.02); EST CRCL DRUG DOSING (CG) 51.92 mL/min; ESTIMATED GFR 90 mL/min (>60); GLUCOSE RANDOM 229 mg/dL (80-116); POTASSIUM,K 3.8 mmol/L (3.5-5.3); PROTEIN TOTAL,TP 6.5 g/dL (6.0-8.0); SODIUM,NA 140 mmol/L (135-145)
[2025-01-10] MEDS ORDERED: Albuterol 0.083% 2.5 MG/3 ML Neb Soln INH PRN (09:16)
[2025-01-10] MEDS ORDERED: Carboxymethylcellulose Sodium 0.5% Ophth Soln 15 ML Bottle EYEBOTH PRN (09:16)
[2025-01-10] MEDS ORDERED: Hydrocortisone 1% Crm 30 GM Tube TOP PRN (09:16)
[2025-01-10] MEDS: Furosemide 20 MG/2 ML VIAL IVPUSH SCH (09:18)
[2025-01-10] MEDS ORDERED: Benzonatate 100 MG Cap PO PRN (10:29)
[2025-01-10] MEDS: Pantoprazole 40 MG Tab.CR PO SCH (11:01)
[2025-01-10] MEDS: Acetaminophen 650 MG Tab.ER PO SCH (11:02)
[2025-01-10] MEDS: Metoprolol Tartrate 50 MG Tab PO SCH (11:02)
[2025-01-10] MEDS: Diclofenac Sodium 1% Gel 100 GM Tube TOP SCH ×2 (11:05→17:38)
[2025-01-10] MEDS: Baclofen 10 MG Tab PO SCH (11:09)
[2025-01-10] MEDS: Spironolactone 25 MG Tab PO SCH (11:54)
[2025-01-10] MEDS: Cefepime 2 GM Vial IVPUSH SCH (12:26)
[2025-01-10] MEDS: metroNIDAZOLE/Normal Saline 500 MG in Premix Bag 1 BAG IV SCH (12:54)
[2025-01-10] MEDS ORDERED: Ipratropium 0.02% 0.5 MG/2.5 ML Neb Soln INH SCH (15:00)
[2025-01-10] MEDS: Pregabalin 75 MG Cap PO SCH (17:35)
[2025-01-10] MEDS: Polyethylene Glycol 3350 Powder 17 GM Packet PO SCH (17:36)
[2025-01-10] MEDS: Allopurinol 100 MG Tab PO SCH (17:36)
[2025-01-10] MEDS: Rosuvastatin 10 MG Tab PO SCH (17:36)
[2025-01-10] MEDS: Cholecalciferol (Vitamin D3) 25 MCG Tab PO SCH (17:36)
[2025-01-10] MEDS: Famotidine 20 MG Tab PO SCH (17:36)
[2025-01-10] MEDS: Formoterol/Mometasone 200-5 MCG 8.8 GM Inhaler INH SCH (17:50)
[2025-01-10] MEDS: Vitamin B6-pyridOXINE 100 MG Tab PO SCH (18:08)
[2025-01-10] MEDS: Carboxymethylcellulose Sodium 0.5% Ophth Soln 15 ML Bottle EYEBOTH SCH (20:19)
[2025-01-10] MEDS: guaiFENesin 600 MG Tab.ER PO SCH (20:27)
[2025-01-10] MEDS: traZODone 50 MG Tab PO SCH (20:28)
[2025-01-10] MEDS: methylPREDNISolone Sodium Succinate 40 MG/1 ML SDV IVPUSH SCH (20:49)
[2025-01-11] MEDS: Ferrous Sulfate 325 MG Tab PO SCH (04:33)
[2025-01-11] MEDS: Ascorbic Acid 500 MG Tab PO SCH (04:33)
[2025-01-11] MEDS: Potassium Chloride 20 MEQ Tab.ER PO SCH (04:33)
[2025-01-11] MEDS: Folic Acid 1 MG Tab PO SCH (04:33)
[2025-01-11] MEDS: Donepezil 5 MG Tab PO SCH (04:34)
[2025-01-11] MEDS: Venlafaxine 37.5 MG Cap.ER PO SCH (04:37)
[2025-01-11] MEDS: Mupirocin Oint 22 GM Tube TOP SCH (04:49)
[2025-01-11 06:38] LABS: HEMATOCRIT 30.1 % (34.2-48.2); HEMOGLOBIN 9.8 g/dL (11.4-15.5); MEAN CORPUSCULAR HEMOGLOBIN 30.5 pg (23.9-33.9); MEAN CORPUSCULAR HGB CONC 32.5 g/dL (31.9-34.8); MEAN CORPUSCULAR VOLUME 93.7 fL (76.7-100.5); MEAN PLATELET VOLUME 8.4 fL (7.1-12.4); PLATELET COUNT,PLT 216 x10(3)uL (151-488); RED BLOOD CELL COUNT 3.21 x10(6)uL (3.60-5.20); RED CELL DISTRIBUTION WIDTH 20.6 % (12.3-16.5); WHITE BLOOD CELL COUNT,WBC 13.5 x10-3/uL (3.0-10.3)
[2025-01-11 06:41] LABS: BLOOD UREA NITROGEN,BUN 19 mg/dL (7-18); BUN/CREATININE RATIO 23.8 (9-20); CALCIUM 9.2 mg/dL (8.6-10.2); CARBON DIOXIDE,CO2 34 mmol/L (21-32); CHLORIDE,CL 99 mmol/L (100-110); CREATININE 0.8 mg/dL (0.55-1.02); EST CRCL DRUG DOSING (CG) 38.94 mL/min; ESTIMATED GFR 74 mL/min (>60); GLUCOSE RANDOM 230 mg/dL (80-116); POTASSIUM,K 3.6 mmol/L (3.5-5.3); SODIUM,NA 140 mmol/L (135-145)
[2025-01-11 06:52] LABS: ANISOCYTOSIS FEW; BAND PERCENT MAN 5 % (0-6); LYMPHOCYTES PERCENT MAN 10 % (13-37); MONOCYTES PERCENT MAN 5 % (4-12); SEG NEUTROPHILS PERCENT MAN 80 % (46-82)
[2025-01-11] MEDS ORDERED: Carboxymethylcellulose Sodium 0.5% Ophth Soln 15 ML Bottle EYEBOTH SCH (07:46)
[2025-01-11] MEDS ORDERED: Carboxymethylcellulose Sodium 0.5% Ophth Soln 15 ML Bottle EYEBOTH PRN (07:50)
[2025-01-11] MEDS: Sennosides 8.6 MG Tab PO SCH (08:59)
[2025-01-11] MEDS: Furosemide 20 MG/2 ML VIAL IVPUSH ONE (10:32)
[2025-01-11] MEDS ORDERED: Carboxymethylcellulose Sodium 1% Ophth Gel 0.4 ML UD Box of 30 EYEBOTH PRN (10:46)
[2025-01-11] MEDS: Diclofenac Sodium 1% Gel 100 GM Tube TOP SCH ×2 (11:33→11:36)
[2025-01-11] MEDS: Acetaminophen 650 MG Tab.ER PO SCH (17:20)
[2025-01-11] MEDS: Formoterol/Mometasone 200-5 MCG 8.8 GM Inhaler INH SCH (17:23)
[2025-01-11] MEDS: Carboxymethylcellulose Sodium 1% Ophth Gel 0.4 ML UD Box of 30 EYEBOTH SCH (20:08)
[2025-01-12 06:47] LABS: HEMOGLOBIN 10.1 g/dL (11.4-15.5); MEAN CORPUSCULAR HEMOGLOBIN 30.3 pg (23.9-33.9); MEAN CORPUSCULAR HGB CONC 32.6 g/dL (31.9-34.8); MEAN CORPUSCULAR VOLUME 93.2 fL (76.7-100.5); MEAN PLATELET VOLUME 8.3 fL (7.1-12.4); PLATELET COUNT,PLT 215 x10(3)uL (151-488); RED BLOOD CELL COUNT 3.33 x10(6)uL (3.60-5.20); RED CELL DISTRIBUTION WIDTH 20.4 % (12.3-16.5); WHITE BLOOD CELL COUNT,WBC 10.7 x10-3/uL (3.0-10.3)
[2025-01-12 06:57] LABS: BLOOD UREA NITROGEN,BUN 24 mg/dL (7-18); CALCIUM 9.4 mg/dL (8.6-10.2); CARBON DIOXIDE,CO2 34 mmol/L (21-32); CHLORIDE,CL 100 mmol/L (100-110); CREATININE 0.8 mg/dL (0.55-1.02); EST CRCL DRUG DOSING (CG) 38.94 mL/min; ESTIMATED GFR 74 mL/min (>60); GLUCOSE RANDOM 210 mg/dL (80-116); POTASSIUM,K 3.8 mmol/L (3.5-5.3); SODIUM,NA 139 mmol/L (135-145)
[2025-01-12 07:09] LABS: BAND PERCENT MAN 1 % (0-6); LYMPHOCYTES PERCENT MAN 11 % (13-37); MONOCYTES PERCENT MAN 4 % (4-12); SEG NEUTROPHILS PERCENT MAN 84 % (46-82)
[2025-01-12 07:10] LABS: ANISOCYTOSIS FEW
[2025-01-12] MEDS: Furosemide 40 MG/4 ML VIAL IVPUSH SCH (09:15)
[2025-01-12] MEDS: predniSONE 20 MG Tab PO SCH (09:15)
[2025-01-12 16:47] LABS: PROLACTIN 7.7 ng/mL (2.8-29.2)
[2025-01-12] MEDS: Acetaminophen 325 MG Tab PO PRN (20:30)
[2025-01-12] MEDS: Melatonin 3 MG Tab PO PRN (23:34)
[2025-01-13 07:26] LABS: BLOOD UREA NITROGEN,BUN 31 mg/dL (7-18); BUN/CREATININE RATIO 38.8 (9-20); CALCIUM 9.2 mg/dL (8.6-10.2); CARBON DIOXIDE,CO2 33 mmol/L (21-32); CHLORIDE,CL 100 mmol/L (100-110); CREATININE 0.8 mg/dL (0.55-1.02); EST CRCL DRUG DOSING (CG) 38.94 mL/min; ESTIMATED GFR 74 mL/min (>60); GLUCOSE RANDOM 189 mg/dL (80-116); MAGNESIUM 1.9 mg/dL (1.8-2.5); POTASSIUM,K 3.7 mmol/L (3.5-5.3); SODIUM,NA 137 mmol/L (135-145)
[2025-01-13] MEDS: Ondansetron 4 MG Tab.DIS PO PRN (08:38)
[2025-01-13 14:33] VITALS: BP 147/74; PULSE 76
== END 2025-01-13 13:36 | DRG 178 ==
LOC: FB.ED 11:07 → FB.MS 13:12
PROVIDERS: ADMIT Internal Medicine; ATTEND Internal Medicine
DX: J45.909 Unspecified asthma, uncomplicated (principal); E66.2 Morbid (severe) obesity with alveolar hypoventilation; J69.0 Pneumonitis due to inhalation of food and vomit; I50.9 Heart failure, unspecified; I48.11 Longstanding persistent atrial fibrillation; N39.0 Urinary tract infection, site not specified; J44.0 Chronic obstructive pulmonary disease with (acute) lower respiratory infection; J44.1 Chronic obstructive pulmonary disease with (acute) exacerbation; J45.901 Unspecified asthma with (acute) exacerbation; J96.11 Chronic respiratory failure with hypoxia; Z68.43 Body mass index [BMI] 50.0-59.9, adult; J18.9 Pneumonia, unspecified organism; K21.9 Gastro-esophageal reflux disease without esophagitis; Z79.51 Long term (current) use of inhaled steroids; M19.90 Unspecified osteoarthritis, unspecified site; H54.7 Unspecified visual loss; G89.29 Other chronic pain; H26.9 Unspecified cataract; E78.00 Pure hypercholesterolemia, unspecified; M79.7 Fibromyalgia; F32.A Depression, unspecified; E03.9 Hypothyroidism, unspecified; E66.9 Obesity, unspecified; Z96.649 Presence of unspecified artificial hip joint; Z96.659 Presence of unspecified artificial knee joint; F15.90 Other stimulant use, unspecified, uncomplicated; J44.89 Other specified chronic obstructive pulmonary disease; R79.89 Other specified abnormal findings of blood chemistry; D72.829 Elevated white blood cell count, unspecified; G47.33 Obstructive sleep apnea (adult) (pediatric); D50.9 Iron deficiency anemia, unspecified; I48.0 Paroxysmal atrial fibrillation; I11.0 Hypertensive heart disease with heart failure; I89.0 Lymphedema, not elsewhere classified; G30.9 Alzheimer's disease, unspecified; F02.80 Dementia in other diseases classified elsewhere, unspecified severity, without behavioral disturbance, psychotic disturbance, mood disturbance, and anxiety; B96.4 Proteus (mirabilis) (morganii) as the cause of diseases classified elsewhere; I27.20 Pulmonary hypertension, unspecified; I50.813 Acute on chronic right heart failure; Z86.16 Personal history of COVID-19; Z90.89 Acquired absence of other organs; Z90.49 Acquired absence of other specified parts of digestive tract; Z98.890 Other specified postprocedural states; Z90.710 Acquired absence of both cervix and uterus; Z98.51 Tubal ligation status; Z88.5 Allergy status to narcotic agent; Z88.0 Allergy status to penicillin; Z88.8 Allergy status to other drugs, medicaments and biological substances; Z91.048 Other nonmedicinal substance allergy status; Z79.1 Long term (current) use of non-steroidal anti-inflammatories (NSAID); Z79.899 Other long term (current) drug therapy; Z79.02 Long term (current) use of antithrombotics/antiplatelets; Z86.19 Personal history of other infectious and parasitic diseases; Z99.81 Dependence on supplemental oxygen; Z87.01 Personal history of pneumonia (recurrent)
CPT/HCPCS: 0241U; 36415; 71045; 71250; 80048; 80053; 81001; 83605; 83735; 83880; 84146; 84484; 85025; 85027; 86140; 87040; 87070; 87086; 87088; 87186; 87205; 93306; 94150; 94640; 99222; 99232; 99238; 99285; A9270-GY; J0692; J1836; J1940; J1956; J2919; J7512; J7620; Q0162

== ENCOUNTER 2025-02-11 06:25 | Inpatient (IN) | payer MEDICARE ==
[2025-02-11 07:04] LABS: HEMATOCRIT 36.2 % (34.2-48.2); HEMOGLOBIN 11.7 g/dL (11.4-15.5); MEAN CORPUSCULAR HEMOGLOBIN 31.7 pg (23.9-33.9); MEAN CORPUSCULAR HGB CONC 32.4 g/dL (31.9-34.8); MEAN CORPUSCULAR VOLUME 97.9 fL (76.7-100.5); MEAN PLATELET VOLUME 8.4 fL (7.1-12.4); PLATELET COUNT,PLT 166 x10(3)uL (151-488); RED CELL DISTRIBUTION WIDTH 18.4 % (12.3-16.5); WHITE BLOOD CELL COUNT,WBC 15.9 x10-3/uL (3.0-10.3)
[2025-02-11 07:05] LABS: BLOOD UREA NITROGEN,BUN 12 mg/dL (7-18); BUN/CREATININE RATIO 17.1 (9-20); CARBON DIOXIDE,CO2 38 mmol/L (21-32); CHLORIDE,CL 98 mmol/L (100-110); CREATININE 0.7 mg/dL (0.55-1.02); EST CRCL DRUG DOSING (CG) 53.51 mL/min; ESTIMATED GFR 86 mL/min (>60); GLUCOSE RANDOM 138 mg/dL (80-116); POTASSIUM,K 3.5 mmol/L (3.5-5.3); SODIUM,NA 141 mmol/L (135-145)
[2025-02-11 07:11] LABS: A/G RATIO 0.8; ALANINE AMINOTRANSFERASE,ALT 18 U/L (12-36); ALKALINE PHOSPHATASE 76 IU/L (56-112); ASPARTATE AMNIOTRANSFERASE,AST 14 IU/L (5-25); BILIRUBIN TOTAL 0.5 mg/dL (0.1-1.3); PROTEIN TOTAL,TP 6.9 g/dL (6.0-8.0)
[2025-02-11 07:16] LABS: LACTIC ACID 1.9 mmol/L (0.4-2.0)
[2025-02-11 07:25] LABS: C-REACTIVE PROTEIN 14.75 mg/dL (<0.50)
[2025-02-11 07:32] LABS: ANISOCYTOSIS FEW; BAND PERCENT MAN 3 % (0-6); LYMPHOCYTES PERCENT MAN 8 % (13-37); MONOCYTES PERCENT MAN 5 % (4-12); SEG NEUTROPHILS PERCENT MAN 84 % (46-82)
[2025-02-11 07:39] LABS: BILIRUBIN,URINE NEGATIVE (NEGATIVE); GLUCOSE,URINE NORMAL (NORMAL); KETONES,URINE NEGATIVE (NEGATIVE); LEUKOCYTE ESTERASE,URINE NEGATIVE (NEGATIVE); NITRITE,URINE NEGATIVE (NEGATIVE); OCCULT BLOOD,URINE LARGE (NEGATIVE); PROTEIN,URINE 30 mg/dL (NEGATIVE); UROBILINOGEN,URINE NORMAL (NEGATIVE)
[2025-02-11 07:41] LABS: APPEARANCE,URINE CLOUDY (CLEAR); COLOR,URINE YELLOW (YELLOW)
[2025-02-11 07:54] LABS: BACTERIA,URINE MODERATE (NS); RBC,URINE 40-50 (0-5); SQUAMOUS EPITHELIAL CELLS,UR FEW (NS,R,O)
[2025-02-11] MEDS: Sodium Chloride 0.9% 1,000 ML IV SCH ×2 (08:35→16:18)
[2025-02-11] MEDS: cefTRIAXone 1 GM Vial IVPUSH ONE ×2 (08:36→12:46)
[2025-02-11] MEDS: Sodium Chloride 0.9% 10 ML Syringe FLUSH PRN (08:37)
[2025-02-11] MEDS ORDERED: guaiFENesin 100 MG/5 ML Soln 5 ML UD Cup PO PRN (11:12)
[2025-02-11] MEDS ORDERED: Loperamide 2 MG Cap PO PRN (11:12)
[2025-02-11] MEDS ORDERED: Magnesium Hydroxide 400 MG/5 ML Susp 30 ML Cup PO PRN (11:12)
[2025-02-11] MEDS ORDERED: Ondansetron 4 MG Tab.DIS PO PRN (11:12)
[2025-02-11] MEDS ORDERED: Cocoa Butter/Phenylephrine Rectal Supp RECTAL PRN (11:12)
[2025-02-11] MEDS ORDERED: Albuterol 0.083% 2.5 MG/3 ML Neb Soln INH PRN (11:12)
[2025-02-11] MEDS ORDERED: Acetaminophen 325 MG Tab PO PRN (11:20)
[2025-02-11] MEDS: DABIGATRAN ETEXILATE MESYLATE 110 MG PO SCH (12:40)
[2025-02-11] MEDS: Albuterol/Ipratropium 3.0-0.5 MG/3 ML Neb Soln NEB SCH (12:40)
[2025-02-11] MEDS: methylPREDNISolone Sodium Succinate 40 MG/1 ML SDV IVPUSH SCH (12:41)
[2025-02-11] MEDS: Diclofenac Sodium 1% Gel 100 GM Tube TOP SCH ×3 (13:06→18:55)
[2025-02-11] MEDS: Baclofen 10 MG Tab PO SCH (13:07)
[2025-02-11] MEDS: Spironolactone 25 MG Tab PO SCH (13:08)
[2025-02-11] MEDS: Iopamidol 755 Mg/ML 100 ML Bottle IV SCH (15:48)
[2025-02-11] MEDS: Furosemide 40 MG/4 ML VIAL IVPUSH SCH (16:20)
[2025-02-11] MEDS: Ipratropium 0.02% 0.5 MG/2.5 ML Neb Soln INH SCH (16:21)
[2025-02-11] MEDS: Sodium Chloride 0.9% 450 ML IV SCH (16:46)
[2025-02-11] MEDS: Mupirocin Oint 22 GM Tube TOP SCH (18:46)
[2025-02-11] MEDS: Formoterol/Mometasone 200-5 MCG 8.8 GM Inhaler INH SCH (18:49)
[2025-02-11] MEDS: Metoprolol Tartrate 50 MG Tab PO SCH (18:50)
[2025-02-11] MEDS: Famotidine 20 MG Tab PO SCH (18:53)
[2025-02-11] MEDS: Rosuvastatin 10 MG Tab PO SCH (18:53)
[2025-02-11] MEDS: Polyethylene Glycol 3350 Powder 17 GM Packet PO SCH (18:53)
[2025-02-11] MEDS: Acetaminophen 650 MG Tab.ER PO SCH (18:54)
[2025-02-11] MEDS: Vitamin B6-pyridOXINE 100 MG Tab PO SCH (18:54)
[2025-02-11] MEDS: Pregabalin 75 MG Cap PO SCH (18:55)
[2025-02-11] MEDS: Cholecalciferol (Vitamin D3) 25 MCG Tab PO SCH (18:56)
[2025-02-11] MEDS: Allopurinol 100 MG Tab PO SCH (18:56)
[2025-02-11] MEDS: traZODone 50 MG Tab PO SCH (20:56)
[2025-02-11] MEDS: guaiFENesin 600 MG Tab.ER PO SCH (20:59)
[2025-02-11] MEDS: CARBOXYMETHYL EYEBOTH PRN (21:03)
[2025-02-11] MEDS: GLY EYEBOTH PRN (21:03)
[2025-02-11] MEDS: POLY80 EYEBOTH PRN (21:03)
[2025-02-11] MEDS: CARBOXYMETHYL EYEBOTH SCH (21:05)
[2025-02-11] MEDS: POLY80 EYEBOTH SCH (21:05)
[2025-02-11] MEDS: GLY EYEBOTH SCH (21:05)
[2025-02-12 06:50] LABS: HEMATOCRIT 32.2 % (34.2-48.2); HEMOGLOBIN 10.5 g/dL (11.4-15.5); MEAN CORPUSCULAR HEMOGLOBIN 31.5 pg (23.9-33.9); MEAN CORPUSCULAR HGB CONC 32.6 g/dL (31.9-34.8); MEAN CORPUSCULAR VOLUME 96.8 fL (76.7-100.5); WHITE BLOOD CELL COUNT,WBC 9.6 x10-3/uL (3.0-10.3)
[2025-02-12 06:59] LABS: A/G RATIO 0.7; ALANINE AMINOTRANSFERASE,ALT 16 U/L (12-36); ALBUMIN 2.6 g/dL (3.2-4.6); ALKALINE PHOSPHATASE 68 IU/L (56-112); ASPARTATE AMNIOTRANSFERASE,AST 14 IU/L (5-25); BILIRUBIN TOTAL 0.3 mg/dL (0.1-1.3); BLOOD UREA NITROGEN,BUN 14 mg/dL (7-18); BUN/CREATININE RATIO 15.6 (9-20); CALCIUM 8.9 mg/dL (8.6-10.2); CARBON DIOXIDE,CO2 35 mmol/L (21-32); CHLORIDE,CL 99 mmol/L (100-110); CREATININE 0.9 mg/dL (0.55-1.02); EST CRCL DRUG DOSING (CG) 34.62 mL/min; ESTIMATED GFR 64 mL/min (>60); GLUCOSE RANDOM 208 mg/dL (80-116); POTASSIUM,K 3.6 mmol/L (3.5-5.3); PROTEIN TOTAL,TP 6.5 g/dL (6.0-8.0); SODIUM,NA 140 mmol/L (135-145)
[2025-02-12 07:03] LABS: RED BLOOD CELL COUNT 3.33 x10(6)uL (3.60-5.20)
[2025-02-12] MEDS: Potassium Chloride 20 MEQ Tab.ER PO SCH (07:05)
[2025-02-12] MEDS: Pantoprazole 40 MG Tab.CR PO SCH (07:05)
[2025-02-12] MEDS: Ascorbic Acid 500 MG Tab PO SCH (07:05)
[2025-02-12] MEDS: Ferrous Sulfate 325 MG Tab PO SCH (07:06)
[2025-02-12] MEDS: Venlafaxine 37.5 MG Cap.ER PO SCH (07:06)
[2025-02-12] MEDS: Folic Acid 1 MG Tab PO SCH (07:06)
[2025-02-12] MEDS: Donepezil 5 MG Tab PO SCH (07:07)
[2025-02-12] MEDS: cefTRIAXone 2 GM Vial IVPUSH SCH (09:09)
[2025-02-12] MEDS: predniSONE 20 MG Tab PO SCH (11:58)
[2025-02-12] MEDS: Bumetanide 1 MG Tab PO SCH (11:59)
[2025-02-12] MEDS: Sennosides 8.6 MG Tab PO SCH (20:55)
[2025-02-13 06:56] LABS: HEMOGLOBIN 10.4 g/dL (11.4-15.5); MEAN CORPUSCULAR HEMOGLOBIN 30.4 pg (23.9-33.9); MEAN CORPUSCULAR HGB CONC 32.6 g/dL (31.9-34.8); MEAN CORPUSCULAR VOLUME 93.2 fL (76.7-100.5); MEAN PLATELET VOLUME 8.4 fL (7.1-12.4); PLATELET COUNT,PLT 207 x10(3)uL (151-488); RED BLOOD CELL COUNT 3.43 x10(6)uL (3.60-5.20); RED CELL DISTRIBUTION WIDTH 20.1 % (12.3-16.5); WHITE BLOOD CELL COUNT,WBC 14.7 x10-3/uL (3.0-10.3)
[2025-02-13 07:03] LABS: BAND PERCENT MAN 4 % (0-6); LYMPHOCYTES PERCENT MAN 13 % (13-37); MONOCYTES PERCENT MAN 7 % (4-12); SEG NEUTROPHILS PERCENT MAN 76 % (46-82)
[2025-02-13 07:06] LABS: A/G RATIO 0.7; ALANINE AMINOTRANSFERASE,ALT 18 U/L (12-36); ALBUMIN 2.7 g/dL (3.2-4.6); ALKALINE PHOSPHATASE 68 IU/L (56-112); ASPARTATE AMNIOTRANSFERASE,AST 15 IU/L (5-25); BILIRUBIN TOTAL 0.2 mg/dL (0.1-1.3); BLOOD UREA NITROGEN,BUN 20 mg/dL (7-18); CALCIUM 8.9 mg/dL (8.6-10.2); CARBON DIOXIDE,CO2 36 mmol/L (21-32); CHLORIDE,CL 97 mmol/L (100-110); CREATININE 0.8 mg/dL (0.55-1.02); EST CRCL DRUG DOSING (CG) 38.94 mL/min; ESTIMATED GFR 74 mL/min (>60); GLUCOSE RANDOM 192 mg/dL (80-116); POTASSIUM,K 3.9 mmol/L (3.5-5.3); PROTEIN TOTAL,TP 6.5 g/dL (6.0-8.0); SODIUM,NA 138 mmol/L (135-145)
[2025-02-13] MEDS: Aluminum Hydroxide/Magnesium Hydroxide Susp 30 ML Cup PO PRN (20:41)
[2025-02-14 06:55] LABS: HEMATOCRIT 33.7 % (34.2-48.2); HEMOGLOBIN 11.1 g/dL (11.4-15.5); MEAN CORPUSCULAR HEMOGLOBIN 30.6 pg (23.9-33.9); MEAN CORPUSCULAR HGB CONC 32.9 g/dL (31.9-34.8); MEAN CORPUSCULAR VOLUME 93.1 fL (76.7-100.5); MEAN PLATELET VOLUME 8.4 fL (7.1-12.4); PLATELET COUNT,PLT 228 x10(3)uL (151-488); RED BLOOD CELL COUNT 3.62 x10(6)uL (3.60-5.20); WHITE BLOOD CELL COUNT,WBC 10.9 x10-3/uL (3.0-10.3)
[2025-02-14 07:06] LABS: A/G RATIO 0.7; ALANINE AMINOTRANSFERASE,ALT 26 U/L (12-36); ALBUMIN 2.9 g/dL (3.2-4.6); ALKALINE PHOSPHATASE 66 IU/L (56-112); ASPARTATE AMNIOTRANSFERASE,AST 17 IU/L (5-25); BILIRUBIN TOTAL 0.3 mg/dL (0.1-1.3); BLOOD UREA NITROGEN,BUN 26 mg/dL (7-18); BUN/CREATININE RATIO 32.5 (9-20); CALCIUM 9.1 mg/dL (8.6-10.2); CARBON DIOXIDE,CO2 37 mmol/L (21-32); CHLORIDE,CL 99 mmol/L (100-110); CREATININE 0.8 mg/dL (0.55-1.02); EST CRCL DRUG DOSING (CG) 38.94 mL/min; ESTIMATED GFR 74 mL/min (>60); GLUCOSE RANDOM 174 mg/dL (80-116); POTASSIUM,K 4.1 mmol/L (3.5-5.3); PROTEIN TOTAL,TP 6.9 g/dL (6.0-8.0); SODIUM,NA 140 mmol/L (135-145)
[2025-02-14 07:21] LABS: BAND PERCENT MAN 1 % (0-6); LYMPHOCYTES PERCENT MAN 16 % (13-37); METAMYELOCYTE PERCENT MAN 1 % (0-0); MONOCYTES PERCENT MAN 3 % (4-12); MYELOCYTE PERCENT MAN 1 % (0-0); SEG NEUTROPHILS PERCENT MAN 78 % (46-82)
[2025-02-14 07:22] LABS: TOXIC GRANULATION MODERATE (NOT SEEN)
[2025-02-15] MEDS: predniSONE 20 MG Tab PO SCH (08:47)
[2025-02-15 11:48] VITALS: BP 137/70; PULSE 63
[2025-02-17] MEDS ORDERED: CHLORHEXIDINE GLUCONATE TOP SCH (11:12)
[2025-02-18] MEDS ORDERED: predniSONE 10 MG Tab PO SCH (09:00)
[2025-02-21] MEDS ORDERED: predniSONE 20 MG Tab PO SCH (09:00)
[2025-02-24] MEDS ORDERED: predniSONE 10 MG Tab PO SCH (09:00)
== END 2025-02-15 10:15 | disposition home or self-care (01) | DRG 602 ==
LOC: FB.ED 06:25 → FB.MS 10:11
PROVIDERS: ADMIT Internal Medicine; ATTEND Family Medicine
DX: L03.115 Cellulitis of right lower limb (principal); I50.43 Acute on chronic combined systolic (congestive) and diastolic (congestive) heart failure; Z68.43 Body mass index [BMI] 50.0-59.9, adult; N39.0 Urinary tract infection, site not specified; I48.11 Longstanding persistent atrial fibrillation; J44.1 Chronic obstructive pulmonary disease with (acute) exacerbation; J96.11 Chronic respiratory failure with hypoxia; Z66 Do not resuscitate; I11.0 Hypertensive heart disease with heart failure; H54.7 Unspecified visual loss; E78.00 Pure hypercholesterolemia, unspecified; K21.9 Gastro-esophageal reflux disease without esophagitis; M19.90 Unspecified osteoarthritis, unspecified site; M79.7 Fibromyalgia; G43.909 Migraine, unspecified, not intractable, without status migrainosus; G62.9 Polyneuropathy, unspecified; F32.A Depression, unspecified; E03.9 Hypothyroidism, unspecified; Z96.649 Presence of unspecified artificial hip joint; Z96.659 Presence of unspecified artificial knee joint; R31.9 Hematuria, unspecified; G47.33 Obstructive sleep apnea (adult) (pediatric); D50.9 Iron deficiency anemia, unspecified; G30.9 Alzheimer's disease, unspecified; F01.50 Vascular dementia, unspecified severity, without behavioral disturbance, psychotic disturbance, mood disturbance, and anxiety; E66.01 Morbid (severe) obesity due to excess calories; Z88.5 Allergy status to narcotic agent; Z88.8 Allergy status to other drugs, medicaments and biological substances; Z88.0 Allergy status to penicillin; Z79.899 Other long term (current) drug therapy; Z79.51 Long term (current) use of inhaled steroids; Z86.0100 Personal history of colon polyps, unspecified; Z86.16 Personal history of COVID-19; Z90.49 Acquired absence of other specified parts of digestive tract; Z98.890 Other specified postprocedural states; Z90.722 Acquired absence of ovaries, bilateral; Z90.710 Acquired absence of both cervix and uterus; Z98.51 Tubal ligation status
CPT/HCPCS: 36415; 70450; 71045; 71275; 80053; 81001; 83605; 83880; 84484; 85025; 85027; 85379; 86140; 87040; 87077; 87086; 87088; 87186; 87428-QW; 93005; 93010; 94150; 94640; 96374; 99222; 99232; 99238; 99285; 99285-25; A9270-GY; J0696; J1940; J2919; J7030; J7512; Q9967

== ENCOUNTER 2025-04-28 13:42 | Inpatient (IN) | payer MEDICARE ==
[2025-04-28 14:31] LABS: HEMATOCRIT 36.9 % (34.2-48.2); HEMOGLOBIN 12.1 g/dL (11.4-15.5); MEAN CORPUSCULAR HEMOGLOBIN 30.7 pg (23.9-33.9); MEAN CORPUSCULAR HGB CONC 32.7 g/dL (31.9-34.8); MEAN CORPUSCULAR VOLUME 94.2 fL (76.7-100.5); MEAN PLATELET VOLUME 8.2 fL (7.1-12.4); PLATELET COUNT,PLT 271 x10(3)uL (151-488); RED BLOOD CELL COUNT 3.92 x10(6)uL (3.60-5.20)
[2025-04-28 14:34] LABS: WHITE BLOOD CELL COUNT,WBC 32.6 x10-3/uL (3.0-10.3)
[2025-04-28 14:38] LABS: A/G RATIO 0.7; ALANINE AMINOTRANSFERASE,ALT 20 U/L (12-36); ALBUMIN 3.2 g/dL (3.2-4.6); ALKALINE PHOSPHATASE 100 IU/L (56-112); ASPARTATE AMNIOTRANSFERASE,AST 17 IU/L (5-25); BILIRUBIN TOTAL 0.6 mg/dL (0.1-1.3); BLOOD UREA NITROGEN,BUN 17 mg/dL (7-18); BUN/CREATININE RATIO 15.5 (9-20); CALCIUM 9.9 mg/dL (8.6-10.2); CHLORIDE,CL 92 mmol/L (100-110); CREATININE 1.1 mg/dL (0.55-1.02); ESTIMATED GFR 50 mL/min (>60); GLUCOSE RANDOM 191 mg/dL (80-116); POTASSIUM,K 3.5 mmol/L (3.5-5.3); PROTEIN TOTAL,TP 7.5 g/dL (6.0-8.0); SODIUM,NA 138 mmol/L (135-145)
[2025-04-28 14:45] LABS: ANISOCYTOSIS FEW; BAND PERCENT MAN 1 % (0-6); LYMPHOCYTES PERCENT MAN 6 % (13-37); MONOCYTES PERCENT MAN 4 % (4-12); SEG NEUTROPHILS PERCENT MAN 89 % (46-82)
[2025-04-28 14:50] LABS: CARBON DIOXIDE,CO2 42 mmol/L (21-32); LACTIC ACID 4.2 mmol/L (0.4-2.0)
[2025-04-28 15:49] LABS: BILIRUBIN,URINE NEGATIVE (NEGATIVE); GLUCOSE,URINE NORMAL (NORMAL); KETONES,URINE NEGATIVE (NEGATIVE); LEUKOCYTE ESTERASE,URINE LARGE (NEGATIVE); NITRITE,URINE POSITIVE (NEGATIVE); OCCULT BLOOD,URINE LARGE (NEGATIVE); PH,URINE 6.5 (5.0-6.5); PROTEIN,URINE NEGATIVE (NEGATIVE); UROBILINOGEN,URINE NORMAL (NEGATIVE)
[2025-04-28 15:50] LABS: APPEARANCE,URINE SLIGHTLY CLOUDY (CLEAR); COLOR,URINE YELLOW (YELLOW); RBC,URINE 40-50 (0-5); SQUAMOUS EPITHELIAL CELLS,UR MODERATE (NS,R,O)
[2025-04-28 15:51] LABS: BACTERIA,URINE MODERATE (NS)
[2025-04-28] MEDS ORDERED: VANCOmycin 1 GM/200 ML 1 GM in Premix Bag 1 BAG IV SCH (16:00)
[2025-04-28] MEDS: Cefepime 2 GM Vial IVPUSH SCH (16:16)
[2025-04-28] MEDS: Sodium Chloride 0.9% 10 ML Syringe FLUSH PRN (16:20)
[2025-04-28] MEDS: VANCOmycin 2 GM/400 ML 2 GM in Premix Bag 1 BAG IV ONE (16:21)
[2025-04-28] MEDS ORDERED: Ondansetron 4 MG/2 ML SDV IV PRN (16:49)
[2025-04-28] MEDS ORDERED: Albuterol 0.083% 2.5 MG/3 ML Neb Soln NEB PRN (16:49)
[2025-04-28] MEDS ORDERED: Sennosides/Docusate Sodium 50-8.6 MG Tab PO PRN (16:49)
[2025-04-28] MEDS ORDERED: Magnesium Hydroxide 400 MG/5 ML Susp 30 ML Cup PO PRN (17:05)
[2025-04-28] MEDS ORDERED: Loperamide 2 MG Cap PO PRN (17:05)
[2025-04-28] MEDS ORDERED: Aluminum Hydroxide/Magnesium Hydroxide Susp 30 ML Cup PO PRN (17:05)
[2025-04-28] MEDS ORDERED: Cocoa Butter/Phenylephrine Rectal Supp RECTAL PRN (17:05)
[2025-04-28] MEDS ORDERED: Denosumab 60 MG/1 ML Syringe SUBCUT SCH (17:15)
[2025-04-28] MEDS ORDERED: Non-Formulary Medication 1 Each (Budesonide/Formoterol Fumarate [Symbicort 160-4.5 Mcg Inh INH SCH (18:00)
[2025-04-28] MEDS: Baclofen 10 MG Tab PO SCH (18:31)
[2025-04-28] MEDS: Famotidine 20 MG Tab PO SCH (18:31)
[2025-04-28] MEDS: Allopurinol 100 MG Tab PO SCH (18:31)
[2025-04-28] MEDS: Rosuvastatin 10 MG Tab PO SCH (18:31)
[2025-04-28] MEDS: Cholecalciferol (Vitamin D3) 25 MCG Tab PO SCH (18:31)
[2025-04-28] MEDS: Acetaminophen 650 MG Tab.ER PO SCH (18:32)
[2025-04-28] MEDS: Pregabalin 75 MG Cap PO SCH (18:32)
[2025-04-28] MEDS: Diclofenac Sodium 1% Gel 100 GM Tube TOP SCH (18:33)
[2025-04-28] MEDS: Metoprolol Tartrate 50 MG Tab PO SCH (18:34)
[2025-04-28] MEDS: Polyethylene Glycol 3350 Powder 17 GM Packet PO SCH (18:34)
[2025-04-28] MEDS: Sodium Chloride 0.9% 1,000 ML IV SCH (18:37)
[2025-04-28] MEDS: Formoterol/Mometasone 200-5 MCG 8.8 GM Inhaler INH SCH (19:03)
[2025-04-28] MEDS: Vitamin B6-pyridOXINE 100 MG Tab PO SCH (19:03)
[2025-04-28] MEDS: guaiFENesin 600 MG Tab.ER PO SCH (20:40)
[2025-04-28] MEDS: Sennosides 8.6 MG Tab PO SCH (20:40)
[2025-04-28] MEDS: traZODone 50 MG Tab PO SCH (20:40)
[2025-04-28] MEDS: Albuterol/Ipratropium 3.0-0.5 MG/3 ML Neb Soln NEB SCH (20:40)
[2025-04-29] MEDS ORDERED: Non-Formulary Medication 1 Each (Omeprazole [Omeprazole] 40 MG Cap.Cr) PO SCH (05:30)
[2025-04-29] MEDS: Donepezil 5 MG Tab PO SCH (05:42)
[2025-04-29] MEDS: Venlafaxine 37.5 MG Cap.ER PO SCH (05:42)
[2025-04-29] MEDS: Potassium Chloride 20 MEQ Tab.ER PO SCH (05:42)
[2025-04-29] MEDS: Folic Acid 1 MG Tab PO SCH (05:42)
[2025-04-29] MEDS: Pantoprazole 40 MG Tab.CR PO SCH (05:42)
[2025-04-29] MEDS: predniSONE 10 MG Tab PO SCH (05:42)
[2025-04-29] MEDS: Bumetanide 1 MG Tab PO SCH (05:43)
[2025-04-29] MEDS: Mupirocin Oint 22 GM Tube TOP SCH (05:51)
[2025-04-29] MEDS: Diclofenac Sodium 1% Gel 100 GM Tube TOP SCH (05:58)
[2025-04-29 06:13] LABS: HEMATOCRIT 31.2 % (34.2-48.2); HEMOGLOBIN 10.4 g/dL (11.4-15.5); MEAN CORPUSCULAR HEMOGLOBIN 31.1 pg (23.9-33.9); MEAN CORPUSCULAR HGB CONC 33.3 g/dL (31.9-34.8); MEAN CORPUSCULAR VOLUME 93.3 fL (76.7-100.5); MEAN PLATELET VOLUME 8.2 fL (7.1-12.4); PLATELET COUNT,PLT 218 x10(3)uL (151-488); RED BLOOD CELL COUNT 3.34 x10(6)uL (3.60-5.20); RED CELL DISTRIBUTION WIDTH 19.2 % (12.3-16.5); WHITE BLOOD CELL COUNT,WBC 20.2 x10-3/uL (3.0-10.3)
[2025-04-29 06:22] LABS: A/G RATIO 0.7; ALANINE AMINOTRANSFERASE,ALT 19 U/L (12-36); ALBUMIN 2.6 g/dL (3.2-4.6); ALKALINE PHOSPHATASE 82 IU/L (56-112); ASPARTATE AMNIOTRANSFERASE,AST 10 IU/L (5-25); BILIRUBIN TOTAL 0.8 mg/dL (0.1-1.3); BLOOD UREA NITROGEN,BUN 20 mg/dL (7-18); CALCIUM 9.2 mg/dL (8.6-10.2); CARBON DIOXIDE,CO2 38 mmol/L (21-32); CHLORIDE,CL 96 mmol/L (100-110); CREATININE 0.8 mg/dL (0.55-1.02); EST CRCL DRUG DOSING (CG) 38.27 mL/min; ESTIMATED GFR 73 mL/min (>60); GLUCOSE RANDOM 162 mg/dL (80-116); POTASSIUM,K 3.1 mmol/L (3.5-5.3); PROTEIN TOTAL,TP 6.2 g/dL (6.0-8.0); SODIUM,NA 139 mmol/L (135-145)
[2025-04-29 06:30] LABS: ANISOCYTOSIS FEW; LACTIC ACID 2.1 mmol/L (0.4-2.0); LYMPHOCYTES PERCENT MAN 12 % (13-37); MONOCYTES PERCENT MAN 10 % (4-12); SEG NEUTROPHILS PERCENT MAN 78 % (46-82)
[2025-04-29] MEDS: CHLORHEXIDINE GLUCONATE TOP SCH (09:55)
[2025-04-29] MEDS: Potassium Chloride 20 MEQ Tab.ER PO ONE (10:51)
[2025-04-29] MEDS: Saccharomyces Boulardii (Probiotic) 250 MG Cap PO SCH (11:07)
[2025-04-29] MEDS: Spironolactone 25 MG Tab PO SCH (11:07)
[2025-04-29] MEDS: NS + KCl 20mEq/L 1,000 ML IV SCH (11:10)
[2025-04-29] MEDS: VANCOmycin 1.5 GM/300 ML 1.5 GM in Premix Bag 1 BAG IV SCH (16:01)
[2025-04-30] MEDS: Ferrous Sulfate 325 MG Tab PO SCH (05:48)
[2025-04-30] MEDS: Ascorbic Acid 500 MG Tab PO SCH (05:55)
[2025-04-30 06:52] LABS: HEMATOCRIT 29.9 % (34.2-48.2); HEMOGLOBIN 9.9 g/dL (11.4-15.5); MEAN CORPUSCULAR HEMOGLOBIN 31.1 pg (23.9-33.9); MEAN CORPUSCULAR HGB CONC 32.9 g/dL (31.9-34.8); MEAN CORPUSCULAR VOLUME 94.6 fL (76.7-100.5); MEAN PLATELET VOLUME 8.4 fL (7.1-12.4); PLATELET COUNT,PLT 205 x10(3)uL (151-488); RED BLOOD CELL COUNT 3.16 x10(6)uL (3.60-5.20); RED CELL DISTRIBUTION WIDTH 19.3 % (12.3-16.5); WHITE BLOOD CELL COUNT,WBC 15.6 x10-3/uL (3.0-10.3)
[2025-04-30 07:07] LABS: A/G RATIO 0.7; ALANINE AMINOTRANSFERASE,ALT 20 U/L (12-36); ALBUMIN 2.5 g/dL (3.2-4.6); ALKALINE PHOSPHATASE 84 IU/L (56-112); ASPARTATE AMNIOTRANSFERASE,AST 17 IU/L (5-25); BILIRUBIN TOTAL 0.5 mg/dL (0.1-1.3); BLOOD UREA NITROGEN,BUN 20 mg/dL (7-18); BUN/CREATININE RATIO 22.2 (9-20); CALCIUM 8.6 mg/dL (8.6-10.2); CARBON DIOXIDE,CO2 36 mmol/L (21-32); CHLORIDE,CL 97 mmol/L (100-110); CREATININE 0.9 mg/dL (0.55-1.02); EST CRCL DRUG DOSING (CG) 34.02 mL/min; ESTIMATED GFR 63 mL/min (>60); GLUCOSE RANDOM 145 mg/dL (80-116); POTASSIUM,K 3.3 mmol/L (3.5-5.3); PROTEIN TOTAL,TP 6.2 g/dL (6.0-8.0); SODIUM,NA 138 mmol/L (135-145)
[2025-04-30 07:17] LABS: ANISOCYTOSIS FEW; BAND PERCENT MAN 1 % (0-6); LYMPHOCYTES PERCENT MAN 13 % (13-37); MONOCYTES PERCENT MAN 6 % (4-12); SEG NEUTROPHILS PERCENT MAN 80 % (46-82)
[2025-04-30] MEDS: Iopamidol 755 Mg/ML 200 ML Bottle IV ONE (14:34)
[2025-04-30 15:12] LABS: STREPTOCOCCUS PNEUMONIAE AG,UR Negative (Negative)
[2025-04-30 17:56] LABS: LACTIC ACID 2.4 mmol/L (0.4-2.0)
[2025-04-30 21:48] LABS: LEGIONELLA PNEUMOPHILA AG,URN Negative (Negative)
[2025-05-01 06:18] LABS: BASOPHILS ABSOLUTE AUTO 0.1 x10-3/uL (0.0-0.1); EOSINOPHILS ABSOLUTE AUTO 0.1 x10-3/uL (0.0-0.8); EOSINOPHILS PERCENT AUTO 0.4 % (0.6-8.1); HEMATOCRIT 30.4 % (34.2-48.2); LYMPHOCYTES ABSOLUTE AUTO 1.8 x10-3/uL (1.0-4.4); LYMPHOCYTES PERCENT AUTO 14.8 % (18.4-52.1); MEAN CORPUSCULAR HGB CONC 32.7 g/dL (31.9-34.8); MEAN CORPUSCULAR VOLUME 94.8 fL (76.7-100.5); MEAN PLATELET VOLUME 8.1 fL (7.1-12.4); MONOCYTES ABSOLUTE AUTO 0.9 x10-3/uL (0.3-1.0); MONOCYTES PERCENT AUTO 7.9 % (4.4-15.7); NEUTROPHILS ABSOLUTE AUTO 9.1 x10-3/uL (1.5-6.3); NEUTROPHILS PERCENT AUTO 75.9 % (30.8-76.2); PLATELET COUNT,PLT 205 x10(3)uL (151-488); RED CELL DISTRIBUTION WIDTH 19.2 % (12.3-16.5); WHITE BLOOD CELL COUNT,WBC 12.1 x10-3/uL (3.0-10.3)
[2025-05-01 06:22] LABS: BLOOD UREA NITROGEN,BUN 17 mg/dL (7-18); BUN/CREATININE RATIO 24.3 (9-20); CALCIUM 8.6 mg/dL (8.6-10.2); CARBON DIOXIDE,CO2 37 mmol/L (21-32); CHLORIDE,CL 100 mmol/L (100-110); CREATININE 0.7 mg/dL (0.55-1.02); EST CRCL DRUG DOSING (CG) 43.74 mL/min; ESTIMATED GFR 86 mL/min (>60); GLUCOSE RANDOM 126 mg/dL (80-116); POTASSIUM,K 3.1 mmol/L (3.5-5.3); SODIUM,NA 140 mmol/L (135-145)
[2025-05-01 06:32] LABS: RED BLOOD CELL COUNT 3.21 x10(6)uL (3.60-5.20)
[2025-05-01] MEDS: Potassium Chloride 20 MEQ Tab.ER PO ONE (10:15)
[2025-05-01] MEDS: metroNIDAZOLE/Normal Saline 500 MG in Premix Bag 1 BAG IV SCH ×2 (10:20→21:48)
[2025-05-01] MEDS: Spironolactone 25 MG Tab PO SCH (11:30)
[2025-05-01 12:39] LABS: MAGNESIUM 1.4 mg/dL (1.8-2.5); POTASSIUM,K 3.7 mmol/L (3.5-5.3)
[2025-05-01] MEDS: Magnesium Sulfate 2 GM/50 mL 2 GM in Premix Bag 1 BAG IV ONE (17:55)
[2025-05-02 06:21] LABS: BASOPHILS ABSOLUTE AUTO 0.1 x10-3/uL (0.0-0.1); BASOPHILS PERCENT AUTO 1.1 % (0.2-1.5); EOSINOPHILS ABSOLUTE AUTO 0.1 x10-3/uL (0.0-0.8); EOSINOPHILS PERCENT AUTO 0.5 % (0.6-8.1); HEMATOCRIT 30.9 % (34.2-48.2); HEMOGLOBIN 10.4 g/dL (11.4-15.5); LYMPHOCYTES ABSOLUTE AUTO 1.8 x10-3/uL (1.0-4.4); LYMPHOCYTES PERCENT AUTO 15.6 % (18.4-52.1); MEAN CORPUSCULAR HGB CONC 33.8 g/dL (31.9-34.8); MEAN CORPUSCULAR VOLUME 94.6 fL (76.7-100.5); MEAN PLATELET VOLUME 8.2 fL (7.1-12.4); MONOCYTES PERCENT AUTO 8.6 % (4.4-15.7); NEUTROPHILS ABSOLUTE AUTO 8.6 x10-3/uL (1.5-6.3); NEUTROPHILS PERCENT AUTO 74.2 % (30.8-76.2); PLATELET COUNT,PLT 231 x10(3)uL (151-488); RED CELL DISTRIBUTION WIDTH 19.1 % (12.3-16.5); WHITE BLOOD CELL COUNT,WBC 11.6 x10-3/uL (3.0-10.3)
[2025-05-02 06:26] LABS: BLOOD UREA NITROGEN,BUN 21 mg/dL (7-18); CALCIUM 9.1 mg/dL (8.6-10.2); CARBON DIOXIDE,CO2 36 mmol/L (21-32); CHLORIDE,CL 101 mmol/L (100-110); CREATININE 0.6 mg/dL (0.55-1.02); EST CRCL DRUG DOSING (CG) 51.03 mL/min; ESTIMATED GFR 89 mL/min (>60); GLUCOSE RANDOM 130 mg/dL (80-116); POTASSIUM,K 3.3 mmol/L (3.5-5.3); SODIUM,NA 140 mmol/L (135-145)
[2025-05-02 06:52] LABS: RED BLOOD CELL COUNT 3.26 x10(6)uL (3.60-5.20)
[2025-05-02] MEDS: Bumetanide 1 MG Tab PO SCH (11:03)
[2025-05-02] MEDS: Potassium Chloride 20 MEQ Tab.ER PO ONE (11:04)
[2025-05-02 12:54] LABS: MAGNESIUM 1.8 mg/dL (1.8-2.5); POTASSIUM,K 4.2 mmol/L (3.5-5.3)
[2025-05-03 06:15] LABS: HEMATOCRIT 30.1 % (34.2-48.2); MEAN CORPUSCULAR HEMOGLOBIN 31.5 pg (23.9-33.9); MEAN CORPUSCULAR HGB CONC 33.3 g/dL (31.9-34.8); MEAN CORPUSCULAR VOLUME 94.6 fL (76.7-100.5); MEAN PLATELET VOLUME 8.3 fL (7.1-12.4); PLATELET COUNT,PLT 225 x10(3)uL (151-488); RED BLOOD CELL COUNT 3.18 x10(6)uL (3.60-5.20); RED CELL DISTRIBUTION WIDTH 19.6 % (12.3-16.5); WHITE BLOOD CELL COUNT,WBC 10.4 x10-3/uL (3.0-10.3)
[2025-05-03 06:26] LABS: BLOOD UREA NITROGEN,BUN 26 mg/dL (7-18); BUN/CREATININE RATIO 37.1 (9-20); CALCIUM 8.8 mg/dL (8.6-10.2); CARBON DIOXIDE,CO2 33 mmol/L (21-32); CHLORIDE,CL 102 mmol/L (100-110); CREATININE 0.7 mg/dL (0.55-1.02); EST CRCL DRUG DOSING (CG) 43.74 mL/min; ESTIMATED GFR 86 mL/min (>60); GLUCOSE RANDOM 139 mg/dL (80-116); POTASSIUM,K 3.4 mmol/L (3.5-5.3); SODIUM,NA 142 mmol/L (135-145)
[2025-05-03 07:07] LABS: ANISOCYTOSIS FEW; EOSINOPHILS PERCENT MAN 2 % (0-5); LYMPHOCYTES PERCENT MAN 20 % (13-37); MONOCYTES PERCENT MAN 7 % (4-12); SEG NEUTROPHILS PERCENT MAN 71 % (46-82)
[2025-05-03] MEDS: Potassium Chloride 20 MEQ Tab.ER PO ONE (09:56)
[2025-05-03] MEDS: Benzonatate 100 MG Cap PO PRN (09:58)
[2025-05-03] MEDS: VANCOmycin 1 GM/200 ML 1 GM in Premix Bag 1 BAG IV SCH (11:38)
[2025-05-04 06:14] LABS: BASOPHILS ABSOLUTE AUTO 0.2 x10-3/uL (0.0-0.1); BASOPHILS PERCENT AUTO 1.2 % (0.2-1.5); EOSINOPHILS ABSOLUTE AUTO 0.1 x10-3/uL (0.0-0.8); EOSINOPHILS PERCENT AUTO 0.5 % (0.6-8.1); HEMATOCRIT 31.6 % (34.2-48.2); HEMOGLOBIN 10.2 g/dL (11.4-15.5); LYMPHOCYTES ABSOLUTE AUTO 2.2 x10-3/uL (1.0-4.4); LYMPHOCYTES PERCENT AUTO 16.8 % (18.4-52.1); MEAN CORPUSCULAR HEMOGLOBIN 30.6 pg (23.9-33.9); MEAN CORPUSCULAR HGB CONC 32.3 g/dL (31.9-34.8); MEAN CORPUSCULAR VOLUME 94.7 fL (76.7-100.5); MEAN PLATELET VOLUME 7.9 fL (7.1-12.4); MONOCYTES ABSOLUTE AUTO 1.1 x10-3/uL (0.3-1.0); MONOCYTES PERCENT AUTO 8.2 % (4.4-15.7); NEUTROPHILS ABSOLUTE AUTO 9.5 x10-3/uL (1.5-6.3); NEUTROPHILS PERCENT AUTO 73.3 % (30.8-76.2); PLATELET COUNT,PLT 235 x10(3)uL (151-488); RED CELL DISTRIBUTION WIDTH 19.7 % (12.3-16.5)
[2025-05-04 06:26] LABS: RED BLOOD CELL COUNT 3.34 x10(6)uL (3.60-5.20)
[2025-05-04 06:27] LABS: BLOOD UREA NITROGEN,BUN 21 mg/dL (7-18); CALCIUM 8.4 mg/dL (8.6-10.2); CARBON DIOXIDE,CO2 34 mmol/L (21-32); CHLORIDE,CL 101 mmol/L (100-110); CREATININE 0.6 mg/dL (0.55-1.02); EST CRCL DRUG DOSING (CG) 51.03 mL/min; ESTIMATED GFR 89 mL/min (>60); GLUCOSE RANDOM 136 mg/dL (80-116); MAGNESIUM 1.3 mg/dL (1.8-2.5); POTASSIUM,K 3.2 mmol/L (3.5-5.3); SODIUM,NA 140 mmol/L (135-145)
[2025-05-04] MEDS: Magnesium Sulfate 2 GM/50 mL 2 GM in Premix Bag 1 BAG IV ONE (10:27)
[2025-05-04] MEDS: Potassium Chloride 20 MEQ Tab.ER PO ONE (10:36)
[2025-05-04] MEDS: Furosemide 20 MG/2 ML VIAL IVPUSH ONE (16:14)
[2025-05-05 06:34] LABS: BASOPHILS ABSOLUTE AUTO 0.1 x10-3/uL (0.0-0.1); BASOPHILS PERCENT AUTO 1.1 % (0.2-1.5); EOSINOPHILS ABSOLUTE AUTO 0.1 x10-3/uL (0.0-0.8); EOSINOPHILS PERCENT AUTO 0.5 % (0.6-8.1); HEMATOCRIT 29.8 % (34.2-48.2); HEMOGLOBIN 9.7 g/dL (11.4-15.5); LYMPHOCYTES ABSOLUTE AUTO 1.9 x10-3/uL (1.0-4.4); LYMPHOCYTES PERCENT AUTO 15.5 % (18.4-52.1); MEAN CORPUSCULAR HEMOGLOBIN 30.9 pg (23.9-33.9); MEAN CORPUSCULAR HGB CONC 32.5 g/dL (31.9-34.8); MEAN CORPUSCULAR VOLUME 95.1 fL (76.7-100.5); MEAN PLATELET VOLUME 8.1 fL (7.1-12.4); NEUTROPHILS ABSOLUTE AUTO 9.3 x10-3/uL (1.5-6.3); NEUTROPHILS PERCENT AUTO 74.9 % (30.8-76.2); PLATELET COUNT,PLT 237 x10(3)uL (151-488); RED CELL DISTRIBUTION WIDTH 19.9 % (12.3-16.5); WHITE BLOOD CELL COUNT,WBC 12.4 x10-3/uL (3.0-10.3)
[2025-05-05 06:35] LABS: BLOOD UREA NITROGEN,BUN 19 mg/dL (7-18); CALCIUM 8.1 mg/dL (8.6-10.2); CARBON DIOXIDE,CO2 34 mmol/L (21-32); CHLORIDE,CL 103 mmol/L (100-110); CREATININE 0.5 mg/dL (0.55-1.02); EST CRCL DRUG DOSING (CG) 61.23 mL/min; ESTIMATED GFR 93 mL/min (>60); GLUCOSE RANDOM 123 mg/dL (80-116); POTASSIUM,K 3.3 mmol/L (3.5-5.3); SODIUM,NA 139 mmol/L (135-145)
[2025-05-05 06:43] LABS: RED BLOOD CELL COUNT 3.13 x10(6)uL (3.60-5.20)
[2025-05-05] MEDS ORDERED: Benzonatate 100 MG Cap PO PRN (09:21)
[2025-05-05] MEDS: Nystatin Crm 15 GM Tube TOP SCH (10:30)
[2025-05-05] MEDS: Furosemide 20 MG/2 ML VIAL IVPUSH ONE (10:31)
[2025-05-05] MEDS: Potassium Chloride 20 MEQ Tab.ER PO ONE (10:31)
[2025-05-05] MEDS: Magnesium Sulfate 2 GM/50 mL 2 GM in Premix Bag 1 BAG IV ONE (10:40)
[2025-05-05 13:42] LABS: MAGNESIUM 1.9 mg/dL (1.8-2.5); POTASSIUM,K 4.4 mmol/L (3.5-5.3)
[2025-05-05] MEDS: Acetaminophen 325 MG Tab PO PRN (16:24)
[2025-05-05] MEDS: guaiFENesin 100 MG/5 ML Soln 5 ML UD Cup PO PRN (16:25)
[2025-05-05] MEDS: Levofloxacin 750 MG Tab PO SCH (18:45)
[2025-05-06 10:57] VITALS: BP 116/62; PULSE 89
== END 2025-05-06 11:37 | DRG 871 ==
LOC: FB.ED 13:42 → FB.MS 17:12
PROVIDERS: ADMIT Emergency Medicine; ATTEND Internal Medicine
DX: A41.9 Sepsis, unspecified organism (principal); J96.91 Respiratory failure, unspecified with hypoxia; I50.33 Acute on chronic diastolic (congestive) heart failure; J44.89 Other specified chronic obstructive pulmonary disease; J18.9 Pneumonia, unspecified organism; J96.21 Acute and chronic respiratory failure with hypoxia; J96.22 Acute and chronic respiratory failure with hypercapnia; N39.0 Urinary tract infection, site not specified; J44.0 Chronic obstructive pulmonary disease with (acute) lower respiratory infection; R53.1 Weakness; I26.99 Other pulmonary embolism without acute cor pulmonale; Z68.43 Body mass index [BMI] 50.0-59.9, adult; E66.9 Obesity, unspecified; N17.9 Acute kidney failure, unspecified; G93.40 Encephalopathy, unspecified; E87.20 Acidosis, unspecified; I48.20 Chronic atrial fibrillation, unspecified; E66.2 Morbid (severe) obesity with alveolar hypoventilation; R65.20 Severe sepsis without septic shock; Z66 Do not resuscitate; H54.7 Unspecified visual loss; E78.00 Pure hypercholesterolemia, unspecified; I11.0 Hypertensive heart disease with heart failure; K21.9 Gastro-esophageal reflux disease without esophagitis; M19.90 Unspecified osteoarthritis, unspecified site; M79.7 Fibromyalgia; G62.9 Polyneuropathy, unspecified; G43.909 Migraine, unspecified, not intractable, without status migrainosus; F32.A Depression, unspecified; E03.9 Hypothyroidism, unspecified; Z96.649 Presence of unspecified artificial hip joint; Z96.659 Presence of unspecified artificial knee joint; R31.9 Hematuria, unspecified; E87.6 Hypokalemia; E83.42 Hypomagnesemia; R82.81 Pyuria; Z93.3 Colostomy status; Z88.0 Allergy status to penicillin; Z88.5 Allergy status to narcotic agent; Z88.8 Allergy status to other drugs, medicaments and biological substances; Z79.899 Other long term (current) drug therapy; Z79.51 Long term (current) use of inhaled steroids; Z79.52 Long term (current) use of systemic steroids; Z79.2 Long term (current) use of antibiotics; Z86.0100 Personal history of colon polyps, unspecified; Z90.49 Acquired absence of other specified parts of digestive tract; Z90.710 Acquired absence of both cervix and uterus; Z98.51 Tubal ligation status; Z90.722 Acquired absence of ovaries, bilateral; Z98.890 Other specified postprocedural states; Z99.81 Dependence on supplemental oxygen
CPT/HCPCS: 36415; 71045; 80053; 81001; 83605; 83880; 84484; 85025; 87040 ×2; 87077; 87086; 87088; 87186; 87426; 87449; 87899; 93005; 96365; 99285; J0692; J3372; 71260; 74177; 80048; 80202; 83735; 84132; 87641; 93308; 94150; 94640; 99223; 99232; 99238; A4353; A9270-GY; J1836; J1938; J3475; J3480; J7030; J7512; Q9967

== ENCOUNTER 2025-05-16 14:18 | Emergency (ER) | payer MEDICARE ==
[2025-05-16 14:40] LABS: GLUCOSE,URINE NORMAL (NORMAL); OCCULT BLOOD,URINE LARGE (NEGATIVE)
[2025-05-16 14:52] LABS: APPEARANCE,URINE SLIGHTLY CLOUDY (CLEAR); SQUAMOUS EPITHELIAL CELLS,UR FEW (NS,R,O)
[2025-05-16 14:53] LABS: YEAST,URINE MANY (NS)
[2025-05-16 15:19] LABS: BASOPHILS ABSOLUTE AUTO 0.1 x10-3/uL (0.0-0.1); BASOPHILS PERCENT AUTO 0.6 % (0.2-1.5); EOSINOPHILS ABSOLUTE AUTO 0.0 x10-3/uL (0.0-0.8); EOSINOPHILS PERCENT AUTO 0.2 % (0.6-8.1); LYMPHOCYTES ABSOLUTE AUTO 1.4 x10-3/uL (1.0-4.4); LYMPHOCYTES PERCENT AUTO 11.6 % (18.4-52.1); MEAN PLATELET VOLUME 8.3 fL (7.1-12.4); MONOCYTES ABSOLUTE AUTO 0.8 x10-3/uL (0.3-1.0); MONOCYTES PERCENT AUTO 7.1 % (4.4-15.7); NEUTROPHILS ABSOLUTE AUTO 9.6 x10-3/uL (1.5-6.3); NEUTROPHILS PERCENT AUTO 80.5 % (30.8-76.2); PLATELET COUNT,PLT 298 x10(3)uL (151-488); RED BLOOD CELL COUNT 3.47 x10(6)uL (3.60-5.20); RED CELL DISTRIBUTION WIDTH 19.2 % (12.3-16.5); WHITE BLOOD CELL COUNT,WBC 11.9 x10-3/uL (3.0-10.3)
[2025-05-16 15:30] LABS: BLOOD UREA NITROGEN,BUN 12 mg/dL (7-18); CARBON DIOXIDE,CO2 37 mmol/L (21-32); CHLORIDE,CL 99 mmol/L (100-110); CREATININE 0.8 mg/dL (0.55-1.02); EST CRCL DRUG DOSING (CG) 49.88 mL/min; ESTIMATED GFR 73 mL/min (>60); GLUCOSE RANDOM 206 mg/dL (80-116); POTASSIUM,K 4.2 mmol/L (3.5-5.3); SODIUM,NA 140 mmol/L (135-145)
[2025-05-16 17:16] VITALS: BP 154/78; PULSE 95
== END 2025-05-16 17:00 ==
LOC: FB.ED 14:18
DX: N39.0 Urinary tract infection, site not specified (principal); M54.9 Dorsalgia, unspecified; I48.91 Unspecified atrial fibrillation; I11.0 Hypertensive heart disease with heart failure; I50.9 Heart failure, unspecified; E78.00 Pure hypercholesterolemia, unspecified; E03.9 Hypothyroidism, unspecified; Z88.5 Allergy status to narcotic agent; Z88.0 Allergy status to penicillin; Z88.8 Allergy status to other drugs, medicaments and biological substances; Z79.899 Other long term (current) drug therapy; Z79.51 Long term (current) use of inhaled steroids; Z86.16 Personal history of COVID-19; Z90.49 Acquired absence of other specified parts of digestive tract
CPT/HCPCS: 36415; 80048; 81001; 85025; 87086; 99283; A9270

== ENCOUNTER 2025-06-14 16:03 | Emergency (ER) | payer MEDICARE ==
[2025-06-14 16:28] LABS: BASOPHILS ABSOLUTE AUTO 0.1 x10-3/uL (0.0-0.1); BASOPHILS PERCENT AUTO 0.5 % (0.2-1.5); EOSINOPHILS ABSOLUTE AUTO 0.0 x10-3/uL (0.0-0.8); EOSINOPHILS PERCENT AUTO 0.2 % (0.6-8.1); LYMPHOCYTES ABSOLUTE AUTO 1.7 x10-3/uL (1.0-4.4); LYMPHOCYTES PERCENT AUTO 15.8 % (18.4-52.1); MEAN PLATELET VOLUME 8.1 fL (7.1-12.4); MONOCYTES ABSOLUTE AUTO 1.0 x10-3/uL (0.3-1.0); MONOCYTES PERCENT AUTO 9.4 % (4.4-15.7); NEUTROPHILS ABSOLUTE AUTO 7.8 x10-3/uL (1.5-6.3); NEUTROPHILS PERCENT AUTO 74.1 % (30.8-76.2); PLATELET COUNT,PLT 249 x10(3)uL (151-488); RED CELL DISTRIBUTION WIDTH 19.2 % (12.3-16.5); WHITE BLOOD CELL COUNT,WBC 10.6 x10-3/uL (3.0-10.3)
[2025-06-14] MEDS: Furosemide 40 MG/4 ML VIAL IVPUSH ONE (16:29)
[2025-06-14 16:36] LABS: BASE EXCESS VENOUS,POC 18 mmol/L (-2 - 3+); PCO2 VENOUS,POC 74 mmHg (41-51); PH VENOUS,POC 7.41 pH Units (7.32-7.43)
[2025-06-14 16:36] LABS: A/G RATIO 0.9; ALANINE AMINOTRANSFERASE,ALT 24 U/L (12-36); ASPARTATE AMNIOTRANSFERASE,AST 20 IU/L (5-25); BILIRUBIN TOTAL 0.3 mg/dL (0.1-1.3); BLOOD UREA NITROGEN,BUN 30 mg/dL (7-18); CHLORIDE,CL 99 mmol/L (100-110); CREATININE 0.7 mg/dL (0.55-1.02); EST CRCL DRUG DOSING (CG) 43.74 mL/min; ESTIMATED GFR 86 mL/min (>60); GLUCOSE RANDOM 172 mg/dL (80-116); POTASSIUM,K 3.6 mmol/L (3.5-5.3); PROTEIN TOTAL,TP 7.0 g/dL (6.0-8.0); SODIUM,NA 145 mmol/L (135-145)
[2025-06-14 16:39] LABS: CARBON DIOXIDE,CO2 45 mmol/L (21-32); RED BLOOD CELL COUNT 3.51 x10(6)uL (3.60-5.20)
[2025-06-14 16:44] LABS: PRO B-TYPE NATRIUR PEPT,BNPPRO 857.0 pg/mL (<=450)
[2025-06-14 18:28] LABS: GLUCOSE,URINE NORMAL (NORMAL); OCCULT BLOOD,URINE LARGE (NEGATIVE)
[2025-06-14 18:30] LABS: APPEARANCE,URINE CLEAR (CLEAR)
[2025-06-14 18:31] LABS: SQUAMOUS EPITHELIAL CELLS,UR RARE (NS,R,O)
[2025-06-14 21:37] VITALS: BP 155/83; PULSE 83
== END 2025-06-14 21:20 ==
LOC: FB.ED 16:03
DX: J44.1 Chronic obstructive pulmonary disease with (acute) exacerbation (principal); R39.2 Extrarenal uremia; N28.9 Disorder of kidney and ureter, unspecified; E87.20 Acidosis, unspecified; R79.82 Elevated C-reactive protein (CRP); I11.0 Hypertensive heart disease with heart failure; I50.9 Heart failure, unspecified; J44.89 Other specified chronic obstructive pulmonary disease; K21.9 Gastro-esophageal reflux disease without esophagitis; E78.00 Pure hypercholesterolemia, unspecified; E66.9 Obesity, unspecified; E03.9 Hypothyroidism, unspecified; Z88.0 Allergy status to penicillin; Z88.5 Allergy status to narcotic agent; Z88.8 Allergy status to other drugs, medicaments and biological substances; Z79.899 Other long term (current) drug therapy; Z86.16 Personal history of COVID-19; Z90.49 Acquired absence of other specified parts of digestive tract; Z90.710 Acquired absence of both cervix and uterus; Z87.891 Personal history of nicotine dependence
CPT/HCPCS: 36415; 71045; 80053; 81001; 83605; 83880; 84484; 85025; 86140; 96374; 99285-25; A9270-GY; J1938